=== PATIENT | female | born 1940 | race Caucasian/White ===

== ENCOUNTER 2024-08-24 20:57 | Emergency (ER) | payer MEDICARE, SELFPAY ==
[2024-08-24 21:03] VITALS: BP 133/67; PULSE 72; RESP 16; TEMP 36.8; O2SAT 98
[2024-08-24 21:10] VITALS: BP 133/67; PULSE 72; RESP 16; TEMP 36.8; O2SAT 98
--- NOTE | 2024-08-24 21:53 | W.ED.GENAD ---
Discharge Plan Disposition Patient Disposition: Transfer-Acute Inpatient Care Specific Acute Inpt Facility: [facility] Condition: Stable Discharge Details Clinical Impression: Anemia Primary Care Provider: Melba Vieira ED Provider: Piyush Suggs Home Meds and New Rx's Prescriptions: Continued amlodipine 5 mg tablet 5 mg PO DAILY hydrochlorothiazide 25 mg tablet 25 mg PO QDAY atorvastatin 20 mg tablet 20 mg PO DAILY omeprazole 20 mg capsule,delayed release(DR/EC) 20 mg PO DAILY zanubrutinib 80 mg capsule 80 mg PO DAILY Discharge Data Discharge Date/Time-TO BE ENTERED AT DEPARTURE: 08/24/24 22:53 HPI General Date/Time Provider Initiated Documentation: 08/24/24 21:09. HPI Narrative: 83 year-old female presents to ED today by POV/ambulating with a chief complaint of had labs drawn at [facility] earlier today- shows critical anemia with HgB of 6.2, in the setting of chronic Waldenstrom's macroglobulinemia. Patient was directed to come to [facility] by [facility] Hematology staff- [facility] is their usual facility, but stated they could not help the patient with any transfusion of irradiated blood. Quality described as mild dizziness when standing, no radiation to shortness of breath, recent URI, chest pain, palpitations, nausea. Severity is described as mild to moderate. Palliating factors include nothing specific attempted. Provoking factors include nothing specific. Events leading up to the incident/Associated Symptoms: Patient is about to start zanubrutinib, but has not initiated this medicine yet. Patient not anticoagulated. Related Data Home Medications ?Medication ?Instructions ?Recorded ?Confirmed amlodipine 5 mg tablet 5 mg PO DAILY 08/24/24 08/24/24 atorvastatin 20 mg tablet 20 mg PO DAILY 08/24/24 08/24/24 hydrochlorothiazide 25 mg tablet 25 mg PO QDAY 08/24/24 08/24/24 omeprazole 20 mg capsule,delayed 20 mg PO DAILY 08/24/24 08/24/24 release zanubrutinib 80 mg capsule 80 mg PO DAILY 08/24/24 08/24/24 Allergies Allergy/AdvReac Type Severity Reaction Status Date / Time codeine AdvReac Mild Itching Verified 08/24/24 21:09 General Stated Complaint: GenMedical KAY: 3 Review of Systems All systems reviewed & are unremarkable except as noted in HPI and below Exam Narrative Exam Narrative: GENERAL APPEARANCE: Well-nourished, non-toxic, awake and alert, atraumatic, no acute distress. SKIN: Warm, pink, dry, intact, without rashes/lesions/ulcerations. HEAD: Normocephalic, atraumatic, normal hair distribution for gender/age. EYES: Normal conjunctiva, no exudates on lids/lashes. ENT: Nares patent, no circumoral cyanosis, no facial swelling NECK: Supple, trachea midline, painless cervical ROM. LUNGS/CHEST: Lungs CTA bilaterally, non-labored respirations, normal A/P diameter, symmetrical expansion, no chest wall deformity HEART (CV/PV): Regular rate and rhythm without murmur, no peripheral edema, no JVD. ABDOMEN: Soft, non-distended, no guarding. MSK: Normal ROM, no swelling/deformity to bilateral UEs or LEs, moving all extremities without weakness, no cyanosis, spine midline without tenderness, normal curvature. NEURO: Mental Status AAOx4 - alert to person, place, time, events No facial droop, no forehead involvement. Motor: No focal weakness - strength 5/5 in bilateral UEs and LEs, proximal and distal, symmetric. Sensory: sensation intact to light touch globally. Gait normal: patient ambulated without ataxia into ED room. PSYCH: euthymic, cooperative, pleasant, appropriate speech Course Vital Signs Vital signs: Vital Signs Temperature 36.8 C 08/24/24 21:03 Pulse 72 08/24/24 21:03 Respiratory Rate 16 08/24/24 21:03 Blood Pressure 133/67 08/24/24 21:03 Pulse Oximetry 98 08/24/24 21:03 Temperature 36.8 C 08/24/24 21:10 Pulse 72 08/24/24 21:10 Respiratory Rate 16 08/24/24 21:10 Blood Pressure 133/67 08/24/24 21:10 Pulse Oximetry 98 08/24/24 21:10 Pain Level 0 08/24/24 21:10 Medical Decision Making This dictation utilizes [id number] dictation software and may contain unedited grammatical errors. 83 year-old female presents to ED today by POV/ambulating with a chief complaint of had labs drawn at [facility] earlier today- shows critical anemia with HgB of 6.2, in the setting of chronic Waldenstrom's macroglobulinemia. Patient was directed to come to [facility] by [facility] Hematology staff- [facility] is their usual facility, but stated they could not help the patient with any transfusion of irradiated blood. Quality described as mild dizziness when standing, no radiation to shortness of breath, recent URI, chest pain, palpitations, nausea. Severity is described as mild to moderate. Palliating factors include nothing specific attempted. Provoking factors include nothing specific. Events leading up to the incident/Associated Symptoms: Patient is about to start zanubrutinib, but has not initiated this medicine yet. Patients' medical history: Waldenstr?m's macroglobulinemia, pancytopenia. Family and social history: Lives independently, eats normal diet, no sick contacts. Pertinent exam findings / vital signs include benign cardiopulmonary status, stable vitals, neuro intact, benign abdomen. Differential / pathologies of concern include anemia. Diagnostic studies of: -CBC, CMP, type and screen. -Results after transfer- hypokalemia of 3.0, mild hyponatremia 134, SCr 1.3, unknown baseline -CBC shows HgB/HCT - 6.4, 19.8, faxed to [facility] after POV transfer -Type and Screen A POS Interventions of: -Consult with [facility] hematology-question need for irradiated blood products that she has not initiated chemotherapy yet. ED Course/Assessment/Plan: 83-year-old female presents with mild dizziness with standing, has a known Waldenstrom's macroglobulinemia- has had prior transfusions at [facility], followed by Heme/Onc there. Patient was directed to [facility] today for transfusion of irradiated blood- typically this is stars specialist'd in an urgent but not emergent manner and would likely be at this facility by midday tomorrow at the earliest. I would assume [facility] would have identical capability to provide this service. [facility] transfer center did speak with hematology who would like the patient sent ED to ED for transfusion of irradiated blood products. I did speak with EM attending Dr. Bradford at 220 who accepted for transfer- I will leave the patients peripheral IV in place as there is no risk for IVDU, and patient likely does not need to be poked again. Patient has a ride that can bring her to [facility]. She has required transfusions at this facility specifically in the past. Patient agrees with plan, CBC and Type and Screen are pending here at time of transfer. Findings not consistent with active bleeding. Disposition of Anemia. Patient verbalized understanding of the plan and return to ED criteria and engaged in shared decision making. Medical Records Medical records reviewed: Yes I reviewed the patient's medical records. Lab Data Lab results reviewed: Yes I reviewed the patient's lab results. Labs: Laboratory Tests Range/Units 08/24/24 22:06 WBC (4.4-10.8) 10^3/uL 3.21 L RBC (3.93-5.22) 10^6/uL 1.93 L Hgb (11.2-15.7) g/dL 6.4 L* Hct (36.0-46.0) % 19.8 L* MCV (80-95) fL 103 H MCH (27.0-33.0) pg 33.2 H MCHC (32.0-36.0) % 32.3 RDW (11.7-14.6) % 21.5 H Plt Count (130-400) 10^3/uL 101 L MPV (8.0-11.0) fL 9.5 Immature Gran % % 1.6 Neutrophils % % 48.9 Lymphocytes % % 37.4 Monocytes % % 10.6 Eosinophils % % 1.2 Basophils % % 0.3 Nucleated RBC % (0.0-0.3) % 0.6 H Absolute Neutrophils (1.2-6.7) 10^3/uL 1.57 Absolute Lymphocytes (1.2-3.4) 10^3/uL 1.20 Absolute Monocytes (0.1-0.8) 10^3/uL 0.34 Absolute Eosinophils (0.0-0.7) 10^3/uL 0.04 Absolute Basophils (0.0-0.2) 10^3/uL 0.01 RBC Morphology See Below Polychromasia Present Hypochromasia 2+ Poikilocytosis 2+ Anisocytosis 1+ Macrocytosis 1+ Sodium (136-145) mmol/L 134 L Potassium (3.5-5.1) mmol/L 3.0 L Chloride (98-107) mmol/L 97 L Carbon Dioxide (21.0-32.0) mmol/L 30.2 Anion Gap (3-11) mmol/L 6.8 BUN (7-18) mg/dL 21 H Creatinine (0.55-1.02) mg/dL 1.3 H Est GFR (CKD-EPI 2020) (mL/min/1.73m2) 40.55 Glucose (74-106) mg/dL 131 H Calcium (8.5-10.1) mg/dL 9.6 Total Bilirubin (0.2-1.0) mg/dL 0.52 AST (15-37) U/L 22 ALT (14-59) U/L 17 Alkaline Phosphatase (46-116) U/L 65 Total Protein (6.4-8.2) g/dL 11.7 H Albumin (3.4-5.0) g/dL 3.3 L ABO/Rh Cancelled Antibody Screen Cancelled Quality:SDOH Health Related Social Needs: No Data to Display PFSH All Active Problems (Updated 08/24/24 @ 22:18 by JERRY Suarez) Anemia (Chronic) Social History Smoking/Tobacco Use Status: Never Smoking risk assessment performed?: Yes Alcohol Intake: current Alcohol Intake frequency: holidays/special occasions only Alcohol type: wine Drug use: Never Substance use type: does not use Housing: house
[2024-08-24 22:11] VITALS: RESP 18
--- OUTSIDE RECORDS SUMMARY | 2024-08-24 22:13 | XMS_ITS ---
Author Organization Unknown Address [address] [place] [address] [phone] Phone Care Team Providers Care Intake Manager Name Role Phone DELLA CRESPO Attending Unavailable Results CALCIUM SERUM TOTAL - Collec t Date/Time: 09/25/2021 13:15 [facility] ID: [id number] [address] [place] [address], [address] LOINC: 80498-3 Test Value Unit Reference Range Code Code System Flag CALCIUM SERUM 9.7 mg/dL L=8.2 H=10.2 07256-9 LOINC CREATININE SERUM - Collect D ate/Time: 09/25/2021 13:15 [facility] ID: [id number] [address] [place] [address], [address] LOINC: 2160-0 Test Value Unit Reference Range Code Code System Flag CREATININE 0.75 mg/dL L=0.51 H=0.95 2160-0 LOINC AGE 81 years eGFR (non-Afr.Amer.) 74 mL/min 44182-4 LOINC eGFR (Afr-[place]i) 90 mL/min 10473-3 LOINC Social History Type Status Start Date End Date Code Code Syst em Smoking History Never smoker (Never Smoked) 639809889 SNOMED CT Sex Female Hospital Discharge Instructions Should you have any questions prior to discharge, please contact a member of your healthcare team. If you have left the hospital and have any questions, please contact your primary care physician. Reason For Referral No Data Found Allergies and Adverse Reactions Allergy Substance Reaction Severity Start Date Concern Status Co de Code System CODEINE Active 7394 RxNorm Plan of Treatment LAB DRAW 15MIN 08/01/2024 LAB DRAW 15MIN 07/25/2024 LAB DRAW 15MIN 07/18/2024 LAB DRAW 15MIN 07/01/2024 LAB DRAW 15MIN 06/24/2023 X-RAY 12/10/2021 Encounters Encounter Diagnosis Start Date Code Code Sys tem Other specified disorders of bone density and structure, unspecified site 09/25/2021 SNOMED-CT Personal Care Team Section Performer Name Performer Role Active Date Inactive Tavon te
--- OUTSIDE RECORDS SUMMARY | 2024-08-24 22:14 | XMS_ITS ---
Author Organization Unknown Address [address] [place] [address] [phone] Phone Care Team Providers Care Collection Analyst Name Role Phone LISETH GARCIA Attending Unavailable KIRSTEN Orellana Primary Unavailable Results XR PELVIS AND HIP LAT LT - C ompleted: 12/10/2021 13:26 LOINC: PELVIS AND LEFT HIP, 2 VIEWS : No priors. In the left hip, there is moderate joint space narrowing. The bones are intact and normally mineralized. The sacroiliac joints are well maintained, as is the symphysis pubis. In the right hip, mild joint space narrowing is present. IMPRESSION: Moderate joint space narrowing of the left hip. Dictated by: RICARDO MERIDA MD Transcribed by: REYNOLD 12/11/21/14:30 [id number] Electronically Reviewed and Signed By: ANTOINE MERIDA MD 12/13/21 09:40 Copy for: LISETH GARCIA via fax Copy for: 185 HEALTH INFORMATION MGMT Social History Type Status Start Date End Date Code Code Syst em Smoking History Never smoker (Never Smoked) 802579552 SNOMED CT Sex Female Hospital Discharge Instructions Should you have any questions prior to discharge, please contact a member of your healthcare team. If you have left the hospital and have any questions, please contact your primary care physician. Reason For Referral No Data Found Allergies and Adverse Reactions Allergy Substance Reaction Severity Start Date Concern Status Co de Code System CODEINE Active 2710 RxNorm Plan of Treatment LAB DRAW 15MIN 08/01/2024 LAB DRAW 15MIN 07/25/2024 LAB DRAW 15MIN 07/18/2024 LAB DRAW 15MIN 07/01/2024 LAB DRAW 15MIN 06/24/2023 X-RAY 12/10/2021 Encounters Encounter Diagnosis Start Date Code Code Sys tem Unilateral primary osteoarthritis, left hip 12/10/2021 SNOMED-CT Personal Care Team Section Performer Name Performer Role Active Date Inactive Da te
--- OUTSIDE RECORDS SUMMARY | 2024-08-24 22:14 | XMS_ITS ---
Author Organization Unknown Address [address] [place] [address] [phone] Phone Care Team Providers Care Communication Coordinator Name Role Phone KIRSTEN Orellana Attending Unavailable Results BASIC METABOLIC PANEL (BMP) - Collect Date/Time: 06/24/2023 10:11 [facility] ID: [id number] [address] [place] [address], [address] LOINC: 67160-3 Test Value Unit Reference Range Code Code System Flag GLUCOSE 107 mg/dL L=70 H=116 2345-7 LOINC BUN 27 mg/dL L=6 H=25 3094-0 LOINC H CREATININE 0.83 mg/dL L=0.51 H=0.95 2160-0 LOINC SODIUM SERUM 141 mmol/L L=136 H=145 2951-2 LOINC POTASSIUM SERUM 3.4 mmol/L L=3.4 H=5.2 2823-3 LOINC CHLORIDE SERUM 101 mmol/L L=96 H=110 2075-0 LOINC CARBON DIOXIDE (CO2) 32 mmol/L L=22 H=34 2028-9 LOINC ANION GAP 7.7 mmol/L 53819-0 LOINC CALCIUM SERUM 9.3 mg/dL L=8.2 H=10.2 26905-0 LOINC AGE 82 years eGFR (non-Afr.Amer.) 66 mL/min 14387-4 LOINC eGFR (Afr-Italian) 79 mL/min 76078-1 LOINC Social History Type Status Start Date End Date Code Code Syst em Smoking History Never smoker (Never Smoked) 916389496 SNOMED CT Sex Female Hospital Discharge Instructions Should you have any questions prior to discharge, please contact a member of your healthcare team. If you have left the hospital and have any questions, please contact your primary care physician. Reason For Referral No Data Found Allergies and Adverse Reactions Allergy Substance Reaction Severity Start Date Concern Status Co de Code System CODEINE Active 7014 RxNorm Plan of Treatment LAB DRAW 15MIN 08/01/2024 LAB DRAW 15MIN 07/25/2024 LAB DRAW 15MIN 07/18/2024 LAB DRAW 15MIN 07/01/2024 LAB DRAW 15MIN 06/24/2023 X-RAY 12/10/2021 Encounters Encounter Diagnosis Start Date Code Code Sys tem Essential (primary) hypertension 06/24/2023 SNOMED-CT Personal Care Team Section Performer Name Performer Role Active Date Inactive Da te
--- OUTSIDE RECORDS SUMMARY | 2024-08-24 22:15 | XMS_ITS ---
Author Organization Unknown Address [address] [place] [address] [phone] Phone Care Team Providers Care Test Deck Supervisor Name Role Phone KIRSTEN Orellana Attending Unavailable Results CBC W/ DIFFERENTIAL* - Colle ct Date/Time: 07/04/2024 10:14 [facility] ID: [id number] [address] [place], [place], [address] LOINC: 28267-3 Test Value Unit Reference Range Code Code System Flag WBC 3.37 th/cmm L=5.00 H=10.00 6690-2 LOINC L NEUT % 39.2 % L=40.0 H=80.0 L LYMPH % 42.7 % L=10.0 H=50.0 MONO % 15.4 % L=2.0 H=12.0 56330-9 LOINC H EOS % 1.5 % L=0.0 H=8.0 BASO % 0.3 % L=0.0 H=3.0 IG % 0.9 % L=0.0 H=1.1 2514-8 LOINC NRBC % 0.0 % L=0.0 H=0.0 49068-9 LOINC NEUT abs count 1.3 th/cmm L=1.6 H=8.4 751-8 LOINC L LYMPH abs count 1.4 th/cmm L=1.5 H=4.0 731-0 LOINC L MONO abs count 0.5 th/cmm L=0.2 H=1.0 742-7 LOINC EOS abs count 0.1 th/cmm L=0.0 H=0.5 711-2 LOINC BASO abs count 0.0 th/cmm L=0.0 H=0.2 704-7 LOINC IG abs count 0.0 th/cmm L=0.0 H=0.1 94746-9 LOINC NRBC abs count 0.0 mil/cmm L=0.0 H=0.0 36079-4 LOINC RBC 1.82 mil/cmm L=3.90 H=5.40 789-8 LOINC L HEMOGLOBIN 7.1 gm/dL L=12.0 H=16.0 718-7 LOINC L HEMATOCRIT 19 % L=37 H=47 4544-3 LOINC LL MCV 103 fL L=82 H=92 787-2 LOINC H MCH 39.0 pg L=27.0 H=31.0 785-6 LOINC H MCHC 37.8 % L=32.0 H=36.0 786-4 LOINC H RDW-SD 70.3 fL L=39.0 H=49.0 788-0 LOINC H PLATELET COUNT 113 th/cmm L=150 H=450 777-3 LOINC L Giant plts PRESENT Rouleaux present Anisocytosis 2+ Microcytes 2+ Macrocytes 1+ Polychromia 1+ Spherocytes 1+ FERRITIN - Collect Date/Time : 07/04/2024 10:14 [facility] ID: [id number] [address] [place] [address], [address] LOINC: 2276-4 Test Value Unit Reference Range Code Code System Flag FERRITIN 60.90 ng/mL L=11.10 H=264 2276-4 LOINC IRON BINDING CAPACITY - Jaylin ect Date/Time: 07/04/2024 10:14 [facility] ID: [id number] [address] [place] [address], [address] LOINC: 2500-7 Test Value Unit Reference Range Code Code System Flag IBC 285 ug/dL L=265 H=497 2500-7 LOINC IRON - Collect Date/Time: 10:14 [facility] ID: [id number] [address] [place] [address], [id number] LOINC: 2498-4 Test Value Unit Reference Range Code Code System Flag IRON 121 ug/dL L=37 H=170 2498-4 LOINC Social History Type Status Start Date End Date Code Code Syst em Smoking History Never smoker (Never Smoked) [id number] SNOMED CT Sex Female Hospital Discharge Instructions Should you have any questions prior to discharge, please contact a member of your healthcare team. If you have left the hospital and have any questions, please contact your primary care physician. Reason For Referral No Data Found Allergies and Adverse Reactions Allergy Substance Reaction Severity Start Date Concern Status Co de Code System CODEINE Active 2772 RxNorm Plan of Treatment LAB DRAW 15MIN 08/01/2024 LAB DRAW 15MIN 07/25/2024 LAB DRAW 15MIN 07/18/2024 LAB DRAW 15MIN 07/01/2024 LAB DRAW 15MIN 06/24/2023 X-RAY 12/10/2021 Encounters Encounter Diagnosis Start Date Code Code Sys tem Anemia 07/04/2024 [id number] SNOMED-CT Personal Care Team Section Performer Name Performer Role Active Date Inactive Da te
--- OUTSIDE RECORDS SUMMARY | 2024-08-24 22:15 | XMS_ITS ---
Author Organization Unknown Address [address] [place] [address] [phone] Phone Care Team Providers Care Websphere Process Server Developer Name Role Phone DALY GUERRERO Attending Unavailable KIRSTEN Orellana Primary Unavailable Results COMPREHENSIVE METABOLIC PANE L (CMP) - Collect Date/Time: 07/01/2024 11:07 [facility] ID: [id number] [address] [place], [place], [address] LOINC: 32923-1 Test Value Unit Reference Range Code Code System Flag GLUCOSE 117 mg/dL L=70 H=116 2345-7 LOINC H BUN 21 mg/dL L=7 H=17 3094-0 LOINC H CREATININE 0.96 mg/dL L=0.52 H=1.04 2160-0 LOINC SODIUM SERUM 141 mmol/L L=136 H=145 2951-2 LOINC POTASSIUM SERUM 3.3 mmol/L L=3.4 H=5.2 2823-3 LOINC L CHLORIDE SERUM 101 mmol/L L=98 H=107 2075-0 LOINC CARBON DIOXIDE (CO2) 28 mmol/L L=22 H=30 2028-9 LOINC ANION GAP 12.0 mmol/L 74694-1 LOINC CALCIUM SERUM 10.0 mg/dL L=8.4 H=10.2 25721-3 LOINC BILIRUBIN TOTAL 0.6 mg/dL L=0.2 H=1.3 1975-2 LOINC ALK. PHOS. 71 U/L L=38 H=126 6768-6 LOINC SGOT (AST) 37 U/L L=14 H=36 1920-8 LOINC H SGPT (ALT) 26 U/L L=4 H=35 1742-6 LOINC TOTAL PROTEIN 11.7 gm/dL L=6.0 H=8.0 2885-2 [facility] H ALBUMIN 4.7 gm/dL L=3.4 H=5.0 1751-7 LOINC AGE 83 years eGFR (non-Afr.Amer.) 55 mL/min 55970-0 LOINC eGFR (Afr-[place] Islander) 67 mL/min 16080-8 [facility] IRON - Collect Date/Time: 11:07 [facility] ID: [id number] [address] [place] [address], [id number] LOINC: 2498-4 Test Value Unit Reference Range Code Code System Flag IRON 122 ug/dL L=37 H=170 2498-4 [facility] CPK SERUM TOTAL* - Collect D ate/Time: 07/01/2024 11:07 [facility] ID: [id number] [address] [place] [address], [address] LOINC: 2157-6 Test Value Unit Reference Range Code Code System Flag CPK 91 U/L L=30 H=135 2157-6 [facility] Specimen seq. RANDOM HEMOGLOBIN A1C* - Collect Da te/Time: 07/01/2024 11:07 [facility] ID: [id number] [address] [place] [address], [address] LOINC: 4548-4 Test Value Unit Reference Range Code Code System Flag Hgb A1c 5.1 % L=4.0 H=5.7 4548-4 [facility] MEAN BLOOD GLUCOSE 84 mg/dL 10963-9 [facility] THYROID TESTING CASCADE* - C ollect Date/Time: 07/01/2024 11:07 [facility] ID: [id number] [address] [place] [address], [address] LOINC: 3016-3 Test Value Unit Reference Range Code Code System Flag TSH. 3.380 uIU/mL L=0.465 H=4.680 3014-8 [facility] CBC W/ DIFFERENTIAL* - Colle ct Date/Time: 07/01/2024 11:07 [facility] ID: [id number] [address] [place], [place], [address] LOINC: 15214-6 Test Value Unit Reference Range Code Code System Flag WBC 3.25 th/cmm L=5.00 H=10.00 6690-2 LOINC L NEUT % 46.5 % L=40.0 H=80.0 LYMPH % 38.8 % L=10.0 H=50.0 MONO % 11.7 % L=2.0 H=12.0 08730-4 LOINC EOS % 1.2 % L=0.0 H=8.0 BASO % 0.6 % L=0.0 H=3.0 IG % 1.2 % L=0.0 H=1.1 2514-8 LOINC H NRBC % 0.6 % L=0.0 H=0.0 26241-1 LOINC H NEUT abs count 1.5 th/cmm L=1.6 H=8.4 751-8 LOINC L LYMPH abs count 1.3 th/cmm L=1.5 H=4.0 731-0 LOINC L MONO abs count 0.4 th/cmm L=0.2 H=1.0 742-7 LOINC EOS abs count 0.0 th/cmm L=0.0 H=0.5 711-2 LOINC BASO abs count 0.0 th/cmm L=0.0 H=0.2 704-7 LOINC IG abs count 0.0 th/cmm L=0.0 H=0.1 57000-1 LOINC NRBC abs count 0.0 mil/cmm L=0.0 H=0.0 22558-1 LOINC RBC 1.90 mil/cmm L=3.90 H=5.40 789-8 LOINC L HEMOGLOBIN 7.4 gm/dL L=12.0 H=16.0 718-7 LOINC L HEMATOCRIT 20 % L=37 H=47 4544-3 LOINC LL MCV 103 fL L=82 H=92 787-2 LOINC H MCH 38.9 pg L=27.0 H=31.0 785-6 LOINC H MCHC 37.9 % L=32.0 H=36.0 786-4 LOINC H RDW-SD 69.0 fL L=39.0 H=49.0 788-0 LOINC H PLATELET COUNT 117 th/cmm L=150 H=450 777-3 LOINC L Giant plts present Rouleaux present Anisocytosis 2+ Macrocytes 1+ Hypochromia 2+ Polychromia 1+ Social History Type Status Start Date End Date Code Code Syst em Smoking History Never smoker (Never Smoked) [id number] SNOMED CT Sex Female Hospital Discharge Instructions Should you have any questions prior to discharge, please contact a member of your healthcare team. If you have left the hospital and have any questions, please contact your primary care physician. Reason For Referral No Data Found Allergies and Adverse Reactions Allergy Substance Reaction Severity Start Date Concern Status Co de Code System CODEINE Active 3684 RxNorm Plan of Treatment LAB DRAW 15MIN 08/01/2024 LAB DRAW 15MIN 07/25/2024 LAB DRAW 15MIN 07/18/2024 LAB DRAW 15MIN 07/01/2024 LAB DRAW 15MIN 06/24/2023 X-RAY 12/10/2021 Encounters Encounter Diagnosis Start Date Code Code Sys tem Asthenia 07/01/2024 [id number] SNOMED-CT Personal Care Team Section Performer Name Performer Role Active Date Inactive Tavon diaz
--- OUTSIDE RECORDS SUMMARY | 2024-08-24 22:15 | XMS_ITS ---
Author Organization Unknown Address [address] [place] [address] [phone] Phone Care Team Providers Care Still Cleaner Tube Name Role Phone FITO Jacobs NEFTALI Registered Nurse Unavailab joanie MARTINEZ Attending Unavailable [facility] Unavailable TROUT ALEXSANDRA C Primary Unavailable UNLISTED PROVIDER - REQUESTED Xhandoff Un available Results URINALYSIS WITH MICRO AND RE FLEX CULTUR* - Collect Date/Time: 07/04/2024 18:35 [facility] ID: [id number] [address] [place], [place], [address] LOINC: 41784-9 Test Value Unit Reference Range Code Code System Flag COLLECTION MODE: CLEAN CATCH 74102-0 LOINC Color STRAW yellow 5778-6 LOINC Appearance CLEAR clear 5767-9 LOINC Glucose urine NEGATIVE negative mg/dl 76007-3 LOINC Bilirubin NEGATIVE negative 5770-3 LOINC Ketones NEGATIVE negative mg/dl 2514-8 LOINC Spec gravity 1.015 1.003 - 1.030 5811-5 LOINC pH urine 7.0 5.0 - 7.0 2756-5 LOINC Protein NEGATIVE negative mg/dl 81088-6 LOINC Urobilinogen 0.2 <or= 1 EU/dl 74264-2 LOINC Nitrite. NEGATIVE negative 5802-4 LOINC Blood NEGATIVE negative 5794-3 LOINC Leukocytes. TRACE negative A WBCs. 0-5 0-5 / hpf 89742-9 LOINC RBCs 0-5 0-5 / hpf 34458-2 LOINC Epith cells 0-5 0-5 / hpf 47332-0 LOINC Cell types squam+trans Crystals none none Bacteria minimal none Mucus none none Casts none none /lpf Other PT PROTHROMBIN TIME* - Colle ct Date/Time: 07/04/2024 17:43 [facility] ID: [id number] [address] [place] [address], [address] LOINC: 5902-2 Test Value Unit Reference Range Code Code System Flag PROTIME 10.5 seconds L=9.3 H=11.4 5902-2 LOINC INR 1.00 L=2.00 H=3.00 27441-2 LOINC L PTT PARTIAL THROMBOPLASTIN T KJ* - Collect Date/Time: 07/04/2024 17:43 [facility] ID: [id number] [address] [place] [address], [address] LOINC: 42312-1 Test Value Unit Reference Range Code Code System Flag PTT 21.6 seconds L=24.5 H=32.8 82467-1 LOINC L COMPREHENSIVE METABOLIC PANE L (CMP) - Collect Date/Time: 07/04/2024 17:43 [facility] ID: [id number] [address] [place] [address], [address] LOINC: 76356-2 Test Value Unit Reference Range Code Code System Flag GLUCOSE 108 mg/dL L=70 H=116 2345-7 LOINC BUN 18 mg/dL L=7 H=17 3094-0 LOINC H CREATININE 0.99 mg/dL L=0.52 H=1.04 2160-0 LOINC SODIUM SERUM 143 mmol/L L=136 H=145 2951-2 LOINC POTASSIUM SERUM 3.7 mmol/L L=3.4 H=5.2 2823-3 LOINC CHLORIDE SERUM 102 mmol/L L=98 H=107 2075-0 LOINC CARBON DIOXIDE (CO2) 30 mmol/L L=22 H=30 2028-9 LOINC ANION GAP 11.1 mmol/L 78157-8 LOINC CALCIUM SERUM 10.8 mg/dL L=8.4 H=10.2 49192-3 LOINC H BILIRUBIN TOTAL 0.4 mg/dL L=0.2 H=1.3 1975-2 LOINC ALK. PHOS. 89 U/L L=38 H=126 6768-6 LOINC SGOT (AST) 44 U/L L=14 H=36 1920-8 LOINC H SGPT (ALT) 25 U/L L=4 H=35 1742-6 LOINC TOTAL PROTEIN 12.7 gm/dL L=6.0 H=8.0 2885-2 LOINC HH ALBUMIN 4.6 gm/dL L=3.4 H=5.0 1751-7 LOINC AGE 83 years eGFR (non-Afr.Amer.) 53 mL/min 68437-0 LOINC eGFR (Afr-Pakistani) 65 mL/min 38133-1 LOINC TYPE AND SCREEN* - Collect D ate/Time: 07/04/2024 17:43 [facility] ID: [id number] [address] [place], [place], [phone] LOINC: Test Value Unit Reference Range Code Code System Flag Blood Group A 883-9 LOINC Rh (D) POSITIVE 85747-7 LOINC Antibody Screen NEGATIVE 1005-8 LOINC CBC W/ DIFFERENTIAL* - Colle ct Date/Time: 07/04/2024 17:43 [facility] ID: [id number] [address] [place] [address], [address] LOINC: 60557-9 Test Value Unit Reference Range Code Code System Flag WBC 3.55 th/cmm L=5.00 H=10.00 6690-2 LOINC L NEUT % 44.2 % L=40.0 H=80.0 LYMPH % 41.7 % L=10.0 H=50.0 MONO % 12.4 % L=2.0 H=12.0 02464-9 LOINC H EOS % 0.6 % L=0.0 H=8.0 BASO % 0.3 % L=0.0 H=3.0 IG % 0.8 % L=0.0 H=1.1 2514-8 LOINC NRBC % 0.6 % L=0.0 H=0.0 64924-7 LOINC H NEUT abs count 1.6 th/cmm L=1.6 H=8.4 751-8 LOINC LYMPH abs count 1.5 th/cmm L=1.5 H=4.0 731-0 LOINC MONO abs count 0.4 th/cmm L=0.2 H=1.0 742-7 LOINC EOS abs count 0.0 th/cmm L=0.0 H=0.5 711-2 LOINC BASO abs count 0.0 th/cmm L=0.0 H=0.2 704-7 LOINC IG abs count 0.0 th/cmm L=0.0 H=0.1 47161-2 LOINC NRBC abs count 0.0 mil/cmm L=0.0 H=0.0 67387-7 LOINC RBC 2.20 mil/cmm L=3.90 H=5.40 789-8 LOINC L HEMOGLOBIN 8.4 gm/dL L=12.0 H=16.0 718-7 LOINC L HEMATOCRIT 23 % L=37 H=47 4544-3 LOINC LL MCV 103 fL L=82 H=92 787-2 LOINC H MCH 38.2 pg L=27.0 H=31.0 785-6 LOINC H MCHC 37.2 % L=32.0 H=36.0 786-4 LOINC H RDW-SD 71.0 fL L=39.0 H=49.0 788-0 LOINC H PLATELET COUNT 133 th/cmm L=150 H=450 777-3 LOINC L Rouleaux present Anisocytosis 2+ Hypochromia 1+ Polychromia 1+ XR CHEST 2V PA AND LATERAL - Completed: 07/04/2024 20:41 LOINC: [facility] RADIOLOGY [place], [place] [address] RADIOLOGY VAT PACKER REPORT Patient Name: NARDA REDD MRN: Sex: : Age: [id number] F 1940 83 Account: Accession: Admit: StayType: [id number] 07/04/2024 E Ordered: Order ID: Submitted: Ordering Provider: 07/04/2024 20:04 [id number] TASHA BOWERS Completed: Technologist: Resulted: 07/04/2024 20:17 KVK 07/04/2024 21:04 EXAMINATION: XR CHEST 2V PA AND LATERAL CLINICAL HISTORY: Reason for Chest: SOB Add'l Info: TECHNIQUE: PA and lateral views of the chest, 2 images COMPARISON: None FINDINGS: EKG leads are present. No airspace opacity to suggest pneumonia. No pulmonary vascular congestion. No pneumothorax. No pleural effusions. Normal size of the cardiomediastinal silhouette and bernabe. There is calcification of the aortic arch. 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 No acute osseous findings. There are some flattening of the diaphragms on the lateral view. IMPRESSION: 1. Hyperexpansion suggesting underlying obstructive pulmonary disease. 2. No acute cardiopulmonary process. Thank you for letting us participate in the care of this patient. If you are a health care provider and have any questions regarding this report, please contact the number below. For patients who have questions please contact the health wound care technician that requested your imaging first. Social History Type Status Start Date End Date Code Code Syst em Smoking History Never smoker (Never Smoked) 931370128 SNOMED CT Sex Female Vital Signs Vital Sign Value Unit Chicot Value Chicot Unit Date/Time Recent/Initial? Code Code System Body Mass Index 23.63 kg/m2 07/04/2024 14:59 Initial 56922 -5 LOINC Systolic Blood Pressure 149 mm[Hg] 07/04/2024 19:12 Most Recent 8480- 6 LOINC Diastolic Blood Pressure 70 mm[Hg] 07/04/2024 19:12 Most Recent 8462- 4 LOINC Systolic Blood Pressure 146 mm[Hg] 07/04/2024 14:59 Initial 8480- 6 LOINC Diastolic Blood Pressure 65 mm[Hg] 07/04/2024 14:59 Initial 8462- 4 LOINC Body Surface Area 1.88 m2 07/04/2024 14:59 Initial 3140- 1 LOINC Height 175.260 0 cm 69.00 in 07/04/2024 14:59 Initial 8302- 2 LOINC O2 Saturation 100 % 2023 19:12 Most Recent 40770 -5 LOINC O2 Saturation 100 % 2023 14:59 Initial 11941 -5 LOINC Pulse 65.0 /min 07/04/2024 19:12 Most Recent 8867- 4 LOINC Pulse 74.0 /min 07/04/2024 14:59 Initial 8867- 4 LOINC Respiration 16 /min 07/04/20 19:12 Most Recent 9279- 1 LOINC Respiration 16 /min 07/04/20 14:59 Initial 9279- 1 LOINC Temperature 36.4 Talya 97.5 F 07/04/20 14:59 Initial 8310- 5 LOINC Weight 72.57 kg 160.00 lbs 07/04/2024 14:59 Initial 55214 -7 [facility] Hospital Discharge Instructions Should you have any questions prior to discharge, please contact a member of your healthcare team. If you have left the hospital and have any questions, please contact your primary care physician. Reason For Referral No Data Found Allergies and Adverse Reactions Allergy Substance Reaction Severity Start Date Concern Status Co de Code System CODEINE Active 2943 RxNorm Plan of Treatment LAB DRAW 15MIN 08/01/2024 LAB DRAW 15MIN 07/25/2024 LAB DRAW 15MIN 07/18/2024 LAB DRAW 15MIN 07/01/2024 LAB DRAW 15MIN 06/24/2023 X-RAY 12/10/2021 Encounters Encounter Diagnosis Start Date Code Code Sys tem Anemia, unspecified 07/04/2024 SNOMED-C T Personal Care Team Section Performer Name Performer Role Active Date Inactive Da te Imaging Narrative Notes [facility] RADIOLOGY [place], [place] [address] RADIOLOGY VAT PACKER REPORT Patient Name: NARDA REDD MRN: Sex: : Age: [id number] F 1940 83 Account: Accession: Admit: StayType: [id number] 07/04/2024 E Ordered: Order ID: Submitted: Ordering Provider: 07/04/2024 20:04 [id number] TASHA BOWERS Completed: Technologist: Resulted: 07/04/2024 20:17 KVK 07/04/2024 21:04 EXAMINATION: XR CHEST 2V PA AND LATERAL CLINICAL HISTORY: Reason for Chest: SOB Add'l Info: TECHNIQUE: PA and lateral views of the chest, 2 images COMPARISON: None FINDINGS: EKG leads are present. No airspace opacity to suggest pneumonia. No pulmonary vascular congestion. No pneumothorax. No pleural effusions. Normal size of the cardiomediastinal silhouette and bernabe. There is calcification of the aortic arch. 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 No acute osseous findings. There are some flattening of the diaphragms on the lateral view. IMPRESSION: 1. Hyperexpansion suggesting underlying obstructive pulmonary disease. 2. No acute cardiopulmonary process. Thank you for letting us participate in the care of this patient. If you are a health care provider and have any questions regarding this report, please contact the number below. For patients who have questions please contact the health wound care technician that requested your imaging first. Laboratory Narrative Notes [facility] \[id number]\\DRAo\\[id number]\ \MRLo\ [address] [address] ----PATIENT NAME---- SEX AGE ADMIT M/R# PATIENT# RM/LOC TYPE TRAMAINE Penaloza 83 [id number] E/R ORD: MEGAN CORDOVA ATT: [place] SEC: MAYA: KIRSTEN RODRIGUEZ PHONE: ---PROCEDURE--- TYPE AND SCREEN* --ORDERED-- --COLLECTED-- --REC'D-- --RESULTED-- --VERIFIED--- 07/04/24183507/04/[id number]/04/24184207/04/24194507/04/241946 [facility] SRM SRM \MRHx\ BLOOD TYPE AND ANTIBODY SCREEN { Blood Group A_ 07/04/24.1945.SRM. . .M 883-9 { Rh (D) POSITIVE_ 07/04/24.SRM. . .M 42211-8 { Antibody Screen NEGATIVE_ 07/04/24.SRM. . .M 1005-8 Valid thru date: _07/07/24____ 07/04/24.1945.SRM. time: 07/04/24.SRM. 07/04/24.1946.SRM.COMPLETE 07/07/24.T.REVIEWED
--- OUTSIDE RECORDS SUMMARY | 2024-08-24 22:15 | XMS_ITS ---
Author Organization Unknown Address [address] [place] [address] [phone] Phone Care Team Providers Care Storeroom Clerk Name Role Phone KIRSTEN Orellana Attending Unavailable Social History Type Status Start Date End Date Code Code Syst em Smoking History Never smoker (Never Smoked) [id number] SNOMED CT Sex Female Hospital Discharge Instructions Should you have any questions prior to discharge, please contact a member of your healthcare team. If you have left the hospital and have any questions, please contact your primary care physician. Reason For Referral No Data Found Allergies and Adverse Reactions Allergy Substance Reaction Severity Start Date Concern Status Co de Code System CODEINE Active 1971 RxNorm Plan of Treatment LAB DRAW 15MIN 08/01/2024 LAB DRAW 15MIN 07/25/2024 LAB DRAW 15MIN 07/18/2024 LAB DRAW 15MIN 07/01/2024 LAB DRAW 15MIN 06/24/2023 X-RAY 12/10/2021 Personal Care Team Section Performer Name Performer Role Active Date Inactive Da joe
--- OUTSIDE RECORDS SUMMARY | 2024-08-24 22:16 | XMS_ITS ---
Author Organization Unknown Address [address] [place] [address] [phone] Phone Care Team Providers Care Compressed Gas Tester Name Role Phone TONI Rush Attending Unavailable KIRSTEN Orellana Primary Unavailable Results CBC W/ DIFFERENTIAL* - Colle ct Date/Time: 08/01/2024 10:58 [facility] ID: [id number] [address] [place], [place], [address] LOINC: 35178-7 Test Value Unit Reference Range Code Code System Flag WBC 3.25 th/cmm L=5.00 H=10.00 6690-2 LOINC L NEUT % 42.0 % L=40.0 H=80.0 LYMPH % 41.8 % L=10.0 H=50.0 MONO % 12.9 % L=2.0 H=12.0 74233-7 LOINC H EOS % 1.8 % L=0.0 H=8.0 BASO % 0.6 % L=0.0 H=3.0 IG % 0.9 % L=0.0 H=1.1 2514-8 LOINC NRBC % 0.0 % L=0.0 H=0.0 50473-4 LOINC NEUT abs count 1.4 th/cmm L=1.6 H=8.4 751-8 LOINC L LYMPH abs count 1.4 th/cmm L=1.5 H=4.0 731-0 LOINC L MONO abs count 0.4 th/cmm L=0.2 H=1.0 742-7 LOINC EOS abs count 0.1 th/cmm L=0.0 H=0.5 711-2 LOINC BASO abs count 0.0 th/cmm L=0.0 H=0.2 704-7 LOINC IG abs count 0.0 th/cmm L=0.0 H=0.1 84563-5 LOINC NRBC abs count 0.0 mil/cmm L=0.0 H=0.0 03880-2 LOINC RBC 2.25 mil/cmm L=3.90 H=5.40 789-8 LOINC L HEMOGLOBIN 8.5 gm/dL L=12.0 H=16.0 718-7 LOINC L HEMATOCRIT 23 % L=37 H=47 4544-3 LOINC LL MCV 100 fL L=82 H=92 787-2 LOINC H MCH 37.8 pg L=27.0 H=31.0 785-6 LOINC H MCHC 37.6 % L=32.0 H=36.0 786-4 LOINC H RDW-SD 70.5 fL L=39.0 H=49.0 788-0 LOINC H PLATELET COUNT 132 th/cmm L=150 H=450 777-3 LOINC L Rouleaux present Anisocytosis 2+ Microcytes 1+ Macrocytes 1+ Polychromia 1+ Hypochromia 1+ Giant plts present Social History Type Status Start Date End Date Code Code Syst em Smoking History Never smoker (Never Smoked) 998075026 SNOMED CT Sex Female Hospital Discharge Instructions Should you have any questions prior to discharge, please contact a member of your healthcare team. If you have left the hospital and have any questions, please contact your primary care physician. 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
--- OUTSIDE RECORDS SUMMARY | 2024-08-24 22:16 | XMS_ITS ---
Author Organization Unknown Address [address] [place] [address] [phone] Phone Care Team Providers Care Bakery Assistant Name Role Phone TONI Rush Attending Unavailable KIRSTEN Orellana Primary Unavailable Results TYPE AND SCREEN* - Collect D ate/Time: 07/25/2024 09:11 [facility] ID: [id number] [address] [place] [address], [phone] LOINC: Test Value Unit Reference Range Code Code System Flag Blood Group A 883-9 LOINC Rh (D) POSITIVE 78286-0 LOINC Antibody Screen NEGATIVE 1005-8 LOINC CBC W/ DIFFERENTIAL* - Colle ct Date/Time: 07/25/2024 09:11 [facility] ID: [id number] [address] [place] [address], [address] LOINC: 74323-3 Test Value Unit Reference Range Code Code System Flag WBC 3.07 th/cmm L=5.00 H=10.00 6690-2 LOINC L NEUT % 44.0 % L=40.0 H=80.0 LYMPH % 41.0 % L=10.0 H=50.0 MONO % 11.4 % L=2.0 H=12.0 82469-1 LOINC EOS % 1.6 % L=0.0 H=8.0 BASO % 0.7 % L=0.0 H=3.0 IG % 1.3 % L=0.0 H=1.1 2514-8 LOINC H NRBC % 0.0 % L=0.0 H=0.0 60573-6 LOINC NEUT abs count 1.4 th/cmm L=1.6 H=8.4 751-8 LOINC L LYMPH abs count 1.3 th/cmm L=1.5 H=4.0 731-0 LOINC L MONO abs count 0.4 th/cmm L=0.2 H=1.0 742-7 LOINC EOS abs count 0.1 th/cmm L=0.0 H=0.5 711-2 LOINC BASO abs count 0.0 th/cmm L=0.0 H=0.2 704-7 LOINC IG abs count 0.0 th/cmm L=0.0 H=0.1 13604-8 LOINC NRBC abs count 0.0 mil/cmm L=0.0 H=0.0 40079-6 LOINC RBC 2.37 mil/cmm L=3.90 H=5.40 789-8 LOINC L HEMOGLOBIN 8.8 gm/dL L=12.0 H=16.0 718-7 LOINC L HEMATOCRIT 24 % L=37 H=47 4544-3 LOINC LL MCV 100 fL L=82 H=92 787-2 LOINC H MCH 37.1 pg L=27.0 H=31.0 785-6 LOINC H MCHC 37.0 % L=32.0 H=36.0 786-4 LOINC H RDW-SD 70.4 fL L=39.0 H=49.0 788-0 LOINC H PLATELET COUNT 133 th/cmm L=150 H=450 777-3 LOINC L Rouleaux present Polychromia 1+ Macrocytes 2+ Anisocytosis 2+ Social History Type Status Start Date End Date Code Code Syst em Smoking History Never smoker (Never Smoked) [id number] SNOMED CT Sex Female Hospital Discharge Instructions Should you have any questions prior to discharge, please contact a member of your healthcare team. If you have left the hospital and have any questions, please contact your primary care physician. Reason For Referral No Data Found Allergies and Adverse Reactions Allergy Substance Reaction Severity Start Date Concern Status Co de Code System CODEINE Active 6556 RxNorm Plan of Treatment LAB DRAW 15MIN 08/01/2024 LAB DRAW 15MIN 07/25/2024 LAB DRAW 15MIN 07/18/2024 LAB DRAW 15MIN 07/01/2024 LAB DRAW 15MIN 06/24/2023 X-RAY 12/10/2021 Encounters Encounter Diagnosis Start Date Code Code Sys tem Waldenstrom macroglobulinemia 07/25/2024 SNOMED-CT Personal Care Team Section Performer Name Performer Role Active Date Inactive Da te
--- OUTSIDE RECORDS SUMMARY | 2024-08-24 22:16 | XMS_ITS ---
Author Organization Unknown Address [address] [place] [address] [phone] Phone Care Team Providers Care Deputy Director Of Nursing Name Role Phone TONI Rush Attending Unavailable KIRSTEN Orellana Primary Unavailable Results CBC W/ DIFFERENTIAL* - Colle ct Date/Time: 07/18/2024 10:55 [facility] ID: [id number] [address] [place], [place], [phone] LOINC: 17419-4 Test Value Unit Reference Range Code Code System Flag WBC 3.74 th/cmm L=5.00 H=10.00 L NEUT % 35.2 % L=40.0 H=80.0 L LYMPH % 45.7 % L=10.0 H=50.0 MONO % 16.0 % L=2.0 H=12.0 H EOS % 1.3 % L=0.0 H=8.0 BASO % 0.5 % L=0.0 H=3.0 IG % 1.3 % L=0.0 H=1.1 H NRBC % 0.0 % L=0.0 H=0.0 NEUT abs count 1.3 th/cmm L=1.6 H=8.4 L LYMPH abs count 1.7 th/cmm L=1.5 H=4.0 MONO abs count 0.6 th/cmm L=0.2 H=1.0 EOS abs count 0.1 th/cmm L=0.0 H=0.5 BASO abs count 0.0 th/cmm L=0.0 H=0.2 IG abs count 0.1 th/cmm L=0.0 H=0.1 NRBC abs count 0.0 mil/cmm L=0.0 H=0.0 RBC 2.43 mil/cmm L=3.90 H=5.40 L HEMOGLOBIN 8.9 gm/dL L=12.0 H=16.0 L HEMATOCRIT 24 % L=37 H=47 LL MCV 99 fL L=82 H=92 H MCH 36.6 pg L=27.0 H=31.0 H MCHC 36.9 % L=32.0 H=36.0 H RDW-SD 67.9 fL L=39.0 H=49.0 H PLATELET COUNT 119 th/cmm L=150 H=450 L Rouleaux present Anisocytosis 1+ Stomatocytes 1+ Hypochromia 1+ Polychromia 1+ Macrocytes 1+ CORRECTED Social History Type Status Start Date End Date Code Code Syst em Smoking History Never smoker (Never Smoked) 666840172 SNOMED CT Sex Female Hospital Discharge Instructions Should you have any questions prior to discharge, please contact a member of your healthcare team. If you have left the hospital and have any questions, please contact your primary care physician. 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
--- OUTSIDE RECORDS SUMMARY | 2024-08-24 22:16 | XMS_ITS ---
Author Organization Unknown Address [address] [place] [address] [phone] Phone Care Team Providers Care Furniture Maker Name Role Phone KATTY Karimi Attending Unavailable KIRSTEN ALEXSANDRA Esteban Primary Unavailable Social History Type Status Start Date End Date Code Code Syst em Smoking History Never smoker (Never Smoked) 882419940 SNOMED CT Sex Female Hospital Discharge Instructions Should you have any questions prior to discharge, please contact a member of your healthcare team. If you have left the hospital and have any questions, please contact your primary care physician. Reason For Referral No Data Found Allergies and Adverse Reactions Allergy Substance Reaction Severity Start Date Concern Status Co de Code System CODEINE Active 6547 RxNorm Plan of Treatment LAB DRAW 15MIN 08/01/2024 LAB DRAW 15MIN 07/25/2024 LAB DRAW 15MIN 07/18/2024 LAB DRAW 15MIN 07/01/2024 LAB DRAW 15MIN 06/24/2023 X-RAY 12/10/2021 Encounters Encounter Diagnosis Start Date Code Code Sys tem Shortness of breath 07/25/2024 SNOMED-C T Personal Care Team Section Performer Name Performer Role Active Date Inactive Da te
--- OUTSIDE RECORDS SUMMARY | 2024-08-24 22:17 | XMS_ITS | Encounter Summary ---
Author Organization [facility], Located Within [facility] [place] [address] Care Team Providers Care Plumber'S Helper Name Role Phone Melba Vieira MD Primary Care Provider Reason for Visit * Auth/Cert (Routine) Specialty Diagnoses / Procedures Referred By Taj partida Referred To Contact Diagnoses waldenstrom macroglobulemia Procedures PRO DIAGNOSTIC BONE MARROW BIOPSIES & ASPIRATIONS ([facility] MSURG) BONE MARROW BIOPSY AND ASPIRATION; DIAGNOSTIC (WRVU 1.44) Roz Mattson MD [facility] [address] [place] [address] [facility] Referral ID Status Reason Start Date Expiration Date Visits Re quested Visits Authorized [id number] 1 1 Encounter Details Date Type Department Care Team (Late st Contact Info) Description 08/04/2024 8:00 AM EST - 08/04/2024 9:00 AM EST Surgery [place] [phone] Roz Mattson MD [facility] [address] [place] [address] ([facility] MSURG) BONE MARROW BIOPSY AND ASPIRATION; DIAGNOSTIC (WRVU 1.44) Social History Tobacco Use Types Packs/Day Years Used Date Smoking Tobacco: Never Smokeless Tobacco: Never [id number] Health Literacy Answer Date Recor ded How often do you need to hav e someone help you when you read instructions, pamphlets, or other written material from your doctor or pharmacy? Never 07/11/2024 [facility] Utilities Answer Date Recorded In the past 12 months has th e electric, gas, oil, or water company threatened to shut off services in your home? No 07/11/2024 Overall Financial Resource Strain (CARDIA) Answe r Date Recorded How hard is it for you to pa y for the very basics like food, housing, medical care, and heating? Not hard at all 07/11/2024 Hunger Vital Sign Answer Date Recorded Within the past 12 months, y ou worried that your food would run out before you got the money to buy more. Never true 07/11/20 24 Within the past 12 months, t he food you bought just didn't last and you didn't have money to get more. Never true 07/11/2024 PRAPARE - Transportation Answer Date Re corded In the past 12 months, has l ack of transportation kept you from medical appointments or from getting medications? No 06/20 In the past 12 months, has l ack of transportation kept you from meetings, work, or from getting things needed for daily living? No 07/11/2024 Housing Stability Vital Sign Answer Duy e Recorded In the last 12 months, was t here a time when you were not able to pay the mortgage or rent on time? No 07/11/2024 Number of Times Moved in the Last Year Not on fi le 07/11/2024 At any time in the past 12 m [facility], were you homeless or living in a jail (including now)? No 07/11/2024 DH IPV Inpatient Questions Answer Date Recorded Does Anyone Try to Keep You From Having Contact with Others or Doing Things Outside Your Home? no 08/04/2024 Feels Threatened by Someone no 07/20 Feels Unsafe at Home or Work/School no 08/04/2024 Physical Signs of Abuse Present no 08/04/2024 Sex and Gender Information Value Date Recorded Sex Assigned at Not on file Gender Identity Not on file Sexual Orientation Not on file documented as of this encounter Last Filed Vital Signs Vital Sign Reading Time Taken Comments Blood Pressure 116/62 08/04/2024 9:00 AM EST Pulse 71 08/04/2024 9:00 AM EST Temperature 36.8 ??C (98.2 ??F) 08/04/2024 7:30 AM ES T Respiratory Rate 16 08/04/2024 9:00 AM EST Oxygen Saturation 99% 08/04/2024 9:00 AM EST Inhaled Oxygen Concentration - - Weight 70.3 kg (155 lb) 08/04/2024 7:30 AM EST Height 170.2 cm (5' 7) 08/04/2024 7:30 AM EST Body Mass Index 24.28 08/04/2024 7:30 AM EST documented in this encounter Discharge Instructions * Discharge Instructions* Denton Hardin RN - 08/04/2024 6:55 AM EST OUTPATIENT SURGERY POST-OPERATIVE INSTRUCTIONS BONE MARROW BIOPSY SITE You have had a bone marrow aspiration and or/biopsy, which is like having an operation with a tiny,deep incision. Do Not do any strenuous work today, like housework, yard work, sports of any kind or lifting more than 5 pounds as it may cause your bone marrow site to bleed. To avoid infection, leave the clear plastic dressing on the site for three days. You may shower, bathe, or swim as you wish, provided the clear dressing remains intact, and all sides of the dressing are firmly adhered to the skin. In the unlikely event that a portion or the entire dressing should come off, you may replace it with a conventional cloth band aid. However, you will no longer be able to get the site wet until three days have passed, as a conventional band aid is not waterproof and the site is no longer a sterile area. It is not unusual for the site to leak a scant amount of blood, so do not be alarmed to see a smallcollection, or ???puddle?? of blood under the dressing. Wound healing will still occur. If you are uncertain if there is an increase in any leaking from your bone marrow site, roll up a towel, lie down on a firm surface, place the towel directly over the puncture site to apply pressure,and rest there for one half hour. Direct, FIRM thumb pressure applied to the site for 10 minutes works well as an alternative method. Leave the dressing on. Most people do not experience much discomfort after this procedure, but if you do, you should ask your physician what to take. AVOID ASPIRIN PRODUCTS as these interfere with clotting. After three days, remove your dressing and leave it off, so the air can get to the site to finish the healing process. NOTIFY YOUR DOCTOR FOR: Redness Heat Fever Swelling Drainage Increased pain Foul odor (which may not be apparent through the dressing) If you are having problems or have any additional concerns or questions: Between 8am and 5pm - Call the Hematology Clinic at . After 5pm or on a weekend: Call the [facility] retouching operator at and ask for the physician manager of environmental services covering for your doctor. Instructions following sedation You may have received medication before and/or during your procedure, which affects judgement and reaction time. Use caution with stairs. Do not drive, operate machinery, drink alcoholic beverages, or make any legal decisions for 24 hours. You may eat a regular diet as tolerated. Do not smoke if you are alone. IV site -- slight redness, or tenderness is normal, you can use a warm compress. If tenderness and redness increases or foul drainage occurs, please contact your M. D. [place] [phone] [email or web address] documented in this encounter Medications at Time of Discharge Medication Sig Dispensed Refills Start Date End Date Calcium Carbonate-Vitamin D3 (Calcium 500 + D) 500 mg-10 mcg (400 unit) Tablet, Chewable multivitamin with minerals (One-A-Day) Tablet Take by mouth. amLODIPine (Norvasc) 5 mg tablet Take by mouth. 08/01/2020 aspirin 81 mg chewable tablet Take 81 mg by mouth Daily @ 0600. atorvastatin (Lipitor) 20 mg tablet 02/24/2018 Lumigan 0.01 % Drops Apply to eye. cholecalciferol, Vitamin D3, 10 mcg (400 unit) Capsule Take by mouth. PreviDent 5000 Booster Plus 1.1 % Paste 09/05/2021 hydroCHLOROthiazide (HydroDiuril) 25 mg tablet 02/09/2019 lisinopriL (Zestril) 10 mg tablet Take 10 mg by mouth Daily @ 0600. omeprazole (PriLOSEC) [address] capsule Take by mouth. calcium carbonate (Tums) 500 mg calcium (1,250 mg) chewable tablet 08/22/2024 documented as of this encounter Progress Notes * Denton Hardin RN - 08/04/2024 9:15 AM EST Date/Procedure: Meds Given Comments Bone Marrow Biopsy Midazolam: 2mg Fentanyl: 25mcg Tolerated well. VSS Discharge instructions and medications reviewed with patient during pre-op. All questions answered and written copy sent home with patient. Awake and alert, able to tolerate PO intake, not complaining of any pain. Reviewed Discharge instructions again, allowed time for questions. Patient laid flat on back with pressure applied to surgical site in PACU for 35 minutes. Sterile bandage applied, C/D/I. No signs of bleeding. Patient ambulated to car for discharge accompanied by [facility] staff member. documented in this encounter H&P Notes * Ernestina Mcclelland APRN - 08/04/2024 8:15 AM EST Pre-Sedation Assessment: Planned procedure: unilateral bone marrow biopsy and aspirate Indications: diagnostic Diagnosis: WM Assessment: Cardiovascular: Rhythm: Regular Rate: Normal Pulmonary: Breath sounds clear to auscultation ASA: 3: Patient with severe systemic disease Mallampati: III: only the base of the uvula can be seen H&P reviewed: Yes Relevant diagnostic studies: cbc Confirm NPO status: Yes, Date and Time of last intake: last night 08/03 at 2030 History of anesthetic complications: No Current medications reviewed: Yes Allergies reviewed: Yes Alcohol use: yes- one drink weekly, Date and Time of last drink: last Thursday Drug use: none Sedation Plan: moderate (conscious sedation) The sedation plan, its benefits and risks, and alternatives were discussed with the patient. The planned procedure, its benefits and risks, and alternatives were discussed with the patient. The patient consented to the procedure. 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 (x) Consent signed (scanned into pt's chart) (x) CBC drawn within 2 days (x) Medications/Allergies/Problem List reviewed Prior to start of procedure the following is verified in a Time Out: (x) Patient identity (x) Planned procedure (x) Safety concerns PAIN INTERVENTION: Conscious sedation w/ Fentanyl and Versed. See conscious sedation RN notes Sterile Condition: Chlorohexidine was used to cleanse the biopsy site Sterile drapes were used to create a sterile field. Local Anesthesia: 1% Lidocaine: total dose = 15 mL PROCEDURE: A sub centimeter incision was made. A bone marrow biopsy and aspiration was performed onthe RIGHT posterior iliac crest. . Tegaderm dressing placed and pressure applied to site for 30 minutes following the procedure. Estimated Blood Loss: minimal Complications: none Testing: Per bone marrow requisition Follow-up: Written/Verbal instructions for site care reviewed and given to the patient. Encouraged to call with any concerns. Follow-up with Physician as instructed. Ernestina Russell APRN documented in this encounter Plan of Treatment Upcoming Encounters Date Type Department Care Team (Late st Contact Info) Description 09/21/2024 9:30 AM EST Laboratory Appointment Lab at [facility] Hematology Oncology [address] [place] [phone] 09/21/2024 10:30 AM EST Office Visit Hematology [place] [phone] Ernestina Mcclelland APRN [facility] [address] HEMATOLOGY [place] [address] Pending Results Name Type Priority Associated Diagnoses Date /Time Bone Marrow Pathology/Cytology Routine 08/04 8:28 AM EST Bone Marrow Pathology/Cytology Routine 08/04 8:28 AM EST Scheduled Orders Name Type Priority Associated Diagnoses Orde r Schedule Bone Marrow Pathology/Cytology Routine One T robert for 1 Occurrences starting 08/04/2024 until 08/04/2024, 1 completed Bone Marrow Pathology/Cytology Routine Once for 1 Occurrences starting 08/04/2024 until 08/04/2024, 1 completed documented as of this encounter Procedures Procedure Name Priority Date/Time Associated Diagnosis Comments ([facility] MSURG) BONE MARROW BIOPSY AND ASPIRATION; DIAGNOSTIC Routine 08/04/2024 8:33 AM EST BM HOLD CG/FISH Routine 08/04/2024 8:28 AM EST BM HOLD FLOW/MOLECULAR Routine 8:28 AM EST DH HEMESEQ (BONE MARROW) Routine 025 8:28 AM EST IMMUNOPHENOTYPING FLOW CYTOMETRY Routine 08/04/2024 8:28 AM EST Diagnostic Bone Marrow Biopsies & Aspirations ([address]) 08/04/2024 8:20 AM EST waldenstrom macroglobulemia SCAN, PERIPHERAL BLOOD Routine 7:38 AM EST CBC (WITH DIFF) Routine 08/04/2024 7:38 AM EST documented in this encounter Results * ([facility] MSURG) BONE MARROW BIOPSY AND ASPIRATION; DIAGNOSTIC (08/04/2024 8:33 AM EST) Narrative Ernestina Mcclelland APRN - 08/04/2024 8:33 AM EST Ernestina Mcclelland APRN ? 08/04/2024 ??8:33 AM BONE MARROW BIOPSY AND ASPIRATION PROCEDURE NOTE Unilateral bone marrow biopsy and aspirate with sedation Consent: ?? 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 (x) Consent signed (scanned into pt's chart) (x) CBC drawn within 2 days (x) Medications/Allergies/Problem List reviewed Prior to start of procedure the following is verified in a Time Out: (x) Patient identity (x) Planned procedure (x) Safety concerns PAIN INTERVENTION: ?Conscious sedation w/ Fentanyl and Versed. See conscious sedation RN notes Sterile Condition: ??Chlorohexidine was used to cleanse the biopsy site ?Sterile drapes were used to create a sterile field. Local Anesthesia: 1% Lidocaine: total dose = 15 mL PROCEDURE: A sub centimeter incision was made. A bone marrow biopsy and aspiration was performed on the RIGHT posterior iliac crest. . ? Tegaderm dressing placed and pressure applied to site for 30 minutes following the procedure. Estimated Blood Loss: minimal Complications: none Testing: ??Per bone marrow requisition Follow-up: ??Written/Verbal instructions for site care reviewed and given to the patient. Encouraged to call with any concerns. Follow-up with Physician as instructed. 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 Plasma cells are too few for a robust delineation of light chains; but appear polytypic . 08/08/2024 4:41 PM EST [facility] Signing Pathologist This result has been reviewed by WELLINGTON ROCHA MD on 08/08/24 at 4:40 PM. 08/08/2024 4:[address] [facility] Discussion Phenotype is nonspecific and can include MZL, LPL. 08/08/2024 4:[address] [facility] Interpretation Cd19+CD20+ kappa light chain restricted B cell population detected that is negative for CD5-, Cd10-, Cd103- with minor positivity for CD25, CD22, 08/08/2024 4:[address] [facility] Lymphocyte % 43.8 % 08/08/2024 4:[address] [facility] Monocyte % 6.6 % 08/08/2024 4:[address] [facility] Granulocyte % 46.5 % 08/08/2024 4:[address] [facility] CD45 DIM % 1.1 % 08/08/2024 4:[address] [facility] CD38 Bright/CD138+ 0.0 % 08/08/2024 4:[address] [facility] CD3+ % 68.0 % 08/08/2024 4:[address] [facility] CD19+ % 14.0 % 08/08/2024 4:[address] [facility] CD56+ % 13.0 % 08/08/2024 4:[address] [facility] B-Cell:T-Cell Ratio 0.2 08/08/2024 4:[address] [facility] [place]:Lambda Ratio 25.8 08/08/2024 4:[address] [facility] CD4:CD8 Ratio 1.3 08/08/2024 4:[address] [facility] Specimen Processing Cells for immunophenotypic analysis were derived from Bone marrow . The following markers were assessed: CD2, CD3, CD4, CD5, CD7, CD8, CD10, Cd11c, CD19, CD20, CD22, CD23, CD25, CD38, CD45, CD56, CD103, CD138, FMC-7, kappa light chain, (c)kappa light chain, lambda light chain, and (c)lambda light chain. 08/08/2024 4:41 PM EST [facility] Disclaimer Flow analysis is an ancillary study. A definite diagnosis requires correlation with the morphologic features of this process and if necessary, correlation with other ancillary studies like immunohistochemist ry, enzyme cytochemistry and/or cyto/molecular genetics. This test was developed and its performance characteristics determined by the Clinical Flow Cytometry Laboratory at [facility]. It has not been cleared or approved by the U.S. Food and Drug Administration. The FDA has determined that such clearance or approval is not necessary. This test is used for clinical purposes. It should not be regarded as investigational or for research. This laboratory is certified under the Clinical Laboratory Improvement Act of 1988 (CLIA) as qualified to perform high complexity clinical laboratory testing. 08/08/2024 4:41 PM EST [facility] Bone Marrow ILIAC CREST STRUCTURE / Unknown Non Blood Collection / Unknown 08/04/2024 8:28 AM EST 08/04/2024 9:11 AM EST Wellington Rocha MD HEMATOLOGY ORDERABLE S Performing Organization Address City/[facility]/ZIP Co de Phone Number [facility] [place] [address] * BM HOLD CYTOGENETICS/FISH (08/04/2024 8:28 AM EST) Bone Marrow ILIAC CREST STRUCTURE / Unknown Non Blood Collection / Unknown 08/04/2024 8:28 AM EST 08/04/2024 9:11 AM EST Roz Mattson MD PATHOLOGY/CYTOLOGY O RDERABLES [facility] [place] [address] * BM HOLD FLOW/MOLECULAR (08/04/2024 8:28 AM EST) Bone Marrow ILIAC CREST STRUCTURE / Unknown Non Blood Collection / Unknown 08/04/2024 8:28 AM EST 08/04/2024 9:11 AM EST Roz Mattson MD PATHOLOGY/CYTOLOGY O RDERABLES [facility] [place] [address] * (ABNORMAL) Scan, Peripheral Blood (08/04/2024 7:38 AM EST) RBC Morphology Abnormal 08/04/2024 10:43 AM EST [facility] Platelet Estimate Decreased(A) Normal 08/04 10:43 AM EST [facility] Macrocyte 1-5 /HPF 08/04/2024 10:43 AM EST [facility] Microcyte 1-5 /HPF 08/04/2024 10:43 AM EST [facility] Polychromasia Present 08/04/2024 10:43 AM EST [facility] Spherocyte 1-5 /HPF 08/04/2024 10:43 AM EST [facility] Rouleaux RBC Present 08/04/2024 10:43 AM EST [facility] Blood VENOUS BLOOD SPECIMEN / Unknown Venipuncture / Unknown 08/04/2024 7:38 AM EST 08/04/2024 8:45 AM EST Roz Mattson MD HEMATOLOGY ORDERABLE S [facility] [place] [address] * (ABNORMAL) CBC (with Diff) (08/04/2024 7:38 AM EST) White Blood Cell 3.32(L) 4.00 - 9.50 x10(3)/mc L 08/04/2024 10:43 AM EST [facility] Red Blood Cell 2.36(L) 4.00 - 5.21 x10(6)/mc L 08/04/2024 10:43 AM EST [facility] Hemoglobin 8.9(L) 11.7 - 15.5 g/dL 08/04/2024 10:43 AM EST [facility] Hematocrit 23.5(L) 35.7 - 45.8 % 08/04/2024 10:[address] [facility] Mean Cell Volume 99.6(H) 82.6 - 94.4 fL 08/04/2024 10:[address] [facility] Mean Cell Hemoglobin 37.7(H) 27.1 - 32.0 pg 08/04/2024 10:[address] [facility] Mean Cell Hemoglobin Concentration 37.9(H) 31.7 - 35.0 g/dL 08/04/2024 10:[address] [facility] Comment:Cold Agglutinin pres ent-corrected results. Platelet 116(L) 145 - 357 x10(3)/mc L 08/04/2024 10:[address] [facility] Mean Platelet Volume 9.9 7.6 - 12.9 fL 08/04/2024 10:[address] [facility] RDW Standard Deviation 71.3(H) 37.0 - 46.0 fL 08/04/2024 10:[address] [facility] RDW coefficient of variation 20.0(H) 11.5 - 14.1 % 08/04/2024 10:[address] [facility] NRBC% auto 0.0 % 08/04/2024 10:[address] [facility] NRBC Absolute <0.01 <0.01 x10(3)/mc L 08/04/2024 10:[address] [facility] Neutrophil % 47.6 % 08/04/2024 10:[address] [facility] Neutrophil Absolute (ANC) - Automated 1.58(L) 1.70 - 6.10 x10(3)/mc L 08/04/2024 10:[address] [facility] Lymph % 35.8 % 08/04/2024 10:[address] [facility] Lymph Absolute 1.19 0.90 - 3.20 x10(3)/mc L 08/04/2024 10:[address] [facility] Monocyte % 14.2 % 08/04/2024 10:[address] [facility] Monocyte Absolute 0.47 0.30 - 0.90 x10(3)/mc L 08/04/2024 10:[address] [facility] Eos % 1.2 % 08/04/2024 10:[address] [facility] Eos Absolute 0.04 0.00 - 0.40 x10(3)/mc L 08/04/2024 10:[address] [facility] Basophil % 0.3 % 08/04/2024 10:[address] [facility] Baso Absolute <0.04 0.00 - 0.10 x10(3)/mc L 08/04/2024 10:[address] [facility] Immature Gran % 0.9 % 10:[address] [facility] Immature Gran Absolute <0.04 0.00 - 0.04 x10(3)/mc L 08/04/2024 10:[address] [facility] Blood VENOUS BLOOD SPECIMEN / Unknown Venipuncture / Unknown 08/04/2024 7:38 AM EST 08/04/2024 8:45 AM EST Roz Mattson MD HEMATOLOGY ORDERABLE S Performing Organization Address City/State/[facility] Co de Phone Number [facility] [place] [address] documented in this encounter Visit Diagnoses Not on filedocumented in this encounter Administered Medications Inactive Administered Medications - up to 3 most recent administrations Medication Order MAR Action Action Date Dose Rate Site bone marrow biopsy kit as directed, ONCE PRN, Procedure, bone marrow biopsy, Starting on Macie 08/04/24 at 0654, 1 dose, Until Macie 08/04/24 at 1136, Day of Surgery (Day of Procedure) fentaNYL (pf) (50 mcg/mL) multi-dose injection 25 mcg 25 mcg, Intravenous, EVERY 5 MIN PRN, Starting on Macie 08/04/24 at 0654, Until Macie 08/04/24 at 1136, Sedation, Administer every 5 min to achieve pain scale 1-3. Hold for respiratory rate less than 8 breaths per minute. Dose not to exceed 200 mcg., Intra-Operative (Intra-Procedure), Routine Given 08/04/2024 8:21 AM EST 25 mcg flumazeniL (Romazicon) (0.1 mg/mL) injection 0.2 mg 0.2 mg, Intravenous, EVERY 2 MIN PRN, Starting on Macie 08/04/24 at 0654, Until Macie 08/04/24 at 1136, Benzodiazepine reversal, 0.2 mg intravenous, every 2 minutes PRN for total of 5 doses for respiratory rate less than 8 breaths per minute or SpO2 less than 90% despite supplement O2., Intra-Operative (Intra-Procedure), Routine lidocaine (pf) (Xylocaine) (10 mg/mL) 1% injection 30 mg 30 mg, Subcutaneous, ONCE PRN, 1 dose, Starting on Macie 08/04/24 at 0654, Until Macie 08/04/24 at 1136, bone marrow biopsy, To be given DURING the procedure, Day of Surgery (Day of Procedure), Routine lidocaine (Xylocaine) 1% (10 mg/mL) injection 3 mg 3 mg (0.3 mL), Subcutaneous, ONCE PRN, 1 dose, Starting on Macie 08/04/24 at 0654, Until Macie 08/04/24 at 1136, for discomfort with PIV insertion, Day of Surgery (Day of Procedure), Routine midazolam (pf) (Versed) (1 mg/mL) multi-dose injection 0.25-1 mg 0.25-1 mg, Intravenous, EVERY 5 MIN PRN, Starting on Macie 08/04/24 at 0654, Until Macie 08/04/24 at 1136, Sedation, Administer every 5 minutes to achieve RASS (-)1. Hold for delirium/agitation. Dose not to exceed 4 mg., Intra-Operative (Intra-Procedure), Routine Given 08/04/2024 8:27 AM EST 1 mg Given 08/04/2024 8:21 AM EST 1 mg naloxone (Narcan) (0.4 mg/mL) injection 0.1 mg 0.1 mg, Intravenous, EVERY 2 MIN PRN, Starting on Macie 08/04/24 at 0654, Until Macie 08/04/24 at 1136, Opioid Reversal, For opiate induced oversedation or respiratory depression. (Maximum dose 0.8 mg), Intra-Operative (Intra-Procedure), Routine sodium chloride 0.9 % (flush) (BD PosiFlush Normal Saline 0.9) flush 5 mL 5 mL, Intravenous, EVERY 12 HOURS, First dose on Macie 08/04/24 at 0715, Until Discontinued, Day of Surgery (Day of Procedure), Routine sodium chloride 0.9 % (flush) (BD PosiFlush Normal Saline 0.9) flush 5-20 mL 5-20 mL, Intravenous, EVERY 1 MIN PRN, Starting on Macie 08/04/24 at 0654, Until Macie 08/04/24 at 1136, flush, Flush pertains to all indwelling lines. Flush per protocol found in the job aid using the link provided on this medication record., Day of Surgery (Day of Procedure), Routine sodium chloride 0.9% infusion 1,000 mL, at 100 mL/hr, Intravenous, CONTINUOUS, Starting on Macie 08/04/24 at 0715, Until Macie 08/04/24 at 1136, Day of Surgery (Day of Procedure) documented in this encounter Active and Recently Administered Medications Times are shown in EST. Scheduled Medication Order 08/02/2024 08/03/2024 08/04/2024 sodium chloride 0.9 % (flush) (BD PosiFlush Normal Saline 0.9) flush 5 mL 5 mL, Intravenous, EVERY 12 HOURS, First dose on Macie 08/04/24 at 0715, Until Discontinued, Day of Surgery (Day of Procedure), Routine 0715 (Due) Continuous Medication Order 08/02/2024 08/03/2024 08/04/2024 sodium chloride 0.9% infusion 1,000 mL, at 100 mL/hr, Intravenous, CONTINUOUS, Starting on Macie 08/04/24 at 0715, Until Macie 08/04/24 at 1136, Day of Surgery (Day of Procedure) 0715 (Due) PRN Medication Order 08/02/2024 08/03/2024 08/04/2024 bone marrow biopsy kit as directed, ONCE PRN, Procedure, bone marrow biopsy, Starting on Macie 08/04/24 at 0654, 1 dose, Until Macie 08/04/24 at 1136, Day of Surgery (Day of Procedure) fentaNYL (pf) (50 mcg/mL) multi-dose injection 25 mcg 25 mcg, Intravenous, EVERY 5 MIN PRN, Starting on Macie 25 at 0654, Until Macie 08/04/24 at 1136, Sedation, Administer every 5 min to achieve pain scale 1-3. Hold for respiratory rate less than 8 breaths per minute. Dose not to exceed 200 mcg., Intra-Operative (Intra-Procedure), Routine 0821 (Given - Provid er: Denton Hardin RN) flumazeniL (Romazicon) (0.1 mg/mL) injection 0.2 mg 0.2 mg, Intravenous, EVERY 2 MIN PRN, Starting on Macie 08/04/24 at 0654, Until Macie 08/04/24 at 1136, Benzodiazepine reversal, 0.2 mg intravenous, every 2 minutes PRN for total of 5 doses for respiratory rate less than 8 breaths per minute or SpO2 less than 90% despite supplement O2., Intra-Operative (Intra-Procedure), Routine lidocaine (pf) (Xylocaine) (10 mg/mL) 1% injection 30 mg 30 mg, Subcutaneous, ONCE PRN, 1 dose, Starting on Macie 08/04/24 at 0654, Until Macie 08/04/24 at 1136, bone marrow biopsy, To be given DURING the procedure, Day of Surgery (Day of Procedure), Routine lidocaine (Xylocaine) 1% (10 mg/mL) injection 3 mg 3 mg (0.3 mL), Subcutaneous, ONCE PRN, 1 dose, Starting on Macie 08/04/24 at 0654, Until Macie 08/04/24 at 1136, for discomfort with PIV insertion, Day of Surgery (Day of Procedure), Routine midazolam (pf) (Versed) (1 mg/mL) multi-dose injection 0.25-1 mg 0.25-1 mg, Intravenous, EVERY 5 MIN PRN, Starting on Macie 25 at 0654, Until Macie 08/04/24 at 1136, Sedation, Administer every 5 minutes to achieve RASS (-)1. Hold for delirium/agitation. Dose not to exceed 4 mg., Intra-Operative (Intra-Procedure), Routine 0821 (Given - Provid er: Denton Hardin, JESSE)0827 (Given - Provider: Denton Hardin RN) naloxone (Narcan) (0.4 mg/mL) injection 0.1 mg 0.1 mg, Intravenous, EVERY 2 MIN PRN, Starting on Macie 08/04/24 at 0654, Until Macie 08/04/24 at 1136, Opioid Reversal, For opiate induced oversedation or respiratory depression. (Maximum dose 0.8 mg), Intra-Operative (Intra-Procedure), Routine sodium chloride 0.9 % (flush) (BD PosiFlush Normal Saline 0.9) flush 5-20 mL 5-20 mL, Intravenous, EVERY 1 MIN PRN, Starting on Macie 08/04/24 at 0654, Until Macie 08/04/24 at 1136, flush, Flush pertains to all indwelling lines. Flush per protocol found in the job aid using the link provided on this medication record., Day of Surgery (Day of Procedure), Routine documented in this encounter Care Teams Plumber'S Helper Relationship Specialty Start Date End Date Melba Vieira MD [address] [place] [phone] PCP - General Family Medicine 07/06/24 documented as of this encounter
--- OUTSIDE RECORDS SUMMARY | 2024-08-24 22:17 | XMS_ITS | Encounter Summary ---
Author Organization [facility] Address [facility] [place] [address] Care Team Providers Care Construction Management Instructor Name Role Phone Melba Vieira MD Primary Care Provider [phone] Encounter Details Date Type Department Care Team (Late st Contact Info) Description 08/18/2024 Specialty Pharmacy Pharmacy at [facility] [place] [phone] Jair Colbert, DRUM OPERATOR Prior Authorization (zanubrutinib) for HemOnc, Benefits Investigation (zanubrutinib) for HemOnc Social History Tobacco Use Types Packs/Day Years Used Date Smoking Tobacco: Never Smokeless Tobacco: Never B1300 Health Literacy Answer Date Recor ded How often do you need to hav e someone help you when you read instructions, pamphlets, or other written material from your doctor or pharmacy? Never 07/11/2024 [facility] Utilities Answer Date Recorded In the [...] any time in the past 12 m ont, were you homeless or living in a fpc (including now)? No 07/11/2024 IPV Inpatient Questions Answer Date Recorded Does [...] on file documented as of this encounter Progress Notes * Jair Colbert CPHT - 08/18/2024 8:01 AM EST [facility], Medication Prior Authorization Patient: Melissa López : 1940 08/18/2024 8:02 AM PA Submission Reason for Prior Authorization New Medication Does [facility] complete PA for this office? No Office notified Yes Medication Zanubrutinib ICD-10 code C88 Dispense Quantity 120 Dispense Units capsule Day Supply 30 Insurance Phone [phone] Information sent via [facility] Case/Causey Number [id number] Patient Notified No Notification Method Not appropriate at this time For any questions relating to this prior authorization please reach out directly to your section's specialty pharmacist, or the specialty pharmacy team at [facility] Jair Colbert CPHT 08/18/24 8:02 AM D Specialty Pharmacy Benefits Investigation The [facility] has completed a benefits investigation for Melissa López to review their eligibility to fill at [facility]. 08/18/2024 8:02 AM Benefits Investigation Medication Zanubrutinib Prescription Status New Dispense Quantity 120 Dispense Units capsule Day Supply 30 Insurance Status Insured Medication Coverage Status Medication requires PA [facility] [id number] N [id number] [id number] Result of Benefits Investigation: Specialty will pursue PA with patient's insurance to determine eligibility For any questions relating to this Benefits Investigation please reach out directly to your section's specialty pharmacist, or the specialty pharmacy team at [facility] Thank you, Jair Colbert CPHT 08/18/24 8:02 AM * Jair Colbert CPHT - 08/18/2024 8:01 AM EST [facility], Medication Prior Authorization Patient: Melissa López : 1940 08/19/2024 9:35 AM PA Approval Approval Start Date 08/18/2024 Approval End Date 08/18/2025 Case/Causey Number [id number] Can patient fill with [facility]? Yes Anticipated Pharmacy [facility] Is this a conversion opportunity? No Expected Copay $2000.00 Referral for copay assistance will be completed No Approval Notes PT HAS A HIGH COPAY _ SPEC WILL REACH OUT TO SIGN THE PT UP FOR THE [facility] WITH EITHER [employer] OR [employer] Patient Notified No Notification Method Not appropriate at this time For any questions relating to this prior authorization please reach out directly to your section's specialty pharmacist, or the specialty pharmacy team at [facility] Jair Colbert CPHT 08/19/24 9:36 AM documented in this encounter Plan of Treatment Upcoming Encounters Date Type Department Care Team (Late st Contact Info) Description 09/21/2024 9:30 AM EST Laboratory Appointment Lab at [facility] Hematology Oncology [address] [place] [phone] 09/21/2024 10:30 AM EST Office Visit [place] [phone] Ernestina Mcclelland APRN [facility] [place] [address] documented as of this encounter Goals Goal Patient Goal Type Associated Problems Recent Progress Patient-Stated? 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
--- OUTSIDE RECORDS SUMMARY | 2024-08-24 22:17 | XMS_ITS | Encounter Summary ---
Author Organization [facility] Address [facility] [place] [address] Care Team Providers Care Bullet Lubricating Machine Operator Name Role Phone Melba Vieira MD Primary Care Provider [phone] Encounter Details Date Type Department Care Team (Late st Contact Info) Description 08/24/2024 Telephone Hematology [place] [address] Kwame Lopes MD [facility] DR HEMATOLOGY/[place] [address] Social History Tobacco Use Types Packs/Day Years Used Date Smoking Tobacco: Never Smokeless Tobacco: Never B1300 Health Literacy Answer Date Recor ded How often do you need to hav e someone help you when you read instructions, pamphlets, or other written material from your doctor or pharmacy? Never 07/11/2024 [facility] Utilities Answer Date Recorded In the past 12 months has e electric, gas, oil, or water company [...] any time in the past 12 m [facility], were you homeless or living in a senior care (including now)? No 07/11/2024 IPV Inpatient Questions [...] on file documented as of this encounter Plan of Treatment Upcoming Encounters Date Type Department Care Team (Late st Contact Info) Description 09/21/2024 9:30 AM EST Laboratory Appointment Lab at [facility] Hematology Oncology [address] [place] [phone] 09/21/2024 10:30 AM EST Office Visit Hematology [place] [address] Ernestina Mcclelland APRN [facility] [address] [place] [address] documented as of this encounter Goals Goal Patient Goal Type Associated Problems Recent Progress Patient-Stated? Author Patient's specific desired goal: Increase energy level and improve quality of life to 8 or better Patient Facing Action Plan Estefany Heath, [facility] Note: Goal(s): Improve quality of life from 7 to 8 or better Measured by: patient reported QOL and improved energy lever Time-frame: reviewed at 10 mo consult call documented as of this encounter Visit Diagnoses Not on filedocumented in this encounter Care Teams Bullet Lubricating Machine Operator Relationship Specialty Start Date End Date Melba Vieira MD [address] [place] [address] [place] [phone] PCP - General Family Medicine 07/06/24 documented as of this encounter
--- OUTSIDE RECORDS SUMMARY | 2024-08-24 22:17 | XMS_ITS | Encounter Summary ---
Author Organization [facility] Address [facility] [place] [address] Care Team Providers Care Ocean Lifeguard Specialist Name Role Phone Melba Vieira MD Primary Care Provider [phone] Reason for Visit * Reason Onset Date Comments Medication Refill 08/18/2024 Encounter Details Date Type Department Care Team (Late st Contact Info) Description 08/18/2024 Refill Hematology and Oncology at [facility] [place] [phone] Cheyenne Goodwin I, RN Social History Tobacco Use Types Packs/Day Years Used Date Smoking Tobacco: Never Smokeless Tobacco: Never B1300 Health Literacy Answer Date Recor ded How often do you need to hav e someone help you when you read instructions, pamphlets, or other written material from your doctor or pharmacy? Never 07/11/2024 [facility] Utilities Answer Date Recorded In the [...] any time in the past 12 m [facility], were you homeless or living in a chcf (including now)? No 07/11/2024 IPV Inpatient Questions [...] 9:30 AM EST Laboratory Appointment Lab at [facility] Hematology Oncology [address] [place] [phone] 09/21/2024 10:30 AM EST Office Visit Hematology [place] [address] Ernestina Mcclelland APRN [facility] DR HEMATOLOGY [place] [address] documented as of this encounter Visit Diagnoses Not on filedocumented in this encounter Care Teams Ocean Lifeguard Specialist Relationship Specialty Start Date End Date Melba Vieira MD [address] [place] [phone] PCP - General Family Medicine 07/06/24 documented as of this encounter
--- OUTSIDE RECORDS SUMMARY | 2024-08-24 22:17 | XMS_ITS | Encounter Summary ---
Author Organization [facility] [place] [address] Care Team Providers Care Site Head Name Role Phone Melba Vieira MD Primary Care Provider [phone] Encounter Details Date Type Department Care Team (Late st Contact Info) Description 08/04/2024 External Results Hematology and Oncology at [facility] [place] [address] France Carreno, RN Social History Tobacco Use Types Packs/Day Years Used Date Smoking Tobacco: Never Smokeless Tobacco: Never B1300 Health Literacy Answer Date Recor ded How often do you need to hav e someone help you when you read instructions, pamphlets, or other written material from your doctor or pharmacy? Never 07/11/2024 [facility] Utilities Answer Date Recorded In the [...] were you homeless or living in a half-way (including now)? No 07/11/2024 IPV Inpatient Questions [...] Laboratory Appointment Lab at [facility] Hematology Oncology [address] [place] [phone] 09/21/2024 10:30 AM EST Office Visit Hematology [place] [address] Ernestina Mcclelland APRN [facility] [address] [place] [address] documented as of this encounter Procedures Procedure Name Priority Date/Time Associated Diagnosis Comments EXTERNAL LAB CBC CMP THYROID RESULTS PANEL Routine 08/01/2024 10:58 AM EST documented in this encounter Results * (ABNORMAL) CBC / CMP / Thyroid External Results (08/01/2024 10:58 AM EST) WBC - External 3.25(A) 5 - 10 EXTER NAL FACILITY Hemoglobin - External 8.5(A) 12 - 16 EXTERNAL FACILITY Hematocrit - External 23(A) 37 - 47 EXTERNAL FACILITY Platelets - External 132(A) 150 - 450 EXTERNAL FACILITY Neutr ABS (ANC) - External 1.4(A) 1.6 - 8.4 EXTERNAL FACILITY 08/01/2024 10:5 8 AM EST Historical Provider MD EXTERNAL LAB [facility] documented in this encounter Visit Diagnoses Not on filedocumented in this encounter Care Teams Site Head Relationship Specialty Start Date End Date Melba Vieira MD [address] [place] [phone] PCP - General Family Medicine 07/06/24 documented as of this encounter
--- OUTSIDE RECORDS SUMMARY | 2024-08-24 22:17 | XMS_ITS | Encounter Summary ---
Author Organization [facility] Address [facility] [place] [address] Care Team Providers Care Java Development Manager Name Role Phone Melba Vieira MD Primary Care Provider [phone] Encounter Details Date Type Department Care Team (Late st Contact Info) Description 08/24/2024 Notes Only Hematology [place] [address] Freddy Mattson MD [facility] DR [place] [address] Social History Tobacco Use Types Packs/Day Years Used Date Smoking Tobacco: Never Smokeless Tobacco: Never B1300 Health Literacy Answer Date Recor ded How often do you need to hav e someone help you when you read instructions, pamphlets, or other written material from your doctor or pharmacy? Never 07/11/2024 [facility] Utilities Answer Date Recorded In the past [...] any time in the past 12 m [facility], were you homeless or living in a halfway (including now)? No 07/11/2024 IPV Inpatient Questions [...] as of this encounter Progress Notes * Freddy Mattson MD - 08/24/2024 12:06 PM EST Images from the original note were not included. N [facility] HEMATOLOGY AND ONCOLOGY AT [facility] [phone] Date: 08/24/24 Patient Name: Melissa López : 1940 Diagnosis: Waldenstroms Referral to [site]: [facility] Orders: Venous Access Device? No Labs: Fax results to [phone]. [x] To be drawn once weekly beginning on the week of 08/24 for 4 weeks [x] CBC with differential, Comprehensive metabolic panel, and Type and screen Transfusion Parameters: [x] All products should be leukocyte depleted [x] Irradiated blood products not required [x] 1 unit packed RBC for Hgb </= 8gm/dL or symptoms [x] 1 pheresis pack of platelets for platelet count </= 20 or for bleeding Signature: FREDDY MATTSON MD Co-signature [if needed]: documented in this encounter Plan of Treatment Upcoming Encounters Date Type Department Care Team (Late st Contact Info) Description 09/21/2024 9:30 AM EST Laboratory Appointment Lab at [facility] Hematology Oncology [address] [place] [phone] 09/21/2024 10:30 AM EST Office Visit Hematology [place] [address] Ernestina Mcclelland CHIEF PSYCHOLOGY [facility] DR [place] [address] documented as of this encounter Goals Goal Patient Goal Type Associated Problems Recent Progress Patient-Stated? Author Patient's specific desired goal: Increase energy level and improve quality of life to 8 or better Patient Facing Action Plan No Estefany Rehman, [facility] Note: Goal(s): Improve quality of life from 7 to 8 or better Measured by: patient reported QOL and improved energy lever Time-frame: reviewed at 10 mo consult call documented as of this encounter Visit Diagnoses Not on filedocumented in this encounter Care Teams Java Development Manager Relationship Specialty Start Date End Date Melba Vieira MD [address] [place] [phone] PCP - General Family Medicine 07/06/24 documented as of this encounter
--- OUTSIDE RECORDS SUMMARY | 2024-08-24 22:17 | XMS_ITS ---
Author Organization Unknown Address [address] [place] [phone] Phone Care Team Providers Care Finish Sander Name Role Phone TONI Rush Attending Unavailable KIRSTEN Orellana Primary Unavailable Results CBC W/ DIFFERENTIAL* - Colle ct Date/Time: 08/24/2024 16:34 [facility] ID: [id number] [address] [place], [place], [address] LOINC: 25286-0 Test Value Unit Reference Range Code Code System Flag WBC 3.20 th/cmm L=5.00 H=10.00 L NEUT % 44.3 % L=40.0 H=80.0 LYMPH % 39.7 % L=10.0 H=50.0 MONO % 12.2 % L=2.0 H=12.0 H EOS % 1.6 % L=0.0 H=8.0 BASO % 0.3 % L=0.0 H=3.0 IG % 1.9 % L=0.0 H=1.1 H NRBC % 0.0 % L=0.0 H=0.0 NEUT abs count 1.4 th/cmm L=1.6 H=8.4 L LYMPH abs count 1.3 th/cmm L=1.5 H=4.0 L MONO abs count 0.4 th/cmm L=0.2 H=1.0 EOS abs count 0.1 th/cmm L=0.0 H=0.5 BASO abs count 0.0 th/cmm L=0.0 H=0.2 IG abs count 0.1 th/cmm L=0.0 H=0.1 NRBC abs count 0.0 mil/cmm L=0.0 H=0.0 RBC 1.87 mil/cmm L=3.90 H=5.40 L HEMOGLOBIN 6.2 gm/dL L=12.0 H=16.0 L HEMATOCRIT 19 % L=37 H=47 LL MCV 101 fL L=82 H=92 H MCH 33.2 pg L=27.0 H=31.0 H MCHC 32.8 % L=32.0 H=36.0 RDW-SD 78.2 fL L=39.0 H=49.0 H PLATELET COUNT 127 th/cmm L=150 H=450 L Anisocytosis 3+ Polychromia 1+ Hypochromia 1+ Rouleaux present COMPREHENSIVE METABOLIC PANE L (CMP) - Collect Date/Time: 08/24/2024 16:34 [facility] ID: [id number] [address] [place], [place], [address] LOINC: 84322-3 Test Value Unit Reference Range Code Code System Flag GLUCOSE 103 mg/dL L=70 H=116 2345-7 LOINC BUN 20 mg/dL L=7 H=17 3094-0 LOINC H CREATININE 1.00 mg/dL L=0.52 H=1.04 2160-0 LOINC SODIUM SERUM 141 mmol/L L=136 H=145 2951-2 LOINC POTASSIUM SERUM 3.2 mmol/L L=3.4 H=5.2 2823-3 LOINC L CHLORIDE SERUM 100 mmol/L L=98 H=107 2075-0 LOINC CARBON DIOXIDE (CO2) 29 mmol/L L=22 H=30 2028-9 LOINC ANION GAP 11.5 mmol/L 76565-5 LOINC CALCIUM SERUM 10.2 mg/dL L=8.4 H=10.2 91187-1 LOINC BILIRUBIN TOTAL 0.6 mg/dL L=0.2 H=1.3 1975-2 LOINC ALK. PHOS. 64 U/L L=38 H=126 6768-6 LOINC SGOT (AST) 38 U/L L=14 H=36 1920-8 LOINC H SGPT (ALT) 21 U/L L=4 H=35 1742-6 LOINC TOTAL PROTEIN 11.6 gm/dL L=6.0 H=8.0 2885-2 LOINC H ALBUMIN 4.4 gm/dL L=3.4 H=5.0 1751-7 LOINC AGE 83 years eGFR (non-Afr.Amer.) 53 mL/min 82316-0 LOINC eGFR (Afr-Angolan) 64 mL/min 00850-3 LOINC Social History Type Status Start Date End Date Code Code Syst em Smoking History Never smoker (Never Smoked) 394423525 SNOMED CT Sex Female Hospital Discharge Instructions Should you have any questions prior to discharge, please contact a member of your healthcare team. If you have left the hospital and have any questions, please contact your primary care physician. Reason For Referral No Data Found Allergies and Adverse Reactions Allergy Substance Reaction Severity Start Date Concern Status Co de Code System CODEINE Active 9817 RxNorm Plan of Treatment LAB DRAW 15MIN 08/01/2024 LAB DRAW 15MIN 07/25/2024 LAB DRAW 15MIN 07/18/2024 LAB DRAW 15MIN 07/01/2024 LAB DRAW 15MIN 06/24/2023 X-RAY 12/10/2021 Personal Care Team Section Performer Name Performer Role Active Date Inactive Da te
--- OUTSIDE RECORDS SUMMARY | 2024-08-24 22:17 | XMS_ITS | Encounter Summary ---
Author Organization [facility] [place] [address] Care Team Providers Care Annealing Furnace Tender Name Role Phone Melba Vieira MD Primary Care Provider [phone] Encounter Details Date Type Department Care Team (Late st Contact Info) Description 08/24/2024 Emergency Emergency Department [facility] [place] [id number] Social History Tobacco Use Types Packs/Day Years Used Date Smoking Tobacco: Never Smokeless Tobacco: Never B1300 Health Literacy Answer Date Recor ded How often do you need to hav e someone help you when you read instructions, pamphlets, or other written material from your doctor or pharmacy? Never 07/11/2024 [facility] Utilities Answer Date Recorded In the past 12 months has [facility] electric, gas, oil, or water company threatened [...] were you homeless or living in a skilled nursing (including now)? No 07/11/2024 IPV Inpatient Questions [...] 9:30 AM EST Laboratory Appointment Lab at [facility] Hematology Oncology [address] [place] [phone] 09/21/2024 10:30 AM EST Office Visit Hematology [place] [address] Ernestina Mcclelland APRN [facility] DR HEMATOLOGY [place] [address] documented as of this encounter Goals Goal Patient Goal Type Associated Problems Recent Progress Patient-Stated? Author Patient's specific desired goal: Increase energy level and improve quality of life to 8 or better Patient Facing Action Plan No Estefany Rehman, [facility] Note: Goal(s): Improve quality of life from 7 to 8 or better Measured by: patient reported QOL and improved energy lever Time-frame: reviewed at 10 mo consult call documented as of this encounter Visit Diagnoses Not on filedocumented in this encounter Care Teams Annealing Furnace Tender Relationship Specialty Start Date End Date Melba Vieira MD [address] [place] [address] PCP - General Family Medicine 07/06/24 documented as of this encounter
--- OUTSIDE RECORDS SUMMARY | 2024-08-24 22:17 | XMS_ITS | Encounter Summary ---
Author Organization [facility] Address [facility] [place] [address] Care Team Providers Care Gear Keeper Name Role Phone Melba Vieira MD Primary Care Provider [phone] Encounter Details Date Type Department Care Team (Late st Contact Info) Description 08/24/2024 Orders Only Hematology [place] [address] Freddy Mattson MD [facility] DR HEMATOLOGY [place] [address] Social History Tobacco Use Types Packs/Day Years Used Date Smoking Tobacco: Never Smokeless Tobacco: Never B1300 Health Literacy Answer Date Recor ded How often do you need to hav e someone help you when you read instructions, pamphlets, or other written material from your doctor or pharmacy? Never 07/11/2024 [facility] Utilities Answer Date Recorded In the past [...] any time in the past 12 m [facility], were you homeless or living in a fci (including now)? No 07/11/2024 IPV Inpatient Questions [...] Notes * Freddy Mattson MD - 08/24/2024 12:07 PM EST [facility] HEMATOLOGY AND ONCOLOGY [facility] [address] Date: 08/24/24 Patient Name: Melissa López : 1940 Diagnosis: Waldenstrom Referral to [site]: [email or web address] Orders: Venous Access Device? No Labs: Fax results to [phone]. [x] To be drawn once weekly beginning on the week of 08/24/24 4 weeks [x] CBC with differential, Comprehensive metabolic panel, and Type and screen Transfusion Parameters: [x] All products should be leukocyte depleted [x] Irradiated blood products indicated for the following at risk populations: Allogeneic transplant patients [from start of prep regimen until patient no longer requires immunosuppressive treatment or GvHD prophylaxis] Autologous transplant patients [from start of prep regimen through 3 months post-transplant] Patients with Hodgkin Disease Patients treated with purine analogs or purine antagonists [fludarabine, cladribine, clofarabine, bendamustine, mercaptopurine, pentostatin, thioguanine] Patients receiving bendamustine, alemtuzumab or ATG [x] 1 unit packed RBC for Hgb </= 8 gm/dL or symptoms Signature: FREDDY MATTSON MD Co-signature [if needed]: documented in this encounter Plan of Treatment Upcoming Encounters Date Type Department Care Team (Late st Contact Info) Description 09/21/2024 9:30 AM EST Laboratory Appointment Lab at [facility] Hematology Oncology [address] [place] [phone] 09/21/2024 10:30 AM EST Office Visit Hematology [place] [address] Ernestina Mcclelland [facility] DR HEMATOLOGY [place] [address] documented as of this encounter Goals Goal Patient Goal Type Associated Problems Recent Progress Patient-Stated? Author Patient's specific desired goal: Increase energy level and improve quality of life to 8 or better Patient Facing Action Plan Estefany Heath, [facility] Note: Goal(s): Improve quality of life from 7 to 8 or better Measured by: patient reported QOL and improved energy lever Time-frame: reviewed at 10 mo consult call documented as of this encounter Visit Diagnoses Not on filedocumented in this encounter Care Teams Gear Keeper Relationship Specialty Start Date End Date Melba Vieira MD [address] [place] [address] PCP - General Family Medicine 07/06/24 documented as of this encounter
--- OUTSIDE RECORDS SUMMARY | 2024-08-24 22:17 | XMS_ITS | Encounter Summary ---
Author Organization [facility] Address [facility] [place] [address] Care Team Providers Care Tavern Keeper Name Role Phone Melba Vieira MD Primary Care Provider [phone] Reason for Visit * Reason Onset Date Comments Abnormal Lab 08/24/2024 Encounter Details Date Type Department Care Team (Late st Contact Info) Description 08/24/2024 Telephone Hematology [place] [phone] Kwame Lopes MD [facility] HEMATOLOGY/[place] [address] Abnormal Lab Social History Tobacco Use Types Packs/Day Years Used Date Smoking Tobacco: Never Smokeless Tobacco: Never B1300 Health Literacy Answer Date Recor ded How often do you need to hav e someone help you when you read instructions, pamphlets, or other written material from your doctor or pharmacy? Never 07/11/2024 [facility] Utilities Answer Date Recorded In the past 12 months has [facility] [employer], gas, oil, or water [employer] threatened to shut off services in your [...] any time in the past 12 m [facility], were you homeless or living in a prison (including now)? No 07/11/2024 [facility] IPV Inpatient [...] on file documented as of this encounter Miscellaneous Notes * Telephone Encounter - Kwame Lopes MD - 08/24/2024 6:44 PM EST Reason for call: critical lab Query/Question: ? Caller: Melissa López is a 83 y.o. female with diagnosis Waldenstrom's Macroglobulinemia, currently planned for treatment with zanubrutinib. After being paged by the Lab [phone]; I called back 3 times and there was no answer. I called back the general number [phone]; they again connected me and for the fourth time there was no answer. I called 5th time and they said they would contact me via page. I was called back at 19:25 Noted to have critical lab of below, this was drawn 16:34 today 08/24/23 Hemoglobin 6.2 HCT 18.9 PLT 132 I called the patient and no new symptoms but I did share my concern of very low Hb level. I spoke to the patient and she would prefer to go to [facility] as [facility] was >2 hours away. I called [facility] and spoke to RN and they informed me they often have difficulty obtaining irradiated blood product. Tried to contact lab again but no answer. Therefore I called [facility] ER and spoke to them. Provider in the ER explained they would be able to evaluate the patient. I expressed my concern of Hb of 6 needing transfusion, and outside goal >8. They did mention they should be able to receive leukocyte depleted and irradiated blood products - though may take some time. I called back the patient and explained my concern and she will ask for help / driven to [facility] ER for further cavre. All questions/concerns were addressed. This note will be routed to primary oncology/hematology team. Please note, this is not an official consult as my recommendations are limited by inability to interview and examine the patient as well as personally review the medical record, imaging, and laboratory findings. Randy Lopes MD, , FACP Hematology/Oncology Fellow PGY4 Pager # [phone] 08/24/24, 6:44 PM Hematology/Oncology Clinic [facility] [place] [phone] documented in this encounter Plan of Treatment Upcoming Encounters Date Type Department Care Team (Late st Contact Info) Description 09/21/2024 9:30 AM EST Laboratory Appointment Lab at [facility] Hematology Oncology [address] [place] [phone] 09/21/2024 10:30 AM EST Office Visit Hematology [place] [address] Ernestina Mcclelland APRN [facility] DR HEMATOLOGY [place] [address] documented as of this encounter Goals Goal Patient Goal Type Associated Problems Recent Progress Patient-Stated? Author Patient's specific desired goal: Increase energy level and improve quality of life to 8 or better Patient Facing Action Plan No Estefany Rehman, [facility] Note: Goal(s): Improve quality of life from 7 to 8 or better Measured by: patient reported QOL and improved energy lever Time-frame: reviewed at 10 mo consult call documented as of this encounter Visit Diagnoses Not on filedocumented in this encounter Care Teams Tavern Keeper Relationship Specialty Start Date End Date Melba Vieira MD 6 [facility] [place] [phone] PCP - General Family Medicine 07/06/24 documented as of this encounter
--- OUTSIDE RECORDS SUMMARY | 2024-08-24 22:17 | XMS_ITS | Clinical Summary ---
Author Organization [facility] Address [facility] [place] [address] Care Team Providers Care Clinical Radiologist Name Role Phone Melba Vieira MD Primary Care Provider [phone] Allergies Active Allergy Reactions Criticality Noted Date Comments Codeine 07/11/2024 Medications Medication Sig Dispensed Refills Start Date End Date Status Calcium Carbonate-Vitamin D3 (Calcium 500 + D) 500 mg-10 mcg (400 unit) Tablet, Chewable Active multivitamin with minerals (One-A-Day) Tablet Take by mouth. Active amLODIPine (Norvasc) 5 mg tablet Take by mouth. 08/01/19 21 Active aspirin 81 mg chewable tablet Take 81 mg by mouth Daily @ 0600. Active atorvastatin (Lipitor) 20 mg tablet 02/25/20 18 Active Lumigan 0.01 % Drops Apply to eye. A ctive cholecalciferol, Vitamin D3, 10 mcg (400 unit) Capsule Take by mouth. Ac tive PreviDent 5000 Booster Plus 1.1 % Paste 09/05/19 22 Active hydroCHLOROthiazide (HydroDiuril) 25 mg tablet 02/10/20 19 Active lisinopriL (Zestril) 10 mg tablet Take 10 mg by mouth Daily @ 0600. Active omeprazole (PriLOSEC) [address] capsule Take by mouth. Acti ve zanubrutinib (Brukinsa) 80 mg capsuleIndications:Wa ldenstrom's macroglobulinemia Take 2 capsules (160 mg) by mouth 2 times daily for 30 days. Call clinic before starting medication. 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 Encounters Date Type Department Care Team Description 08/24/2024 Emergency Emergency Department [place] [phone] 08/24/2024 Telephone Hematology and Oncology at [place] [phone] Kwame Lopes MD 08/24/2024 Telephone Hematology and Oncology at [place] [phone] Kwame Lopes MD Abnormal Lab 08/24/2024 Telephone Hematology and Oncology at [place] [phone] Cheyenne Goodwin RN 08/24/2024 Orders Only Hematology and Oncology at [place] [phone] Roz Mattson MD 08/24/2024 Notes Only Hematology and Oncology at [place] [phone] Roz Mattson MD 08/22/2024 Specialty Pharmacy Pharmacy at [place] [phone] Estefany Rehman, [facility] Initial Clinical Assessment/Patient Education (zanubrutinib) for HemOnc 08/18/2024 Refill Hematology and Oncology at [place] [phone] Cheyenne Goodwin RN 08/18/2024 Specialty Pharmacy Pharmacy at [place] [phone] Jair Colbert, OFFICE MANAGER EXECUTIVE ASSISTANT Prior Authorization (zanubrutinib) for HemOnc, Benefits Investigation (zanubrutinib) for HemOnc 08/17/2024 11:30 AM EST Office Visit Hematology [place] [phone] Roz Mattson MD Waldenstrom's disease 08/17/2024 Travel 08/04/2024 8:00 AM EST - 08/04/2024 9:00 AM EST Surgery [facility] [place] [phone] Roz Mattson MD (OSC MSURG) BONE MARROW BIOPSY AND ASPIRATION; DIAGNOSTIC (WRVU 1.44) 08/04/2024 6:43 AM EST - 08/04/2024 9:15 AM EST Hospital Encounter Outpatient [facility] [place] [phone] Roz Mattson MD Discharge Disposition: Home 08/04/2024 External Results Hematology and Oncology at [place] [address] France Carreno, RN 08/01/2024 Notes Only Hematology and Oncology at [place] [address] Grace Charles, RN 07/25/2024 Notes Only [place]ematology [place] [phone] Grace Charles, RN 07/25/2024 Telephone [place]ematology [place] [phone] Cheyenne Goodwin I, JESSE 07/23/2024 External Results [place] [phone] France Carreno, RN 07/18/2024 Notes Only [place] [phone] Grace Charles, RN 07/12/2024 Telephone [place]ology [place] [phone] Alesha Moss, RN 07/11/2024 10:45 AM EST Laboratory Appointment Lab at [facility] Hematology Oncology [address] [place], [place] [phone] 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 10:38 AM EST - 07/11/2024 11:59 PM EST Hospital Encounter [place]ology [place] [phone] Plasma cell dyscrasia Discharge Disposition: Home 07/11/2024 9:30 AM EST Office Visit [place]ology [place] [phone] Roz Mattson MD Palmer, John P, MD 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 Orders Only Hematology and Oncology at [place] [address] Roz Mattson MD 07/11/2024 Notes Only Hematology and Oncology at [place] [address] Grace Charles RN 07/11/2024 Transcribe Orders Laboratory [place] [address] Roz Mattson MD 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 Telephone Hematology and Oncology at [place] [address] Grace Charles, RN 07/11/2024 Orders Only Hematology and Oncology at [place] [address] Roz Mattson MD 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 Travel 07/06/2024 Transcribe Orders eD Incoming Referrals [phone] Melba Vieira MD Acquired pancytopenia; Elevated blood protein 07/04/2024 Interpretation Only [facility] in [address] [phone] Jose Hamilton MD from Last 3 Months Social History Tobacco Use Types Packs/Day Years Used Date Smoking Tobacco: Never Smokeless Tobacco: Never Tobacco Cessation:Counseling Given: Not Answered [id number] Health Literacy Answer Date Recor ded How often do you need to hav e someone help you when you read instructions, pamphlets, or other written material from your doctor or pharmacy? Never 07/11/2024 [facility] Utilities Answer Date Recorded In [...] any time in the past [address] [facility], were you homeless or living in a residential (including now)? No 07/11/2024 IPV Inpatient Questions [...] on file Sexual Orientation Not on file Last Filed Vital Signs Vital Sign Reading Time Taken Comments Blood Pressure 142/72 08/17/2024 11:21 AM EST Pulse 70 08/17/2024 11:21 AM EST Temperature 36.2 ??C (97.1 ??F) 08/17/2024 1 1:21 AM EST Respiratory Rate 18 08/17/2024 11:2 1 AM EST Oxygen Saturation 98% 08/17/2024 11: 21 AM EST Inhaled Oxygen Concentration - - Weight 70.6 kg (155 lb 10.3 oz) 025 11:21 AM EST Height 170.2 cm (5' 7.01) 08/17/2024 1 1:21 AM EST Body Mass Index 24.37 08/17/2024 11:21 AM EST Plan of Treatment Upcoming Encounters Date Type Department Care Team (Late st Contact Info) Description 09/21/2024 9:30 AM EST Laboratory Appointment Lab at [facility] Hematology Oncology [address] [place] [phone] 09/21/2024 10:30 AM EST Office Visit Hematology [place] [phone] Ernestina Mcclelland APRN [facility] [address] HEMATOLOGY AND ONCOLOGY [place], [place] [phone] Health Maintenance Due Date Last Done Comments Tetanus/Diphtheria/Pertussis Vaccines (1 - Tdap) 09/10 Pneumoccocal Vaccine: 50+ (1 of 1 - PCV) 1989 Zoster vaccine (1 of 2) 1989 Advance Directive 1994 Bone Density Scan 2004 RSV Vaccine (1 - 1-dose 75+ series) 2014 Covid-19 Vaccine ( - season) 2024 Influenza (Flu) vaccine (1 o f 1 - Influenza standard series) 03/20/2024 Goals Goal Patient Goal Type Associated Problems Recent Progress Patient-Stated? Author Patient's specific desired goal: Increase energy level and improve quality of life to 8 or better Patient Facing Action Plan Estefany Heath, [facility] Note: Goal(s): Improve quality of life from 7 to 8 or better Measured by: patient reported QOL and improved energy lever Time-frame: reviewed at 10 mo consult call Procedures Procedure Name Priority Date/Time Associated Diagnosis Comments (OSC MSURG) BONE MARROW BIOPSY AND ASPIRATION; DIAGNOSTIC Routine 08/04/2024 8:33 AM EST BM HOLD CG/FISH Routine 08/04/2024 8:28 AM EST BM HOLD FLOW/MOLECULAR Routine 8:28 AM EST DH HEMESEQ (BONE MARROW) Routine 025 8:28 AM EST IMMUNOPHENOTYPING FLOW CYTOMETRY Routine 08/04/2024 8:28 AM EST Diagnostic Bone Marrow Biopsies & Aspirations (08603) 08/04/2024 8:20 AM EST waldenstrom macroglobulemia SCAN, PERIPHERAL BLOOD Routine 7:38 AM EST CBC (WITH DIFF) Routine 08/04/2024 7:38 AM EST EXTERNAL LAB CBC CMP THYROID RESULTS PANEL Routine 08/01/2024 10:58 AM EST LAB SCAN 08/01/2024 12:00 AM EST EXTERNAL LAB CBC CMP THYROID RESULTS PANEL Routine 07/18/2024 10:55 AM EST LAB SCAN 07/18/2024 12:00 AM EST HC TR PSLD, RED BLOOD CELLS, IRRADIATED Routine 07/12/2024 4:07 AM EST Plasma cell dyscrasia HC TR PSLD, RED BLOOD CELLS, IRRADIATED Routine 07/12/2024 2:07 AM EST Plasma cell dyscrasia TRANSFUSE RED BLOOD CELLS Routine 07/11/2024 3:51 PM EST Plasma cell dyscrasia TRANSFUSE RED BLOOD CELLS Routine 07/11/2024 2:00 PM EST Plasma cell dyscrasia ABORH RECHECK Routine 07/11/2024 1:15 PM EST TYPE AND SCREEN ([facility]/CGP/LINDSAY) Routine 07/11/2024 11:36 AM EST Plasma cell dyscrasia IMMUNOFIXATION ELECTROPHORESIS, SERUM Routine 07/11/2024 10:32 AM EST Plasma cell dyscrasia SCAN, PERIPHERAL BLOOD Routine 10:32 AM EST Plasma cell dyscrasia PROTEIN, TOTAL ELECTROPHORESIS (PERFROMABLE) Routine 07/11/2024 10:32 AM EST Plasma cell dyscrasia PEP, SERUM (PERFORMABLE) Routine 024 10:32 AM EST Plasma cell dyscrasia CBC (WITH DIFF) Routine 07/11/2024 10:32 AM EST Plasma cell dyscrasia COMPREHENSIVE METABOLIC PANEL Routine 07/11/2024 10:32 AM EST Plasma cell dyscrasia IMMUNOGLOBULIN FREE LIGHT CHAINS, SERUM Routine 07/11/2024 10:32 AM EST Plasma cell dyscrasia PROTEIN ELECTROPHORESIS, SERUM Routine 07/11/2024 10:32 AM EST Plasma cell dyscrasia IMMUNOGLOBULINS, QUANTITATIVE Routine 07/11/2024 10:32 AM EST Plasma cell dyscrasia VISCOSITY Routine 07/11/2024 10:32 AM EST Plasma cell dyscrasia LAB SCAN 07/11/2024 12:00 AM EST LAB SCAN 07/08/2024 12:00 AM EST XR CHEST PA AND LATERAL STAT 07/04/20 8:41 PM EST LAB SCAN 07/04/2024 12:00 AM EST DIAGNOSTIC RADIOLOGY SCAN 07/04/2024 12:00 AM EST LAB SCAN 07/01/2024 12:00 AM EST from Last 3 Months Results * (OSC MSURG) BONE MARROW BIOPSY [...] Mattson MD GENERAL SURGICAL ORD ERABLES * BM HOLD CYTOGENETICS/FISH (08/04/2024 8:28 AM EST) Bone Marrow ILIAC CREST STRUCTURE / Unknown Non Blood Collection / Unknown 08/04/2024 8:28 AM EST 08/04/2024 9:11 AM EST Roz Mattson MD PATHOLOGY/CYTOLOGY O RDERABLES [facility] [place] [address] * BM HOLD FLOW/MOLECULAR (08/04/2024 8:28 AM EST) Bone Marrow ILIAC CREST STRUCTURE / Unknown Non Blood Collection / Unknown 08/04/2024 8:28 AM EST 08/04/2024 9:11 AM EST Roz Mattson MD PATHOLOGY/CYTOLOGY O RDERABLES Performing Organization Address City/[facility]/ZIP Co de Phone Number [facility] [place] [address] * (ABNORMAL) DH HemeSeq (Bone Marrow) (08/04/2024 8:28 AM EST) NGS Report Status Abnormal(A ) 08/18/2024 7:06 AM EST [facility] Bone Marrow ILIAC CREST STRUCTURE / Unknown Non Blood Collection / Unknown 08/04/2024 8:28 AM EST 08/04/2024 9:11 AM EST Wellington Rocha MD MOLECULAR ORDERABLES Performing Organization Address [facility] Co de Phone Number [facility] [place] [address] * Immunophenotyping Flow Cytometry (08/04/2024 8:28 AM EST) Final Diagnosis Cd19+CD20+ kappa light chain restricted B cell population detected . Plasma cells are too few for a robust delineation of light chains; but appear polytypic . 08/08/2024 4:41 PM EST [facility] Signing Pathologist This result has been reviewed by WELLINGTON ROCHA MD on 08/08/24 at 4:40 PM. 08/08/2024 4:41 PM EST [facility] Discussion Phenotype is nonspecific and can include MZL, LPL. 08/08/2024 4:41 PM EST [facility] Interpretation Cd19+CD20+ kappa light chain restricted B cell population detected that is negative for CD5-, Cd10-, Cd103- with minor positivity for CD25, CD22, 08/08/2024 4:41 PM [facility] Lymphocyte % 43.8 % 08/08/2024 4:41 PM [facility] Monocyte % 6.6 % 08/08/2024 4:41 PM [facility] Granulocyte % 46.5 % 08/08/2024 4:41 PM [facility] CD45 DIM % 1.1 % 08/08/2024 4:41 PM [facility] CD38 Bright/CD138+ 0.0 % 08/08/2024 4:41 PM [facility] CD3+ % 68.0 % 08/08/2024 4:41 PM [facility] CD19+ % 14.0 % 08/08/2024 4:41 PM [facility] CD56+ % 13.0 % 08/08/2024 4:41 PM [facility] B-Cell:T-Cell Ratio 0.2 08/08/2024 4:41 PM [facility] Jemison:Lambda Ratio 25.8 08/08/2024 4:41 PM [facility] CD4:CD8 Ratio 1.3 08/08/2024 4:41 PM [facility] Specimen Processing Cells for immunophenotypic analysis were derived from Bone marrow . The following markers were assessed: CD2, CD3, CD4, CD5, CD7, CD8, CD10, Cd11c, CD19, CD20, CD22, CD23, CD25, CD38, CD45, CD56, CD103, CD138, [facility]MC-7, kappa light chain, (c)kappa light chain, lambda light chain, and (c)lambda light chain. 08/08/2024 4:41 PM [facility] Disclaimer Flow analysis is an ancillary study. A definite diagnosis requires correlation with the morphologic features of this process and if necessary, correlation with other ancillary studies like immunohistochemist ry, enzyme cytochemistry and/or cyto/molecular genetics. This test was developed and its performance characteristics determined by the Clinical Flow Cytometry Laboratory at [facility]. It has not been cleared [...] clinical laboratory testing. 08/08/2024 4:41 PM EST [facility] Bone Marrow ILIAC CREST STRUCTURE / Unknown Non Blood Collection / Unknown 08/04/2024 8:28 AM EST 08/04/2024 9:11 AM EST Wellington Rocha MD HEMATOLOGY ORDERABLE S [facility] [place] [address] * (ABNORMAL) Scan, Peripheral Blood (08/04/2024 7:38 AM EST) Only the most recent of2 resultswithin the time period is included. RBC Morphology Abnormal 08/04/2024 10:43 AM [facility] Platelet Estimate Decreased(A) Normal 08/04 10:43 AM [facility] Macrocyte 1-5 /HPF 08/04/2024 10:43 AM [facility] Microcyte 1-5 /HPF 08/04/2024 10:43 AM EST [facility] Polychromasia Present 08/04/2024 10:43 AM EST [facility] Spherocyte 1-5 /HPF 08/04/2024 10:43 AM EST [facility] Rouleaux RBC Present 08/04/2024 10:43 AM [facility] Blood VENOUS BLOOD SPECIMEN / Unknown Venipuncture / Unknown 08/04/2024 7:38 AM EST 08/04/2024 8:45 AM EST Roz Mattson MD HEMATOLOGY ORDERABLE S [facility] [place] [address] * (ABNORMAL) CBC (with Diff) (08/04/2024 7:38 AM EST) Only the most recent of2 resultswithin the time period is included. White Blood Cell 3.32(L) 4.00 - 9.50 x10(3)/mc L 08/04/2024 10:43 AM [facility] Red Blood Cell 2.36(L) 4.00 - 5.21 x10(6)/mc L 08/04/2024 10:43 AM [facility] Hemoglobin 8.9(L) 11.7 - 15.5 g/dL 08/04/2024 10:43 AM [facility] Hematocrit 23.5(L) 35.7 - 45.8 % 08/04/2024 10:43 AM [facility] Mean Cell Volume 99.6(H) 82.6 - 94.4 fL 08/04/2024 10:43 AM [facility] Mean Cell Hemoglobin 37.7(H) 27.1 - 32.0 pg 08/04/2024 10:43 AM [facility] Mean Cell Hemoglobin Concentration 37.9(H) 31.7 - 35.0 g/dL 08/04/2024 10:43 AM [facility] Comment:Cold Agglutinin pres ent-corrected results. Platelet 116(L) 145 - 357 x10(3)/mc L 08/04/2024 10:43 AM [facility] Mean Platelet Volume 9.9 7.6 - 12.9 fL 08/04/2024 10:43 AM [facility] RDW Standard Deviation 71.3(H) 37.0 - 46.0 fL 08/04/2024 10:43 AM [facility] RDW coefficient of variation 20.0(H) 11.5 - 14.1 % 08/04/2024 10:43 AM [facility] NRBC% auto 0.0 % 08/04/2024 10:43 AM [facility] NRBC Absolute <0.01 <0.01 x10(3)/mc L 08/04/2024 10:43 AM [facility] Neutrophil % 47.6 % 08/04/2024 10:43 AM [facility] Neutrophil Absolute (ANC) - Automated 1.58(L) 1.70 - 6.10 x10(3)/mc L 08/04/2024 10:43 AM [facility] Lymph % 35.8 % 08/04/2024 10:43 AM [facility] Lymph Absolute 1.19 0.90 - 3.20 x10(3)/mc L 08/04/2024 10:43 AM [facility] Monocyte % 14.2 % 08/04/2024 10:43 AM [facility] Monocyte Absolute 0.47 0.30 - 0.90 x10(3)/mc L 08/04/2024 10:43 AM [facility] Eos % 1.2 % 08/04/2024 10:43 AM [facility] Eos Absolute 0.04 0.00 - 0.40 x10(3)/mc L 08/04/2024 10:43 AM [facility] Basophil % 0.3 % 08/04/2024 10:43 AM [facility] Baso Absolute <0.04 0.00 - 0.10 x10(3)/mc L 08/04/2024 10:43 AM [facility] Immature Gran % 0.9 % 10:43 AM [facility] Immature Gran Absolute <0.04 0.00 - 0.04 x10(3)/mc L 08/04/2024 10:43 AM [facility] Blood VENOUS BLOOD SPECIMEN / Unknown Venipuncture / Unknown 08/04/2024 7:38 AM EST 08/04/2024 8:45 AM EST Roz Mattson MD HEMATOLOGY ORDERABLE S [facility] [place] [address] * (ABNORMAL) CBC / CMP / Thyroid External Results (08/01/2024 10:58 AM EST) Only the most recent of2 resultswithin the time period is included. WBC - External 3.25(A) 5 - 10 EXTER NAL FACILITY Hemoglobin - External 8.5(A) 12 - 16 EXTERNAL FACILITY Hematocrit - External 23(A) 37 - 47 EXTERNAL FACILITY Platelets - External 132(A) 150 - 450 EXTERNAL FACILITY Neutr ABS (ANC) - External 1.4(A) 1.6 - 8.4 EXTERNAL FACILITY 08/01/2024 10:5 8 AM EST Historical Provider EXTERNAL LAB [facility] * Scan Doc: Lab (08/01/2024 12:00 AM EST) Only the most recent of6 resultswithin the time period is included. Narrative 08/01/2024 12:00 AM EST Ordered by an unspecified provider. Scanning Provider MEDIA MGR SCAN EXT O RDR/RSLT * Prepare RBC (07/12/2024 4:07 AM EST) Only the most recent of2 resultswithin the time period is included. Status Information Transfused [facility] Product Identification RBC [facility] Unit Number [id number] [facility] Product Code [id number] [facility] Unit Blood Type APOS [facility] Specimen Expiration Date [id number] [facility] Volulme 350 [facility] Issue Date / Time [id number] [facility] Blood 07/11/2024 2:2 7 PM EST Roz Mattson MD BLOOD BANK PRODUCT O RDERABLES [facility] [place] [address] * Transfuse RBC (07/11/2024 6:00 PM EST) Only the most recent of2 resultswithin the time period is included. Roz Mattson MD NURSING TREATMENT OR DERABLES - BLOOD ADMIN * ABORH RECHECK (07/11/2024 1:15 PM EST) ABORH Recheck A POSITIVE 07/11/2024 1:42 PM EST [facility] Blood VENOUS BLOOD SPECIMEN / Unknown Venipuncture / Unknown 07/11/2024 1:15 PM EST 07/11/2024 1:23 PM EST Roz Mattson MD BLOOD BANK LAB ORDER ARSALAN Performing Organization Address City/[facility]/ZIP Co de Phone Number [facility] [place] [address] * Type and screen ([facility]/CGP/LINDSAY) (07/11/2024 11:36 AM EST) ABORH Type A POSITIVE 07/11/2024 12:36 PM EST [facility] PATIENT HISTORY Not Found 07/11/2024 12:36 PM EST [facility] Expires at [id number] on: 07/14/2024 07/11/2024 12:36 PM EST [facility] ANTIBODY SCREEN AUTOMATED Negative 07/11/2024 12:36 PM EST [facility] T&S only valid at [facility] 07/11/2024 12:36 PM EST [facility] Blood VENOUS BLOOD SPECIMEN / Unknown Venipuncture / Unknown 07/11/2024 11:36 AM EST 07/11/2024 11:42 AM EST Narrative [facility] - 07/11/2024 12:36 PM EST This Type and Screen result is only valid at the [facility] Roz Mattson MD BLOOD BANK LAB ORDER ARSALAN Performing Organization Address City/[facility]/ZIP Co de Phone Number [facility] [place] [phone] * Protein, Serum Electrophoresis (07/11/2024 10:32 AM EST) Blood VENOUS BLOOD SPECIMEN / Unknown Venipuncture / Unknown 07/11/2024 10:32 AM EST 07/11/2024 10:40 AM EST Roz Mattson MD URINE ORDERABLES [facility] [place] [address] * (ABNORMAL) PEP, Serum (07/11/2024 10:32 AM EST) Protein, Total 11.2(H) 6.1 - 8.0 g/dL 07/12/2024 1:51 PM EST [facility] Comment:Interpret plasma or serum SODIUM results with caution; highly elevated proteins of >10 g/dL may cause pseudohyponatremia. Albumin Electrophoresis 4.84 3.20 - 5.20 g/dL 07/12/2024 1:51 PM EST [facility] Alpha 1 Globulin 0.32(H) 0.10 - 0.30 g/dL 07/12/2024 1:51 PM [facility] Alpha 2 Globulin 0.85 0.40 - 0.90 g/dL 07/12/2024 1:51 PM EST [facility] Beta Globulin 0.60 0.50 - 1.00 g/dL 07/12/2024 1:51 PM EST [facility] Gamma Globulin 4.58(H) 0.50 - 1.30 g/dL 07/12/2024 1:51 PM EST [facility] M1 Band 0.22 None Detected 07/12/2024 1:51 PM EST [facility] M2 Band 3.51 None Detected 07/12/2024 1:51 PM [facility] Comment: The serum protein electrophoresis shows two bands that are consistent with paraproteins. Immunofixation and quantitative immunoglobulin testing will be performed on this sample to verify that they are monoclonal immunoglobulins. Blood VENOUS BLOOD SPECIMEN / Unknown Venipuncture / Unknown 07/11/2024 10:32 AM EST 07/11/2024 10:40 AM EST Roz Mattson MD URINE ORDERABLES Performing Organization Address [facility]/ZIP Co de Phone Number [facility] [place] [address] * (ABNORMAL) Free Light Chains, Serum (07/11/2024 10:32 AM EST) Jemison Free Light Chain 110.53(H) 0.72 - 2.75 mg/dL 07/11/2024 2:22 PM EST [facility] Lambda Free Light Chain 0.67 0.57 - 2.15 mg/dL 07/11/2024 2:22 PM EST [facility] Jemison/Lambda FLC Ratio 164.9701(H ) 0.4000 - 2.5800 07/11/2024 2:22 PM EST [facility] Blood VENOUS BLOOD SPECIMEN / Unknown Venipuncture / Unknown 07/11/2024 10:32 AM EST 07/11/2024 10:40 AM EST Roz Mattson MD CHEMISTRY ORDERABLES Performing Organization Address City/[facility]/ZIP Co de Phone Number [facility] [place] [address] * (ABNORMAL) Immunoglobulins, Quantitative (07/11/2024 10:32 AM EST) Pathologist [facility] IgG 530(L) 700 - 1,600 mg/dL 07/11/2024 12:13 PM EST [facility] IgA 69(L) 70 - 400 mg/dL 07/11/2024 12:13 PM EST [facility] IgM 7,718(HHH) 40 - 230 mg/dL 07/11/2024 12:13 PM EST [facility] Blood VENOUS BLOOD SPECIMEN / Unknown Venipuncture / Unknown 07/11/2024 10:32 AM EST 07/11/2024 10:40 AM EST Roz Mattson MD CHEMISTRY ORDERABLES [facility] [place] [address] * Immunofixation Electrophoresis, Serum (07/11/2024 10:32 AM EST) Pathologist [facility] Immunofixation Interpretation, Serum There is approximately 0.22 g/dL of monoclonal IgM kappa immunoglobulin (Band #1), as well as approximately 3.51 g/dL of monoclonal IgM kappa with free kappa light chains (Band #2) present in this patient's serum. 07/14/2024 3:41 PM EST [facility] Signing Pathologist Matthias Short, 07/14/2024 3:41 PM EST [facility] Blood VENOUS BLOOD SPECIMEN / Unknown Venipuncture / Unknown 07/11/2024 10:32 AM EST 07/11/2024 10:40 AM EST Roz Mattson MD CHEMISTRY ORDERABLES Performing Organization Address City/[facility]/ZIP Co de Phone Number [facility] [place] [place] [address] * (ABNORMAL) Viscosity (07/11/2024 10:32 AM EST) [facility] Viscosity 4.0(H) 1.0 - 1.7 cP 07/11/2024 2:10 PM EST [facility] Blood VENOUS BLOOD SPECIMEN / Unknown Venipuncture / Unknown 07/11/2024 10:32 AM EST 07/11/2024 10:39 AM EST Roz Mattson MD HEMATOLOGY ORDERABLE S [facility] [place] [place] [address] * (ABNORMAL) Comprehensive metabolic panel (07/11/2024 10:32 AM EST) [facility] Glucose 101 65 - 199 mg/dL 07/11/2024 12:16 PM [facility] Comment:Glucose Concentratio n >=200 mg/dL plus symptoms is consistent with Diabetes Mellitus. Blood Urea Nitrogen 21(H) 8 - 18 mg/dL 07/11/2024 12:16 PM [facility] Creatinine 0.83 0.70 - 1.20 mg/dL 07/11/2024 12:16 PM [facility] Sodium 136 135 - 145 mMol/L 07/11/2024 12:16 PM [facility] Potassium 3.2(L) 3.5 - 5.0 mMol/L 07/11/2024 12:16 PM [facility] Chloride 98 98 - 107 mMol/L 07/11/2024 12:16 PM [facility] Carbon Dioxide 24 22 - 31 mMol/L 07/11/2024 12:16 PM [facility] Anion Gap 14 5 - 15 mMol/L 07/11/2024 12:16 PM [facility] Calcium 10.1 8.5 - 10.5 mg/dL 07/11/2024 12:16 PM [facility] Protein, Total 11.5(H) 6.1 - 8.0 g/dL 07/11/2024 12:16 PM [facility] Comment:Interpret plasma or serum SODIUM results with caution; highly elevated proteins of >10 g/dL may cause pseudohyponatremia. Albumin 4.0 3.2 - 5.2 g/dL 07/11/2024 12:16 PM [facility] Aspartate Aminotransferase 23 <=30 unit/L 07/11/2024 12:16 PM [facility] Alanine Aminotransferase 12 0 - 30 unit/L 07/11/2024 12:16 PM [facility] Alkaline Phosphatase 62 35 - 105 unit/L 07/11/2024 12:16 PM [facility] Bilirubin, Total 0.7 <=1.3 mg/dL 07/11/2024 12:16 PM [facility] Est Glomerular Filtration Rate - Female 70 mL/min/1. 73 m?? 07/11/2024 12:16 PM EST [facility] Comment: This patient's estimated GFR was calculated using the 2020 CKD-EPI equation. The estimated GFR can vary from the measured GFR by up to 30% in the absence of rapidly changing kidney function. Assessment of the estimated GFR is not appropriate when creatinine concentrations are rapidly changing. For clinical situations in which a more precise estimate of GFR is necessary, consider alternative methods of GFR estimation such as a 24-hour urine creatinine clearance. Assignment of CKD stage 1 - 5 for patients with an eGFR near the transition point between stages may be based on clinical assessment of muscle mass and symptoms in addition to eGFR. Link: eGFR Calculator [employer] Fasting Status No 07/11/2024 12:16 PM EST [facility] Blood VENOUS BLOOD SPECIMEN / Unknown Venipuncture / Unknown 07/11/2024 10:32 AM EST 07/11/2024 10:39 AM EST Roz Mattson MD CHEMISTRY ORDERABLES [facility] [place] [address] * XR Chest PA & Lateral (Generic) (07/04/2024 8:41 PM EST) PT CLASS E RAD ADMITDTTM [id number] RAD PT [facility] INFO [id number]^MEGAN ^JOSE^J RAD EXAM DESC XCXR2^XR CHEST 2V PA AND LATERAL^RIS [facility] WORKSTATION ID [id number] RAD Anatomical Region Laterality Modality Chest N/A Radiographic Elizabeth ging Impressions 07/04/2024 9:04 PM EST 1. ??Hyperexpansion suggesting underlying obstructive pulmonary disease. 2. ??No acute cardiopulmonary process. Thank you for letting us participate in the care of this patient. ??If you are a health care provider and have any questions regarding this report, please contact the number below. ??For patients who have questions please contact the health regular senior care provider that requested your imaging first. ? Narrative 07/04/2024 9:04 PM EST EXAMINATION: XR CHEST 2V PA ??AND LATERAL CLINICAL HISTORY: ??Reason for Chest: ??SOB ??Add'l Info: TECHNIQUE: PA and lateral views of [...] of the diaphragms on the lateral view. Procedure Note Pipo Deleon MD - 07/04/2024 EXAMINATION: XR CHEST 2V PA AND LATERAL CLINICAL HISTORY: Reason for Chest: SOB Add'l Info: TECHNIQUE: PA and lateral views of the chest, 2 images COMPARISON: None FINDINGS: EKG leads are present. No airspace opacity to suggest pneumonia. No pulmonary vascularcongestion. No pneumothorax. No pleural effusions. Normal size of the cardiomediastinal silhouette and bernabe. There is calcification of the aortic arch. Mildappearing osteoarthropathy of the AC joints and left clinical joint. No acuteosseous findings. There are some flattening of the diaphragms on the lateralview. IMPRESSION 1. Hyperexpansion suggesting underlying obstructive pulmonary disease. 2. No acute cardiopulmonary process. Thank you for letting us participate in the care of this patient. If youare a health care provider and have any questions regarding this report,please contact the number below. For patients who have questions please contactthe health regular senior care provider that requested your imaging first. Jose Hamilton MD IMG DX ORDERABLES * Scan Doc: Diagnostic Radiology (07/04/2024 12:00 AM EST) Anatomical Region Laterality Modality Other Narrative 07/04/2024 12:00 AM EST Ordered by an unspecified provider. Scanning Provider MEDIA MGR SCAN EXT O RDR/RSLT from Last 3 Months Care Teams Clinical Radiologist Relationship Specialty Start Date End Date Melba Vieira MD [address] [place] [phone] PCP - General Family Medicine 07/06/24
--- OUTSIDE RECORDS SUMMARY | 2024-08-24 22:17 | XMS_ITS | Encounter Summary ---
Author Organization [facility] [place] [address] Care Team Providers Care Open End Spinning Operator Name Role Phone Melba Vieira MD Primary Care Provider [phone] Reason for Visit * Auth/Cert (Routine) Specialty Diagnoses / Procedures Referred By Taj partida Referred To Contact Diagnoses waldenstrom macroglobulemia Procedures PRO DIAGNOSTIC BONE MARROW BIOPSIES & ASPIRATIONS (OSC MSURG) BONE MARROW BIOPSY AND ASPIRATION; DIAGNOSTIC (WRVU 1.44) Roz Mattson MD [facility] [address] HEMATOLOGY [place] [address] [facility] Referral ID Status Reason Start Date Expiration Date Visits Re quested Visits Authorized [id number] 1 1 Encounter Details Date Type Department Care Team (Latest Contact Info) Description 08/04/2024 6:43 AM EST - 08/04/2024 9:15 AM EST Hospital Encounter [facility] [place] [address] Roz Mattson MD [facility] HEMATOLOGY [place] [address] Discharge Disposition: Home Social History Tobacco Use Types Packs/Day Years Used Date Smoking Tobacco: Never Smokeless Tobacco: Never [id number] Health Literacy Answer Date Recor ded How often do you need to hav e someone help you when you read instructions, pamphlets, or other written material from your doctor or pharmacy? Never 07/11/2024 [facility] Utilities Answer Date Recorded In the past 12 months has [employer], oil, or water [employer] threatened to shut off services in your [...] any time in the past [facility], were you homeless or living in a custodial (including now)? No 07/11/2024 IPV Inpatient Questions [...] encounter Discharge Instructions * Discharge Instructions* Denton Hardin, RN - 08/04/2024 6:55 AM EST OUTPATIENT [...] 5pm or on a weekend: Call the [facility] oilfield plant and field operator at and ask for the physician electronic wirer covering for your doctor. Instructions following sedation [...] drainage occurs, please [place] [address] [email or web address] [facility] documented in this encounter Medications at Time [...] 9:30 AM EST Laboratory Appointment Lab at [facility] Hematology Oncology [address] [place] [phone] 09/21/2024 10:30 AM EST Office Visit Hematology [place] [address] Ernestina Mcclelland APRN [facility] [address] HEMATOLOGY [place] [address] Pending Results Name Type Priority Associated Diagnoses [...] EST Diagnostic Bone Marrow Biopsies & Aspirations ([address]) 08/04/2024 8:20 AM EST waldenstrom macroglobulemia SCAN, [...] Status Abnormal(A ) 08/18/2024 7:[address] [facility] Bone Marrow ILIAC CREST STRUCTURE / Unknown Non Blood Collection / Unknown 08/04/2024 8:28 AM EST 08/04/2024 9:11 AM EST Wellington Rocha MD MOLECULAR ORDERABLES 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 Plasma cells are too few for a robust delineation of light chains; but appear polytypic . 08/08/2024 4:41 PM EST [facility] Signing Pathologist This result has [...] 08/08/2024 4:[address] [facility] [place]:Lambda Ratio 25.8 08/08/2024 4:[address] [facility] [facility] [...] (c)lambda light chain. 08/08/2024 4:41 PM EST [facility] Disclaimer Flow analysis is an ancillary study. A definite diagnosis requires correlation with the morphologic features of this process and if necessary, correlation with other ancillary studies like immunohistochemist ry, enzyme cytochemistry and/or cyto/molecular genetics. This test was developed and its performance characteristics determined by the Clinical Flow Cytometry Laboratory at [facility]. It has not been cleared [...] clinical laboratory testing. 08/08/2024 4:41 PM EST [facility] Bone Marrow ILIAC CREST STRUCTURE / Unknown Non Blood Collection / Unknown 08/04/2024 8:28 AM EST 08/04/2024 9:11 AM EST Wellington Rocha MD HEMATOLOGY ORDERABLE S Performing Organization Address [facility] Co de Phone Number [facility] [place] [address] * BM HOLD CYTOGENETICS/FISH (08/04/2024 8:28 AM EST) Bone Marrow ILIAC CREST STRUCTURE / Unknown Non Blood Collection / Unknown 08/04/2024 8:28 AM EST 08/04/2024 9:11 AM EST Roz Mattson MD PATHOLOGY/CYTOLOGY O TALIB Performing Organization Address City/[facility] Co de Phone Number [facility] [place] [address] * BM HOLD FLOW/MOLECULAR (08/04/2024 8:28 AM EST) Bone Marrow ILIAC CREST STRUCTURE / Unknown Non Blood Collection / Unknown 08/04/2024 8:28 AM EST 08/04/2024 9:11 AM EST Roz Mattson MD PATHOLOGY/CYTOLOGY O RDERABLES [facility] [place] [address] * (ABNORMAL) Scan, Peripheral Blood (08/04/2024 7:38 AM EST) [facility] RBC Morphology Abnormal 08/04/2024 10:43 AM EST [facility] Platelet Estimate Decreased(A) Normal 08/04 10:43 AM EST [facility] Macrocyte 1-5 /HPF 08/04/2024 10:43 AM EST [facility] Microcyte 1-5 /HPF 08/04/2024 10:43 AM EST [facility] Polychromasia Present 08/04/2024 10:43 AM EST [facility] Spherocyte 1-5 /HPF 08/04/2024 10:43 AM EST [facility] Rouleaux RBC Present 08/04/2024 10:43 AM EST [facility] Blood VENOUS BLOOD SPECIMEN / Unknown Venipuncture / Unknown 08/04/2024 7:38 AM EST 08/04/2024 8:45 AM EST Roz Mattson MD HEMATOLOGY ORDERABLE S [facility] [place] [address] * (ABNORMAL) CBC (with Diff) (08/04/2024 7:38 AM EST) [facility] White Blood Cell 3.32(L) 4.00 - 9.50 x10(3)/mc L 08/04/2024 10:43 AM EST [facility] Red Blood Cell 2.36(L) 4.00 - 5.21 x10(6)/mc L 08/04/2024 10:43 AM EST [facility] Hemoglobin 8.9(L) 11.7 - 15.5 g/dL 08/04/2024 10:43 AM EST [facility] Hematocrit 23.5(L) 35.7 - 45.8 % [...] Monocyte % 14.2 % 08/04/2024 10:43 AM EST [facility] Monocyte Absolute 0.47 0.30 - 0.90 x10(3)/mc L 08/04/2024 10:43 AM EST [facility] Eos % 1.2 % 08/04/2024 10:[address] [facility] Eos Absolute 0.04 0.00 - 0.40 x10(3)/mc L 08/04/2024 10:43 AM EST [facility] Basophil % 0.3 % 08/04/2024 10:43 AM EST [facility] Baso Absolute <0.04 0.00 - 0.10 x10(3)/mc L 08/04/2024 10:43 AM EST [facility] Immature Gran % 0.9 % 10:[address] [facility] Immature Gran Absolute <0.04 0.00 - 0.04 x10(3)/mc L 08/04/2024 10:[address] [facility] Blood VENOUS BLOOD SPECIMEN / Unknown Venipuncture / Unknown 08/04/2024 7:38 AM EST 08/04/2024 8:45 AM EST Roz Mattson MD HEMATOLOGY ORDERABLE S [facility] [place] [address] documented in this encounter Visit Diagnoses Not [...] EVERY 5 MIN PRN, Starting on Macie 1/25 at 0654, Until Macie 1 at 1136, Sedation, Administer every 5 min to achieve pain scale 1-3. Hold for respiratory rate less than 8 breaths per minute. Dose not to exceed 200 mcg., Intra-Operative (Intra-Procedure), Routine 08 (Given - Provid er: Denton Hardin RN) flumazeniL (Romazicon) (0.1 mg/mL) injection 0.2 mg 0.2 mg, Intravenous, EVERY 2 MIN PRN, Starting on Macie 125 at 0654, Until Macie 08/04/24 at 1136, [...] EVERY 5 MIN PRN, Starting on Macie 125 at 0654, Until Macie 1 at 1136, Sedation, Administer every 5 minutes to achieve RASS (-)1. Hold for delirium/agitation. Dose not to exceed 4 mg., Intra-Operative (Intra-Procedure), Routine 08 (Given - Provid er: Denton Hardin RN)0827 (Given - Provider: Denton Hardin RN) naloxone [...] Routine documented in this encounter Care Teams Open End Spinning Operator Relationship Specialty Start Date End Date Melba Vieira MD [address] [place] [phone] PCP - General Family Medicine 07/06/24 documented as of this encounter
--- OUTSIDE RECORDS SUMMARY | 2024-08-24 22:17 | XMS_ITS | Encounter Summary ---
Author Organization [facility] [place] [address] Care Team Providers Care Plunket Nurse Name Role Phone Melba Vieira MD Primary Care Provider [phone] Encounter Details Date Type Department Care Team (Latest Contact Info) Description 08/17/2024 Travel Social History Tobacco Use Types Packs/Day Years Used Date Smoking Tobacco: Never Smokeless Tobacco: Never B1300 Health Literacy Answer Date Recor ded How often do you need to hav e someone help you when you read instructions, pamphlets, or other written material from your doctor or pharmacy? Never 07/11/2024 [facility] Utilities Answer Date Recorded In the past [...] any time in the past 12 m onths, were you homeless or living in a senior living (including now)? No 07/11/2024 IPV Inpatient Questions [...] [facility] Hematology Oncology [address] [place] [phone] 09/21/2024 10:30 AM EST Office Visit Hematology [place] [address] Ernestina Mcclelland APRN [facility] [place]AT[place] [address] documented as of this encounter Visit Diagnoses Not on filedocumented in this encounter Care Teams Plunket Nurse Relationship Specialty Start Date End Date Melba Vieira MD [address] [place] [phone] PCP - General Family Medicine 07/06/24 documented as of this encounter
--- OUTSIDE RECORDS SUMMARY | 2024-08-24 22:17 | XMS_ITS | Encounter Summary ---
Author Organization [facility] [place] [address] Care Team Providers Care Viticulture Teacher Name Role Phone Melba Vieira MD Primary Care Provider [phone] Encounter Details Date Type Department Care Team (Late st Contact Info) Description 08/24/2024 Telephone Hematology and Oncology at [facility] [place] [phone] Cheyenne Goodwin I, RN Social History Tobacco Use Types Packs/Day Years Used Date Smoking Tobacco: Never Smokeless Tobacco: Never [id number] Health Literacy Answer Date Recor ded How often do you need to hav e someone help you when you read instructions, pamphlets, or other written material from your doctor or pharmacy? Never 07/11/2024 [facility] Utilities Answer Date Recorded In the past [...] were you homeless or living in a long term (including now)? No 07/11/2024 IPV Inpatient Questions [...] encounter Miscellaneous Notes * Telephone Encounter - Cheyenne Goodwin RN - 08/24/2024 2:52 PM EST Message received from litigation legal secretary: Injection/Infusion Referral Call placed to [facility] ([phone]). Spoke w/ WOODWORK TEACHER. Services to be provided for pt are: LABS (CBCD,CMP) WITH TFN SUPPORT STARTING WEEK OF 08/24/24 FOR 4 WEEKS @ [facility] WOODWORK TEACHER confirmed they would provide services to pt - LABS (CBCD,CMP) WITH TFN SUPPORT STARTING WEEK OF 08/24/24 FOR 4 WEEKS @ [facility] and would contact with appointment time. Pt orders faxed to [facility] (INF: [phone], LAB: [phone] ). RTC 09/21/24 documented in this encounter Plan of Treatment Upcoming Encounters Date Type Department Care Team (Late st Contact Info) Description 09/21/2024 9:30 AM EST Laboratory Appointment Lab at [facility] Hematology Oncology [address] [place] [phone] 09/21/2024 10:30 AM EST Office Visit Hematology [place] [address] Ernestina Mcclelland APRN [facility] HEMATOLOGY [place] [address] documented as of this encounter Goals Goal Patient Goal Type Associated Problems Recent Progress Patient-Stated? Author Patient's specific desired goal: Increase energy level and improve quality of life to 8 or better Patient Facing Action Plan Estefany Heath, [facility] Note: Goal(s): Improve quality of life from 7 to 8 or better Measured by: patient reported QOL and improved energy lever Time-frame: reviewed at 10 mo consult call documented as of this encounter Visit Diagnoses Not on filedocumented in this encounter Care Teams Viticulture Teacher Relationship Specialty Start Date End Date Melba Vieira MD [address] [place] [phone] PCP - General Family Medicine 07/06/24 documented as of this encounter
--- OUTSIDE RECORDS SUMMARY | 2024-08-24 22:17 | XMS_ITS | Encounter Summary ---
Author Organization [facility] Address [facility] [place] [address] Care Team Providers Care Core Drill Operator Helper Name Role Phone Melba Vieira MD Primary Care Provider [phone] Encounter Details Date Type Department Care Team (Latest Contact Info) Description 08/22/2024 Specialty Pharmacy Pharmacy at [facility] [place] [phone] Estefany Rehman, [facility] Initial Clinical Assessment/Patient Education (zanubrutinib) for HemOnc Social History Tobacco Use Types Packs/Day Years Used Date Smoking Tobacco: Never Smokeless Tobacco: Never B1300 Health Literacy Answer Date Recor ded How often do you need to hav e someone help you when you read instructions, pamphlets, or other written material from your doctor or pharmacy? Never 07/11/2024 [facility] Utilities Answer Date Recorded In the [...] any time in the past 12 m [facility], were you homeless or living in a [place] health care facility (including now)? No 07/11/2024 [facility] IPV Inpatient [...] as of this encounter Progress Notes * Estefany Rehman, [facility] - 08/22/2024 1:19 PM EST Specialty Pharmacy Ongoing Clinical Assessment Note Comprehensive Medication Management (CMM) Melissa López is a 83 y.o. (1940) female, who is being followed [facility] for service of Zanubrutinib. A review of the medication therapy was performed. The medication was Filled as scheduled, and all medication related questions and concerns were addressed. The specialty pharmacy staff will follow up with the patient 5-7 days prior to next refill. Problems Linked to Specialty Episode(s) Waldenstrom's disease Therapy Start Date: 08/26/24 To be determined Summary and Recommendations: I spoke with Melissa López to complete a pharmacy consult for Brukinsa. She plans to start Brukinsa as prescribed by Dr. Mattson for Waldenstrom's. We reviewed home medications, allergies and problems. There are no drug interactions to note. Brukinsa should be swallowed whole with a large glass of water. Do not eat grapefruit or seville oranges while taking Brukinsa. I recommend keeping a calendar or journal to record doses and any side effects. Missed doses should not be doubled up on. Side effects of drug include: GI: nausea, vomiting, diarrhea, constipation, loss of appetite, Achesand pains, myelosuppression, fever, cough, infection, unusual bleeding, extreme fatigue should be reported to the oncologist. Brukinsa is a hazardous drug that should be stored in the original container, at room temperature and stored safely away from others and pets. Wash hands after handling medication. Unused medication should be taken to a pharmacy take back location and not discarded in household trash or flushed down the drain. Melissa rates her Quality of Life as a 7. She gets more tired and doesn't have the energy she used to have. Her goal is increase her energy level and Quality of Life from a 7 to a 9. Specialty Pharmacy Services were reviewed. Pt has the pharmacy telephone number and will receivea Specialty Pharmacy Welcome Packet. eMlissa has opted into the Specialty Pharmacy program and understands they will receive monthly refill reminder calls. The mail order pharmacy mails prescriptions Thursday through Thursday. Prescriptions are mailed the next business day unless prior arrangements are made. Brukinsa will be mailed for a $ 2000 one time copay in 2023. 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 Call clinic before starting medication. Indications: Waldenstrom's macroglobulinemia 120 capsule 5 Calcium Carbonate-Vitamin D3 (Calcium 500 + D) 500 mg-10 mcg (400 unit) Tablet, Chewable multivitamin with minerals (One-A-Day) Tablet Take by mouth. amLODIPine (Norvasc) 5 mg tablet Take by mouth. aspirin 81 mg chewable tablet Take 81 mg by mouth Daily @ 0600. atorvastatin (Lipitor) 20 mg tablet Lumigan 0.01 % Drops Apply to eye. cholecalciferol, Vitamin D3, 10 mcg (400 unit) Capsule Take by mouth. PreviDent 5000 Booster Plus 1.1 % Paste hydroCHLOROthiazide (HydroDiuril) 25 mg tablet lisinopriL (Zestril) 10 mg tablet Take 10 mg by mouth Daily @ 0600. omeprazole (PriLOSEC) [address] capsule Take by mouth. No current facility-administered medications for this visit. Medication reconciliation discrepancies (compared to [facility] med list): No Special dietary or hydration requirements: Yes Comments: no grapefruit or seville oranges Specialty Assessment and Patient Counseling: Specialty Assessment completed: Yes Delivery method: Delivery Welcome Packet and Rights and Responsibilities: Patient provided welcome packet/rights and responsibilities: Yes Patient Counseling Completed: Yes Reviewed in detail with patient: Dose appropriateness based on recommended standard dosing Current medication list including OTC medications Medication and disease problems Allergies Comorbid conditions/ Problem List Past adverse events if any Special needs of the patient including physical and cognitive limitations Goals of therapy and management strategies Warnings, precautions, and contraindications Side effects Drug-drug and drug-food interactions Administration instructions including dose, frequency and method Handling, storage, and disposal Verifying expiration dates on products before use Rotating medication inventory to use oldest product first Relevant lab data Treatments impact on disease Dose appropriateness based on recommended standard dosing schedule, including any variations from FDA approved dosing Disease-Specific Assessment and Outcomes: 08/22/2024 Hem/Onc Current therapy Zanubrutinib Condition Waldonstrom Macroglobulinemia BSA 1.83 Were relevant labs reviewed by the pharmacist? Yes Has the patient been prescribed infection prophylaxis? N/A Has the patient been prescribed TLS prophylaxis? N/A If the patient is experiencing a side effect, is the associated adjunct medication supplied/ordered? No Reviewed with patient pertienent risk factors cross referencing past medical history, history of present illness Yes Patient's goals: Goals/Expected Outcomes Reviewed: Yes Goals Addressed This Visit's Progress Patient's specific desired goal: Increase energy level and improve quality of life to 8 or better Goal(s): Improve quality of life from 7 to 8 or better Measured by: patient reported QOL and improved energy lever Time-frame: reviewed at 10 mo consult call Therapy Assessment and Recommendations: Therapy Assessment: Appropriate Therapy: Yes Patient's problems/needs: call oncologist to determine start date and set up labs On a scale of 1-10, what is the patient's overall confidence in administering this medication(s)?: 9-10 Monitoring requirements for prescribed medication: CBC, CMP, labs, drug adherence, drug toxicity Care Plan reviewed and approved by both pharmacist and patient: Yes Did care plan change?: No Medication Therapy Recommendations No medication therapy recommendations to display This is a: New-Start Consult Estefany Rehman RPH 08/22/24 2:00 PM documented in this encounter Plan of Treatment Upcoming Encounters Date Type Department Care Team (Late st Contact Info) Description 09/21/2024 9:30 AM EST Laboratory Appointment Lab at [facility] [place] On[place] [address] [place] [phone] 09/21/2024 10:30 AM EST Office Visit Hematology [place] [phone] Ernestina Mcclelland [facility] [address] H[place]ATOLOGY [place] [address] documented as of this encounter Goals Goal Patient Goal Type Associated Problems Recent Progress Patient-Stated? Author Patient's specific desired goal: Increase energy level and improve quality of life to 8 or better Patient Facing Action Plan No Estefany Rehman RPH Note: Goal(s): Improve quality of life from 7 to 8 or better Measured by: patient reported QOL and improved energy lever Time-frame: reviewed at 10 mo consult call documented as of this encounter Visit Diagnoses Diagnosis Waldenstrom's disease Macroglobulinemia documented in this encounter Care Teams Core Drill Operator Helper Relationship Specialty Start Date End Date Melba Vieira MD [address] [place] [address] MONIKA Lawson [phone] PCP - General Family Medicine 07/06/24 documented as of this encounter
--- OUTSIDE RECORDS SUMMARY | 2024-08-24 22:17 | XMS_ITS | Encounter Summary ---
Author Organization [facility] Address [facility] [place] [address] Care Team Providers Care Railroad Surveyor Name Role Phone Melba Vieira MD Primary Care Provider [phone] Reason for Visit * Reason Comments Follow-up Encounter Details Date Type Department Care Team (Late st Contact Info) Description 08/17/2024 11:30 AM EST Office Visit Hematology [place] [phone] Freddy Mattson MD [facility] DR [place]AT[place]Y [place] [address] Waldenstrom's disease Social History Tobacco Use Types Packs/Day Years Used Date Smoking Tobacco: Never Smokeless Tobacco: Never B1300 Health Literacy Answer Date Recor ded How often do you need to hav e someone help you when you read instructions, pamphlets, or other written material from your doctor or pharmacy? Never 07/11/2024 [place] Utilities Answer Date Recorded In the past 12 months has [facility], gas, oil, or water [employer] threatened to shut off services in your [...] any time in the past 12 m [facility], were you homeless or living in a group home (including now)? 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 I have reviewed the available records, interviewed and examined the patient. Interval Hx (08/17/24) Feeling ok since our last visti Here to review the results of bone marrow biopsy HPI Melissa López is a 83 y.o. female with suspected WM. She was noted to be anemic with a Hgb of 6.3. CMP showed a total protein of 11. Mspike 4.7 (Ig M on JESSICA) Clinically she reports feeling well. She notes some fatigue but she remains quite active. No fevers, chills, weight loss, N/V. Family History: Non-contributory Social History: Social History Socioeconomic History Marital status: Spouse name: Not on file Number of children: Not on file Years of education: Not on file Highest education level: Not on file Occupational History Not on file Tobacco Use Smoking status: Never Smokeless tobacco: Never Vaping Use Vaping status: Never Used Substance and Sexual Activity Alcohol use: Not on file Drug use: Not on file Sexual activity: Not on file Other Topics Concern Not on file Social History Narrative Not on file Social Determinants of Health Financial Resource Strain: Low Risk (07/11/2024) Overall Financial Resource Strain (CARDIA) Difficulty of Paying Living Expenses: Not hard at all Food Insecurity: No Food Insecurity (07/11/2024) Hunger Vital Sign Worried About Running Out of Food in the Last Year: Never true Ran Out of Food in the Last Year: Never true Transportation Needs: No Transportation Needs (07/11/2024) PRAPARE - Transportation Lack of Transportation (Medical): No Lack of Transportation (Non-Medical): No Physical Activity: Not on file Intimate Partner Violence: Not At Risk (08/04/2024) IPV Inpatient Questions Prevent Contact with Others: no Feels Threatened by Someone: no Feels Unsafe at Home: no Physical Signs of Abuse Present: no Housing Stability: Unknown (07/11/2024) Housing Stability Vital Sign Unable to Pay for Housing in the Last Year: No Number of Times Moved in the Last Year: Not on file Homeless in the Last Year: No Allergies: Allergies Allergen Reactions Codeine Medications: Current Outpatient Medications Medication Sig Dispense Refill Calcium Carbonate-Vitamin D3 (Calcium 500 + D) 500 mg-10 mcg (400 unit) Tablet, Chewable multivitamin with minerals (One-A-Day) Tablet Take by mouth. amLODIPine (Norvasc) 5 mg tablet Take by mouth. aspirin 81 mg chewable tablet Take 81 mg by mouth Daily @ 0600. atorvastatin (Lipitor) 20 mg tablet Lumigan 0.01 % Drops Apply to eye. calcium carbonate (Tums) 500 mg calcium (1,250 mg) chewable tablet cholecalciferol, Vitamin D3, 10 mcg (400 unit) Capsule Take by mouth. PreviDent 5000 Booster Plus 1.1 % Paste hydroCHLOROthiazide (HydroDiuril) 25 mg tablet lisinopriL (Zestril) 10 mg tablet Take 10 mg by mouth Daily @ 0600. omeprazole (PriLOSEC) [address] capsule Take by mouth. No current facility-administered medications for this visit. Vitals: Blood pressure 142/72, pulse 70, temperature 36.2 ??C (97.1 ??F), temperature source Temporal, resp. rate 18, height 170.2 cm (5' 7.01), weight 70.6 kg (155 lb 10.3 oz), SpO2 98%. Physical Exam Constitutional: General: She is not in acute distress. Appearance: She is not ill-appearing. Cardiovascular: Rate and Rhythm: Regular rhythm. Heart sounds: Normal heart sounds. Pulmonary: Breath sounds: Normal breath sounds. Skin: Findings: No rash. Neurological: General: No focal deficit present. Report Update History Waldenstroms macroglobulenia Immunofixation study: 3.5g/dl IgM Orin monoclonal protein Final Diagnosis 1. 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 2. Ancillary studies pending. 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 Differential includes MZL. Concurrent flow cytometry supports the diagnostic interpretation. Ancillary molecular study (to include MYD88 analysis) is ongoing and will be reported separately. Case dictated by Arun Padilla M.D. (Hematopathology Fellow) As the attending physician, I attest that I examined the histologic slides, and confirm the diagnosis. Assessment and Plan Melissa López is a 83 y.o. 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 -Will arrange for a blood transfusion today -Will arrange for weekly lab check and transfusions at [facility] x 3 weeks -Bone marrow biopsy confirms Waldenstrom's Dx -Given her age and available treatment options - I recommend zanubrutinib 160 mg PO BID Adverse reactions include but are not limited to: >10%: Cardiovascular: Hypertension (14% to 19%), peripheral edema (12%) Dermatologic: Pruritus (6% to 11%), skin rash (20% to 29%) Endocrine & metabolic: Decreased serum calcium (21% to 27%), decreased serum phosphate (20% to 21%), hypermagnesemia (22%), increased serum glucose (45% to 55%), increased serum potassium (24%), increased uric acid (16%) Gastrointestinal: Constipation (6% to 16%), diarrhea (14% to 22%; grades 3/4: <=3%), nausea (10%to 18%), vomiting (12%) Genitourinary: Urinary tract infection (7% to 11%) Hematologic & oncologic: Bruise (16% to 24%), decreased hemoglobin (20% to 29%; grades 3/4: 3% to 7%), decreased neutrophils (37% to 50%; grades 3/4: 15% to 24%), decreased platelet count (22% to35%; grades 3/4: 2% to 8%), hemorrhage (including gastrointestinal hemorrhage, hematoma, hemothorax, intracranial hemorrhage: 24% to 42%; grades 3/4: 3% to 4%), leukocytosis (21%; grades 3/4: 21%), lymphocytosis (24%; grades 3/4: 19%), second primary malignant neoplasm (13%; including hematologic malignancy, malignant melanoma, malignant solid tumor, skin carcinoma) Hepatic: Increased serum alanine aminotransferase (21%), increased serum bilirubin (12%) Nervous system: Dizziness (10% to 13%), fatigue (13% to 31%), headache (8% to 18%) Neuromuscular & skeletal: Musculoskeletal pain (26% to 45%) Renal: Increased serum creatinine (22% to 31%) Respiratory: Cough (11% to 16%), dyspnea (14%), pneumonia (12% to 18%), upper respiratory tract infection (27% to 44%) Miscellaneous: Fever (16%)\ -f/u with me in 3 weeks - labs at [facility] and video visit FREDDY MATTSON MD 08/17/2024 documented in this encounter Plan of Treatment Upcoming Encounters Date Type Department Care Team (Late st Contact Info) Description 09/21/2024 9:30 AM EST Laboratory Appointment Lab at [facility] Hematology Oncology [address] [place] [phone] 09/21/2024 10:30 AM EST Office Visit Hematology [place] [phone] Ernestina Mcclelland NURSE [facility]IC[employer]ED PRACTICAL [facility] [address] [place] [address] Scheduled Orders Name Type Priority Associated Diagnoses Orde r Schedule CBC (with Diff) Lab Routine Waldenstrom's disease Expected: 08/18/2024 (Approximate), Expires: 08/17/2025 Comprehensive metabolic panel Lab Routine Waldenstrom's disease Expected: 08/17/2024 (Approximate), Expires: 08/17/2025 documented as of this encounter Visit Diagnoses Diagnosis Waldenstrom's disease Macroglobulinemia documented in this encounter Care Teams Railroad Surveyor Relationship Specialty Start Date End Date Melba Vieira MD [address] [place] [phone] PCP - General Family Medicine 07/06/24 documented as of this encounter
--- OUTSIDE RECORDS SUMMARY | 2024-08-24 22:18 | XMS_ITS | Encounter Summary ---
Author Organization [facility] Address [facility] [place] [address] Care Team Providers Care Information Technology Account Manager Name Role Phone Melba Vieira MD Primary Care Provider [phone] Encounter Details Date Type Department Care Team (Latest Contact Info) Description 07/11/2024 Transcribe [place] [phone] Roz Mattson MD [facility] DR HEMATOLOGY [place] [address] Plasma cell dyscrasia Social History Tobacco Use Types Packs/Day Years Used Date Smoking Tobacco: Never Smokeless Tobacco: Never B1300 Health Literacy Answer Date Recor ded How often do you need to hav e someone help you when you read instructions, pamphlets, or other written material from your doctor or pharmacy? Never 07/11/2024 [facility] Utilities Answer Date Recorded In the past 12 months has [facility] electric, gas, oil, or water company threatened [...] time in the past [address] [facility], were you homeless or living in a [facility] (including now)? No 07/11/2024 Sex and Gender Information Value Date Recorded Sex Assigned at Not on file Gender Identity Not on file Sexual Orientation Not on file documented as of this encounter Plan of Treatment Upcoming Encounters Date Type Department Care Team (Late st Contact Info) Description 09/21/2024 9:30 AM EST Laboratory Appointment Lab [place] [facility] [place] [address] [place] [phone] 09/21/2024 10:30 AM EST Office Visit Hematology [place] [phone] Ernestina Mcclelland APRN [facility] [address] HEMATOLOGY [place] [address] documented as of this encounter Results * Type and screen ([facility]) (07/11/2024 11:36 AM EST) Pathologist [facility] ABOR Type A POSITIVE 07/11/2024 12:36 PM EST [facility] PATIENT HISTORY Not Found 07/11/2024 12:36 PM EST [facility] Expires at [id number] on: 07/14/2024 07/11/2024 12:36 PM EST [facility] ANTIBODY SCREEN AUTOMATED Negative 07/11/2024 12:36 PM EST [facility] T&S only valid at [facility] 07/11/2024 12:36 PM EST [facility] Blood VENOUS BLOOD SPECIMEN / Unknown Venipuncture / Unknown 07/11/2024 11:36 AM EST 07/11/2024 11:42 AM EST Narrative [facility] - 07/11/2024 12:36 PM EST This Type and Screen result is only valid at the [facility] Roz Mattson MD BLOOD BANK LAB ORDER ARSALAN [facility] [place] [place] [address] documented in this encounter Visit Diagnoses Diagnosis 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
--- OUTSIDE RECORDS SUMMARY | 2024-08-24 22:18 | XMS_ITS | Encounter Summary ---
Author Organization [facility] [place] [address] Care Team Providers Care Vp Foundation Name Role Phone Melba Vieira MD Primary Care Provider [phone] Encounter Details Date Type Department Care Team (Latest Contact Info) Description 07/11/2024 10:45 AM EST Laboratory Appointment Lab at [facility] [place] Hematology Oncology [address] [place] [address] [place] [phone] Plasma cell dyscrasia Social History Tobacco Use Types Packs/Day Years Used Date Smoking Tobacco: Never Smokeless Tobacco: Never B1300 Health Literacy Answer Date Recor ded How often do you need to hav e someone help you when you read instructions, pamphlets, or other written material from your doctor or pharmacy? Never 07/11/2024 [facility] Utilities Answer Date Recorded In [...] a senior care (including now)? No 07/11/2024 Sex and Gender Information Value Date Recorded Sex Assigned at Not on file Gender Identity Not on file Sexual Orientation Not on file documented as of this encounter Plan of Treatment Upcoming Encounters Date Type Department Care Team (Late st Contact Info) Description 09/21/2024 9:30 AM EST Laboratory Appointment Lab at [facility] [place] Hematology Oncology [address] [place] [phone] 09/21/2024 10:30 AM EST Office Visit Hematology [place] [phone] Ernestina Mcclelland APRN [facility] [place] [address] documented as of this encounter Procedures Procedure Name Priority Date/Time Associated Diagnosis Comments TYPE AND SCREEN ([facility] [place]/Wiliam/LINDSAY) Routine 07/11/2024 11:36 AM EST Plasma cell dyscrasia PROTEIN, TOTAL ELECTROPHORESIS (PERFROMABLE) Routine 07/11/2024 10:32 AM EST Plasma cell dyscrasia PEP, SERUM (PERFORMABLE) Routine 07/11/2024 10:32 AM EST Plasma cell dyscrasia SCAN, PERIPHERAL BLOOD Routine 10:32 AM EST Plasma cell dyscrasia IMMUNOGLOBULIN FREE LIGHT CHAINS, SERUM Routine 07/11/2024 10:32 AM EST Plasma cell dyscrasia IMMUNOGLOBULINS, QUANTITATIVE Routine 07/11/2024 10:32 AM EST Plasma cell dyscrasia IMMUNOFIXATION ELECTROPHORESIS, SERUM Routine 07/11/2024 10:32 AM EST Plasma cell dyscrasia VISCOSITY Routine 07/11/2024 10:32 AM EST Plasma cell dyscrasia CBC (WITH DIFF) Routine 07/11/2024 10:32 AM EST Plasma cell dyscrasia PROTEIN ELECTROPHORESIS, SERUM Routine 07/11/2024 10:32 AM EST Plasma cell dyscrasia COMPREHENSIVE METABOLIC PANEL Routine 07/11/2024 10:32 AM EST Plasma cell dyscrasia documented in this encounter Results * Type and screen ([facility] [place]/CGWiliam/LINDSAY) (07/11/2024 11:36 AM EST) Pathologist [facility] ABORH Type A POSITIVE 07/11/2024 12:36 PM EST [facility] PATIENT HISTORY Not Found 07/11/2024 12:36 PM EST [facility] Expires at [id number] on: 07/14/2024 07/11/2024 12:36 PM EST [facility] ANTIBODY SCREEN AUTOMATED Negative 07/11/2024 12:36 PM EST [facility] T&S only valid at [facility] [place] [place] LAB 07/11/2024 12:36 PM EST [facility] Blood VENOUS BLOOD SPECIMEN / Unknown Venipuncture / Unknown 07/11/2024 11:36 AM EST 07/11/2024 11:42 AM EST Narrative [facility] - 07/11/2024 12:36 PM EST This Type and Screen result is only valid at the [facility] [place] [place] Hospital Roz Mattson MD BLOOD BANK LAB ORDER ARSALAN [facility] [place] [place] [address] * Immunofixation Electrophoresis, Serum (07/11/2024 10:32 AM EST) Pathologist [facility] Immunofixation Interpretation, Serum There is approximately 0.22 g/dL of monoclonal IgM kappa immunoglobulin (Band #1), as well as approximately 3.51 g/dL of monoclonal IgM kappa with free kappa light chains (Band #2) present in this patient's serum. 07/14/2024 3:[address] [facility] Signing Pathologist Matthias Short, DO 07/14/2024 3:[address] [facility] Blood VENOUS BLOOD SPECIMEN / Unknown Venipuncture / Unknown 07/11/2024 10:32 AM EST 07/11/2024 10:40 AM EST Roz Mattson MD CHEMISTRY ORDERABLES Performing Organization Address City/[facility]/ZIP Co de Phone Number [facility] [place] [address] * (ABNORMAL) Scan, Peripheral Blood (07/11/2024 10:32 AM EST) RBC Morphology Abnormal 07/11/2024 1:[address] [facility] Platelet Estimate Decreased(A) Normal 07/11 1:[address] [facility] Macrocyte 1-5 /HPF 07/11/2024 1:[address] [facility] Hypochromasia Moderate 07/11/2024 1:[address] [facility] Spherocyte 1-5 /HPF 07/11/2024 1:[address] [facility] Rouleaux RBC Present 07/11/2024 1:[address] [facility] Blood VENOUS BLOOD SPECIMEN / Unknown Venipuncture / Unknown 07/11/2024 10:32 AM EST 07/11/2024 10:40 AM EST Roz Mattson MD HEMATOLOGY ORDERABLE S Performing Organization Address City/[facility]/ZIP Co de Phone Number [facility] [place] [address] * Protein, Serum Electrophoresis (07/11/2024 10:32 AM EST) Blood VENOUS BLOOD SPECIMEN / Unknown Venipuncture / Unknown 07/11/2024 10:32 AM EST 07/11/2024 10:40 AM EST Roz Mattson MD URINE ORDERABLES [facility] [place] [address] * (ABNORMAL) PEP, Serum (07/11/2024 10:32 AM EST) Protein, Total 11.2(H) 6.1 - 8.0 g/dL 07/12/2024 1:[address] [facility] Comment:Interpret plasma or serum SODIUM results with caution; highly elevated proteins of >10 g/dL may cause pseudohyponatremia. Albumin Electrophoresis 4.84 3.20 - 5.20 g/dL 07/12/2024 1:51 PM [facility] Alpha 1 Globulin 0.32(H) 0.10 - 0.30 g/dL 07/12/2024 1:51 PM [facility] Alpha 2 Globulin 0.85 0.40 - 0.90 g/dL 07/12/2024 1:51 PM [facility] Beta Globulin 0.60 0.50 - 1.00 g/dL 07/12/2024 1:51 PM [facility] Gamma Globulin 4.58(H) 0.50 - 1.30 g/dL 07/12/2024 1:[address] [facility] M1 Band 0.22 None Detected 07/12/2024 1:[address] [facility] M2 Band 3.51 None Detected 07/12/2024 1:[address] [facility] Comment: The serum protein electrophoresis shows two bands that are consistent with paraproteins. Immunofixation and quantitative immunoglobulin testing will be performed on this sample to verify that they are monoclonal immunoglobulins. Blood VENOUS BLOOD SPECIMEN / Unknown Venipuncture / Unknown 07/11/2024 10:32 AM EST 07/11/2024 10:40 AM EST Roz Mattson MD URINE ORDERABLES [facility] [place] [address] * (ABNORMAL) CBC (with Diff) (07/11/2024 10:32 AM EST) White Blood Cell 3.50(L) 4.00 - 9.50 x10(3)/mc L 07/11/2024 1:18 PM [facility] Red Blood Cell 1.80(L) 4.00 - 5.21 x10(6)/mc L 07/11/2024 1:18 PM [facility] Hemoglobin 5.0(LLL) 11.7 - 15.5 g/dL 07/11/2024 1:18 PM [facility] Hematocrit 18.0(L) 35.7 - 45.8 % 07/11/2024 1:18 PM [facility] Mean Cell Volume 100.0(H) 82.6 - 94.4 fL 07/11/2024 1:18 PM [facility] Mean Cell Hemoglobin 27.8 27.1 - 32.0 pg 07/11/2024 1:18 PM [facility] Mean Cell Hemoglobin Concentration 27.8(L) 31.7 - 35.0 g/dL 07/11/2024 1:18 PM [facility] Platelet 115(L) 145 - 357 x10(3)/mc L 07/11/2024 1:18 PM [facility] Mean Platelet Volume 9.5 7.6 - 12.9 fL 07/11/2024 1:18 PM [facility] RDW Standard Deviation 66.6(H) 37.0 - 46.0 fL 07/11/2024 1:18 PM [facility] RDW coefficient of variation 19.0(H) 11.5 - 14.1 % 07/11/2024 1:18 PM [facility] NRBC Absolute <0.01 <0.01 x10(3)/mc L 07/11/2024 1:18 PM [facility] Neutrophil % 47.2 % 07/11/2024 1:18 PM [facility] Neutrophil Absolute (ANC) - Automated 1.65(L) 1.70 - 6.10 x10(3)/mc L 07/11/2024 1:18 PM [facility] Lymph % 34.3 % 07/11/2024 1:18 PM [facility] Lymph Absolute 1.20 0.90 - 3.20 x10(3)/mc L 07/11/2024 1:18 PM [facility] Monocyte % 15.7 % 07/11/2024 1:18 PM [facility] Monocyte Absolute 0.55 0.30 - 0.90 x10(3)/mc L 07/11/2024 1:18 PM [facility] Eos % 1.4 % 07/11/2024 1:18 PM [facility] Eos Absolute 0.05 0.00 - 0.40 x10(3)/mc L 07/11/2024 1:18 PM [facility] Basophil % 0.0 % 07/11/2024 1:18 PM [facility] Baso Absolute <0.04 0.00 - 0.10 x10(3)/mc L 07/11/2024 1:18 PM [facility] Immature Gran % 1.4 % 1:18 PM [facility] Immature Gran Absolute 0.05(H) 0.00 - 0.04 x10(3)/mc L 07/11/2024 1:18 PM [facility] Blood VENOUS BLOOD SPECIMEN / Unknown Venipuncture / Unknown 07/11/2024 10:32 AM EST 07/11/2024 10:40 AM EST Roz Mattson MD HEMATOLOGY ORDERABLE S [facility] [place] [address] * (ABNORMAL) Comprehensive metabolic panel (07/11/2024 10:32 AM EST) Glucose 101 65 - 199 mg/dL 07/11/2024 12:16 PM [facility] Comment:Glucose Concentratio n >=200 mg/dL plus symptoms is consistent with Diabetes Mellitus. Blood Urea Nitrogen 21(H) 8 - 18 mg/dL 07/11/2024 12:16 PM [facility] Creatinine 0.83 0.70 - 1.20 mg/dL 07/11/2024 12:16 PM [facility] Sodium 136 135 - 145 mMol/L 07/11/2024 12:16 PM [facility] Potassium 3.2(L) 3.5 - 5.0 mMol/L 07/11/2024 12:16 PM [facility] Chloride 98 98 - 107 mMol/L 07/11/2024 12:16 PM [facility] Carbon Dioxide 24 22 - 31 mMol/L 07/11/2024 12:16 PM [facility] Anion Gap 14 5 - 15 mMol/L 07/11/2024 12:16 PM [facility] Calcium 10.1 8.5 - 10.5 mg/dL 07/11/2024 12:16 PM [facility] Protein, Total 11.5(H) 6.1 - 8.0 g/dL 07/11/2024 12:16 PM [facility] Comment:Interpret plasma or serum SODIUM results with caution; highly elevated proteins of >10 g/dL may cause pseudohyponatremia. Albumin 4.0 3.2 - 5.2 g/dL 07/11/2024 12:16 PM [facility] Aspartate Aminotransferase 23 <=30 unit/L 07/11/2024 12:16 PM [facility] Alanine Aminotransferase 12 0 - 30 unit/L 07/11/2024 12:16 PM [facility] Alkaline Phosphatase 62 35 - 105 unit/L 07/11/2024 12:16 PM [facility] Bilirubin, Total 0.7 <=1.3 mg/dL 07/11/2024 12:16 PM [facility] Est Glomerular Filtration Rate - Female 70 mL/min/1. 73 m?? 07/11/2024 12:16 PM [facility] Comment: This patient's estimated GFR was [...] Foundation Fasting Status No 07/11/2024 12:16 PM [facility] Blood VENOUS BLOOD SPECIMEN / Unknown Venipuncture / Unknown 07/11/2024 10:32 AM EST 07/11/2024 10:39 AM EST Roz Mattson MD CHEMISTRY ORDERABLES [facility] [place] [address] * (ABNORMAL) Free Light Chains, Serum (07/11/2024 10:32 AM EST) [place] Free Light Chain 110.53(H) 0.72 - 2.75 mg/dL 07/11/2024 2:22 PM [facility] Lambda Free Light Chain 0.67 0.57 - 2.15 mg/dL 07/11/2024 2:22 PM [facility] [place]/Lambda FLC Ratio 164.9701(H ) 0.4000 - 2.5800 07/11/2024 2:[address] [facility] Blood VENOUS BLOOD SPECIMEN / Unknown Venipuncture / Unknown 07/11/2024 10:32 AM EST 07/11/2024 10:40 AM EST Roz Mattson MD CHEMISTRY ORDERABLES [facility] [place] [address] * (ABNORMAL) Immunoglobulins, Quantitative (07/11/2024 10:32 AM EST) IgG 530(L) 700 - 1,600 mg/dL 07/11/2024 12:[address] [facility] IgA 69(L) 70 - 400 mg/dL 07/11/2024 12:[address] [facility] IgM 7,718(HHH) 40 - 230 mg/dL 07/11/2024 12:[address] [facility] Blood VENOUS BLOOD SPECIMEN / Unknown Venipuncture / Unknown 07/11/2024 10:32 AM EST 07/11/2024 10:40 AM EST Roz Mattson MD CHEMISTRY ORDERABLES Performing Organization Address City/[facility]/ZIP Co de Phone Number [facility] [place] [address] * (ABNORMAL) Viscosity (07/11/2024 10:32 AM EST) Viscosity 4.0(H) 1.0 - 1.7 cP 07/11/2024 2:[address] [facility] Blood VENOUS BLOOD SPECIMEN / Unknown Venipuncture / Unknown 07/11/2024 10:32 AM EST 07/11/2024 10:39 AM EST Roz Mattson MD HEMATOLOGY ORDERABLE S Performing Organization Address City/[facility]/ZIP Co de Phone Number [facility] [place] [address] documented in this encounter Visit Diagnoses Diagnosis 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
--- OUTSIDE RECORDS SUMMARY | 2024-08-24 22:18 | XMS_ITS | Encounter Summary ---
Author Organization [facility] Address [facility] [place] [address] Care Team Providers Care Agricultural Purchasing Agent Name Role Phone Melba Vieira MD Primary Care Provider [phone] Reason for Visit * Reason Comments Anemia 2 Units PRBC Encounter Details Date Type Department Care Team (Latest Contact Info) Description 07/11/2024 10:38 AM EST - 07/11/2024 11:59 PM EST Hospital Encounter Hematology and Oncology at [facility] [place] [phone] Plasma cell dyscrasia Discharge Disposition: Home Social History Tobacco Use Types Packs/Day Years Used Date Smoking Tobacco: Never Smokeless Tobacco: Never B1300 Health Literacy Answer Date Recor ded How often do you need to hav e someone help you when you read instructions, pamphlets, or other written material from your doctor or pharmacy? Never 07/11/2024 [facility] Utilities Answer Date Recorded In the past [...] any time in the [facility] 12 [facility], were you homeless or living in a penitentiary (including now)? No 07/11/2024 Sex and Gender Information Value Date Recorded Sex Assigned at Not on file Gender Identity Not on file Sexual Orientation Not on file documented as of this encounter Last Filed Vital Signs Vital Sign Reading Time Taken Comments Blood Pressure 139/71 07/11/2024 5:44 PM EST Pulse 66 07/11/2024 5:44 PM EST Temperature 36.3 ??C (97.3 ??F) 07/11/2024 5:44 PM ES T Respiratory Rate 18 07/11/2024 5:44 PM EST Oxygen Saturation 98% 07/11/2024 5:44 PM EST Inhaled Oxygen Concentration - - Weight 69.1 kg (152 lb 5.4 oz) 07/11/2024 1:33 P M EST Height 169.4 cm (5' 6.69) 07/11/2024 1:33 PM ES T Body Mass Index 24.08 07/11/2024 1:33 PM EST documented in this encounter Discharge Instructions * Patient Instructions* Lee Saunders, JESSE - 07/11/2024 5:55 PM EST Pt. chemo teaching instructions reinforced: During clinic hours (8am-5pm Thursday-Thursday): pt. can call [phone] with questions or concerns. After clinic hours (5pm-8am Thursday-Thursday and weekends) pt can call [phone] and ask for the pill coater/oncologist space controller. Melissa López verbalized understanding of potential treatment side effects and home care including but not limited to- handwashing to prevent infection, signs and symptoms of low blood counts (fever, fatigue, bleeding), to call with a fever of 100.4 or greater, any significant constipation/diarrhea, importance of nutrition and fluid intake (drinking at least 32-64 ounces of non-caffeinated beverages/day), mouth care. [place], [place] INFORMATION FOR TRANSFUSION RECIPIENTS: You have received a transfusion of a blood product obtainedfrom a volunteer donor. Before you leave the hospital, we will carefully check for any adverse reactions. However, once you leave, please pay attention to the signs of a transfusion reaction listed on the other side of this card. Should you notice any of these symptoms or should you be worried about this transfusion for any reason, you should call or come back to the hospital. Most reactions to blood product transfusions are mild and can be easily treated. However, a mild reaction could be a warning of a more serious reaction to come. Therefore, we urge you to contact the hospital should you suspect a transfusion reactionor are worried. SIGNS AND SYMPTOMS OF A TRANSFUSION REACTION: ?? Fever ?? Chills or shaking ?? Hives, rash or itching ?? Shortness of breath or difficulty breathing ?? Dizziness or lightheadedness ?? Brown, pink, or bloody urine ?? New cough ?? Back pain (or any new and unexplainable pain) ?? Yellowing of skin or whites of the eyes (jaundice) ?? Pain or swelling at or near the transfusion site. If you discover any of these symptoms or need help, call [facility] at and ask to speak to your provider or the provider space controller. You may also call the provider space controller for the Blood Bank at . If you need emergency care, you should come to our Emergency Department or to any other hospital. Details of your transfusion will be available by calling [facility]. documented in this encounter Medications at Time [...] as of this encounter Progress Notes * Lee Saunders RN - 07/11/2024 3:16 PM EST Patient Name: Melissa López Patient Age: 83 y.o. Birthdate: 1940 Admit date: 07/11/2024 Attending Physician: Jeannie att. providers found TIME TREATMENT STARTED: 1245 TIME TREATMENT ENDED: 1755 Melissa López, 83 y.o. 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 Prior to transfusion initiation, RN educated patient regarding signs and symptoms of a transfusion reaction as follows: Fever, chills/rigors, nausea/vomiting, hypotension, bloody or dark urine, cough, dyspnea, SOB, wheezing, hypoxemia, decreased O2 saturations, back or flank pain, headache, infusion site pain. Directed patient to alert staff right away if beginning to experience any of these signs/symptoms. Patient verbalized understanding. Patient tolerated transfusion well with no signs or symptoms of complication. RN shared [facility] Information for Transfusion Recipients (Form [id number]) with patient via AVS and a Hard Copy. RN directed them to call clinic or hospital if any listed signs/symptoms develop within thenext 24 hours, or go to the emergency department if more urgent care is needed. They verbalized unde rstanding. documented in this encounter Plan of Treatment Upcoming Encounters Date Type Department Care Team (Late st Contact Info) Description 09/21/2024 9:30 AM EST Laboratory Appointment Lab at [facility] Hematology Oncology [address] [place] [phone] 09/21/2024 10:30 AM EST Office Visit Hematology [place] [phone] Ernestina Mcclelland APRN [facility] DR HEMATOLOGY [place] [address] documented as of this encounter Procedures Procedure Name Priority Date/Time Associated Diagnosis Comments HC TR PSLD, RED BLOOD CELLS, IRRADIATED Routine 07/12/2024 4:07 AM EST Plasma cell dyscrasia HC TR PSLD, RED BLOOD CELLS, IRRADIATED Routine 07/12/2024 2:07 AM EST Plasma cell dyscrasia TRANSFUSE RED BLOOD CELLS Routine 07/11/2024 3:51 PM EST Plasma cell dyscrasia TRANSFUSE RED BLOOD CELLS Routine 07/11/2024 2:00 PM EST Plasma cell dyscrasia ABORH RECHECK Routine 07/11/2024 1:15 PM EST LAB SCAN 07/11/2024 12:00 AM EST documented in this encounter Results * Prepare RBC (07/12/2024 4:07 AM EST) Status Information Transfused [facility] Product Identification RBC [facility] Unit Number [id number] [facility] Product Code [id number] [facility] Unit Blood Type APOS [facility] Specimen Expiration Date [id number] [facility] Volulme 350 [facility] Issue Date / Time [id number] [facility] Blood 07/11/2024 2:2 7 PM EST Roz Mattson MD BLOOD BANK PRODUCT O RDERABLES Performing Organization Address City/[facility] Co de Phone Number [facility] [place] [address] * Prepare RBC (07/12/2024 2:07 AM EST) Status Information Transfused [facility] Product Identification RBC [facility] Unit Number [id number] [facility] Product Code [id number] [facility] Unit Blood Type APOS [facility] Specimen Expiration Date [id number] [facility] Volulme 350 [facility] Issue Date / Time [id number] [facility] Blood 07/11/2024 12: 18 PM EST Roz Mattson MD BLOOD BANK PRODUCT O RDERABLES Performing Organization Address [facility] Co de Phone Number [facility] [place] [address] * Transfuse RBC (07/11/2024 6:00 PM EST) Roz Mattson MD NURSING TREATMENT OR DERABLES - BLOOD ADMIN * Transfuse RBC (07/11/2024 6:00 PM EST) Roz Mattson MD NURSING TREATMENT OR DERABLES - BLOOD ADMIN * Transfuse RBC (07/11/2024 3:46 PM EST) Roz Mattson MD NURSING TREATMENT OR DERABLES - BLOOD ADMIN * Transfuse RBC (07/11/2024 3:46 PM EST) Roz Mattson MD NURSING TREATMENT OR DERABLES - BLOOD ADMIN * ABORH RECHECK (07/11/2024 1:15 PM EST) ABORH Recheck A POSITIVE 07/11/2024 1:42 PM EST [facility] Blood VENOUS BLOOD SPECIMEN / Unknown Venipuncture / Unknown 07/11/2024 1:15 PM EST 07/11/2024 1:23 PM EST Roz Mattson MD BLOOD BANK LAB ORDER ARSALAN [facility] [place] [address] * Scan Doc: Lab (07/11/2024 12:00 AM EST) Narrative 07/11/2024 12:00 AM EST Ordered by an unspecified provider. 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
--- OUTSIDE RECORDS SUMMARY | 2024-08-24 22:18 | XMS_ITS | Encounter Summary ---
Author Organization [facility] Address [address] [place] [address] Care Team Providers Care Preforming Machine Operator Name Role Phone Melba Vieira MD Primary Care Provider [phone] Encounter Details Date Type Department Care Team (Late st Contact Info) Description 07/01/2024 Lab Requisition [facility] Pathology & Laboratory Medicine - [facility] [address] [place] [address] Outr Resulting Lab, Provider Social History Tobacco Use Types Packs/Day Years Used Date Smoking Tobacco: Never Smokeless Tobacco: Never Alcohol Use Standard Drinks/Week Comments Yes 2 (1 standard drink = 0.6 oz pur e alcohol) occas Interpersonal Safety Answer Date Record ed How often does anyone, jacob hmailton family, hit, punch or physically hurt you? Never 12/06/2021 How often does anyone, jacob hamilton family, insult, scream, curse or threaten to hurt you? Never 12/06/2021 Comments No Sex and Gender Information Value Date Recorded Sex Assigned at Not on file Legal Sex Female 17:51 EST Gender Identity Female 10/31/2021 15:24 EDT Sexual Orientation Not on file documented as of this encounter Functional Status * Because of a physical, mental, or emotional condition, does this person have difficulty doing errands alone such as visiting a doctor's office or shopping? Answer Date of Assessment Author No 11/14/2021 10:58 EDT documented as of this encounter Mental Status * Because of a physical, mental, or emotional condition, does this person have serious difficulty concentrating, remembering, or making decisions? Answer Entry Date Author No 11/14/2021 10:58 EDT documented in this encounter Plan of Treatment Not on file documented as of this encounter Procedures Procedure Name Priority Date/Time Associated Diagnosis Comments FOLATE Routine 07/01/2024 11:07 EST documented in this encounter Results * FOLATE (07/01/2024 11:07 EST) Folate >24.0 See Note ng/mL 07/01/2024 18:00 EST [facility] Comment: Reference Ranges for Folate: Deficient: ?< 3.4 ng/mL Indeterminate: ??3.4 - 5.4 ng/mL Normal: ? > 5.4 ng/mL The results of this assay can be falsely elevated due to the consumption of Biotin. Blood VENOUS BLOOD / Unknown 07/01/2024 11:07 EST 07/01/2024 16:57 EST us Provider Outr Resulting Lab CHEMISTRY & BLOOD GA S ORDERABLES Final Result Performing Organization Address City/State/[facility] Co de Phone Number [facility] [address] [place] [address] documented in this encounter Visit Diagnoses Not on filedocumented in this encounter Care Teams Preforming Machine Operator Relationship Specialty Start Date End Date Melba Vieira MD [address] [place] [phone] PCP - General 04/06/14 documented as of this encounter
--- OUTSIDE RECORDS SUMMARY | 2024-08-24 22:18 | XMS_ITS | Encounter Summary ---
Author Organization [facility] Address [address] [place] [address] Care Team Providers Care Hacksaw Inspector Name Role Phone eMlba Vieira MD Primary Care Provider [phone] Encounter Details Date Type Department Care Team (Late st Contact Info) Description 08/24/2024 Lab Requisition [facility] Pathology & Laboratory Medicine - [facility] [address] [place] [address] Melba Vieira MD [address] [place] [phone] Hyperlipidemia, unspecified; Palpitations; Age-related osteoporosis without current pathological fracture Social History Tobacco Use Types Packs/Day Years Used Date Smoking Tobacco: Never Smokeless Tobacco: Never Alcohol Use Standard Drinks/Week Comments Yes 2 (1 standard drink = 0.6 oz pur e alcohol) occas Interpersonal Safety Answer Date Record ed How often does anyone, jacob hamilton family, hit, punch or physically hurt you? [...] documented in this encounter Plan of Treatment Pending Results Name Type Priority Associated Diagnoses Date /Time THYROID CASCADE Lab Today Palpitations 08/24/2024 12:12 EST VITAMIN D (25,[place]) Lab Today Age-related osteoporosis without current pathological fracture 08/24/2024 12:12 EST documented as of this encounter Procedures Procedure Name Priority Date/Time Associated Diagnosis Comments MAGNESIUM Today 08/24/2024 12:12 EST Palpitations LIPID PROFILE (INCLUDES CHOLESTEROL, TRIGLYCERIDES, HDL, LDL) Today 08/24/2024 12:12 EST Hyperlipidemia, unspecified documented in this encounter Results * MAGNESIUM (08/24/2024 12:12 EST) Magnesium 2.5 1.7 - 2.8 mg/dL 08/24/2024 21:09 [facility] Blood VENOUS BLOOD / Unknown 08/24/2024 12:12 EST 08/24/2024 20:37 EST us Melba Vieira MD CHEMISTRY & BLOOD GAS ORDERAB LES Final Result [facility] [address] [place] [phone] * (ABNORMAL) LIPID PROFILE (INCLUDES CHOLESTEROL, TRIGLYCERIDES, HDL, LDL) (08/24/2024 12:12 EST) Cholesterol 95 <200 mg/dL 08/24/2024 21:09 EST [facility] Comment:Note that therapeuti c goals will differ between patients based on cardiac risk factors and current medical therapy. HDL 33(L) >=50 mg/dl 08/24/2024 21:09 [facility] Comment:Note that therapeuti c goals will differ between patients based on cardiac risk factors and current medical therapy. LDL, Calculated 38 <160 mg/dL 21:09 [facility] Comment:Note that therapeuti c goals will differ between patients based on cardiac risk factors and current medical therapy. Triglyceride 120 <=150 mg/dL 08/24/2024 21:09 [facility] Comment:Note that therapeuti c goals will differ between patients based on cardiac risk factors and current medical therapy. Chol/HDL Ratio 2.9 See Note 08/24/2024 21:09 [facility] Comment:No reference range h as been established for CHOL/HDL ratio. Non HDL Cholesterol 62 <160 mg/dL 08/24/2024 21:09 [facility] Comment:Note that therapeuti c goals will differ between patients based on cardiac risk factors and current medical therapy. Blood VENOUS BLOOD / Unknown 08/24/2024 12:12 EST 08/24/2024 20:37 EST us Melba Vieira MD CHEMISTRY & BLOOD GAS ORDERAB LES Final Result Performing Organization Address City/State/[facility] Co de Phone Number [facility] [address] [place] [phone] documented in this encounter Visit Diagnoses Diagnosis Hyperlipidemia, unspecified Palpitations Age-related osteoporosis without current pathological fracture Senile osteoporosis documented in this encounter Care Teams Hacksaw Inspector Relationship Specialty Start Date End Date Melba Vieira MD [address] [place] [phone] PCP - General 04/06/14 documented as of this encounter
--- OUTSIDE RECORDS SUMMARY | 2024-08-24 22:18 | XMS_ITS | Encounter Summary ---
Author Organization [facility] [place] [address] Care Team Providers Care Reliability Technicians Name Role Phone Melba Vieira MD Primary Care Provider [phone] Encounter Details Date Type Department Care Team (Late st Contact Info) Description 07/25/2024 Telephone Hematology and Oncology at [facility] [place] [phone] Cheyenne Goodwin I, RN Social History Tobacco Use Types Packs/Day Years Used Date Smoking Tobacco: Never Smokeless Tobacco: Never B1300 Health Literacy Answer Date Recor ded How often do you need to hav e someone help you when you read instructions, pamphlets, or other written material from your doctor or pharmacy? Never 07/11/2024 [facility] Utilities Answer Date Recorded In the [...] time in the past 12 m [facility], were you homeless or living in a long-term (including now)? No 07/11/2024 Sex and Gender Information Value Date Recorded Sex Assigned at Not on file Gender Identity Not on file Sexual Orientation Not on file documented as of this encounter Miscellaneous Notes * Telephone Encounter - Cheyenne Goodwin RN - 07/25/2024 10:13 AM EST Message received from department secretary: Sonia called with [facility] regarding critical results for this patient. Can you please return her call at [phone]. 07/25/24 [facility] RN spoke with Ana at [facility] who explained she had already reported result to [facility]. All questions/comments/concerns were addressed and answered. documented in this encounter Plan of Treatment Upcoming Encounters Date Type Department Care Team (Late st Contact Info) Description 09/21/2024 9:30 AM EST Laboratory Appointment Lab at [facility] Hematology Oncology [address] [place] [phone] 09/21/2024 10:30 AM EST Office Visit Hematology [place] [phone] Ernestina Mcclelland APRN [facility] [place] [address] documented as of this encounter Visit Diagnoses Not on filedocumented in this encounter Care Teams Reliability Technicians Relationship Specialty Start Date End Date Melba Vieira MD [address] [place] [address] [place] [phone] PCP - General Family Medicine 07/06/24 documented as of this encounter
--- OUTSIDE RECORDS SUMMARY | 2024-08-24 22:18 | XMS_ITS | Encounter Summary ---
Author Organization [facility] Address [address] [place] [address] Care Team Providers Care Pump Servicer Helper Name Role Phone Melba Vieira MD Primary Care Provider [phone] Reason for Referral * Radiology Services (Routine/Next Available) - Authorization Not Required Specialty Diagnoses / Procedures Referred By Contac t Referred To Contact Diagnoses Encounter for screening mammogram for malignant neoplasm of breast Procedures MA BREAST SCREENING TAVO BILATERAL Melba Vieira MD Phone: tel: fax: [facility] Referral ID Status Reason Start Date Expiration Date Visits Requested Visits Authorized [id number] Authorization Not Required 08/17/2023 1 1 Reason for Visit * Radiology Services (Routine/Next Available) - Authorization Not Required Specialty Diagnoses / Procedures Referred By Taj partida Referred To Contact Diagnoses Encounter for screening mammogram for malignant neoplasm of breast Procedures MA BREAST SCREENING TAVO BILATERAL Melba Vieira MD Phone: tel: fax: [facility] Referral ID Status Reason Start Date Expiration Date Visits Requested Visits Authorized [id number] Authorization Not Required 08/17/2023 1 1 Encounter Details Date Type Department Care Team (Latest Contact Info) Description 03/29/2024 10:05 EDT - 03/29/2024 23:59 EDT Hospital Encounter [facility] [address] [place], [place] [id number] Encounter for screening mammogram for malignant neoplasm of breast Discharge Disposition: Home or Self Care Social History Tobacco Use Types Packs/Day Years Used Date Smoking Tobacco: Never Smokeless Tobacco: Never Alcohol Use Standard Drinks/Week Comments Yes 2 (1 standard drink = 0.6 oz pur e alcohol) occas Interpersonal Safety Answer Date Record ed How often does anyone, inclu alfonso family, hit, punch or physically hurt you? Never 12/06/2021 How often does anyone, incldipesh hamilton family, insult, scream, curse or threaten [...] 11/14/2021 10:58 EDT documented in this encounter Medications at Time of Discharge amLODIPine (NORVASC) 5 mg tablet Take 5 mg by mouth daily. aspirin chewable 81 mg tablet Take 81 mg by mouth daily atorvastatin (LIPITOR) 20 mg tablet 10/02/2021 bimatoprost (LUMIGAN) 0.01 % ophthalmic drops Place 1 Drop into both eyes at bedtime. calcium carbonate (CALCIUM 500) 500 mg calcium (1,250 mg) chewable tablet Cholecalciferol, Vitamin D3, (VITAMIN D3) 10 mcg (400 unit) capsule Take by mouth. Cholecalciferol, Vitamin D3, (VITAMIN D3) 25 mcg (1,000 unit) capsule Take by mouth. hydroCHLOROthiazi de (HYDRODIURIL) 25 mg tablet 10/02/2021 lisinopril (PRINIVIL, ZESTRIL) 10 mg tablet Take 10 mg by mouth daily. multivitamin (ONE-A-DAY ESSENTIAL ORAL) Take by mouth. mv-mn/lutein/zeax /bilber/hb277 (MACULAR HEALTH FORMULA ORAL) Take by mouth. omeprazole 20 mg tablet,disintegra t, delay rel Take 20 mg by mouth daily. Red Yeast Rice Extract 600 mg Cap Take by mouth. SODIUM FLUORIDE 5000 PLUS 1.1 % cream USE EVERY EVENING WITHOUT RINSING 09/05/2021 zoledronic acid (RECLAST) 5 mg/100 mL piggyback Inject 5 mg into the vein. Infusion given 09/23/[address] [facility] (every 18-24 months for osteopenia) documented as of this encounter Discharge Disposition Disposition Code Departure Means Destination Home or Self Care documented in this encounter Plan of Treatment Not on file documented as of this encounter Procedures Procedure Name Priority Date/Time Associated Diagnosis Comments NV BREAST SCREENING TAVO BILATERAL Routine 03/29/2024 10:20 EDT Encounter for screening mammogram for malignant neoplasm of breast documented in this encounter Results * MA BREAST SCREENING TAVO BILATERAL (03/29/2024 10:20 EDT) Anatomical Region Laterality Modality Breast Bilateral Mammography 03/29/2024 11:1 6 EDT Impressions 03/29/2024 11:16 EDT Negative, no evidence of malignancy. RECOMMENDATION: Routine screening mammography is recommended. OVERALL ASSESSMENT: BI-RADS 1: Negative These results will be communicated to your patient via a lay letter from Radiology. If any additional imaging is needed we will contact your patient directly. [facility]. - [address] [address] [id number] Narrative 03/29/2024 11:16 EDT MA BREAST SCREENING TAVO BILATERAL ??03/29/2024 10:10 AM History: routine Comparison: ??Comparison has been made to previous images . ? Technique: Routine 3D tomosynthesis with synthesized 2D views with CAD Breast Composition: There are scattered areas of fibroglandular density. Bilateral Breast Findings: ??No significant masses, calcifications or other abnormalities are seen. Resulting Agency Comment [id number] Procedure Note Mateus Zamora MD - 03/29/2024 MA BREAST SCREENING TAVO BILATERAL 03/29/2024 10:10 AM History: routine Comparison: Comparison has been made to previous images . Technique: Routine 3D tomosynthesis with synthesized 2D views with CAD Breast Composition: There are scattered areas of fibroglandular density. Bilateral Breast Findings: No significant masses, calcifications or otherabnormalities are seen. IMPRESSION Negative, no evidence of malignancy. RECOMMENDATION: Routine screening mammography is recommended. OVERALL ASSESSMENT: BI-RADS 1: Negative These results will be communicated to your patient via a lay letter fromRadiology. If any additional imaging is needed we will contact yourpatient directly. [facility]. - [address] [id number] Melba Vieira MD IMG MAMMOGRAPHY ORDERABLES Fi nal Result documented in this encounter Visit Diagnoses Diagnosis Encounter for screening mammogram for malignant neoplasm of breast Other screening mammogram documented in this encounter Care Teams Pump Servicer Helper Relationship Specialty Start Date End Date Melba Vieira MD [address] [place] [phone] PCP - General 04/06/14 documented as of this encounter
--- OUTSIDE RECORDS SUMMARY | 2024-08-24 22:18 | XMS_ITS | Encounter Summary ---
Author Organization [facility] [place] [address] Care Team Providers Care Freezer Unloader Name Role Phone Melba Vieira MD Primary Care Provider [phone] Encounter Details Date Type Department Care Team (Late st Contact Info) Description 07/11/2024 Telephone Hematology and Oncology at [facility] [place] [phone] Grace Charles RN Social History Tobacco Use Types Packs/Day Years Used Date Smoking Tobacco: Never Smokeless Tobacco: Never [id number] Health Literacy Answer Date Recor ded How often do you need to hav e someone help you when you read instructions, pamphlets, or other written material from your doctor or pharmacy? Never 07/11/2024 [facility] Utilities Answer Date Recorded In the [...] were you homeless or living in a fdc (including now)? No 07/11/2024 Sex and Gender Information Value Date Recorded Sex Assigned at Not on file Gender Identity Not on file Sexual Orientation Not on file documented as of this encounter Miscellaneous Notes * Telephone Encounter - Grace Charles RN - 07/11/2024 10:27 AM EST Patient completed Preoperative Patient Health Assessment for pt BMBX in office 07/11/2024. Completed PPHA scanned and emailed to the [facility] for processing. documented in this encounter Plan of Treatment Upcoming Encounters Date Type Department Care Team (Late st Contact Info) Description 09/21/2024 9:30 AM EST Laboratory Appointment Lab at [facility] Hematology Oncology [address] [place] [phone] 09/21/2024 10:30 AM EST Office Visit Hematology [place] [address] Ernestina Mcclelland APRN [facility] [place] [address] documented as of this encounter Visit Diagnoses Not on filedocumented in this encounter Care Teams Freezer Unloader Relationship Specialty Start Date End Date Melba Vieira MD [address] [place] [address] [place] [phone] PCP - General Family Medicine 07/06/24 documented as of this encounter
--- OUTSIDE RECORDS SUMMARY | 2024-08-24 22:18 | XMS_ITS | Encounter Summary ---
Author Organization [facility] Address [address] [place] [address] Care Team Providers Care Customer Service Correspondence Clerk Name Role Phone Melba Vieira MD Primary Care Provider Encounter Details Date Type Department Care Team (Late st Contact Info) Description 07/04/2024 Lab Requisition [facility] Pathology & Laboratory Medicine - [facility] [address] [place] [address] Outr Resulting Lab, Provider Social History Tobacco [...] Procedure Name Priority Date/Time Associated Diagnosis Comments VITAMIN B12 Routine 07/04/2024 10:14 EST documented in this encounter Results * VITAMIN B12 (07/04/2024 10:14 EST) Vitamin B12 627 211 - 911 pg/mL 07/04/2024 18:22 EST [facility] Blood VENOUS BLOOD / Unknown 07/04/2024 10:14 EST 07/04/2024 17:23 EST us Provider Outr Resulting Lab CHEMISTRY & BLOOD GA S ORDERABLES Final Result Performing Organization Address City/State/[facility] Co de Phone Number [facility] [address] [place] [address] documented in this encounter Visit Diagnoses Not on filedocumented in this encounter Care Teams Customer Service Correspondence Clerk Relationship Specialty Start Date End Date Melba Vieira MD [address] [place] [phone] PCP - General 04/06/14 documented as of this encounter
--- OUTSIDE RECORDS SUMMARY | 2024-08-24 22:18 | XMS_ITS | Encounter Summary ---
Author Organization [facility] Address [address] [place] [address] Care Team Providers Care Extractions Technician Name Role Phone Melba Vieira MD Primary Care Provider [phone] Reason for Referral * Radiology Services (Routine/Next Available) - Authorization Not Required Specialty Diagnoses / Procedures Referred By Taj t Referred To Contact Diagnoses Osteopenia with high risk of fracture Procedures DXA BONE DENSITY Sharron Jesus DO [address] [place] [phone] Phone: tel: fax: Referral ID Status Reason Start Date Expiration Date Visits Requested Visits Authorized [id number] Authorization Not Required 1 1 Reason for Visit * Reason Comments Osteopenia Encounter Details Date Type Department Care Team (Late st Contact Info) Description 11/13/2023 9:00 EDT Telemedicine [facility] Endocrinology - [address] [address] Sharron Jesus DO [address] [phone] Osteopenia with high risk of fracture (Primary Dx) Social History Tobacco Use Types Packs/Day Years Used Date Smoking Tobacco: Never Smokeless Tobacco: Never Alcohol Use Standard Drinks/Week Comments Yes 2 (1 standard drink = 0.6 oz pur e alcohol) occas Interpersonal Safety Answer Date Record ed How often does anyone, inclu ding family, hit, punch or physically hurt you? Never 12/06/2021 How often does anyone, inclu ding family, insult, scream, curse or threaten to [...] 11/14/2021 10:58 EDT documented in this encounter Progress Notes * Sharron Jesus, DO - 11/13/2023 0900 EDT Today's visit was provided through telemedicine video conferencing: The patient was located at home. I was located at home. Consent was obtained. The patient is seen for follow up of osteoporosis. She was last seen here in 2021. She fractured her ankle years ago after a fall on ice. She has not had any other fractures. There has been no height loss since youth. She takes adequate amounts of calcium and vitamin D daily between her diet and supplements. She performs regular weight bearing exercise, mostly in the form of walking around at home. She is steady on her feet and does not fall. She has attended PT for lower back pain. Her dental exams are up to date. She received Reclast for the first time in 09/08 at [facility] and tolerated it well. She then received another infusion in 10/08. Her last DXA was performed in 11/10 and showed lumbar spine T-score was falsely elevated, right femoral neck normal and total hip T-score normal. An improvement was seen at both sites from her last exam. Her FRAX score previously pre treatment at the hip was high at 3.3% She overall feels well in general. She previously had an EGD performed for difficulty swallowing. She has a hiatal hernia and also required a dilation. She denies any chest pain, palpitations or trouble breathing. Her bowel movements are normal. The remainder of review of systems is unremarkable. Medications, allergies, family history and social history were reviewed. No osteoporosis in the family. Physical exam: Not performed due to nature of telehealth visit. Labs from 05/11: CMP normal. Assessment/Plan: Osteopenia with a high FRAX score. We reviewed the pathophysiology of bone loss and the results of the patient's last DXA in detail. We talked about the importance of proper calcium and vitamin D intake along with weight bearing exercise and fall prevention for bone health. She received Reclast twice and tolerated it well.. Her DXA has responded nicely. I advised that theeffects of Reclast will last for some time in the bone. We will hold off on an infusion for now. She will have an updated DXA exam performed in 18 months. She will call sooner with any change in symptoms or concerns. She will return in 18 months. Thank you for allowing me to participate in this patient's care. I spent 11 minutes on the phone with the patient today and prepping the chart, these 11 minutes were spent in counseling and coordination of care as described in the progress note. Typically this visit would have been billed as an established 4. The concept of ???Telemedicine?? has been described to the patient.? Patient has been informed of the anticipated benefits and possible risks.? Patient understands the information provided regardingtelemedicine, has had the opportunity to ask questions about this information, and all questions have been answered to patient???s satisfaction. Patient consents for the use of telemedicine in his/her medical care and authorizes the transmission of any relevant medical information to providers and their staff involved in patient???s medical or mental health care. Patient understands that they maybe responsible for copays, deductible or coinsurance for this service. documented in this encounter Plan of Treatment Scheduled Orders Name Type Priority Associated Diagnoses Orde r Schedule DXA BONE DENSITY Imaging Routine Osteopenia with high risk of fracture Expected: 04/25/2025, Expires: 11/12/2025 documented as of this encounter Visit Diagnoses Diagnosis Osteopenia with high risk of fracture- Primary documented in this encounter Care Teams Extractions Technician Relationship Specialty Start Date End Date Melba Vieira MD [address] [place] [phone] PCP - General 04/06/14 documented as of this encounter
--- OUTSIDE RECORDS SUMMARY | 2024-08-24 22:18 | XMS_ITS | Encounter Summary ---
Author Organization [facility] Address [address] [place] [address] Care Team Providers Care Per Assessment Nurse Name Role Phone Melba Vieira MD Primary Care Provider [phone] Encounter Details Date Type Department Care Team (Late st Contact Info) Description 05/04/2023 Lab Requisition [facility] Pathology & Laboratory Medicine - [facility] [address] [place] [address] Melba Vieira MD [address] [place] [phone] Hyperlipidemia, unspecified; Essential (primary) hypertension; Age-related osteoporosis without current pathological fracture Social [...] Never 12/06/2021 How often does anyone, inclu alfonso family, insult, scream, curse or threaten to [...] Name Priority Date/Time Associated Diagnosis Comments VITAMIN D (25,OH) Today 05/04/2023 11: 29 EDT Age-related osteoporosis without current pathological fracture LIPID PROFILE (INCLUDES CHOLESTEROL, TRIGLYCERIDES, HDL, LDL) Today 05/04/2023 11:29 EDT Hyperlipidemia, unspecified COMPREHENSIVE METABOLIC PANEL (CMP) Today 05/04/2023 11:29 EDT Essential (primary) hypertension documented in this encounter Results * VITAMIN D (25,OH) (05/04/2023 11:29 EDT) 25OH Vitamin D Tot 62 30 - 100 ng/mL 05/05/2023 10:59 EDT [facility] Comment: Vitamin D 25,OH Interpretive Ranges: Deficiency: ??<10.0 ng/mL Insufficiency: ??10.0 - 30.0 ng/mL Sufficiency: ??30.0 - 100.0 ng/mL Toxicity: ??>100.0 ng/mL Blood VENOUS BLOOD / Unknown 05/04/2023 11:29 EDT 05/04/2023 20:30 EDT us Melba Vieira MD CHEMISTRY & BLOOD GAS ORDERAB LES Final Result [facility] [address] [place] [address] * (ABNORMAL) COMPREHENSIVE METABOLIC PANEL (CMP) (05/04/2023 11:29 EDT) Sodium 139 136 - 145 mmol/L [facility]2023 20[facility] Potassium 3.2(L) 3.5 - 5.0 mmol/L 05/04/2023 20:45 [facility] Chloride 97 96 - 110 mmol/L 05/04/2023 20:45 [facility] CO2 Total 32 22 - 32 mmol/L 05/04/2023 20:45 [facility] Glucose 106(H) 70 - 99 mg/dl 05/04/2023 20:45 [facility] BUN 19 10 - 26 mg/dL 05/04/2023 20:45 [facility] Creatinine 0.70 0.52 - 1.04 mg/dL 05/04/2023 20:45 [facility] eGFR 86 >60 mL/min/1.7 3m2 05/04/2023 20:45 [facility] Total Protein 7.6 6.3 - 8.2 g/dL 05/04/2023 20:45 [facility] Albumin 4.6 3.4 - 4.9 g/dL 05/04/2023 20:45 [facility] Alkaline Phosphatase 64 38 - 126 U/L 05/04/2023 20:45 [facility] AST 30 15 - 46 U/L 05/04/2023 20:45 [facility] ALT 28 <35 U/L 05/04/2023 20:45 [facility] Bilirubin, Total 1.1 <1.4 mg/dL 05/04/20 20:45 [facility] Calcium 9.2 8.5 - 10.5 mg/dL 05/04/2023 20:45 [facility] Albumin/Globulin Ratio 1.5 1.0 - 2.5 g/dL 05/04/2023 20:45 [facility] Anion Gap 10 5 - 14 mmol/L 05/04/2023 20:45 [facility] Blood VENOUS BLOOD / Unknown 05/04/2023 11:29 EDT 05/04/2023 20:30 EDT us Melba Vieira MD CHEMISTRY & BLOOD GAS ORDERAB LES Final Result Performing Organization Address [facility]/ZIP Co de Phone Number [facility] [address] [place] [address] * (ABNORMAL) LIPID PROFILE (INCLUDES CHOLESTEROL, TRIGLYCERIDES, HDL, LDL) (05/04/2023 11:29 EDT) Cholesterol 168 <200 mg/dL 05/04/2023 20:45 EDT [facility] Comment:Note that therapeuti c goals will differ between patients based on cardiac risk factors and current medical therapy. HDL 69 >=50 mg/dl 05/04/2023 20:45 EDT [facility] Comment:Note that therapeuti c goals will differ between patients based on cardiac risk factors and current medical therapy. LDL, Calculated 66 <160 mg/dL 20:45 T [facility] Comment:Note that therapeuti c goals will differ between patients based on cardiac risk factors and current medical therapy. Triglyceride 163(H) <=150 mg/dL 05/04/2023 20:45 T [facility] Comment:Note that therapeuti c goals will differ between patients based on cardiac risk factors and current medical therapy. Chol/HDL Ratio 2.4 See Note 05/04/2023 20:45 [facility] Comment:No reference range h as been established for CHOL/HDL ratio. Non HDL Cholesterol 99 <160 mg/dL 05/04/2023 20:45 T [facility] Comment:Note that therapeuti c goals will differ between patients based on cardiac risk factors and current medical therapy. Blood VENOUS BLOOD / Unknown 05/04/2023 11:29 EDT 05/04/2023 20:30 EDT us Melba Vieira MD CHEMISTRY & BLOOD GAS ORDERAB LES Final Result Performing Organization Address City/[facility]/ZIP Co de Phone Number [facility] [address] [place] [address] documented in this encounter Visit Diagnoses Diagnosis Hyperlipidemia, unspecified Essential (primary) hypertension Unspecified essential hypertension Age-related osteoporosis without current pathological fracture Senile osteoporosis documented in this encounter Care Teams Per Assessment Nurse Relationship Specialty Start Date End Date Melba Vieira MD [address] [place] [phone] PCP - General 04/06/14 documented as of this encounter
--- OUTSIDE RECORDS SUMMARY | 2024-08-24 22:18 | XMS_ITS | Encounter Summary ---
Author Organization [facility] Address [facility] [place] [address] Care Team Providers Care Drum Builder Name Role Phone Melba Vieira MD Primary Care Provider [phone] Encounter Details Date Type Department Care Team (Late st Contact Info) Description 07/25/2024 Notes Only Hematology and Oncology at [facility] [place] [phone] Grace Charles RN Social History Tobacco Use Types Packs/Day Years Used Date Smoking Tobacco: Never Smokeless Tobacco: Never [id number] Health Literacy Answer Date Recor ded How often do you need to hav e someone help you when you read instructions, pamphlets, or other written material from your doctor or pharmacy? Never 07/11/2024 [facility] Utilities Answer Date Recorded In the [...] 9:30 AM EST Laboratory Appointment Lab at [facility] Hematology Oncology [address] [place] [phone] 09/21/2024 10:30 AM EST Office Visit Hematology and Oncology at [place] [phone] Ernestina Mcclelland APRN [facility] [address] [place] [address] documented as of this encounter Visit Diagnoses Not on filedocumented in this encounter Care Teams Drum Builder Relationship Specialty Start Date End Date Melba Vieira MD [address] [place] [phone] PCP - General Family Medicine 07/06/24 documented as of this encounter
--- OUTSIDE RECORDS SUMMARY | 2024-08-24 22:18 | XMS_ITS | Encounter Summary ---
Author Organization [facility] [place] [address] Care Team Providers Care Floor Coverer Apprentice Name Role Phone Melba Vieira MD Primary Care Provider [phone] Encounter Details Date Type Department Care Team (Late st Contact Info) Description 07/12/2024 Telephone Hematology and Oncology at [facility] [place] [phone] Knower, Alesha Salcido RN Social History Tobacco Use Types Packs/Day Years Used Date Smoking Tobacco: Never Smokeless Tobacco: Never B1300 Health Literacy Answer Date Recor ded How often do you need to hav e someone help you when you read instructions, pamphlets, or other written material from your doctor or pharmacy? Never 07/11/2024 [facility] Utilities Answer Date Recorded In the [...] were you homeless or living in a detention (including now)? No 07/11/2024 Sex and Gender Information Value Date Recorded Sex Assigned at Not on file Gender Identity Not on file Sexual Orientation Not on file documented as of this encounter Miscellaneous Notes * Telephone Encounter - Alesha Moss RN - 07/12/2024 1:36 PM EST Message from secretary book keeper: [facility] called, lab draws can be started next week, she will call patient to arrange. However, if she needs interventions - blood transfusions or platelets they will not be able to be accommodate until the week of 07/25 and she will be deferred back to us. [facility] Infusion suite is also full next week and a request will need to be sent to fit patient in. Please advise if this works? RN notified pt's hematology team, Dr. Mattson and Trino Mcclelland APRN. documented in this encounter Plan of Treatment Upcoming Encounters Date Type Department Care Team (Late st Contact Info) Description 09/21/2024 9:30 AM EST Laboratory Appointment Lab at [facility] Hematology Oncology [address] [place] [phone] 09/21/2024 10:30 AM EST Office Visit Hematology [place] [phone] Ernestina Mcclelland APRN [facility] [place] [address] documented as of this encounter Visit Diagnoses Not on filedocumented in this encounter Care Teams Floor Coverer Apprentice Relationship Specialty Start Date End Date Melba Vieira MD 6 [facility] [place] [phone] PCP - General Family Medicine 07/06/24 documented as of this encounter
--- OUTSIDE RECORDS SUMMARY | 2024-08-24 22:18 | XMS_ITS | Encounter Summary ---
Author Organization [facility] Address [address] [place] [address] Care Team Providers Care Cap Maker Name Role Phone Melba Vieira MD Primary Care Provider [phone] Encounter Details Date Type Department Care Team (Late st Contact Info) Description 07/01/2024 Lab Requisition [facility] Pathology & Laboratory Medicine - [facility] [address] [place] [address] Outr Resulting Lab, Provider Social History Tobacco [...] Date/Time Associated Diagnosis Comments VITAMIN B12 Routine 07/01/2024 11:07 EST documented in this encounter Results * VITAMIN B12 (07/01/2024 11:07 EST) Vitamin B12 632 211 - 911 pg/mL 07/01/2024 18:06 EST [facility] Blood VENOUS BLOOD / Unknown 07/01/2024 11:07 EST 07/01/2024 16:57 EST us Provider Outr Resulting Lab CHEMISTRY & BLOOD GA S ORDERABLES Final Result Performing Organization Address City/State/[facility] Co de Phone Number [facility] [address] [place] [address] documented in this encounter Visit Diagnoses Not on filedocumented in this encounter Care Teams Cap Maker Relationship Specialty Start Date End Date Melba Vieira MD [address] [place] [address] PCP - General 04/06/14 documented as of this encounter
--- OUTSIDE RECORDS SUMMARY | 2024-08-24 22:18 | XMS_ITS | Encounter Summary ---
Author Organization [facility] Address [facility] [place] [address] Care Team Providers Care Wound Care Rn Name Role Phone Melba Vieira MD Primary Care Provider [phone] Encounter Details Date Type Department Care Team (Late st Contact Info) Description 08/01/2024 Notes Only Hematology and Oncology at [facility] [place] [address] Grace Charles RN Social History Tobacco Use Types Packs/Day Years Used Date Smoking Tobacco: Never Smokeless Tobacco: Never B1300 Health Literacy Answer Date Recor ded How often do you need to hav e someone help you when you read instructions, pamphlets, or other written material from your doctor or pharmacy? Never 07/11/2024 [facility] Utilities Answer Date Recorded In the [...] AM EST Laboratory Appointment Lab at [facility] Hematology Oncology [address] [place] [phone] 09/21/2024 10:30 AM EST Office Visit Hematology and Oncology at [place] [phone] Ernestina Mclcelland APRN [facility] [address] HEMATOLOGY [place] [address] documented as of this encounter Visit Diagnoses Not on filedocumented in this encounter Care Teams Wound Care Rn Relationship Specialty Start Date End Date Melba Vieira MD [address] [place] [phone] PCP - General Family Medicine 07/06/24 documented as of this encounter
--- OUTSIDE RECORDS SUMMARY | 2024-08-24 22:18 | XMS_ITS | Encounter Summary ---
Author Organization [facility] Address [facility] [place] [address] Care Team Providers Care Dietary Tech Name Role Phone Melba Vieira MD Primary Care Provider [phone] Encounter Details Date Type Department Care Team (Late st Contact Info) Description 07/11/2024 Notes Only Hematology and Oncology at [facility] [place] [address] Grace Charles RN Social History Tobacco Use Types Packs/Day Years Used Date Smoking Tobacco: Never Smokeless Tobacco: Never B1300 Health Literacy Answer Date Recor ded How often do you need to hav e someone help you when you read instructions, pamphlets, or other written material from your doctor or pharmacy? Never 07/11/[address] [facility] Utilities Answer Date Recorded In the [...] were you homeless or living in a intermediate (including now)? No 07/11/2024 Sex and Gender Information Value Date Recorded Sex Assigned at Not on file Gender Identity Not on file Sexual Orientation Not on file documented as of this encounter Plan of Treatment Upcoming Encounters Date Type Department Care Team (Late st Contact Info) Description 09/21/2024 9:30 AM EST Laboratory Appointment Lab [place] [facility] [place] On[facility] [address] [place] [phone] 09/21/2024 10:30 AM EST Office Visit Hematology and Oncology at [place] [phone] Ernestina Mcclelland APRN [facility] DR HEMATOLOGY [place] [address] documented as of this encounter Visit Diagnoses Not on filedocumented in this encounter Care Teams Dietary Tech Relationship Specialty Start Date End Date Melba Vieira MD [address] [place] [phone] PCP - General Family Medicine 07/06/24 documented as of this encounter
--- OUTSIDE RECORDS SUMMARY | 2024-08-24 22:18 | XMS_ITS | Encounter Summary ---
[place] [address] Care Team Providers Care Medical Record Specialist Name Role Phone Melba Vieira MD Primary Care Provider [phone] Reason for Referral * Consultation (Urgent) - Authorized Specialty Diagnoses / Procedures Referred By Taj partida Referred To Contact Hematology and Oncology Diagnoses Acquired pancytopenia Elevated blood protein [facility] [employer] [employer] Melba Vieira MD [address] [place] [phone] [facility] [address] [place] [address] Referral ID Status Reason Start Date Expiration Date Visits Requested Visits Authorized [id number] Authorized Consult, Test & Treat PCP Updated and/or Approved 07/06/2025 6 6 Encounter Details Date Type Department Care Team (Latest Contact Info) Description 07/06/2024 Transcribe Orders eDH Incoming Referrals [phone] Melba Vieira MD [address] [place] [phone] Acquired pancytopenia; Elevated blood protein Social History Tobacco Use Types Packs/Day Years Used Date Smoking Tobacco: Never Assessed Sex and Gender Information Value Date Recorded Sex Assigned at Not on file Gender Identity Not on file Sexual Orientation Not on file documented as of this encounter Plan of Treatment Upcoming Encounters Date Type Department Care Team (Late st Contact Info) Description 09/21/2024 9:30 AM EST Laboratory Appointment Lab [place] [facility] [place] On[place] [address] [place] [phone] 09/21/2024 10:30 AM EST Office Visit Hematology [place] [address] Ernestina Mcclelland APRN [facility] DR HEMATOLOGY [place] [address] Scheduled Referrals Name Type Priority Associated Diagnoses Order Schedule Referral to Hematology and Oncology Outpatient Referral Urgent Acquired pancytopenia Elevated blood protein Ordered: 07/06/2024 documented as of this encounter Visit Diagnoses Diagnosis Acquired pancytopenia Other pancytopenia Elevated blood protein Other disorders of plasma protein metabolism documented in this encounter Care Teams Medical Record Specialist Relationship Specialty Start Date End Date Melba Vieira MD 6 [place] [phone] PCP - General Family Medicine 07/06/24 documented as of this encounter
--- OUTSIDE RECORDS SUMMARY | 2024-08-24 22:18 | XMS_ITS | Referral Summary ---
Author Organization [facility] Address [address] [place] [address] Care Team Providers Care Traffic Engineering Technician Name Role Phone Melba Vieira MD Primary Care Provider [phone] Encounters Date Type Department Care Team Description 08/24/2024 Lab Requisition [facility] Pathology Laboratory [address] [address] Melba Vieira MD Hyperlipidemia, unspecified; Palpitations; Age-related osteoporosis without current pathological fracture 07/06/2024 Lab Requisition [facility] Pathology Laboratory [address] [address] Melba Vieira MD Hypokalemia; Abnormality of plasma protein, unspecified; Other pancytopenia ([facility]) 07/04/2024 Lab Requisition [facility] Pathology Laboratory [address] [address] Outr Resulting Lab, Provider 07/04/2024 Lab Requisition [facility]ology Laboratory [address] [address] Outr Resulting Lab, Provider 07/01/2024 Lab Requisition [facility]ology Laboratory [address] [address] Outr Resulting Lab, Provider 07/01/2024 Lab Requisition [facility] [address] [address] Outr Resulting Lab, Provider 07/01/2024 Lab Requisition [facility] Pathology & Laboratory [address] [place] [address] Outr Resulting Lab, Provider from Last 3 Months Allergies Active Allergy Reactions Criticality Noted Date Comments Codeine 02/05/2012 swelling Medications lisinopril (PRINIVIL, ZESTRIL) 10 mg tablet Take 10 mg by mouth daily. Active Red Yeast Rice Extract 600 mg Cap Take by mouth. Active aspirin chewable 81 mg tablet Take 81 mg by mouth daily Active zoledronic acid (RECLAST) 5 mg/100 mL piggyback Inject 5 mg into the vein. Infusion given 09/23/19 at [facility] (every 18-24 months for osteopenia) Active amLODIPine (NORVASC) 5 mg tablet Take 5 mg by mouth daily. Active bimatoprost (LUMIGAN) 0.01 % ophthalmic drops Place 1 Drop into both eyes at bedtime. Active mv-mn/lutein/ze ax/bilber/hb277 (MACULAR HEALTH FORMULA ORAL) Take by mouth. Active Cholecalciferol , Vitamin D3, (VITAMIN D3) 10 mcg (400 unit) capsule Take by mouth. Active multivitamin (ONE-A-DAY ESSENTIAL ORAL) Take by mouth. Active atorvastatin (LIPITOR) 20 mg tablet 10/02/2021 Active hydroCHLOROthia zide (HYDRODIURIL) 25 mg tablet 10/02/2021 Active SODIUM FLUORIDE 5000 PLUS 1.1 % cream USE EVERY EVENING WITHOUT RINSING 09/05/2021 Active calcium carbonate (CALCIUM 500) 500 mg calcium (1,250 mg) chewable tablet Acti ve Cholecalciferol , Vitamin D3, (VITAMIN D3) 25 mcg (1,000 unit) capsule Take by mouth. Active omeprazole 20 mg tablet,disinteg rat, delay rel Take 20 mg by mouth daily. Active Active Problems Problem Noted Date Diagnosed Date Hip pain, left 11/14/2021 Osteopenia with high risk of fracture 08/04/2019 Social History Tobacco Use Types Packs/Day Years [...] 15:24 EDT Sexual Orientation Not on file Last Filed Vital Signs Vital Sign Reading Time Taken Comments Blood Pressure 138/78 11/14/2021 1039 EDT Pulse 64 11/14/2021 1039 EDT Temperature 36.7 ??C (98.1 ??F) 11/14/2021 1039 EDT Respiratory Rate 14 10/17/2016 1433 EDT Oxygen Saturation 98% 10/17/2016 1433 EDT Inhaled Oxygen Concentration - - Weight 73.5 kg (162 lb) 12/19/2021 0817 EDT Height 172.7 cm (5' 8) 12/19/2021 0817 EDT Body Mass Index 24.63 12/19/2021 0817 EDT Functional Status * Because of a physical, mental, or emotional condition, does this person have difficulty doing errands alone such as visiting a doctor's office or shopping? Answer Date of Assessment Author No 11/14/2021 10:58 EDT Mental Status * Because of a physical, mental, or emotional condition, does this person have serious difficulty concentrating, remembering, or making decisions? Answer Entry Date Author No 11/14/2021 10:58 EDT Plan of Treatment Not on file Procedures Procedure Name Priority Date/Time Associated Diagnosis Comments MAGNESIUM Today 08/24/2024 12:12 EST Palpitations LIPID PROFILE (INCLUDES CHOLESTEROL, TRIGLYCERIDES, HDL, LDL) Today 08/24/2024 12:12 EST Hyperlipidemia, unspecified SPEP WITH IMMUNOTYPING PERFORMABLE Today 07/06/2024 12:51 EST Abnormality of plasma protein, unspecified PROTEIN, TOTAL Today 07/06/2024 12:51 EST Abnormality of plasma protein, unspecified SERUM FREE LIGHT CHAINS Today 07/06/2024 12:51 EST Abnormality of plasma protein, unspecified SPEP WITH IMMUNOTYPING Today 07/06/2024 12:51 EST Abnormality of plasma protein, unspecified COMPREHENSIVE METABOLIC PANEL (CMP) Today 07/06/2024 12:51 EST Hypokalemia Abnormality of plasma protein, unspecified Other pancytopenia (HCC-CMS) VITAMIN B12 Routine 07/04/2024 10:14 EST FOLATE Routine 07/04/2024 10:14 EST FOLATE Routine 07/01/2024 11:07 EST VITAMIN D (25,OH) Routine 07/01/2024 11: 07 EST VITAMIN B12 Routine 07/01/2024 11:07 EST from Last 3 Months Results * MAGNESIUM (08/24/2024 12:12 EST) Magnesium 2.5 1.7 - 2.8 mg/dL 08/24/2024 21:09 EST [facility] Blood VENOUS BLOOD / Unknown 08/24/2024 12:12 EST 08/24/2024 20:37 EST us Melba Vieira MD CHEMISTRY & BLOOD GAS ORDERAB LES Final Result [facility] [address] [place] [address] * (ABNORMAL) LIPID PROFILE (INCLUDES CHOLESTEROL, TRIGLYCERIDES, HDL, LDL) (08/24/2024 12:12 EST) Cholesterol 95 <200 mg/dL 08/24/2024 21:09 EST [facility] Comment:Note that therapeuti c goals will differ between patients based on cardiac risk factors and current medical therapy. HDL 33(L) >=50 mg/dl 08/24/2024 21:09 EST [facility] Comment:Note that therapeuti c goals will differ between patients based on cardiac risk factors and current medical therapy. LDL, Calculated 38 <160 mg/dL 21:09 [facility] Comment:Note that therapeuti c goals will differ between patients based on cardiac risk factors and current medical therapy. Triglyceride 120 <=150 mg/dL 08/24/2024 21:09 [facility] Comment:Note that therapeuti c goals will differ between patients based on cardiac risk factors and current medical therapy. Chol/HDL Ratio 2.9 See Note 08/24/2024 21:09 [facility] Comment:No reference range h as been established for CHOL/HDL ratio. Non HDL Cholesterol 62 <160 mg/dL 08/24/2024 21:09 [facility] Comment:Note that therapeuti c goals will differ between patients based on cardiac risk factors and current medical therapy. Blood VENOUS BLOOD / Unknown 08/24/2024 12:12 EST 08/24/2024 20:37 EST Melba Vieira MD CHEMISTRY & BLOOD GAS ORDERAB LES Final Result [facility] [address] [place] [address] * (ABNORMAL) SPEP WITH IMMUNOTYPING PERFORMABLE (07/06/2024 12:51 EST) Albumin % 34.4(L) 55.8 - 66.1 % 07/07/2024 15:37 [facility] Albumin g/dL 4.0 3.6 - 5.2 g/dL 07/07/2024 15:37 [facility] Alpha-1 % 2.9 2.9 - 4.9 % 07/07/2024 15:37 [facility] Alpha-1 g/dL 0.30 0.15 - 0.40 g/dL 07/07/2024 15:37 [facility] Alpha-2 % 6.9(L) 7.1 - 11.8 % 07/07/2024 15:37 [facility] Alpha-2 g/dL 0.80 0.50 - 1.00 g/dL 07/07/2024 15:37 [facility] Beta % 10.8 8.4 - 13.1 % 07/07/2024 15:37 [facility] Beta g/dL 1.20 0.60 - 1.20 g/dL 07/07/2024 15:37 [facility] Gamma % 45.0(H) 11.1 - 18.8 % 07/07/2024 15:37 [facility] Gamma g/dL 5.20(H) 0.60 - 1.60 g/dL 07/07/2024 15:37 [facility] Monoclonal Axel % 40.8(H) None Seen % 07/07/2024 15:37 [facility] Monoclonal Axel g/dL 4.7(H) None Seen g/dL 07/07/2024 15:37 [facility] SPEP Comment Suspicious pattern, immunotyping to follow. 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 Confirmed by treatment with betamercaptoethan ol. Reviewed by: Bishnu Arguelles MD 07/07/2024 1345 07/07/2024 15:37 [facility] Total Protein 11.5(H) 6.3 - 8.2 g/dL 07/07/2024 15:37 [facility] Blood VENOUS BLOOD / Unknown 07/06/2024 12:51 EST 07/06/2024 20:49 EST us Melba Vieira MD CHEMISTRY & BLOOD GAS ORDERAB LES Final Result [facility] [address] [place] [address] * (ABNORMAL) SERUM FREE LIGHT CHAINS (07/06/2024 12:51 EST) Verdigre Free Lt Chain 95.69(H) 0.33 - 1.94 mg/dL 07/07/2024 8:56 [facility] Lambda Free Lt Chain 0.74 0.57 - 2.63 mg/dL 07/07/2024 8:56 [facility] Verdigre/Lambda Ratio 129.31(H) 0.26 - 1.65 07/07/2024 8:56 [facility] Blood VENOUS BLOOD / Unknown 07/06/2024 12:51 EST 07/06/2024 20:49 EST Melba Vieira MD CHEMISTRY & BLOOD GAS ORDERAB LES Final Result Performing Organization Address [facility]/ZIP Co de Phone Number [facility] [address] [place] [address] * PROTEIN, TOTAL (07/06/2024 12:51 EST) Blood VENOUS BLOOD / Unknown 07/06/2024 12:51 EST 07/06/2024 20:49 EST Melba Vieira MD CHEMISTRY & BLOOD GAS ORDERAB LES Final Result Performing Organization Address City/[facility]/ZIP Co de Phone Number [facility] [address] [place] [address] * (ABNORMAL) COMPREHENSIVE METABOLIC PANEL (CMP) (07/06/2024 12:51 EST) Sodium 140 136 - 145 mmol/L 07/06/2024 21:17 [facility] Potassium 3.8 3.5 - 5.0 mmol/L 07/06/2024 21:17 [facility] Chloride 101 96 - 110 mmol/L 07/06/2024 21:17 [facility] CO2 Total 28 22 - 32 mmol/L 07/06/2024 21:17 [facility] Glucose 109(H) 70 - 99 mg/dl 07/06/2024 21:17 [facility] BUN 20 10 - 26 mg/dL 07/06/2024 21:17 [facility] Creatinine 1.10(H) 0.52 - 1.04 mg/dL 07/06/2024 21:17 [facility] eGFR 50(L) >60 mL/min/1.7 3m2 07/06/2024 21:17 [facility] Total Protein 11.5(H) 6.3 - 8.2 g/dL 07/06/2024 21:17 [facility] Albumin 4.4 3.4 - 4.9 g/dL 07/06/2024 21:17 [facility] Alkaline Phosphatase 88 38 - 126 U/L 07/06/2024 21:17 [facility] AST 30 15 - 46 U/L 07/06/2024 21:17 [facility] ALT 20 <35 U/L 07/06/2024 21:17 [facility] Bilirubin, Total 0.6 <1.4 mg/dL 07/06/20 21:17 [facility] Calcium 11.3(H) 8.5 - 10.5 mg/dL 07/06/2024 21:17 [facility] Albumin/Globulin Ratio 0.6(L) 1.0 - 2.5 07/06/2024 21:17 [facility] Anion Gap 11 5 - 14 mmol/L 07/06/2024 21:17 [facility] Blood VENOUS BLOOD / Unknown 07/06/2024 12:51 EST 07/06/2024 20:49 EST us Melba Vieira MD CHEMISTRY & BLOOD GAS ORDERAB LES Final Result [facility] [address] [place] [address] * FOLATE (07/04/2024 10:14 EST) Only the most recent of2 resultswithin the time period is included. Folate >24.0 See Note ng/mL 07/04/2024 18:21 [facility] Comment: Reference Ranges for Folate: Deficient: ?< 3.4 ng/mL Indeterminate: ??3.4 - 5.4 ng/mL Normal: ? > 5.4 ng/mL The results of this assay can be falsely elevated due to the consumption of Biotin. Blood VENOUS BLOOD / Unknown 07/04/2024 10:14 EST 07/04/2024 17:23 EST us Provider Outr Resulting Lab CHEMISTRY & BLOOD GA S ORDERABLES Final Result Performing Organization Address [facility] de Phone Number [facility] [address] [place] [address] * VITAMIN B12 (07/04/2024 10:14 EST) Only the most recent of2 resultswithin the time period is included. Vitamin B12 627 211 - 911 pg/mL 07/04/2024 18:22 EST [facility] Blood VENOUS BLOOD / Unknown 07/04/2024 10:14 EST 07/04/2024 17:23 EST Provider Outr Resulting Lab CHEMISTRY & BLOOD GA S ORDERABLES Final Result Performing Organization Address [facility] de Phone Number [facility] [address] [place] [address] * VITAMIN D (25,OH) (07/01/2024 11:07 EST) 25OH Vitamin D Tot 65 30 - 100 ng/mL 07/04/2024 11:55 EST [facility] Comment: Vitamin D 25,OH Interpretive Ranges: Deficiency: ??<10.0 ng/mL Insufficiency: ??10.0 - 30.0 ng/mL Sufficiency: ??30.0 - 100.0 ng/mL Toxicity: ??>100.0 ng/mL Blood VENOUS BLOOD / Unknown 07/01/2024 11:07 EST 07/01/2024 16:57 EST us Provider Outr Resulting Lab CHEMISTRY & BLOOD GA S ORDERABLES Final Result [facility] [address] [place] [address] from Last 3 Months Insurance [place] Care Teams Traffic Engineering Technician Relationship Specialty Start Date End Date Melba Vieira MD [address] [place] [phone] PCP - General 04/06/14
--- OUTSIDE RECORDS SUMMARY | 2024-08-24 22:18 | XMS_ITS | Encounter Summary ---
Author Organization [facility] Address [address] [place] [address] Care Team Providers Care Drafter Refrigeration Name Role Phone Melba Vieira MD Primary Care Provider [phone] Reason for Referral * Radiology Services (Routine/Next Available) - New Request Specialty Diagnoses / Procedures Referred By Taj partida Referred To Contact Diagnoses Osteoporosis, unspecified osteoporosis type, unspecified pathological fracture presence Other specified disorders of bone density and structure, multiple sites Procedures DXA BONE DENSITY Melba Vieira MD [address] [place] [phone] Phone: tel: fax: [facility] Referral ID Status Reason Start Date Expiration Date V isits Requested Visits Authorized [id number] New Request 11/11/2023 1 1 Encounter Details Date Type Department Care Team (Late st Contact Info) Description 11/11/2023 Orders Only [facility] Endocrinology - [address] [address] Melba Vieira MD [address] [place] [phone] Osteoporosis, unspecified osteoporosis type, unspecified pathological fracture presence (Primary Dx); Other specified disorders of bone density and structure, multiple sites Social History Tobacco Use Types Packs/Day Years [...] r Schedule DXA BONE DENSITY Imaging Routine Osteoporosis, unspecified osteoporosis type, unspecified pathological fracture presence Other specified disorders of bone density and structure, multiple sites 1 Occurrences starting 11/11/2023 until 11/10/2025 documented as of this encounter Visit Diagnoses Diagnosis Osteoporosis, unspecified osteoporosis type, unspecified pathological fracture presence- Primary Other specified disorders of bone density and structure, multiple sites documented in this encounter Care Teams Drafter Refrigeration Relationship Specialty Start Date End Date Melba Vieira MD [address] [place] [phone] PCP - General 04/06/14 documented as of this encounter
--- OUTSIDE RECORDS SUMMARY | 2024-08-24 22:18 | XMS_ITS ---
Author Organization [facility] [place] [address] Care Team Providers Care Tire Rebuilder Name Role Phone Melba Vieira MD Primary Care Provider [phone] 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
--- OUTSIDE RECORDS SUMMARY | 2024-08-24 22:18 | XMS_ITS | Encounter Summary ---
Author Organization [facility] Address [address] [place] [address] Care Team Providers Care Retail General Manager Name Role Phone Melba Vieira MD Primary Care Provider [phone] Encounter Details Date Type Department Care Team (Late st Contact Info) Description 07/04/2024 Lab Requisition [facility] Pathology & Laboratory Medicine - [facility] [address] [place] [address] Outr Resulting Lab, Provider Social History Tobacco [...] Priority Date/Time Associated Diagnosis Comments FOLATE Routine 07/04/2024 10:14 EST documented in this encounter Results * FOLATE (07/04/2024 10:14 EST) Folate >24.0 See Note ng/mL 07/04/2024 18:21 EST [facility] Comment: Reference Ranges for [...] S ORDERABLES Final Result Performing Organization Address City/State/[facility] Co de Phone Number [facility] [address] [place] [address] documented in this encounter Visit Diagnoses Not on filedocumented in this encounter Care Teams Retail General Manager Relationship Specialty Start Date End Date Melba Vieira MD [address] [place] [phone] PCP - General 04/06/14 documented as of this encounter
--- OUTSIDE RECORDS SUMMARY | 2024-08-24 22:18 | XMS_ITS | Encounter Summary ---
Author Organization [facility] Address [address] [place] [address] Care Team Providers Care Marine Fuel Dock Attendant Name Role Phone Melba Vieira MD Primary Care Provider [phone] Reason for Referral * Radiology Services (Routine/Next Available) - Authorization Not Required Specialty Diagnoses / Procedures Referred By Contac t Referred To Contact Diagnoses Encounter for screening mammogram for malignant neoplasm of breast Procedures MA BREAST SCREENING TAVO BILATERAL Melba Vieira MD Phone: tel: fax: [facility] Referral ID Status Reason Start Date Expiration Date Visits Requested Visits Authorized [id number] Authorization Not Required 09/11/2022 1 1 Reason for Visit * Radiology Services (Routine/Next Available) - Authorization Not Required Specialty Diagnoses / Procedures Referred By Taj partida Referred To Contact Diagnoses Encounter for screening mammogram for malignant neoplasm of breast Procedures MA BREAST SCREENING TAVO BILATERAL Melba Vieira MD Phone: tel: fax: [facility] Referral ID Status Reason Start Date Expiration Date Visits Requested Visits Authorized [id number] Authorization Not Required 09/11/2022 1 1 Encounter Details Date Type Department Care Team (Latest Contact Info) Description 02/12/2023 13:21 EDT - 02/12/2023 23:59 EDT Hospital Encounter [facility] [address] [place], [place] [id number] Encounter for screening mammogram for malignant neoplasm of breast Discharge Disposition: Home or Self Care Social History Tobacco Use Types Packs/Day Years Used Date Smoking Tobacco: Never Smokeless Tobacco: Never Alcohol Use Standard Drinks/Week Comments Yes 2 (1 standard drink = 0.6 oz pur e alcohol) occas Interpersonal Safety Answer Date Record ed How often does anyone, incldipesh hamilton family, hit, punch or physically hurt [...] into the vein. Infusion given 09/23/19 at [facility] (every 18-24 months for osteopenia) documented as of this encounter Discharge Disposition Disposition Code Departure Means Destination Home or Self Care documented in this encounter Plan of Treatment Not on file documented as of this encounter Procedures Procedure Name Priority Date/Time Associated Diagnosis Comments AL BREAST SCREENING TAVO BILATERAL Routine 02/12/2023 13:53 EDT Encounter for screening mammogram for malignant neoplasm of breast documented in this encounter Results * MA BREAST SCREENING TAVO BILATERAL (02/12/2023 13:53 EDT) Anatomical Region Laterality Modality Breast Bilateral Mammography 02/13/2023 11:2 9 EDT Impressions 02/13/2023 11:29 EDT Negative, no evidence of malignancy. RECOMMENDATION: Routine screening mammography is recommended. OVERALL ASSESSMENT: BI-RADS 1: Negative These results will be communicated to your patient via a lay letter from Radiology. If any additional imaging is needed we will contact your patient directly. I have personally reviewed the images and the above interpretation and agree with the findings. [id number] Narrative 02/13/2023 11:29 EDT MA BREAST SCREENING TAVO BILATERAL ??02/12/2023 1:40 PM History: Routine;Z12.31:Encounter for screening mammogram for malignant neoplasm of breast Comparison: ??Comparison has been made to previous images . ? Technique: Routine 3D tomosynthesis with synthesized 2D views with CAD Breast Composition: There are scattered areas of fibroglandular density. Bilateral Breast Findings: ??No significant masses, calcifications or other abnormalities are seen. Procedure Note Elen Tripathi MD - 02/13/2023 MA BREAST SCREENING TAVO BILATERAL 02/12/2023 1:40 PM History: Routine;Z12.31:Encounter for screening mammogram for malignantneoplasm of breast Comparison: Comparison has been made to previous [...] is needed we will contact yourpatient directly. I have personally reviewed the images and the above interpretation andagree with the findings. [id number] us Melba Vieira MD IMG MAMMOGRAPHY ORDERABLES Fi nal Result documented in this encounter Visit Diagnoses Diagnosis Encounter for screening mammogram for malignant neoplasm of breast Other screening mammogram documented in this encounter Care Teams Marine Fuel Dock Attendant Relationship Specialty Start Date End Date Melba Vieira MD [address] [place] [phone] PCP - General 04/06/14 documented as of this encounter
--- OUTSIDE RECORDS SUMMARY | 2024-08-24 22:18 | XMS_ITS | Encounter Summary ---
Author Organization [facility] Address [facility] [place] [address] Care Team Providers Care Track Vehicle Repairer Name Role Phone Melba Vieira MD Primary Care Provider [phone] Encounter Details Date Type Department Care Team (Late st Contact Info) Description 07/18/2024 Notes Only Hematology and Oncology at [facility] [place] [address] Grace Charles RN Social History Tobacco Use Types Packs/Day Years Used Date Smoking Tobacco: Never Smokeless Tobacco: Never B1300 Health Literacy Answer Date Recor ded How often do you need to hav e someone help you when you read instructions, pamphlets, or other written material from your doctor or pharmacy? Never 07/11/2024 [facility] Utilities Answer Date Recorded In the [...] in a fci (including now)? No 07/11/2024 Sex and Gender Information Value Date Recorded Sex Assigned at Not on file Gender Identity Not on file Sexual Orientation Not on file documented as of this encounter Plan of Treatment Upcoming Encounters Date Type Department Care Team (Late st Contact Info) Description 09/21/2024 9:30 AM EST Laboratory Appointment Lab at [facility] Hematology Oncology [address] [place] [phone] 09/21/2024 10:30 AM EST Office Visit Hematology and Oncology at [place] [phone] Ernestina Mcclelland APRN [facility] DR HEMATOLOGY [place] [address] documented as of this encounter Visit Diagnoses Not on filedocumented in this encounter Care Teams Track Vehicle Repairer Relationship Specialty Start Date End Date Melba Vieira MD [address] [place] [phone] PCP - General Family Medicine 07/06/24 documented as of this encounter
--- OUTSIDE RECORDS SUMMARY | 2024-08-24 22:18 | XMS_ITS | Encounter Summary ---
Author Organization [facility] Address [facility] [address] Care Team Providers Care Core Composer Feeder Name Role Phone Melba Vieira MD Primary Care Provider [phone] Encounter Details Date Type Department Care Team (Late st Contact Info) Description 07/11/2024 Orders Only Hematology [place] [address] Roz Mattson MD [facility] [address] [place] [address] Social History Tobacco Use Types Packs/Day Years Used Date Smoking Tobacco: Never Smokeless Tobacco: Never B1300 Health Literacy Answer Date Recor ded How often do you need to hav e someone help you when you read instructions, pamphlets, or other written material from your doctor or pharmacy? Never 07/11/[address] [facility] Utilities Answer Date Recorded In [...] any time in the past 12 m [facility], were you homeless or living in a residential (including now)? No 07/11/2024 Sex and Gender Information Value Date Recorded Sex Assigned at Not on file Gender Identity Not on file Sexual Orientation Not on file documented as of this encounter Plan of Treatment Upcoming Encounters Date Type Department Care Team (Late st Contact Info) Description 09/21/2024 9:30 AM EST Laboratory Appointment Lab at [facility] Hematology Oncology [address] [place] [phone] 09/21/2024 10:30 AM EST Office Visit Hematology [place] [address] Ernestina Mcclelland APRN [facility] [place] [address] documented as of this encounter Visit Diagnoses Not on filedocumented in this encounter Care Teams Core Composer Feeder Relationship Specialty Start Date End Date Melba Vieira MD [address] [place] [phone] PCP - General Family Medicine 07/06/24 documented as of this encounter
--- OUTSIDE RECORDS SUMMARY | 2024-08-24 22:18 | XMS_ITS | Encounter Summary ---
Author Organization [facility] [place] [address] Care Team Providers Care Beverage Sales Consultant Name Role Phone Unavailable Primary Care Provider Unavailabl e Encounter Details Date Type Department Care Team (Late st Contact Info) Description 07/04/2024 Interpretation Only [facility] in [facility] [address] [place] [address] Jose Hamilton MD [address] [place] [address] Social History Tobacco Use Types Packs/Day Years [...] 9:30 AM EST Laboratory Appointment Lab at [facility] Hematology Oncology [address] [place] [phone] 09/21/2024 10:30 AM EST Office Visit [place] [phone] Ernestina Mcclelland APRN [facility] DR [place] [address] documented as of this encounter Procedures Procedure Name Priority Date/Time Associated Diagnosis Comments XR CHEST PA AND LATERAL STAT 07/04/2024 8:41 PM EST documented in this encounter Results * XR Chest PA & Lateral (Generic) (07/04/2024 8:41 PM EST) PT CLASS E RAD ADMITDTTM [id number] [facility] PT RAD INFO [id number]^MEGAN ^JOSE^J RAD EXAM DESC XCXR2^XR CHEST 2V PA AND LATERAL^RIS [facility] WORKSTATION ID [id number] [facility] Anatomical Region Laterality Modality Chest N/A Radiographic [...] who have questions please contact the health medicare insurance specialist that requested your imaging first. ? Narrative [...] patients who have questions please contactthe health medicare insurance specialist that requested your imaging first. Jose Hamilton MD IMG DX ORDERABLES documented in this encounter Visit Diagnoses Not on filedocumented in this encounter
--- OUTSIDE RECORDS SUMMARY | 2024-08-24 22:18 | XMS_ITS | Encounter Summary ---
Author Organization [facility] [place] [address] Care Team Providers Care Calciminer Name Role Phone Melba Vieira MD Primary Care Provider [phone] Encounter Details Date Type Department Care Team (Latest Contact Info) Description 07/11/2024 Travel Social History Tobacco Use Types Packs/Day Years Used Date Smoking Tobacco: Never Smokeless Tobacco: Never B1300 Health Literacy Answer Date Recor ded How often do you need to hav e someone help you when you read instructions, pamphlets, or other written material from your doctor or pharmacy? Never 07/11/2024 [facility] Utilities Answer Date Recorded In [...] [facility] Hematology Oncology [address] [place] [phone] 09/21/2024 10:30 AM EST Office Visit Hematology [place] [address] Ernestina Mcclelland APRN [facility] DR [place]ATOLOGY [place] [address] documented as of this encounter Visit Diagnoses Not on filedocumented in this encounter Care Teams Calciminer Relationship Specialty Start Date End Date Melba Vieira MD [address] [place] [phone] PCP - General Family Medicine 07/06/24 documented as of this encounter
--- OUTSIDE RECORDS SUMMARY | 2024-08-24 22:18 | XMS_ITS | Encounter Summary ---
Author Organization [facility] Address [facility] [place] [address] Care Team Providers Care Infant Caregiver Name Role Phone Melba Vieira MD Primary Care Provider [phone] Reason for Visit * Reason Comments Establish Care * Consultation (Urgent) - Authorized Specialty Diagnoses / Procedures Referred By Contac t Referred To Contact Hematology and Oncology Diagnoses Acquired pancytopenia Elevated blood protein [facility] Melba Vieira MD [address] [place] [phone] [facility] Hem Onc [address] [place] [address] Referral ID Status Reason Start Date Expiration Date Visits Requested Visits Authorized [id number] Authorized Consult, Test & Treat PCP Updated and/or Approved 07/06/2025 6 6 Encounter Details Date Type Department Care Team (Late st Contact Info) Description 07/11/2024 9:30 AM EST Office Visit Hematology [place] [phone] Freddy Mattson MD [facility] DR HEMATOLOGY [place] [address] Lloyd Cisneros MD [facility] DR HEMATOLOGY/[place] [address] Plasma cell dyscrasia Social History Tobacco Use Types Packs/Day Years Used Date Smoking Tobacco: Never Smokeless Tobacco: Never Tobacco Cessation:Counseling Given: Not Answered B1300 Health Literacy Answer Date Recor ded How often do you need to hav e someone help you when you read instructions, pamphlets, or other written material from your doctor or pharmacy? Never 07/11/2024 [facility] Utilities Answer Date Recorded In [...] any time in the past 12 m [facility], were you homeless or living in a retirement (including now)? No 07/11/2024 Sex and Gender Information Value Date Recorded Sex Assigned at Not on file Gender Identity Not on file Sexual Orientation Not on file documented as of this encounter Last Filed Vital Signs Vital Sign Reading Time Taken Comments Blood Pressure 150/70 07/11/2024 9:31 AM EST Pulse 70 07/11/2024 9:31 AM EST Temperature 36.7 ??C (98.1 ??F) 07/11/2024 9:31 AM ES T Respiratory Rate 18 07/11/2024 9:31 AM EST Oxygen Saturation 100% 07/11/2024 9:31 AM EST Inhaled Oxygen Concentration - - Weight 72.6 kg (160 lb) 07/11/2024 9:31 AM EST p er pt Height - - Body Mass Index - - documented in this encounter Progress Notes * Freddy Mattson MD - 07/11/2024 9:30 AM EST Heme/Onc Outpatient Consultation Date of Consultation: 07/11/24 Reason for Consult: We are seeing this patient at the request of Melba Soliman MD [address] [place] [phone] for the evaluation of 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 I have reviewed the available records, interviewed and examined the patient. GERTRUDIS López is a 83 y.o. female with [...] Use Smoking status: Never Smokeless tobacco: Never Substance and Sexual Activity Alcohol use: Not [...] Not on file Intimate Partner Violence: Not on file Housing Stability: Unknown (07/11/2024) Housing Stability Vital [...] medications for this visit. Vitals: Blood pressure 150/70, pulse 70, temperature 36.7 ??C (98.1 ??F), temperature source Temporal, resp. rate 18, weight (S) 72.6 kg (160 lb), SpO2 100%. Physical Exam Constitutional: General: She is not in acute distress. Appearance: She is not ill-appearing. Cardiovascular: Rate and Rhythm: Regular rhythm. Heart sounds: Normal heart sounds. Pulmonary: Breath sounds: Normal breath sounds. Skin: Findings: No rash. Neurological: General: No focal deficit present. Assessment and Plan Melissa López is a 83 y.o. 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 [facility] HEMATOLOGY AND ONCOLOGY AT [place] [address] Date: 07/11/24 Patient Name: Melissa López : 1940 Diagnosis: Waldenstroms Macroglobulinemia Referral to [site]: [facility] Orders: Venous Access Device? No Labs: Fax results to [phone]. [x] To be drawn weekly x 3 weeks [x] CBC with differential and Type and screen Transfusion Parameters: [x] All products should be leukocyte depleted [x] Irradiated blood products not required [x] 1 unit packed RBC for Hgb </= 8 gm/dL or symptoms [x] 1 pheresis pack of platelets for platelet count </= 20 or for bleeding Signature: FREDDY MATTSON MD Co-signature [if needed]: documented in this encounter Plan of Treatment Upcoming Encounters Date Type Department Care Team (Late st Contact Info) Description 09/21/2024 9:30 AM EST Laboratory Appointment Lab at [facility] Hematology Oncology [address] [place], [place] [phone] 09/21/2024 10:30 AM EST Office Visit Hematology and Oncology at [place] [phone] Ernestina Mcclelland APRN [facility] DR H[place]ATOLOGY [place] [address] Scheduled Orders Name Type Priority Associated Diagnoses Orde r Schedule CBC (with Diff) Lab Routine Plasma cell dyscrasia Once a week for 3 Occurrences starting 07/11/2024 until 07/11/2025 Type and screen ([facility]) Blood Bank Routine Plasma cell dyscrasia Once a week for 3 Occurrences starting 07/11/2024 until 07/11/2025 documented as of this encounter Visit Diagnoses Diagnosis 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
--- OUTSIDE RECORDS SUMMARY | 2024-08-24 22:18 | XMS_ITS | Encounter Summary ---
Author Organization [facility] Address [address] [place] [address] Care Team Providers Care Special Procedures Technologist Name Role Phone Melba Vieira MD Primary Care Provider [phone] Encounter Details Date Type Department Care Team (Late st Contact Info) Description 07/06/2024 Lab Requisition [facility] Pathology & Laboratory Medicine - [facility] [address] [place] [address] Melba Vieira MD [address] [place] [phone] Hypokalemia; Abnormality of plasma protein, unspecified; Other pancytopenia (HCC-CMS) Social History Tobacco Use Types Packs/Day Years Used Date Smoking Tobacco: Never Smokeless Tobacco: Never Alcohol Use Standard Drinks/Week Comments Yes 2 (1 standard drink = 0.6 oz pur e alcohol) occas Interpersonal Safety Answer Date Record ed How often does anyone, sushiladipesh alfonso family, hit, punch or physically hurt [...] Procedure Name Priority Date/Time Associated Diagnosis Comments SPEP WITH IMMUNOTYPING PERFORMABLE Today 07/06/2024 12:51 [...] of plasma protein, unspecified Other pancytopenia (HCC-CMS) documented in this encounter Results * (ABNORMAL) SPEP WITH IMMUNOTYPING PERFORMABLE (07/06/2024 12:51 EST) Albumin % 34.4(L) 55.8 - 66.1 % 07/07/2024 15:37 [facility] Albumin g/dL 4.0 3.6 - 5.2 g/dL 07/07/2024 15:37 [facility] Alpha-1 % 2.9 2.9 - 4.9 % 07/07/2024 15:37 [facility] Alpha-1 g/dL 0.30 0.15 - 0.40 g/dL 07/07/2024 15:37 [facility] Alpha-2 % 6.9(L) 7.1 - 11.8 % 07/07/2024 15:37 [facility] Alpha-2 g/dL 0.80 0.50 - 1.00 g/dL 07/07/2024 15:37 [facility] Beta % 10.8 8.4 - 13.1 % 07/07/2024 15:37 [facility] Beta g/dL 1.20 0.60 - 1.20 g/dL 07/07/2024 15:37 [facility] Gamma % 45.0(H) 11.1 - 18.8 % 07/07/2024 15:37 [facility] Gamma g/dL 5.20(H) 0.60 - 1.60 g/dL 07/07/2024 15:37 [facility] Monoclonal Axel % 40.8(H) None Seen % 07/07/2024 15:37 [facility] Monoclonal Axel g/dL 4.7(H) None Seen g/dL 07/07/2024 15:37 [facility] SPEP Comment Suspicious pattern, immunotyping to follow. 07/07/2024 15:37 [facility] Immunotyping, Serum Current Interpretation: Monoclonal IgM kappa immunoglobulin identified migrating as two peaks with the beta 2 globulins and early gamma region. Confirmed by treatment with betamercaptoethan ol. Reviewed by: Bishnu Arguelles MD 07/07/2024 1345 07/07/2024 15:37 [facility] Total Protein 11.5(H) 6.3 - 8.2 g/dL 07/07/2024 15:37 [facility] Blood VENOUS BLOOD / Unknown 07/06/2024 12:51 EST 07/06/2024 20:49 EST Melba Vieira MD CHEMISTRY & BLOOD GAS ORDERAB LES Final Result [facility] [address] [place] [address] * PROTEIN, TOTAL (07/06/2024 12:51 EST) Blood VENOUS BLOOD / Unknown 07/06/2024 12:51 EST 07/06/2024 20:49 EST Melba Vieira MD CHEMISTRY & BLOOD GAS ORDERAB LES Final Result [facility] [address] [place] [address] * (ABNORMAL) SERUM FREE LIGHT CHAINS (07/06/2024 12:51 EST) Pathologist [facility] Free Lt Chain 95.69(H) 0.33 - 1.94 mg/dL 07/07/2024 8:56 [facility] Lambda Free Lt Chain 0.74 0.57 - 2.63 mg/dL 07/07/2024 8:56 [facility] [place]/Lambda Ratio 129.31(H) 0.26 - 1.65 07/07/2024 8:56 [facility] Blood VENOUS BLOOD / Unknown 07/06/2024 12:51 EST 07/06/2024 20:49 EST Melba Vieira MD CHEMISTRY & BLOOD GAS ORDERAB LES Final Result Performing Organization Address [facility] Co de Phone Number [facility] [address] [place] [address] * (ABNORMAL) COMPREHENSIVE METABOLIC PANEL (CMP) (07/06/2024 12:51 EST) [facility] Sodium 140 136 - 145 mmol/L 07/06/2024 21:17 [facility] Potassium 3.8 3.5 - 5.0 mmol/L 07/06/2024 21:17 [facility] Chloride 101 96 - 110 mmol/L 07/06/2024 21:17 [facility] CO2 Total 28 22 - 32 mmol/L 07/06/2024 21:17 [facility] Glucose 109(H) 70 - 99 mg/dl 07/06/2024 21:17 [facility] BUN 20 10 - 26 mg/dL 07/06/2024 21:17 [facility] Creatinine 1.10(H) 0.52 - 1.04 mg/dL 07/06/2024 21:17 [facility] eGFR 50(L) >60 mL/min/1.7 3m2 07/06/2024 21:17 [facility] Total Protein 11.5(H) 6.3 - 8.2 g/dL 07/06/2024 21:17 [facility] Albumin 4.4 3.4 - 4.9 g/dL 07/06/2024 21:17 [facility] Alkaline Phosphatase 88 38 - 126 U/L 07/06/2024 21:17 [facility] AST 30 15 - 46 U/L 07/06/2024 21:17 [facility] ALT 20 <35 U/L 07/06/2024 21:17 [facility] Bilirubin, Total 0.6 <1.4 mg/dL 07/06/20 21:17 [facility] Calcium 11.3(H) 8.5 - 10.5 mg/dL 07/06/2024 21:17 [facility] Albumin/Globulin Ratio 0.6(L) 1.0 - 2.5 07/06/2024 21:17 [facility] Anion Gap 11 5 - 14 mmol/L 07/06/2024 21:17 [facility] Blood VENOUS BLOOD / Unknown 07/06/2024 12:51 EST 07/06/2024 20:49 EST us Melba Vieira MD CHEMISTRY & BLOOD GAS ORDERAB LES Final Result Performing Organization Address City/State/[facility] Co de Phone Number [facility] [address] [place] [address] documented in this encounter Visit Diagnoses Diagnosis Hypokalemia Hypopotassemia Abnormality of plasma protein, unspecified Other pancytopenia (HCC-CMS) Other pancytopenia documented in this encounter Care Teams Special Procedures Technologist Relationship Specialty Start Date End Date Melba Vieira MD [address] [place] [phone] PCP - General 04/06/14 documented as of this encounter
--- OUTSIDE RECORDS SUMMARY | 2024-08-24 22:18 | XMS_ITS | Clinical Summary ---
Author Organization [facility] Address [address] [place] [address] Care Team Providers Care Timber Killer Name Role Phone Melba Vieira MD Primary Care Provider Allergies Active Allergy Reactions Criticality Noted Date [...] into the vein. Infusion given 09/23/19 at [facility] (every 18-24 months for osteopenia) Active amLODIPine [...] Osteopenia with high risk of fracture 08/04/2019 Encounters Date Type Department Care Team Description 08/24/2024 Lab Requisition [facility] Pathology & Laboratory [address] [address] Melba Vieira MD Hyperlipidemia, unspecified; Palpitations; Age-related osteoporosis without current pathological fracture 07/06/2024 Lab Requisition [facility] Pathology & Laboratory [address] [address] Melba Vieira MD Hypokalemia; Abnormality of plasma protein, unspecified; Other pancytopenia ([facility]) 07/04/2024 Lab Requisition [facility] Pathology Laboratory [address] [address] Outr Resulting Lab, Provider 07/04/2024 Lab Requisition [facility] Pathology Laboratory [address] [address] Outr Resulting Lab, Provider 07/01/2024 Lab Requisition [facility] Pathology Laboratory [address] [address] Outr Resulting Lab, Provider 07/01/2024 Lab Requisition [facility] Pathology Laboratory [address] [address] Outr Resulting Lab, Provider 07/01/2024 Lab Requisition [facility] Pathology & Laboratory [address] [address] Outr Resulting Lab, Provider from Last 3 Months Medical History Medical History Date Comments Hypertension Colon polyp Family History Medical History Relation Comments Colon Cancer Sister 1 late 40's Breast Cancer Sister 2 Relation Status Comments Sister 1 Sister 2 Social History Tobacco Use Types Packs/Day Years [...] 15:24 EDT Sexual Orientation Not on file Obstetrics History Para Term AB IAB SAB Ectopic Multiple Livin g Live Births 3 3 3 Date Outcome GA Total Labor Labor/2nd/3rd Weight Sex Type Anes PTL Zoila A1 A5 Name Clin Para Para Para Last Filed Vital Signs Vital Sign Reading [...] Body Mass Index 24.63 12/19/2021 0817 EDT Plan of Treatment Health Maintenance Due Date Last Done Comments RSV Immunization ( o r 60+ Years) (1 - 1-dose 75+ series) 2014 Fall Risk Screening 11/14/2022 11/14/2021 COVID-19 Vaccine ( season) 2024 Procedures Procedure Name Priority Date/Time Associated Diagnosis [...] 1.7 - 2.8 mg/dL 08/24/2024 21:09 EST [facility] Blood VENOUS BLOOD / Unknown 08/24/2024 12:12 EST 08/24/2024 20:37 EST us Melba Vieira MD CHEMISTRY & BLOOD GAS ORDERAB LES Final Result [facility] [address] [place] [address] * (ABNORMAL) LIPID PROFILE (INCLUDES CHOLESTEROL, TRIGLYCERIDES, HDL, LDL) (08/24/2024 12:12 EST) Cholesterol 95 <200 mg/dL 08/24/2024 21:09 EST [facility] Comment:Note that therapeuti c goals will differ between patients based on cardiac risk factors and current medical therapy. HDL 33(L) >=50 mg/dl 08/24/2024 21:09 [facility] Comment:Note that therapeuti c goals will differ between patients based on cardiac risk factors and current medical therapy. LDL, Calculated 38 <160 mg/dL 21:09 [facility] Comment:Note that therapeuti c goals will differ between patients based on cardiac risk factors and current medical therapy. Triglyceride 120 <=150 mg/dL 08/24/2024 21:09 [facility] Comment:Note that therapeuti c goals will differ between patients based on cardiac risk factors and current medical therapy. Chol/HDL Ratio 2.9 See Note 08/24/2024 21:09 [facility] Comment:No reference range h as been established for CHOL/HDL ratio. Non HDL Cholesterol 62 <160 mg/dL 08/24/2024 21:09 [facility] Comment:Note that therapeuti c goals will differ between patients based on cardiac risk factors and current medical therapy. Blood VENOUS BLOOD / Unknown 08/24/2024 12:12 EST 08/24/2024 20:37 EST us Melba Vieira MD CHEMISTRY & BLOOD GAS ORDERAB LES Final Result Performing Organization Address City/State/[facility] Co de Phone Number [facility] [address] [place] [address] * (ABNORMAL) SPEP WITH IMMUNOTYPING PERFORMABLE (07/06/2024 12:51 EST) Albumin % 34.4(L) 55.8 - 66.1 % 07/07/2024 15:37 [facility] Albumin g/dL 4.0 3.6 - 5.2 g/dL 07/07/2024 15:37 [facility] Alpha-1 % 2.9 2.9 - 4.9 % 07/07/2024 15:37 [facility] Alpha-1 g/dL 0.30 0.15 - 0.40 g/dL 07/07/2024 15:37 [facility] Alpha-2 % 6.9(L) 7.1 - 11.8 % 07/07/2024 15:37 [facility] Alpha-2 g/dL 0.80 0.50 - 1.00 g/dL 07/07/2024 15:37 [facility] Beta % 10.8 8.4 - 13.1 % 07/07/2024 15:37 [facility] Beta g/dL 1.20 0.60 - 1.20 g/dL 07/07/2024 15:37 [facility] Gamma % 45.0(H) 11.1 - 18.8 % 07/07/2024 15:37 [facility] Gamma g/dL 5.20(H) 0.60 - 1.60 g/dL 07/07/2024 15:37 [facility] Monoclonal Axel % 40.8(H) None Seen % 07/07/2024 15:37 [facility] Monoclonal Axel g/dL 4.7(H) None Seen g/dL 07/07/2024 15:37 [facility] SPEP Comment Suspicious pattern, immunotyping to follow. 07/07/2024 15:37 [facility] Immunotyping, Serum Current Interpretation: Monoclonal IgM kappa immunoglobulin identified migrating as two peaks with the beta 2 globulins and early gamma region. Confirmed by treatment with betamercaptoethan ol. Reviewed by: Bishnu Arguelles MD 07/07/2024 1345 07/07/2024 15:37 [facility] Total Protein 11.5(H) 6.3 - 8.2 g/dL 07/07/2024 15:37 [facility] Blood VENOUS BLOOD / Unknown 07/06/2024 12:51 EST 07/06/2024 20:49 EST us Melba Vieira MD CHEMISTRY & BLOOD GAS ORDERAB LES Final Result [facility] [address] [place], [place] [id number] * (ABNORMAL) SERUM FREE LIGHT CHAINS (07/06/2024 12:51 EST) [place] Free Lt Chain 95.69(H) 0.33 - 1.94 mg/dL 07/07/2024 8:56 [facility] Lambda Free Lt Chain 0.74 0.57 - 2.63 mg/dL 07/07/2024 8:56 [facility] Elizabeth/Lambda Ratio 129.31(H) 0.26 - 1.65 07/07/2024 8:56 [facility] Blood VENOUS BLOOD / Unknown 07/06/2024 12:51 EST 07/06/2024 20:49 EST Melba Vieira MD CHEMISTRY & BLOOD GAS ORDERAB LES Final Result Performing Organization Address [facility] de Phone Number [facility] [address] [place] [address] * PROTEIN, TOTAL (07/06/2024 12:51 EST) Blood VENOUS BLOOD / Unknown 07/06/2024 12:51 EST 07/06/2024 20:49 EST Melba Vieira MD CHEMISTRY & BLOOD GAS ORDERAB LES Final Result Performing Organization Address [facility] Co de Phone Number [facility] [address] [place] [address] * (ABNORMAL) COMPREHENSIVE METABOLIC PANEL (CMP) (07/06/2024 12:51 EST) Sodium 140 136 - 145 mmol/L 07/06/2024 21:17 [facility] Potassium 3.8 3.5 - 5.0 mmol/L 07/06/2024 21:17 [facility] Chloride 101 96 - 110 mmol/L 07/06/2024 21:17 [facility] CO2 Total 28 22 - 32 mmol/L 07/06/2024 21:17 [facility] Glucose 109(H) 70 - 99 mg/dl 07/06/2024 21:17 [facility] BUN 20 10 - 26 mg/dL 07/06/2024 21:17 [facility] Creatinine 1.10(H) 0.52 - 1.04 mg/dL 07/06/2024 21:17 [facility] eGFR 50(L) >60 mL/min/1.7 3m2 07/06/2024 21:17 [facility] Total Protein 11.5(H) 6.3 - 8.2 g/dL 07/06/2024 21:17 [facility] Albumin 4.4 3.4 - 4.9 g/dL 07/06/2024 21:17 [facility] Alkaline Phosphatase 88 38 - 126 U/L 07/06/2024 21:17 [facility] AST 30 15 - 46 U/L 07/06/2024 21:17 [facility] ALT 20 <35 U/L 07/06/2024 21:17 [facility] Bilirubin, Total 0.6 <1.4 mg/dL 07/06/20 21:17 [facility] Calcium 11.3(H) 8.5 - 10.5 mg/dL 07/06/2024 21:17 [facility] Albumin/Globulin Ratio 0.6(L) 1.0 - 2.5 07/06/2024 21:17 [facility] Anion Gap 11 5 - 14 mmol/L 07/06/2024 21:17 [facility] Blood VENOUS BLOOD / Unknown 07/06/2024 12:51 EST 07/06/2024 20:49 EST us Melba Vieira MD CHEMISTRY & BLOOD GAS ORDERAB LES Final Result [facility] [address] [place] [address] * FOLATE (07/04/2024 10:14 EST) Only the most recent of2 resultswithin the time period is included. Folate >24.0 See Note ng/mL 07/04/2024 18:21 EST [facility] Comment: Reference Ranges for Folate: Deficient: ?< 3.4 ng/mL Indeterminate: ??3.4 - 5.4 ng/mL Normal: ? > 5.4 ng/mL The results of this assay can be falsely elevated due to the consumption of Biotin. Blood VENOUS BLOOD / Unknown 07/04/2024 10:14 EST 07/04/2024 17:23 EST us Provider Outr Resulting Lab CHEMISTRY & BLOOD GA S ORDERABLES Final Result Performing Organization Address [facility]/ZIP Co de Phone Number [facility] [address] [place] [phone] * VITAMIN B12 (07/04/2024 10:14 EST) Only the most recent of2 resultswithin the time period is included. Vitamin B12 627 211 - 911 pg/mL 07/04/2024 18:22 EST [facility] Blood VENOUS BLOOD / Unknown 07/04/2024 10:14 EST 07/04/2024 17:23 EST us Provider Outr Resulting Lab CHEMISTRY & BLOOD GA S ORDERABLES Final Result Performing Organization Address [facility] Co de Phone Number [facility] [address] [place] [phone] * VITAMIN D (25,OH) (07/01/2024 11:07 EST) 25OH Vitamin D Tot 65 30 - 100 ng/mL 07/04/2024 11:55 [facility] Comment: Vitamin D 25,OH Interpretive Ranges: Deficiency: ??<10.0 ng/mL Insufficiency: ??10.0 - 30.0 ng/mL Sufficiency: ??30.0 - 100.0 ng/mL Toxicity: ??>100.0 ng/mL Blood VENOUS BLOOD / Unknown 07/01/2024 11:07 EST 07/01/2024 16:57 EST us Provider Outr Resulting Lab CHEMISTRY & BLOOD GA S ORDERABLES Final Result [facility] [address] [place] [address] from Last 3 Months Insurance [place] [address] [place] [address] [place] [id number] Care Teams Timber Killer Relationship Specialty Start Date End Date Melba Vieira MD [address] [place] [phone] PCP - General 04/06/14
--- OUTSIDE RECORDS SUMMARY | 2024-08-24 22:18 | XMS_ITS | Encounter Summary ---
Author Organization [facility] [place] [address] Care Team Providers Care Medical Front Desk Coordinator Name Role Phone Melba Vieira MD Primary Care Provider [phone] Encounter Details Date Type Department Care Team (Late st Contact Info) Description 07/23/2024 External Results Hematology and Oncology at [facility] [place] [phone] France Carreno, RN Social History Tobacco Use Types Packs/Day Years Used Date Smoking Tobacco: Never Smokeless Tobacco: Never B1300 Health Literacy Answer Date Recor ded How often do you need to hav e someone help you when you read instructions, pamphlets, or other written material from your doctor or pharmacy? Never 07/11/2024 [facility] Utilities Answer Date Recorded In [...] in a prison (including now)? No 07/11/2024 Sex and Gender Information Value Date Recorded Sex Assigned at Not on file Gender Identity Not on file Sexual Orientation Not on file documented as of this encounter Plan of Treatment Upcoming Encounters Date Type Department Care Team (Late st Contact Info) Description 09/21/2024 9:30 AM EST Laboratory Appointment Lab at [facility] Hematology Oncology [address] [place] [phone] 09/21/2024 10:30 AM EST Office Visit Hematology and Oncology at [place] [phone] Ernestina Mcclelland APRN [facility] [address] HEMATOLOGY [place] [address] documented as of this encounter Procedures Procedure Name Priority Date/Time Associated Diagnosis Comments EXTERNAL LAB CBC CMP THYROID RESULTS PANEL Routine 07/18/2024 10:55 AM EST documented in this encounter Results * (ABNORMAL) CBC / CMP / Thyroid External Results (07/18/2024 10:55 AM EST) WBC - External 3.74(A) 5 - 10 EXTER NAL FACILITY Hemoglobin - External 8.9(A) 12 - 16 EXTERNAL FACILITY Hematocrit - External 24(A) 37 - 47 EXTERNAL FACILITY Platelets - External 119(A) 150 - 450 EXTERNAL FACILITY Neutr ABS (ANC) - External 1.3(A) 1.6 - 8.4 EXTERNAL FACILITY 07/18/2024 10:5 5 AM EST Historical Provider [facility]TERNAL LAB [facility] documented in this encounter Visit Diagnoses Not on filedocumented in this encounter Care Teams Medical Front Desk Coordinator Relationship Specialty Start Date End Date Melba Vieira MD [address] [facility] [place] [phone] PCP - General Family Medicine 07/06/24 documented as of this encounter
--- OUTSIDE RECORDS SUMMARY | 2024-08-24 22:18 | XMS_ITS | Encounter Summary ---
Author Organization [facility] Address [address] [place] [address] Care Team Providers Care Curb Worker Name Role Phone Melba Vieira MD Primary Care Provider [phone] Encounter Details Date Type Department Care Team (Late st Contact Info) Description 07/01/2024 Lab Requisition [facility] Pathology & Laboratory Medicine - [facility] [address] [place] [address] Outr Resulting Lab, Provider Social History Tobacco [...] Date/Time Associated Diagnosis Comments VITAMIN D (25,OH) Routine 07/01/2024 11: 07 EST documented in this encounter Results * VITAMIN D (25,OH) (07/01/2024 11:07 EST) 25OH Vitamin D Tot 65 30 - 100 ng/mL 07/04/2024 11:55 EST [facility] Comment: Vitamin D 25,OH Interpretive Ranges: Deficiency: ??<10.0 ng/mL Insufficiency: ??10.0 - 30.0 ng/mL Sufficiency: ??30.0 - 100.0 ng/mL Toxicity: ??>100.0 ng/mL Blood VENOUS BLOOD / Unknown 07/01/2024 11:07 EST 07/01/2024 16:57 EST us Provider Outr Resulting Lab CHEMISTRY & BLOOD GA S ORDERABLES Final Result [facility] [address] [place] [address] documented in this encounter Visit Diagnoses Not on filedocumented in this encounter Care Teams Curb Worker Relationship Specialty Start Date End Date Melba Vieira MD [address] [place] [phone] PCP - General 04/06/14 documented as of this encounter
--- OUTSIDE RECORDS SUMMARY | 2024-08-24 22:18 | XMS_ITS | Encounter Summary ---
Author Organization [facility] Address [facility] [place] [address] Care Team Providers Care Mysql Database Developer Name Role Phone Melba Vieira MD Primary Care Provider [phone] Encounter Details Date Type Department Care Team (Late st Contact Info) Description 07/11/2024 Orders Only [place] [address] Roz Mattson MD [facility] [address] HEMATOLOGY [place] [address] Plasma cell dyscrasia Social History Tobacco Use Types Packs/Day Years Used Date Smoking Tobacco: Never Smokeless Tobacco: Never [id number] Health Literacy Answer Date Recor ded How often do you need to hav e someone help you when you read instructions, pamphlets, or other written material from your doctor or pharmacy? Never 07/11/2024 [facility] Utilities Answer Date Recorded In the past 12 months has [facility] electric, gas, oil, or water company [...] health care facility (including now)? No 07/11/2024 Sex and Gender Information Value Date Recorded Sex Assigned at Not on file Gender Identity Not on file Sexual Orientation Not on file documented as of this encounter Progress Notes * Roz Mattson MD - 07/11/2024 9:45 AM EST Manav documented in this encounter Plan of Treatment Upcoming Encounters Date Type Department Care Team (Late st Contact Info) Description 09/21/2024 9:30 AM EST Laboratory Appointment Lab at [facility] Hematology Oncology [address] [place] [phone] 09/21/2024 10:30 AM EST Office Visit [place] [phone] Ernestina Mcclelland APRN [facility] [address] HEMATOLOGY [place] [address] Scheduled Orders Name Type Priority Associated Diagnoses Orde r Schedule Type and screen ([facility]/LINDSAY) Blood Bank Routine Plasma cell dyscrasia Expected: 07/11/2024, Expires: 08/11/2024 Immunoglobulins, Quantitative Lab Routine Plasma cell dyscrasia Every 4 Weeks for 12 Occurrences starting 07/11/2024 until 07/11/2025 documented as of this encounter Results * (ABNORMAL) Viscosity (07/11/2024 10:32 AM EST) Pathologist [facility] Viscosity 4.0(H) 1.0 - 1.7 cP 07/11/2024 2:10 PM EST [facility] Blood VENOUS BLOOD SPECIMEN / Unknown Venipuncture / Unknown 07/11/2024 10:32 AM EST 07/11/2024 10:39 AM EST Roz Mattson MD HEMATOLOGY ORDERABLE S Performing Organization Address [facility] Co de Phone Number [facility] [place] [address] * (ABNORMAL) Immunoglobulins, Quantitative (07/11/2024 10:32 AM EST) [facility] IgG 530(L) 700 - 1,600 mg/dL 07/11/2024 12:13 PM EST [facility] IgA 69(L) 70 - 400 mg/dL 07/11/2024 12:13 PM EST [facility] IgM 7,718(HHH) 40 - 230 mg/dL 07/11/2024 12:13 PM EST [facility] Blood VENOUS BLOOD SPECIMEN / Unknown Venipuncture / Unknown 07/11/2024 10:32 AM EST 07/11/2024 10:40 AM EST Roz Mattson MD CHEMISTRY ORDERABLES Performing Organization Address [facility] Co de Phone Number [facility] [place] [address] * (ABNORMAL) Free Light Chains, Serum (07/11/2024 10:32 AM EST) [facility] Shedd Free Light Chain 110.53(H) 0.72 - 2.75 mg/dL 07/11/2024 2:22 PM EST [facility] Lambda Free Light Chain 0.67 0.57 - 2.15 mg/dL 07/11/2024 2:22 PM EST [facility] Shedd/Lambda FLC Ratio 164.9701(H ) 0.4000 - 2.5800 07/11/2024 2:22 PM [facility] Blood VENOUS BLOOD SPECIMEN / Unknown Venipuncture / Unknown 07/11/2024 10:32 AM EST 07/11/2024 10:40 AM EST Roz Mattson MD CHEMISTRY ORDERABLES [facility] [place] [address] * (ABNORMAL) Comprehensive metabolic panel (07/11/2024 10:32 AM EST) Glucose 101 65 - 199 mg/dL 07/11/2024 12:16 PM [facility] Comment:Glucose Concentratio n >=200 mg/dL plus symptoms is consistent with Diabetes Mellitus. Blood Urea Nitrogen 21(H) 8 - 18 mg/dL 07/11/2024 12:16 PM [facility] Creatinine 0.83 0.70 - 1.20 mg/dL 07/11/2024 12:16 PM [facility] Sodium 136 135 - 145 mMol/L 07/11/2024 12:16 PM [facility] Potassium 3.2(L) 3.5 - 5.0 mMol/L 07/11/2024 12:16 PM [facility] Chloride 98 98 - 107 mMol/L 07/11/2024 12:16 PM [facility] Carbon Dioxide 24 22 - 31 mMol/L 07/11/2024 12:16 PM [facility] Anion Gap 14 5 - 15 mMol/L 07/11/2024 12:16 PM [facility] Calcium 10.1 8.5 - 10.5 mg/dL 07/11/2024 12:16 PM [facility] Protein, Total 11.5(H) 6.1 - 8.0 g/dL 07/11/2024 12:16 PM [facility] Comment:Interpret plasma or serum SODIUM results with caution; highly elevated proteins of >10 g/dL may cause pseudohyponatremia. Albumin 4.0 3.2 - 5.2 g/dL 07/11/2024 12:16 PM [facility] Aspartate Aminotransferase 23 <=30 unit/L 07/11/2024 12:16 PM [facility] Alanine Aminotransferase 12 0 - 30 unit/L 07/11/2024 12:16 PM [facility] Alkaline Phosphatase 62 35 - 105 unit/L 07/11/2024 12:16 PM [facility] Bilirubin, Total 0.7 <=1.3 mg/dL 07/11/2024 12:16 PM [facility] Est Glomerular Filtration Rate - Female 70 mL/min/1. 73 m?? 07/11/2024 12:16 PM [facility] Comment: This patient's estimated GFR was [...] No 07/11/2024 12:16 PM [facility] Blood VENOUS BLOOD SPECIMEN / Unknown Venipuncture / Unknown 07/11/2024 10:32 AM EST 07/11/2024 10:39 AM EST Roz Mattson MD CHEMISTRY ORDERABLES [facility] [place] [address] * (ABNORMAL) CBC (with Diff) (07/11/2024 10:32 AM EST) White Blood Cell 3.50(L) 4.00 - 9.50 x10(3)/mc L 07/11/2024 1:18 PM [facility] Red Blood Cell 1.80(L) 4.00 - 5.21 x10(6)/mc L 07/11/2024 1:18 PM [facility] Hemoglobin 5.0(LLL) 11.7 - 15.5 g/dL 07/11/2024 1:18 PM [facility] Hematocrit 18.0(L) 35.7 - 45.8 % 07/11/2024 1:18 PM [facility] Mean Cell Volume 100.0(H) 82.6 - 94.4 fL 07/11/2024 1:18 PM [facility] Mean Cell Hemoglobin 27.8 27.1 - 32.0 pg 07/11/2024 1:18 PM [facility] Mean Cell Hemoglobin Concentration 27.8(L) 31.7 - 35.0 g/dL 07/11/2024 1:18 PM [facility] Platelet 115(L) 145 - 357 x10(3)/mc L 07/11/2024 1:18 PM [facility] Mean Platelet Volume 9.5 7.6 - 12.9 fL 07/11/2024 1:18 PM [facility] RDW Standard Deviation 66.6(H) 37.0 - 46.0 fL 07/11/2024 1:18 PM [facility] RDW coefficient of variation 19.0(H) 11.5 - 14.1 % 07/11/2024 1:18 PM [facility] NRBC Absolute <0.01 <0.01 x10(3)/mc L 07/11/2024 1:18 PM [facility] Neutrophil % 47.2 % 07/11/2024 1:18 PM [facility] Neutrophil Absolute (ANC) - Automated 1.65(L) 1.70 - 6.10 x10(3)/mc L 07/11/2024 1:18 PM [facility] Lymph % 34.3 % 07/11/2024 1:18 PM [facility] Lymph Absolute 1.20 0.90 - 3.20 x10(3)/mc L 07/11/2024 1:18 PM EST [facility] Monocyte % 15.7 % 07/11/2024 1:18 PM [facility] Monocyte Absolute 0.55 0.30 - 0.90 x10(3)/mc L 07/11/2024 1:18 PM EST [facility] Eos % 1.4 % 07/11/2024 1:18 PM EST [facility] Eos Absolute 0.05 0.00 - 0.40 x10(3)/mc L 07/11/2024 1:18 PM EST [facility] Basophil % 0.0 % 07/11/2024 1:18 PM [facility] Baso Absolute <0.04 0.00 - 0.10 x10(3)/mc L 07/11/2024 1:18 PM EST [facility] Immature Gran % 1.4 % 1:18 PM [facility] Immature Gran Absolute 0.05(H) 0.00 - 0.04 x10(3)/mc L 07/11/2024 1:18 PM 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
--- OUTSIDE RECORDS SUMMARY | 2024-08-24 22:19 | XMS_ITS | Encounter Summary ---
Author Organization [facility] Address [address] [place] [address] Care Team Providers Care Flight Tower Dispatcher Name Role Phone Esha Gomez MD Primary Care Provider Unavailabl e Encounter Details Date Type Department Care Team (Latest Contact Info) Description 03/11/2013 11:30 EDT - 03/11/2013 23:59 EDT Hospital Encounter [address] [address] Esha Gomez MD Discharge Disposition: Home or Self Care Social History Tobacco Use Types Packs/Day Years Used Date Smoking Tobacco: Never Assessed Comments Unknown Sex and Gender Information Value Date Recorded Sex Assigned at Not on file Legal Sex Female 17:51 EST Gender Identity Female 10/31/2021 15:24 EDT Sexual Orientation Not on file documented as of this encounter Medications at Time of Discharge lisinopril (PRINIVIL, ZESTRIL) 10 mg tablet Take 10 mg by mouth daily. Red Yeast Rice Extract 600 mg Cap Take by mouth. polyethylene glycol (GOLYTELY) 236-22.74-6.74 gram suspensionIndica tions:History of colonic polyps Patient to follow directions given by Dr. [facility], colo 02/05/12 1 Bottle 0 11/17/2011 1 documented as of this encounter Discharge Disposition Disposition Code Departure Means Destination Home or Self Usp documented in this encounter Plan of Treatment Not on file documented as of this encounter Procedures Procedure Name Priority Date/Time Associated Diagnosis Comments MA MAMMO. SCREENING TAVO 04/10/2014 9:03 EDT documented in this encounter Results * MA MAMMO. SCREENING TAVO (04/10/2014 9:03 EDT) Anatomical Region Laterality Modality Other 04/10/2014 9:03 EDT 04/10/2014 17:20 EDT Narrative 04/10/2014 17:20 EDT Comparison has been made to previous images. Bilateral Breast Findings: (Routine digital views with CAD and 3D images with Tomosynthesis) There are scattered fibroglandular densities (25% - 50% fibroglandular). No significant masses, calcifications or other abnormalities are seen. IMPRESSION: BILATERAL BREASTS: Negative, no evidence of malignancy. Normal interval follow-up is recommended in 12 months. OVERALL ASSESSMENT - CATEGORY 1 - NEGATIVE END OF IMPRESSION These results will be communicated to your patient via a lay letter from Radiology. If any additional imaging is needed we will contact your patient directly. I have personally reviewed the images and the above interpretation and agree with the findings. Procedure Note 04/10/2014 Comparison has been made to previous images. Bilateral Breast Findings: (Routine digital views with CAD and 3D images with Tomosynthesis) There are scattered fibroglandular densities (25% - 50% fibroglandular). No significant masses, calcifications or other abnormalities are seen. IMPRESSION: BILATERAL BREASTS: Negative, no evidence of malignancy. Normal interval follow-up is recommended in 12 months. OVERALL ASSESSMENT - CATEGORY 1 - NEGATIVE END OF IMPRESSION These results will be communicated to your patient via a lay letter from Radiology. If any additional imaging is needed we will contact your patient directly. I have personally reviewed the images and the above interpretation and agree with the findings. Esha Gomez MD IMG MAMMOGRAPHY ORDERABLES Final Result documented in this encounter Visit Diagnoses Not on filedocumented in this encounter Care Teams Flight Tower Dispatcher Relationship Specialty Start Date End Date Esha Gomez MD PCP - General 06/15/09 04/05/14 documented as of this encounter
--- OUTSIDE RECORDS SUMMARY | 2024-08-24 22:19 | XMS_ITS | Encounter Summary ---
Author Organization [facility] Address [address] [place] [address] Care Team Providers Care Glove Wrapper Name Role Phone Melba Vieira MD Primary Care Provider [phone] Reason for Visit * Reason Comments Follow-up For inflammatory yaya k pain pt states feeling the same-no new concerns/changes. pain comes off/on. discuss xrays Encounter Details Date Type Department Care Team (Late st Contact Info) Description 12/19/2021 8:15 EDT Telemedicine [facility] [place] [address] [place] [id number] Keyona Figueroa MD [address] [place] [address] [address] [place] [address] Primary osteoarthritis of left hip (Primary Dx) Social History Tobacco Use Types Packs/Day Years Used Date Smoking Tobacco: Never Smokeless Tobacco: Never Alcohol Use Standard Drinks/Week Comments Yes 2 (1 standard drink = 0.6 oz pur e alcohol) occas Interpersonal Safety Answer Date Record ed How often does anyone, inclu alfonso family, hit, punch or physically hurt you? Never 12/06/2021 How often does anyone, [place] alfonso family, insult, scream, curse or threaten to hurt you? Never 12/06/2021 Comments No Sex and Gender Information Value Date Recorded Sex Assigned at Not on file Legal Sex Female 17:51 EST Gender Identity Female 10/31/2021 15:24 EDT Sexual Orientation Not on file documented as of this encounter Last Filed Vital Signs Vital Sign Reading Time Taken Comments Blood Pressure - - Pulse - - Temperature - - Respiratory Rate - - Oxygen Saturation - - Inhaled Oxygen Concentration - - Weight 73.5 kg (162 lb) 12/19/2021 08 EDT Height 172.7 cm (5' 8) 12/19/2021 0817 EDT Body Mass Index 24.63 12/19/2021816 EDT documented in this encounter Functional Status * Because of [...] documented in this encounter Progress Notes * Keyona Figueroa MD - 12/19/202115 EDT [facility] [place] Visit Today's visit was provided via telephone audio only. The location of the patient: Home The location of the provider: Office Verbal consent: The concept of ???Telemedicine?? has been described to the patient. Patient has been informed of the anticipated benefits and possible risks. Patient understands the information provided regarding telemedicine, has had the opportunity to ask questions about this information, and all questions havebeen answered to patient???s satisfaction. Patient consents for the use of telemedicine in his/her medical care and authorizes the transmission of any relevant medical information to providers and their staff involved in patient???s medical or mental health care. Verbal consent obtained by myself or auxiliary staff: yes. I have determined that an audio-only visit is appropriate due to: Internet access or other technical issue Subjective: Chief Complaint(s): Follow-up (For inflammatory back pain pt states feeling the same-no new concerns/changes. pain comes off/on. discuss xrays) Rheumatology problem list Hip Osteoarthritis HPI: Melissa Hough Rene reports left hip pain. Still doing about the same. Notices more often lately Finds pain is worse with vacuuming. Also when she stacks and throws wood while splitting wood. She does not feel the pain all the time. Comes and goes. Finds that activity is more tolerable Pain is worse in the am, going down the stairs. I have reviewed patient's tobacco history: reports that she has never smoked. She has never used smokeless tobacco. I have reviewed current problem list and current medications. Objective: Examination: Home Vitals: Ht 172.7 cm (68) Wt 73.5 kg (162 lb) BMI 24.63 kg/m?? Pertinent exam findings: speaking in full sentences Data reviewed with patient: out side left hip xray from [facility] 2021 Moderate hip oa and mild low back arthritis. Report in scans. Assessment & Plan: Melissa López is a 81 y.o. female with a history of left hip osteoarthritis 1. Primary osteoarthritis of left hip patient will continue tylenol as needed. If increased pain will call for ortho referral.Now feels she can manage symptoms.Aware of option replacement/injection Patient initiated phone contact with the office: no. Patient is an established patient (parent, guardian) yes. E/M provided within previous 7 days for same medical assessment: no Anticipate E/M service within 24hrs or next available urgent appointment no. This visit was conducted by telephone. A total of 21minutes was spent on this encounter on the day of this encounter. documented in this encounter Plan of Treatment Not on file documented as of this encounter Visit Diagnoses Diagnosis Primary osteoarthritis of left hip- Primary Primary localized osteoarthrosis, pelvic region and thigh documented in this encounter Historical Medications * This list may reflect changes made after this encounter. omeprazole 20 mg tablet,disintegrat , delay rel Take 20 mg by mouth daily. added in this encounter Care Teams Glove Wrapper Relationship Specialty Start Date End Date Melba Vieira MD [address] [place] [address] PCP - General 04/06/14 documented as of this encounter
--- OUTSIDE RECORDS SUMMARY | 2024-08-24 22:19 | XMS_ITS | Encounter Summary ---
Author Organization [facility] Address [address] [place] [address] Care Team Providers Care Metal Drill Operator Name Role Phone Melba Vieira MD Primary Care Provider [phone] Reason for Visit * Reason Comments Osteopenia Encounter Details Date Type Department Care Team (Late st Contact Info) Description 09/11/2020 9:40 EST Telemedicine [facility] Endocrinology - [address] [address] Sharron Jesus, [address] [facility] [address] [place] [address] Osteopenia with high risk of fracture (Primary Dx) Social History Tobacco Use Types Packs/Day Years Used Date Smoking Tobacco: Never Smokeless Tobacco: Never Alcohol Use Standard Drinks/Week Comments Yes 2 (1 standard drink = 0.6 oz pur e alcohol) occas Interpersonal Safety Answer Date Record ed Physically Hurt Never 02/19/2020 Verbally Threaten Not on file 02/19/2020 Comments Unknown Sex and Gender Information Value Date Recorded Sex Assigned at Not on file Legal Sex Female 17:51 EST Gender Identity Female 10/31/2021 15:24 EDT Sexual Orientation Not on file documented as of this encounter Progress Notes * Sharron Jesus DO - 09/11/2020 0940 EST This visit was performed via telemedicine on the phone due to the Covid-19 outbreak. I was located at home, the patient was home, consent was obtained. The patient is seen for follow up of osteoporosis. She fractured her ankle years ago after [...] on her feet and does not fall. The back of her leg bothers her at times when she goes downstairs. She holds onto the railing and feels steady. She denies any injury or swelling of this area andwill discuss this with Dr. Vieira when she sees her next month. Her dental exams are up to date. She received Reclast for the first time in 09/08 and tolerated it well. Her last DXA was performed in 04/07 and showed lumbar spine T-score was falsely elevated, right femoral neck -1.7 and total hip T- score -1.4. Her FRAX score at the hip was high at 3.3% She overall feels well in general. She previosly had an EGD performed for difficulty swallowing. She has a hiatal hernia and also required a dilation. Things have been stable from this standpoint. She denies any recent trouble swallowing, chest pain, palpitations or trouble breathing. Her bowel movements are normal. The remainder of review of systems is unremarkable. Medications, allergies, family history and social history were reviewed. No osteoporosis in the family. Physical exam: Not performed due to nature of telehealth visit. Labs from 08/08: CMP normal, 25OHD level optimal. Assessment/Plan: Osteopenia with a high FRAX score. We reviewed the pathophysiology of bone loss and the results of the patient's last DXA in detail. We talked about the importance of proper calcium and vitamin D intake along with weight bearing exercise and fall prevention for bone health. The frank ent's risk for fracture is high based on her FRAX score and age. She received Reclast in 09/08 and tolerated it well. I advised that this medication can be given every 18-24 months for osteopenia. She will have an updated DXA exam performed here this Fall. She willcall sooner with any change in symptoms or concerns. She will return in March 2021 Thank you for allowing me to participate in this patient's care. I spent 11 minutes on the phone with the patient today and these 11 minutes were spent in counselingand coordination of care as described in the [...] in patient???s medical or mental health care. documented in this encounter Plan of Treatment Not on file documented as of this encounter Visit Diagnoses Diagnosis Osteopenia with high risk of fracture- Primary documented in this encounter Discontinued Medications Medication Sig Discontinue Reason Start Date End Da te polyethylene glycol (GOLYTELY) 236-22.74-6.74 gram suspensionIndications: History of colonic polyps Patient to follow directions given by Dr. [facility], colo 02/05/12 11/17/2011 09/11/2020 documented as of this encounter Historical Medications * This list may reflect changes made after this encounter. amLODIPine (NORVASC) 5 mg tablet Take 5 mg by mouth daily. added in this encounter Care Teams Metal Drill Operator Relationship Specialty Start Date End Date Melba Vieira MD [address] [place] [phone] PCP - General 04/06/14 documented as of this encounter
--- OUTSIDE RECORDS SUMMARY | 2024-08-24 22:19 | XMS_ITS | Encounter Summary ---
Author Organization [facility] Address [address] [place] [address] Care Team Providers Care Burlap Man Name Role Phone Melba Vieira MD Primary Care Provider [phone] Encounter Details Date Type Department Care Team (Latest Contact Info) Description 12/06/2018 6:30 EDT - 12/06/2018 23:59 EDT Hospital Encounter [address] [address] Melba Vieira MD [address] [place] [address] Discharge Disposition: Auto Discharge Social History Tobacco Use Types Packs/Day Years Used Date Smoking Tobacco: Never Smokeless Tobacco: Never Alcohol Use Standard Drinks/Week Comments Yes 2 (1 standard drink = 0.6 oz pur e alcohol) occas Comments Unknown Sex and Gender Information Value Date Recorded Sex Assigned at Not on file Legal Sex Female 17:51 EST Gender Identity Female 10/31/2021 15:24 EDT Sexual Orientation Not on file documented as of this encounter Discharge Diagnoses Diagnosis Z12.31 Encounter for screening mammogram for malignant neoplasm of breast-Z12.31[ICD-10-CM] Z80.3 Family history of malignant neoplasm of breast-Z80.3[ICD-10-CM] documented in this encounter Medications at Time of Discharge aspirin chewable 81 mg tablet Take 81 mg by mouth daily lisinopril (PRINIVIL, ZESTRIL) 10 mg tablet Take 10 mg by mouth daily. Red Yeast Rice Extract 600 mg Cap Take by mouth. polyethylene glycol (GOLYTELY) 236-22.74-6.74 gram suspensionIndica tions:History of colonic polyps Patient to follow directions given by Dr. [facility], colo 02/05/12 1 Bottle 0 11/17/2011 1 documented as of this encounter Discharge Disposition Disposition Code Departure Means Destination Auto Discharge Home documented in this encounter Plan of Treatment Not on file documented as of this encounter Visit Diagnoses Not on filedocumented in this encounter Care Teams Burlap Man Relationship Specialty Start Date End Date Melba Vieira MD [address] [place] [phone] PCP - General 04/06/14 documented as of this encounter
--- OUTSIDE RECORDS SUMMARY | 2024-08-24 22:19 | XMS_ITS | Encounter Summary ---
Author Organization [facility] Address [address] [place] [address] Care Team Providers Care Product Sales Representative Name Role Phone Esha Gomez MD Primary Care Provider Unavailabl e Encounter Details Date Type Department Care Team (Latest Contact Info) Description 02/16/2012 13:01 EDT - 02/16/2012 23:59 EDT Hospital Encounter [address] [address] Esah Gomez MD Discharge Disposition: Auto Discharge Social History Tobacco [...] on filedocumented in this encounter Care Teams Product Sales Representative Relationship Specialty Start Date End Date Esha Gomez MD PCP - General 06/15/09 04/05/14 documented as of this encounter
--- OUTSIDE RECORDS SUMMARY | 2024-08-24 22:19 | XMS_ITS | Encounter Summary ---
Author Organization [facility] Address [address] [place] [address] Care Team Providers Care Custodian Name Role Phone Melba Vieira MD Primary Care Provider [phone] Encounter Details Date Type Department Care Team (Late st Contact Info) Description 08/01/2020 Lab Requisition [facility] Pathology & Laboratory Medicine - [address] [address] Melba Vieira MD [address] [place] [phone] Restless legs syndrome Social History Tobacco Use Types Packs/Day Years [...] as of this encounter Plan of Treatment Not on file documented as of this encounter Procedures Procedure Name Priority Date/Time Associated Diagnosis Comments COMPLETE BLOOD COUNT Routine 08/01/2020 14:46 EST Restless legs syndrome documented in this encounter Results * COMPLETE BLOOD COUNT (08/01/2020 14:46 EST) WBC 8.04 4.00 - 12.40 K/cmm 08/01/2020 19:42 [facility] RBC 4.36 3.86 - 5.04 M/cmm 08/01/2020 19:42 [facility] Hemoglobin 13.7 11.6 - 15.2 gm/dL 08/01/2020 19:42 [facility] HCT 39.6 34.9 - 44.4 % 08/01/2020 19:42 [facility] MCV 91 81 - 98 fl 08/01/2020 19:42 [facility] MCH 31.4 26.7 - 33.3 pg 08/01/2020 19:42 [facility] MCHC 34.6 32.1 - 35.9 gm/dL 08/01/2020 19:42 [facility] RDW-CV 12.7 <14.7 % 08/01/2020 19:42 [facility] RDW-SD 41.6 <50.4 fl 08/01/2020 19:42 [facility] PLT 238 141 - 377 K/cmm 08/01/2020 19:42 [facility] MPV 11.0 9.5 - 12.7 fl 08/01/2020 19:42 [facility] Blood VENOUS BLOOD / Unknown 08/01/2020 14:46 EST 08/01/2020 19:26 EST us Melba Vieira MD HEMATOLOGY & PF4 ORDERABLES F inal Result Performing Organization Address [facility]/State/[facility] Co de Phone Number [facility] [address] [place] [address] documented in this encounter Visit Diagnoses Diagnosis Restless legs syndrome Restless legs syndrome (RLS) documented in this encounter Care Teams Custodian Relationship Specialty Start Date End Date Melba Vieira MD [address] [place] [phone] PCP - General 04/06/14 documented as of this encounter
--- OUTSIDE RECORDS SUMMARY | 2024-08-24 22:19 | XMS_ITS | Encounter Summary ---
Author Organization [facility] Address [address] [place] [address] Care Team Providers Care Packing Attendant Name Role Phone Esha Gomez MD Primary Care Provider Unavailgabriella e Encounter Details Date Type Department Care Team (Late st Contact Info) Description 11/17/2011 Orders Only [facility] General Surgery - [facility] [address] [place] [address] Sherly Shearer RN History of colonic polyps (Primary Dx) Social History Tobacco Use Types Packs/Day Years Used Date Smoking Tobacco: Never Assessed Comments Unknown Sex and Gender Information Value Date Recorded Sex Assigned at Not on file Legal Sex Female 17:51 EST Gender Identity Female 10/31/2021 15:24 EDT Sexual Orientation Not on file documented as of this encounter Ordered Prescriptions Prescription Sig Dispense Quantity Refills Last Filled Start Date End Date polyethylene glycol (GOLYTELY) 236-22.74-6.74 gram suspensionIndicati ons:History of colonic polyps Patient to follow directions given by Dr. [facility], colo 02/05/12 1 Bottle 0 11/17/2011 1 documented in this encounter Plan of Treatment Not on file documented as of this encounter Visit Diagnoses Diagnosis History of colonic polyps- Primary Personal history of colonic polyps documented in this encounter Discontinued Medications Medication Sig Discontinue Reason Start Date End Da te polyethylene glycol (GOLYTELY) 236-22.74-6.74 gram suspensionIndications: History of colonic polyps Patient to follow directions given by Dr. Cash[facility] Office, colo 02/05/12 Reorder 11/17/2011 11/17/2011 documented as of this encounter Care Teams Packing Attendant Relationship Specialty Start Date End Date Esha Gomez MD PCP - General 06/15/09 04/05/14 documented as of this encounter
--- OUTSIDE RECORDS SUMMARY | 2024-08-24 22:19 | XMS_ITS | Encounter Summary ---
Author Organization [facility] Address [address] [place] [address] Care Team Providers Care Buffing Wheel Presser Name Role Phone Melba Vieira MD Primary Care Provider [phone] Reason for Visit * Reason Onset Date Comments Referral Request 08/26/2022 Encounter Details Date Type Department Care Team (Late st Contact Info) Description 08/26/2022 Orders Only [facility] Endocrinology - [facility] [address] [place] [address] Sharron Jesus, [address] [facility] [address] [place] [address] Osteopenia with high risk of [...] Primary documented in this encounter Care Teams Buffing Wheel Presser Relationship Specialty Start Date End Date Melba Vieira MD [address] [place] [phone] PCP - General 04/06/14 documented as of this encounter
--- OUTSIDE RECORDS SUMMARY | 2024-08-24 22:19 | XMS_ITS | Encounter Summary ---
Author Organization [facility] Address [address] [place] [address] Care Team Providers Care Ammunition Storage Superintendent Name Role Phone Melba Vieira MD Primary Care Provider [phone] Encounter Details Date Type Department Care Team (Late st Contact Info) Description 02/09/2019 Results Only [facility] [phone] Melba Vieira MD [address] [place] [phone] Social History Tobacco Use Types Packs/Day Years [...] Associated Diagnosis Comments COMPLETE BLOOD COUNT Routine 02/09/2019 11:17 EDT FERRITIN Routine 02/09/2019 10:06 EDT documented in this encounter Results * COMPLETE BLOOD COUNT (02/09/2019 11:17 EDT) WBC 5.04 4.0 - 12.4 K/cmm 02/09/2019 13:49 EDT [facility] RBC 4.34 3.86 - 5.04 M/cmm 02/09/2019 13:49 EDT [facility] Hemoglobin 13.3 11.6 - 15.2 gm/dl 02/09/2019 13:49 EDT [facility] HCT 40.6 34.9 - 44.4 % 02/09/2019 13:49 EDT [facility] MCV 94 81 - 98 fl 02/09/2019 13:49 EDT [facility] MCH 30.6 26.7 - 33.3 pg 02/09/2019 13:49 EDT [facility] MCHC 32.8 32.1 - 35.9 gm/dl 02/09/2019 13:49 EDT [facility] RDW-CV 12.9 <14.7 % 02/09/2019 13:49 EDT [facility] RDW-SD 44.4 <50.4 fl 02/09/2019 13:49 EDT [facility] PLT 178 141 - 377 K/cmm 02/09/2019 13:49 EDT [facility] MPV 11.5 9.5 - 12.7 fl 02/09/2019 13:49 EDT [facility] BLOOD SPECIMEN / Unknown 02/09/2019 11:17 EDT 02/09/2019 13:34 EDT Melba Vieira MD HEMATOLOGY & PF4 ORDERABLES F inal Result Performing Organization Address City/[facility]/ZIP Co de Phone Number [facility] [address] [place] [address] * FERRITIN (02/09/2019 10:06 EDT) Ferritin 23 10 - 291 ng/ml 02/09/2019 14:24 EDT [facility] BLOOD SPECIMEN / Unknown 02/09/2019 10:06 EDT 02/09/2019 13:34 EDT Melba Vieira MD CHEMISTRY & BLOOD GAS ORDERAB LES Final Result Performing Organization Address City/[facility] Co de Phone Number [facility] [address] [place] [address] documented in this encounter Visit Diagnoses Not on filedocumented in this encounter Care Teams Ammunition Storage Superintendent Relationship Specialty Start Date End Date Melba Vieira MD [address] [place] [phone] PCP - General 04/06/14 documented as of this encounter
--- OUTSIDE RECORDS SUMMARY | 2024-08-24 22:19 | XMS_ITS | Encounter Summary ---
Author Organization [facility] Address [address] [place] [address] Care Team Providers Care Needle Punch Machine Operator Helper Name Role Phone Esha Gomez MD Primary Care Provider Unavailabl e Encounter Details Date Type Department Care Team (Late st Contact Info) Description 01/08/2011 Results Only Imaging [facility] [phone] Esha Gomez MD Social History Tobacco Use Types Packs/Day Years [...] Name Priority Date/Time Associated Diagnosis Comments MA GRANT DIAG DIGITAL UNILATERAL ADDED VIEWS 01/14/2011 11:02 EDT documented in this encounter Results * MA GRANT DIAG DIGITAL UNILATERAL ADDED VIEWS (01/14/2011 11:02 EDT) Anatomical Region Laterality Modality Other 01/14/2011 11:0 2 EDT 01/14/2011 13:23 EDT Narrative 01/14/2011 13:23 EDT Comparison is made to images from 01/07/2011 (bilateral) and images from 10/22/2009 (bilateral) and images from 10/05/2008 (bilateral) and images from 09/28/2007 (bilateral) and images from 08/07/2006 (bilateral) and images from 08/06/2005 (bilateral) and images from 08/05/2004 and images from 08/03/2003. Left Breast Findings: (digital additional with CAD) The breast is heterogeneously dense (51% - 75% fibroglandular). This may lower the sensitivity of mammography. A questionable abnormality noted on the prior exam is evaluated with additional non-magnified views with CAD. The area in question compresses out, consistent with normal fibroglandular tissue. There is no evidence of a persistent mass. IMPRESSION: LEFT BREAST: Negative, no evidence of malignancy. Normal interval follow-up is recommended in 12 months. OVERALL ASSESSMENT - CATEGORY 1 - NEGATIVE END OF IMPRESSION The patient will be notified of her/his breast imaging results via a lay letter from Radiology. Radiology will contact the patient directly regarding any findings which require additional imaging (Category 0) at this time. I have personally reviewed the images and the above interpretation and agree with the findings. Procedure Note Ro Dickinson MD - 01/14/2011 Comparison is made to images from 01/07/2011 (bilateral) and images from 10/22/2009 (bilateral) and images from 10/05/2008 (bilateral) and images from 09/28/2007 (bilateral) and images from 08/07/2006 (bilateral) and images from 08/06/2005 (bilateral) and images from 08/05/2004 and images from 08/03/2003. Left Breast Findings: (digital additional with CAD) The breast is heterogeneously dense (51% - 75% fibroglandular). This may lower the sensitivity of mammography. A questionable abnormality noted on the prior exam is evaluated with additional non-magnified views with CAD. The area in question compresses out, consistent with normal fibroglandular tissue. There is no evidence of a persistent mass. IMPRESSION: LEFT BREAST: Negative, no evidence of malignancy. Normal interval follow-up is recommended in 12 months. OVERALL ASSESSMENT - CATEGORY 1 - NEGATIVE END OF IMPRESSION The patient will be notified of her/his breast imaging results via a lay letter from Radiology. Radiology will contact the patient directly regarding any findings which require additional imaging (Category 0) at this time. I have personally reviewed the images and the above interpretation and agree with the findings. Esha Gomez MD IMG MAMMOGRAPHY ORDERABLES Final Result documented in this encounter Visit Diagnoses Not on filedocumented in this encounter Care Teams Needle Punch Machine Operator Helper Relationship Specialty Start Date End Date Esha Gomez MD PCP - General 06/15/09 04/05/14 documented as of this encounter
--- OUTSIDE RECORDS SUMMARY | 2024-08-24 22:19 | XMS_ITS | Encounter Summary ---
Author Organization [facility] Address [address] [place] [address] Care Team Providers Care Advanced Practice Provider Name Role Phone Melba Vieira MD Primary Care Provider [phone] Encounter Details Date Type Department Care Team (Late st Contact Info) Description 12/06/2018 Results Only Imaging [facility] [phone] Melba Vieira MD [address] [place] [phone] Social History Tobacco Use Types Packs/Day [...] Name Priority Date/Time Associated Diagnosis Comments MA 2D/3D BILATERAL TAVO ROUTINE SCREENING MAMMO 12/06/2018 11:52 EDT documented in this encounter Results * MA 2D/3D BILATERAL TAVO ROUTINE SCREENING MAMMO (12/06/2018 11:52 EDT) Anatomical Region Laterality Modality Other 12/06/2018 11:5 2 EDT 12/09/2018 17:37 EDT Narrative 12/09/2018 17:37 EDT Comparison has been made to previous images. Bilateral Breast Findings: (Routine 3D tomosynthesis with synthesized 2D views with CAD) There are scattered fibroglandular densities (25% - 50% fibroglandular). No significant masses, calcifications or other abnormalities are seen. IMPRESSION: BILATERAL BREASTS: Negative, no evidence of malignancy. Normal interval follow-up is recommended in 12 months. If this patient's calculated lifetime risk of breast cancer is greater than 20%, then according to the [place] [employer] guidelines, annual MRI screening is recommended in addition to mammography. OVERALL ASSESSMENT - CATEGORY 1 - NEGATIVE END OF IMPRESSION These results will be communicated to your patient via a lay letter from Radiology. If any additional imaging is needed we will contact your patient directly. Procedure Note Mateus Zamora MD, MD - 12/09/2018 Comparison has been made to previous images. Bilateral Breast Findings: (Routine 3D tomosynthesis with synthesized 2D views with CAD) There are scattered fibroglandular densities (25% - 50% fibroglandular). No significant masses, calcifications or other abnormalities are seen. IMPRESSION: BILATERAL BREASTS: Negative, no evidence of malignancy. Normal interval follow-up is recommended in 12 months. If this patient's calculated lifetime risk of breast cancer is greater than 20%, then according to the [place] [employer] guidelines, annual MRI screening is recommended in addition to mammography. OVERALL ASSESSMENT - CATEGORY 1 - NEGATIVE END OF IMPRESSION These results will be communicated to your patient via a lay letter from Radiology. If any additional imaging is needed we will contact your patient directly. Melba Vieira MD IM MAMMOGRAPHY ORDERABLES Fi nal Result documented in this encounter Visit Diagnoses Not on filedocumented in this encounter Care Teams Advanced Practice Provider Relationship Specialty Start Date End Date Melba Vieira MD [address] [place] [phone] PCP - General 04/06/14 documented as of this encounter
--- OUTSIDE RECORDS SUMMARY | 2024-08-24 22:19 | XMS_ITS | Encounter Summary ---
Author Organization [facility] Address [address] [place] [address] Care Team Providers Care Savings Counselor Name Role Phone Esha Gomez MD Primary Care Provider Unavailgabriella e Encounter Details Date Type Department Care Team (Latest Contact Info) Description 02/05/2012 11:00 EDT - 02/05/2012 23:59 EDT Hospital Encounter [facility] [place] [address] [place] [address] Shailesh Lerner Room Discharge Disposition: Home or Self Care Social [...] Code Departure Means Destination Home or Self Nursing Home documented in this encounter Plan of Treatment Not on file documented as of this encounter Visit Diagnoses Not on filedocumented in this encounter Care Teams Savings Counselor Relationship Specialty Start Date End Date Esha Gomez MD PCP - General 06/15/09 04/05/14 documented as of this encounter
--- OUTSIDE RECORDS SUMMARY | 2024-08-24 22:19 | XMS_ITS | Encounter Summary ---
Author Organization [facility] Address [address] [place] [address] Care Team Providers Care Shuttle Driver Name Role Phone Melba Vieira MD Primary Care Provider [phone] Reason for Referral * Radiology Services (Routine/Next Available) - Closed Specialty Diagnoses / Procedures Referred By Taj partida Referred To Contact Diagnoses Encounter for screening mammogram for malignant neoplasm of breast Procedures MA BREAST SCREENING TAVO BILATERAL Melba Vieira MD Phone: tel: fax: [facility] Referral ID Status Reason Start Date Expiration Date Visits Re quested Visits Authorized [id number] Closed 08/16/2021 1 1 Reason for Visit * Radiology Services (Routine/Next Available) - Closed Specialty Diagnoses / Procedures Referred By Taj partida Referred To Contact Diagnoses Encounter for screening mammogram for malignant neoplasm of breast Procedures MA BREAST SCREENING TAVO BILATERAL Melba Vieira MD Phone: tel: fax: [facility] Referral ID Status Reason Start Date Expiration Date Visits Re quested Visits Authorized [id number] Closed 08/16/2021 1 1 Encounter Details Date Type Department Care Team (Latest Contact Info) Description 11/07/2021 12:10 EDT - 11/07/2021 23:59 EDT Hospital Encounter [facility] [address] [place], [place] [address] Encounter for screening mammogram for malignant neoplasm [...] Verbally Threaten Not on file 02/19/2020 Comments No Sex and Gender Information Value [...] - Inhaled Oxygen Concentration - - Weight - - Height 172.7 cm (5' 8) 11/07/2021 1219 EDT Body Mass Index - - documented in this encounter Medications at Time of Discharge amLODIPine (NORVASC) 5 mg tablet Take 5 mg by mouth daily. aspirin chewable 81 mg tablet Take 81 mg by mouth daily atorvastatin (LIPITOR) 20 mg tablet 10/02/2021 bimatoprost (LUMIGAN) 0.01 % ophthalmic drops Place 1 Drop into both eyes at bedtime. hydroCHLOROthiazi de (HYDRODIURIL) 25 mg tablet 10/02/2021 lisinopril (PRINIVIL, ZESTRIL) 10 mg tablet Take 10 mg by mouth daily. mv-mn/lutein/zeax /bilber/hb277 (MACULAR HEALTH FORMULA ORAL) Take by mouth. Red Yeast Rice Extract 600 mg Cap Take by mouth. SODIUM FLUORIDE 5000 PLUS 1.1 % cream USE EVERY EVENING WITHOUT RINSING 09/05/2021 zoledronic acid (RECLAST) 5 mg/100 mL piggyback Inject 5 mg into the vein. Infusion given 09/23/19 at [facility] (every 18-24 months for osteopenia) documented as of this encounter Discharge Disposition Disposition Code Departure Means Destination Home or Self Care documented in this encounter Plan of Treatment Not on file documented as of this encounter Procedures Procedure Name Priority Date/Time Associated Diagnosis Comments MA BREAST SCREENING TAVO BILATERAL Routine 11/07/2021 12:31 EDT Encounter for screening mammogram for malignant neoplasm of breast documented in this encounter Results * MA BREAST SCREENING TAVO BILATERAL (11/07/2021 12:31 EDT) Anatomical Region Laterality Modality Breast Bilateral Mammography 11/08/2021 15:1 5 EDT Impressions 11/08/2021 15:15 EDT Negative, no evidence of malignancy. RECOMMENDATION: Routine screening mammography is recommended. OVERALL ASSESSMENT: BI-RADS 1: Negative These results will be communicated to your patient via a lay letter from Radiology. If any additional imaging is needed we will contact your patient directly. I have personally reviewed the images and the above interpretation and agree with the findings. Narrative 11/08/2021 15:15 EDT MA BREAST SCREENING TAVO BILATERAL ??11/07/2021 12:20 PM History: routine Comparison: ??Comparison has been made to previous images. Technique: Routine 3D tomosynthesis with synthesized 2D views with CAD Bilateral Breast Composition: There are scattered areas of fibroglandular density. Bilateral Breast Findings: ??No significant masses, calcifications or other abnormalities are seen. Procedure Note Elen Tripathi MD - 11/08/2021 MA BREAST SCREENING TAVO BILATERAL 11/07/2021 12:20 PM History: routine Comparison: Comparison has been made to previous images. Technique: Routine 3D tomosynthesis with synthesized 2D views with CAD Bilateral Breast Composition: There are scattered areas of fibroglandulardensity. Bilateral Breast Findings: No significant masses, calcifications [...] the above interpretation andagree with the findings. Melba Vieira MD IM MAMMOGRAPHY ORDERABLES Fi nal Result documented in this encounter Visit Diagnoses Diagnosis Encounter for screening mammogram for malignant neoplasm of breast Other screening mammogram documented in this encounter Care Teams Shuttle Driver Relationship Specialty Start Date End Date Melba Vieira MD [address] [place] [phone] PCP - General 04/06/14 documented as of this encounter
--- OUTSIDE RECORDS SUMMARY | 2024-08-24 22:19 | XMS_ITS | Encounter Summary ---
Author Organization [facility] Address [address] [place] [address] Care Team Providers Care Land Leasing Examiner Name Role Phone Melba Vieira MD Primary Care Provider [phone] Reason for Visit * Reason Onset Date Comments Other 11/01/2020 Encounter Details Date Type Department Care Team (Late st Contact Info) Description 11/01/2020 Telephone [facility] End[facility] - [facility] [address] [place] [address] Sharron Jesus, [address] [address] [place] [address] Other Social History Tobacco Use Types Packs/Day Years [...] encounter Miscellaneous Notes * Telephone Encounter - Corey Miller - 11/02/2020 1201 EDT DXA scheduled with us has been cancelled and new order sent to [facility]. LMOM for patient to let her know that this has been cancelled and that order has been sent to [facility] per her PCP and that she can reach out to them to schedule DXA for 03/2021, as that is when she is due per last provider note. Askedpatient to call back if she has any questions. * Telephone Encounter - Sharron Jesus DO - 11/01/2020 1520 EDT Sure, order placed, thanks. * Telephone Encounter - Neda Pérez - 11/01/[address] Vieira would like to know if the patient can have their DXA scan ordered by Dr. Jesus to be completed at [facility] since that is where the patient typically has their DXA. documented in this encounter Plan of Treatment Not on file documented as of this encounter Visit Diagnoses Not on filedocumented in this encounter Care Teams Land Leasing Examiner Relationship Specialty Start Date End Date Melba Vieira MD [address] [place] [phone] PCP - General 04/06/14 documented as of this encounter
--- OUTSIDE RECORDS SUMMARY | 2024-08-24 22:19 | XMS_ITS | Encounter Summary ---
Author Organization [facility] Address [address] [place] [address] Care Team Providers Care Lens Examiner Name Role Phone Melba Vieira MD Primary Care Provider [phone] Reason for Visit * Reason Onset Date Comments Appointment Related 03/04/2021 Dxa @ [facility] Encounter Details Date Type Department Care Team (Late st Contact Info) Description 03/04/2021 Telephone [facility] Endocrinology - [facility] [address] [place] [address] Sharron Jesus, [address] [facility] [address] [place] [address] Appointment Related (Dxa @ [facility]) Social History Tobacco Use Types Packs/Day Years [...] encounter Miscellaneous Notes * Telephone Encounter - Martina Hollingsworth - 03/04/2021 1252 EDT Patient should still have a follow up with Dr. Jesus, next available appointment is appropriate * Telephone Encounter - Karol Gordon - 03/04/2021 1218 EDT Reason for Call: Appt related Call to patient to schedule f/u w/ Dr Jesus as well as where she would like to have her bone density. She states that she had her bone density Done at [facility] on December 20, 2020 (recall for Mar 2021 deleted) Please see Dr Jesus letter dated 01/18/21. Need to know when or if this patient needs f/u with Endo. Karol Gordon 03/04/2021 12:18 documented in this encounter Plan of Treatment Not on file documented as of this encounter Visit Diagnoses Not on filedocumented in this encounter Care Teams Lens Examiner Relationship Specialty Start Date End Date Melba Vieira MD [address] [place] [phone] PCP - General 04/06/14 documented as of this encounter
--- OUTSIDE RECORDS SUMMARY | 2024-08-24 22:19 | XMS_ITS | Encounter Summary ---
Author Organization [facility] Address [address] [place] [address] Care Team Providers Care Wet Process Miller Head Name Role Phone Melba Vieira MD Primary Care Provider [phone] Reason for Visit * Reason Comments Follow-up For inflammatory yaya k pain pt states has been going on for 1yr. comes/goes. lower back, pointed to left side. when active seems to be better Encounter Details Date Type Department Care Team (Late st Contact Info) Description 11/14/2021 10:45 EDT Office Visit [facility] Rheumatology [address] [place] [address] Keyona Figueroa MD [address] [place] [address] [place] [address] Hip pain, left (Primary Dx) Social History Tobacco Use Types [...] (98.1 ??F) 11/14/2021 1039 EDT Respiratory Rate - - Oxygen Saturation - - Inhaled Oxygen Concentration - - Weight 73.5 kg (162 lb) 11/14/2021 1039 EDT Height 172.7 cm (5' 8) 11/14/2021 1039 EDT Body Mass Index 24.63 11/14/2021 1039 EDT documented in this encounter Functional Status [...] 11/14/2021 10:58 EDT documented in this encounter Patient Instructions * Patient Instructions* Keyona Figueroa MD - 11/14/2021 10:45 EDT Images from the original note were not included. Suspect this is a left hip xray If the arthritis is significant could consider seeing orthopedics in [facility] If milder we could set you up for an injection in hip Take tylenol 1000 mg up to three times a day for pain [facility] Patient Instructions Hip Arthritis: Care Instructions Your Care Instructions Arthritis, also called osteoarthritis, is a breakdown of the tissue (cartilage) that cushions your joints. Many people have some arthritis as they age. When the cartilage in your hip joints wears down, your hip bone rubs against the hip socket. This causes pain and stiffness. Work with your doctor to find the right mix of treatments for your arthritis. There are things you can do at home to protect your hip joints, ease your pain, and help you stay active. But if your arthritis becomes so bad that you cannot walk, you may need surgery to replace the hip joint. Follow-up care is a lea part of your treatment and safety. Be sure to make and go to all appointments, and call your doctor if you are having problems. It's also a good idea to know your test resultsand keep a list of the medicines you take. How can you care for yourself at home? ?? Stay at a healthy weight. Being overweight puts extra strain on your hip joints. ?? Talk to your doctor or physical therapist about exercises that will help ease hip pain. These tips may help. ? Stretch to help prevent stiffness and to prevent injury before you exercise. You may enjoy gentleforms of yoga to help keep your joints and muscles flexible. ? Walk instead of jog. Other types of exercise that are less stressful on the joints include ridinga bike, swimming, and doing water exercise. ? Lift weights. Strong muscles help reduce stress on your joints. Stronger thigh muscles, for example, take some of the stress off of the knees and hips. Learn the right way to lift weights so you donot make joint pain worse. ?? Take pain medicines exactly as directed. ? If the doctor gave you a prescription medicine for pain, take it as prescribed. ? If you are not taking a prescription pain medicine, ask your doctor if you can take an jmeq-ybo-crslfep medicine. ?? Use a cane, crutch, walker, or another device if you need help to get around. These can help rest your hips. You also can use other things to make life easier, such as a higher toilet seat. ?? Do not sit in low chairs, which can make it painful to get up. ?? Put heat or cold on your sore hips as needed. Use whichever helps you most. You also can go backand forth between hot and cold packs. ? Apply heat 2 or 3 times a day for 20 to 30 minutes--using a heating pad, hot shower, or hot pack--to relieve pain and stiffness. ? Put ice or a cold pack on your sore hips for 10 to 20 minutes at a time to numb the area. Put a thin cloth between the ice and your skin. ?? Think about talking to your doctor about using capsaicin, a cream you apply to the skin for painrelief. When should you call for help? Call your doctor now or seek immediate medical care if: ? You have sudden swelling, warmth, or pain in any joint. ? You have joint pain and a fever or rash. ? You have such bad pain that you cannot use the joint. Watch closely for changes in your health, and be sure to contact your doctor if: ? You have mild joint symptoms that continue even with more than 6 weeks of care at home. ? You do not get better as expected. ? You have stomach pain or other problems with your medicine. Where can you learn more? Go to https://www.Publish2.net/mSilicaealth or log into your [employer] account at [email or web address] Enter T640 in the search box to learn more about Hip Arthritis: Care Instructions. Current as of: July 08, 2021?Content Version: 13.2 ?? [id number] [employer]. Care instructions adapted under license by [facility]. If you have questions about a medical condition or this instruction, always ask your healthcare professional. [employer] disclaims any warranty or liability for your use of this information. documented in this encounter Progress Notes * Keyona Figueroa MD - 11/14/2021 1045 EDT [facility] Rheumatology NEW PATIENT VISIT Chief Complaint Patient presents with ??? Follow-up For inflammatory back pain pt states has been going on for 1yr. comes/goes. lower back, pointed to left side. when active seems to be better Rheumatology problem list Osteopenia -no fractures -Dr Jesus (endo) -reclast every 18-[address] Jesus Left hip pain Family history of breast and colon cancer. HPI: Melissa López is a 81 y.o. female here for evaluation of left hip pain Symptoms started gradually one year ago. Noticed pain deep in low back/left hip when going down stairs at home. Worse in am. No pain at night or sleep disturbance from pain. Pain relieved by rest. Through the day pain would predictably occur with walking. Notices decreased external rotation of left hip. No pain when she wakes up. Does some stretches in bed before getting up. No pain with first steps in am, starts as she is more active. No am stiffness. No prior injury. Right hip feels fine. Takes tylenol some relief. Usually 1000 mg or so prior to walking. Able to garden, some mild back pain. Still active on her property but pain limits activity/causes her to curtail some activity No fevers, no change in bowel motions Deliberate loss of 10 lb via diet No upper extremity pain Has not had an xray Brother had a hip replacement. No family or personal history of psoriasis Generally very well. Sleep is normal and refreshing She lost due to Parkinsons, has numerous siblings including a brother who lives nearby. Sheis one of 14 siblings and has a large extended family Current Outpatient Medications Medication ??? amLODIPine (NORVASC) 5 mg tablet ??? aspirin chewable 81 mg tablet ??? bimatoprost (LUMIGAN) 0.01 % ophthalmic drops ??? Cholecalciferol, Vitamin D3, (VITAMIN D3) 10 mcg (400 unit) capsule ??? lisinopril (PRINIVIL, ZESTRIL) 10 mg tablet ??? multivitamin (ONE-A-DAY ESSENTIAL ORAL) ??? mv-mn/lutein/zeax/bilber/hb277 ([facility] FORMULA ORAL) ??? Red Yeast Rice Extract 600 mg Cap ??? zoledronic acid (RECLAST) 5 mg/100 mL piggyback No current facility-administered medications for this visit. Allergies include: Codeine Past Medical History: Diagnosis Date ??? Colon polyp ??? Hypertension Family History Problem Relation Age of Onset ??? Colon Cancer Sister late 40's ??? 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 FALLS RISK REVIEW 11/14/2021 Get Up and Go Test Able to rise in a single movement Patient or Family Have Concerns No Patient Uses an Assistive Device No Previous Fall Within the Past 12 Months No Anti-Hypertensive on Active Medication List Yes Considered at High Risk for Falls Yes Fall Risk Screening Completed Yes Some recent data might be hidden Review of Systems: 13 point ROS was done with the patient. See scanned document for details. Pertinent positives and negatives are noted in the HPI. Physical Examination: BP 138/78 (BP Cuff Location: Right arm, BP Cuff Sizes: Adult, regular) Pulse 64 Temp 36.7 ??C (98.1 ??F) Ht 172.7 cm (68) Wt 73.5 kg (162 lb) BMI 24.63 kg/m?? Physical Exam Vitals and nursing note reviewed. Constitutional: Appearance: Normal appearance. HENT: Head: Normocephalic and atraumatic. Eyes: Conjunctiva/sclera: Conjunctivae normal. Cardiovascular: Rate and Rhythm: Normal rate and regular rhythm. Comments: No edema Pulmonary: Effort: Pulmonary effort is normal. No respiratory distress. Breath sounds: No wheezing. Musculoskeletal: Cervical back: Normal range of motion. Comments: oa changes in hands. Left hip decreased internal rotation and external rotation Negative slr Knees bony enlargement but no synovitis. Skin: General: Skin is warm and dry. Findings: No rash. Neurological: Mental Status: She is alert and oriented to person, place, and time. Comments: trendelenberg to the left Psychiatric: Mood and Affect: Mood and affect normal. Cognition and Memory: Memory normal. LABS Lab Results Component Value Date AGNES Positive (A) 08/07/2021 RF <8.6 08/07/2021 Lab Results Component Value Date WBC 8.04 08/01/2020 HGB 13.7 08/01/2020 HCT 39.6 08/01/2020 MCV 91 08/01/2020 PLT 238 08/01/2020 Lab Results Component Value Date CRP <7.0 08/07/2021 Lab Results Component Value Date CREATININE 0.67 08/07/2021 Diagnosis / Assessment: Melissa López is a 81 y.o. female here for evaluation of left hip pain Left hip pain Clinically differential includes left hip oa, left SI pain. Radicular pain possible but less likelyas pain only worse with activity. No sinister signs (fever/night time waking/neuro symptoms) Plan Tylenol 1000 mg prior to activity and up to tid Xray left hip ([facility]) Phone visit follow up If severe hip oa ? Refer to [facility] If mild to moderate consider left hip steroid injection at [facility] D/W patient at telephone follow up. There are no diagnoses linked to this encounter. Keyona Figueroa MD 11/14/2021 11:01 documented in this encounter Plan of Treatment Not on file documented as of this encounter Visit Diagnoses Diagnosis Hip pain, left- Primary Pain in joint, pelvic region and thigh documented in this encounter Historical Medications * This list may reflect changes made after this encounter. multivitamin (ONE-A-DAY ESSENTIAL ORAL) Take by mouth. Cholecalciferol, Vitamin D3, (VITAMIN D3) 10 mcg (400 unit) capsule Take by mouth. added in this encounter Care Teams Wet Process Miller Head Relationship Specialty Start Date End Date Melba Vieira MD [address] [place] [phone] PCP - General 04/06/14 documented as of this encounter
--- OUTSIDE RECORDS SUMMARY | 2024-08-24 22:19 | XMS_ITS | Encounter Summary ---
Author Organization [facility] Address [address] [place] [address] Care Team Providers Care Enchilada Maker Name Role Phone Melba Vieira MD Primary Care Provider [phone] Encounter Details Date Type Department Care Team (Latest Contact Info) Description 07/22/2017 6:22 EST - 07/22/2017 23:59 EST Hospital Encounter [address] [address] Melba Vieira MD [address] [place] [address] Discharge Disposition: Auto Discharge Social [...] on filedocumented in this encounter Care Teams Enchilada Maker Relationship Specialty Start Date End Date Melba Vieira MD [address] [place] [phone] PCP - General 04/06/14 documented as of this encounter
--- OUTSIDE RECORDS SUMMARY | 2024-08-24 22:19 | XMS_ITS | Encounter Summary ---
Author Organization [facility] Address [address] [place] [address] Care Team Providers Care Hammer Shop Supervisor Name Role Phone Esha Gomez MD Primary Care Provider Unavailgabriella e Encounter Details Date Type Department Care Team (Latest Contact Info) Description 02/05/2012 9:51 EDT - 02/05/2012 12:20 EDT Hospital Encounter [facility] Endoscopy Outpatient [address] [place] [address] Cristóbal Cash MD [address] [place] [address] Discharge Disposition: Home or Self Care Social [...] Sign Reading Time Taken Comments Blood Pressure 103/56 02/05/2012 1217 EDT Pulse - - Temperature 35.6 ??C (96.1 ??F) 02/05/2012 1016 EDT Respiratory Rate 16 02/05/2012 1217 EDT Oxygen Saturation 98% 02/05/2012 1217 EDT Inhaled Oxygen Concentration - - Weight 72.6 kg (160 lb) 02/05/2012 1013 EDT Height 172.7 cm (5' 8) 02/05/2012 1013 EDT Body Mass Index 24.33 02/05/2012 1013 EDT documented in this encounter Medications at [...] or Self Care documented in this encounter H&P Notes * Cristóbal Cash - 02/05/2012 1111 EDT Sedation for Procedure History & Physical Date: 02/05/2012 Time: 11:11 Location: [facility] Planned Procedure: Colonoscopy Chief Complaint/Indications for Procedure: hx of polyps and family hx sister in late 40's History Previous Complication with Sedation and/or Anesthesia? No Allergies: Allergies Allergen Reactions ??? Codeine swelling Current Medications: (Not in a hospital admission) Past Medical History: Past Medical History Diagnosis Date ??? Hypertension ??? Colon polyp Social History: History reviewed. No pertinent past surgical history. History Substance Use Topics ??? Smoking status: Not on file ??? Smokeless tobacco: Not on file ??? Alcohol Use: Family History: Family History Problem Relation Age of Onset ??? Colon Cancer Sister late 40's Review of Systems as pertinent: Physical Exam Vital Signs: BP 159/69 Temp(Src) 35.6 ??C (96.1 ??F) (Tympanic) Resp 16 Ht 172.7 cm (68) Wt 72.576 kg (160 lb) BMI 24.33 kg/m2 SpO2 100% Heart Examination: Cardiac Regularity: Regular Respiratory Examination: Respiratory Pattern: Regular Breath Sounds Right: Clear Breath Sounds Left: Clear Additional physical exam related to the proposed procedure, patient activity, disease state and treatment as pertinent: Assessment Previous complications with sedation or anesthesia?: No Airway Concerns: None Anesthesia Classification: ASA 2 Fasting Time: Time of last liquid intake: 2344 Date of Last Liquid Intake: 02/04/12 Time of last solid intake: 190 Date of last solid intake: 02/03/12 Patient Appropriate Candidate for Planned Sedation?: Yes documented in this encounter Procedure Notes * GRAIN OPERATIONS MANAGER, SCAN 2 - 02/06/2012 0501 EDTAssociated Order(s): PROCEDURE REPORTS - SCANNED documented in this encounter Miscellaneous Notes * Scanned Note-Null - GRAIN OPERATIONS MANAGER, SCAN 2 - 02/06/2012 1310 EDT * Scanned Note-Null - GRAIN OPERATIONS MANAGER, SCAN 2 - 02/06/2012 1310 EDT documented in this encounter Plan of Treatment Not on file documented as of this encounter Procedures Procedure Name Priority Date/Time Associated Diagnosis Comments PROCEDURE REPORTS - SCANNED 02/06/2012 5:01 EDT documented in this encounter Results * PROCEDURE REPORTS - SCANNED (02/06/2012 5:01 EDT) 02/06/2012 5:01 EDT Narrative Transcriptions GRAIN OPERATIONS MANAGER, SCAN 2 - 02/06/2012 5:01 EDT Scan 2 Wastewater Design Engineer PROCEDURE/MINOR SURGICAL OR DERABLES Final Result documented in this encounter Visit Diagnoses Not on filedocumented in this encounter Administered Medications Inactive Administered Medications - up to 3 most recent administrations Medication Order MAR Action Action Date Dose Rate Site lactated ringers (LR) infusion 30 mL/hr, intravenous, CONTINUOUS, Starting on Macie 02/05/12 at 1045, Until Macie 02/05/12 at 1516, Routine, Preprocedure New Bag 02/05/2012 10:52 EDT 30 mL/hr 30 mL/hr meperidine (PF) (DEMEROL) 100 mg/mL injection 25-200 mg 25-200 mg, intravenous, ONCE PRN, 1 dose, Starting on Macie 02/05/12 at 1017, Until Macie 7/19/12 at 1121, Other, sedation, Routine, Intraprocedure Given 02/05/2012 11:21 EDT 100 mg midazolam (VERSED) injection 1-10 mg 1-10 mg, intravenous, ONCE PRN, 1 dose, Starting on Macie 02/05/12 at 1017, Until Macie 02/05/12 at 1120, Sedation, Routine, Intraprocedure Given 02/05/2012 11:20 EDT 3 mg documented in this encounter Historical Medications * This list may reflect changes made after this encounter. Red Yeast Rice Extract 600 mg Cap Take by mouth. lisinopril (PRINIVIL, ZESTRIL) 10 mg tablet Take 10 mg by mouth daily. added in this encounter Orders Transfer Count Last Ordered Date First Orde red Date NOTIFY PPS OF DISCHARGE COMPLETE 1 02/05/20 12 Discharge Count Last Ordered Date First Orde red Date DISCHARGE PATIENT 1 02/05/2012 documented in this encounter Care Teams Hammer Shop Supervisor Relationship Specialty Start Date End Date Esha Gomez MD PCP - General 06/15/09 04/05/14 documented as of this encounter
--- OUTSIDE RECORDS SUMMARY | 2024-08-24 22:19 | XMS_ITS | Encounter Summary ---
Author Organization [facility] Address [address] [place] [address] Care Team Providers Care Bindery Worker Name Role Phone Melba Vieira MD Primary Care Provider [phone] Encounter Details Date Type Department Care Team (Late st Contact Info) Description 08/01/2015 8:38 EST - 08/01/2015 11:55 EST Hospital Encounter [facility] Endoscopy Outpatient [address] [place] [address] Kingston Anders MD [address] [place] [address] [address] [place] [address] Discharge Disposition: Home or Self Care Social History Tobacco Use Types Packs/Day Years Used Date Smoking Tobacco: Never Smokeless Tobacco: Never Alcohol Use Standard Drinks/Week Comments Yes 2 (1 standard drink = 0.6 oz pur e alcohol) Comments Unknown Sex and Gender Information Value Date Recorded Sex Assigned at Not on file Legal Sex Female 17:51 EST Gender Identity Female 10/31/2021 15:24 EDT Sexual Orientation Not on file documented as of this encounter Last Filed Vital Signs Vital Sign Reading Time Taken Comments Blood Pressure 136/64 08/01/2015 1044 EST Pulse 59 08/01/2015 1025 EST Temperature 36.4 ??C (97.5 ??F) 08/01/2015 1010 EST Respiratory Rate 16 08/01/2015 1044 EST Oxygen Saturation 98% 08/01/2015 1044 EST Inhaled Oxygen Concentration - - Weight 72.6 kg (160 lb) 08/01/2015 0910 EST Height 174 cm (5' 8.5) 08/01/2015 0910 EST Body Mass Index 23.97 08/01/2015 0910 EST documented in this encounter Medications at Time [...] documented in this encounter H&P Notes * Kingston Anders MD - 08/01/2015 0950 EST Endoscopy Sedation for Procedure History & Physical Date: 08/01/2015 Time: 9:50 Location: 4 Endo Planned Procedure: Gastroscopy Chief Complaint/Indications for Procedure: Dysphagia History Previous Complication with Sedation and/or Anesthesia? No Allergies: Allergies Allergen Reactions ??? Codeine swelling Current Medications: Current Outpatient Prescriptions Medication Sig Dispense Refill ??? aspirin chewable 81 mg tablet Take 81 mg by mouth daily ??? lisinopril (PRINIVIL, ZESTRIL) 10 mg tablet Take 10 mg by mouth daily. ??? polyethylene glycol (GOLYTELY) 236-22.74-6.74 gram suspension Patient to follow directions given by Dr. Cash[facility], colo 02/05/12 1 Bottle 0 ??? Red Yeast Rice Extract 600 mg Cap Take by mouth. Current Facility-Administered Medications Medication Route Frequency ??? fentaNYL citrate (PF) 50 mcg/mL injection 100-250 mcg intravenous Once PRN ??? lactated ringers (LR) infusion intravenous CONTINUOUS ??? midazolam (PF) (VERSED) 1 mg/mL injection 1-10 mg intravenous Once PRN Past Medical History: Past Medical History Diagnosis Date ??? Hypertension ??? Colon polyp Social History: History reviewed. No pertinent past surgical history. History Substance Use Topics ??? Smoking status: Never Smoker ??? Smokeless tobacco: Never Used ??? Alcohol Use: 1.2 oz/week 2 Glasses of wine per week Family History: Family History Problem Relation Age of Onset ??? Colon Cancer Sister late 40's Review of Systems as pertinent: Physical Exam Vital Signs: BP 143/63 mmHg Temp(Src) 36.2 ??C (97.2 ??F) (Tympanic) Resp 16 Ht 174 cm (68.5) Wt 72.576 kg (160 lb) BMI 23.97 kg/m2 SpO2 100% Heart Examination: Cardiac Regularity: Regular Respiratory Examination: Respiratory Pattern: Regular Breath Sounds Right: Clear Breath Sounds Left: Clear Abdominal Examination: Soft, non-tender, bowel sounds normal, no masses, no organomegaly Additional physical exam related to the proposed procedure, patient activity, disease state and treatment as pertinent: Assessment Previous complications with sedation or anesthesia?: No Airway Concerns: None Anesthesia Classification: ASA 2 Plan: Proceed with sedation for procedure Fasting Time: Time of last liquid intake: 229 Date of Last Liquid Intake: 08/01/15 Time of last solid intake: 183 Date of last solid intake: 07/31/15 Patient Appropriate Candidate for Planned Sedation?: Yes Kingston Anders MD 08/01/2015 9:50 * Kingston Anders MD - 08/01/2015 0950 EST Endoscopy Sedation for Procedure History & Physical Date: 08/01/2015 Time: 9:50 Location: [address] Planned Procedure: Gastroscopy Chief Complaint/Indications for Procedure: Dysphagia History Previous Complication with Sedation and/or Anesthesia? No Allergies: Allergies Allergen Reactions ??? Codeine swelling Current Medications: Current Outpatient Prescriptions Medication Sig Dispense Refill ??? aspirin chewable 81 mg tablet Take 81 mg by mouth daily ??? lisinopril (PRINIVIL, ZESTRIL) 10 mg tablet Take 10 mg by mouth daily. ??? polyethylene glycol (GOLYTELY) 236-22.74-6.74 gram suspension Patient to follow directions given by Dr. Cash's Office, colo 02/05/12 1 Bottle 0 ??? Red Yeast Rice Extract 600 mg Cap Take by mouth. Current Facility-Administered Medications Medication Route Frequency ??? fentaNYL citrate (PF) 50 mcg/mL injection 100-250 mcg intravenous Once PRN ??? lactated ringers (LR) infusion intravenous CONTINUOUS ??? midazolam (PF) (VERSED) 1 mg/mL injection 1-10 mg intravenous Once PRN Past Medical History: Past Medical History Diagnosis Date ??? Hypertension ??? Colon polyp Social History: History reviewed. No pertinent past surgical history. History Substance Use Topics ??? Smoking status: Never Smoker ??? Smokeless tobacco: Never Used ??? Alcohol Use: 1.2 oz/week 2 Glasses of wine per week Family History: Family History Problem Relation Age of Onset ??? Colon Cancer Sister late 40's Review of Systems as pertinent: Physical Exam Vital Signs: BP 143/63 mmHg Temp(Src) 36.2 ??C (97.2 ??F) (Tympanic) Resp 16 Ht 174 cm (68.5) Wt 72.576 kg (160 lb) BMI 23.97 kg/m2 SpO2 100% Heart Examination: Cardiac Regularity: Regular Respiratory Examination: Respiratory Pattern: Regular Breath Sounds Right: Clear Breath Sounds Left: Clear Abdominal Examination: Soft, non-tender, bowel sounds normal, no masses, no organomegaly Additional physical exam related to the proposed procedure, patient activity, disease state and treatment as pertinent: Assessment Previous complications with sedation or anesthesia?: No Airway Concerns: None Anesthesia Classification: ASA 2 Plan: Proceed with sedation for procedure Fasting Time: Time of last liquid intake: 023 Date of Last Liquid Intake: 08/01/15 Time of last solid intake: 1830 Date of last solid intake: 07/31/15 Patient Appropriate Candidate for Planned Sedation?: Yes Kingston Anders MD 08/01/2015 9:50 documented in this encounter Plan of Treatment Not on file documented as of this encounter Procedures Procedure Name Priority Date/Time Associated Diagnosis Comments PROCEDURE REPORTS - SCANNED 08/02/2015 0:38 EST documented in this encounter Results * PROCEDURE REPORTS - SCANNED (08/02/2015 0:38 EST) 08/02/2015 0:38 EST us Scan 2 Legal Administrative Secretary PROCEDURE/MINOR SURGICAL OR DERABLES Final Result documented in this encounter Visit Diagnoses Not on filedocumented in this encounter Administered Medications Inactive Administered Medications - up to 3 most recent administrations Medication Order MAR Action Action Date Dose Rate Site fentaNYL citrate (PF) 50 mcg/mL injection 100-250 mcg 100-250 mcg, intravenous, ONCE PRN, 1 dose, Starting on Thu08/01/15 at 0907, Until Thu08/01/15 at 1004, Other, sedation, Routine, Intraprocedure Given 08/01/2015 10:04 EST 75 mcg lactated ringers (LR) infusion 30 mL/hr, intravenous, CONTINUOUS, Starting on Thu08/01/15 at 0930, Until Thu08/01/15 at 1407, Routine, Preprocedure New Bag 08/01/2015 9:31 EST 30 mL/hr 30 mL/hr midazolam (PF) (VERSED) 1 mg/mL injection 1-10 mg 1-10 mg, intravenous, ONCE PRN, 1 dose, Starting on Thu08/01/15 at 0907, Until Thu08/01/15 at 1004, Sedation, Routine, Intraprocedure Given 08/01/2015 10:04 EST 3 mg documented in this encounter Historical Medications * This list may reflect changes made after this encounter. aspirin chewable 81 mg tablet Take 81 mg by mouth daily added in this encounter Orders Transfer Count Last Ordered Date First Orde red Date NOTIFY PPS OF DISCHARGE COMPLETE 1 08/01/19 16 Discharge Count Last Ordered Date First Orde red Date DISCHARGE PATIENT 1 08/01/2015 documented in this encounter Care Teams Bindery Worker Relationship Specialty Start Date End Date Melba Vieira MD [address] [place] [phone] PCP - General 04/06/14 documented as of this encounter
--- OUTSIDE RECORDS SUMMARY | 2024-08-24 22:19 | XMS_ITS | Encounter Summary ---
Author Organization [facility] Address [address] [place] [address] Care Team Providers Care Data Integration Architect Name Role Phone Melba Vieira MD Primary Care Provider [phone] Encounter Details Date Type Department Care Team (Latest Contact Info) Description 04/28/2016 8:39 EDT - 04/28/2016 8:40 EDT Hospital Encounter [facility] - [address] [address] Melba Vieira MD [address] [place] [phone] Discharge Disposition: Home or Self Care Social [...] as of this encounter Discharge Diagnoses Diagnosis D64.9 Anemia, unspecified-D64.9[ICD-10-CM] documented in this encounter Medications at Time [...] on filedocumented in this encounter Care Teams Data Integration Architect Relationship Specialty Start Date End Date Melba Vieira MD [address] [place] [phone] PCP - General 04/06/14 documented as of this encounter
--- OUTSIDE RECORDS SUMMARY | 2024-08-24 22:19 | XMS_ITS | Encounter Summary ---
Author Organization [facility] Address [address] [place] [address] Care Team Providers Care Building Construction Engineer Name Role Phone Melba Vieira MD Primary Care Provider [phone] Encounter Details Date Type Department Care Team (Latest Contact Info) Description 02/09/2019 12:37 EDT - 02/09/2019 12:38 EDT Hospital Encounter [facility] - [address] [address] Melba Vieira MD [address] [place] [phone] Discharge Disposition: Home or Self Care [...] as of this encounter Discharge Diagnoses Diagnosis G25.81 Restless legs syndrome-G25.81[ICD-10-CM] documented in this encounter Medications at Time [...] on filedocumented in this encounter Care Teams Building Construction Engineer Relationship Specialty Start Date End Date Melba Vieira MD [address] [place] [phone] PCP - General 04/06/14 documented as of this encounter
--- OUTSIDE RECORDS SUMMARY | 2024-08-24 22:19 | XMS_ITS | Encounter Summary ---
Author Organization [facility] Address [address] [place] [address] Care Team Providers Care Bag Worker Name Role Phone Melba Vieira MD Primary Care Provider [phone] Encounter Details Date Type Department Care Team (Late st Contact Info) Description 08/01/2020 Lab Requisition [facility] Pathology & Laboratory Medicine - [address] [address] Melba Vieira MD [address] [place] [phone] Restless legs syndrome Social History Tobacco [...] Procedure Name Priority Date/Time Associated Diagnosis Comments FERRITIN Routine 08/01/2020 14:18 EST Restless legs syndrome documented in this encounter Results * FERRITIN (08/01/2020 14:18 EST) Ferritin 48 10 - 291 ng/mL 08/01/2020 20:47 EST [facility] Blood VENOUS BLOOD / Unknown 08/01/2020 14:18 EST 08/01/2020 19:25 EST us Melba Vieira MD CHEMISTRY & BLOOD GAS ORDERAB LES Final Result [facility] [address] [place] [address] documented in this encounter Visit Diagnoses Diagnosis Restless legs syndrome Restless legs syndrome (RLS) documented in this encounter Care Teams Bag Worker Relationship Specialty Start Date End Date Melba Vieira MD [address] [place] [phone] PCP - General 04/06/14 documented as of this encounter
--- OUTSIDE RECORDS SUMMARY | 2024-08-24 22:19 | XMS_ITS | Encounter Summary ---
Author Organization [facility] Address [address] [place] [address] Care Team Providers Care Mushroom Press Operator Name Role Phone Melba Vieira MD Primary Care Provider [phone] Reason for Referral * Medication Prior Authorization (Routine) - Specialty Report Received Specialty Diagnoses / Procedures Referred By Taj partida Referred To Contact Diagnoses Osteopenia with high risk of fracture Sharron Jesus DO Phone: tel: fax: Referral ID Status Reason Start Date Expiration Date Visits Requested Visits Authorized [id number] Specialty Report Received Medication Prior Authorization 0 3 3 Question Answer Medication to be Prior Authorized: Reclast IV 5 mg Comments The purpose of this consult request is to inform the scheduling staff that a medication needs to be prior-authorized before it is prescribed and/or administered. To be given at [facility] Reason for Visit * Reason Comments Osteoporosis * Referral (Routine) - Receiving Office to Obtain Authorization Specialty Diagnoses / Procedures Referred By Taj t Referred To Contact Osteoporosis Diagnoses Other specified disorders of bone density and structure, unspecified site Melba Vieira MD Phone: tel: fax: [facility] Osteoporosis - [facility] [place] [address] [place] [address] Phone: tel: fax: Referral ID Status Reason Start Date Expiration Date Visits Requested Visits Authorized [id number] Receiving Office to Obtain Authorization 1 1 Encounter Details Date Type Department Care Team (Late st Contact Info) Description 08/04/2019 15:15 EST Office Visit [facility] Endocrinology - [place] [address] [place] [address] Sharron Jesus, [address] [place] [phone] Osteopenia with high risk of [...] Sign Reading Time Taken Comments Blood Pressure 173/73 08/04/2019 1512 EST Pulse 67 08/04/2019 1512 EST Temperature - - Respiratory Rate - - Oxygen Saturation - - Inhaled Oxygen Concentration - - Weight 81.2 kg (179 lb) 08/04/2019 1512 EST Height 175.3 cm (5' 9.02) 08/04/2019 1512 EST Body Mass Index 26.42 08/04/2019 1512 EST documented in this encounter Progress Notes * Sharron Jesus, - 08/04/2019 1515 EST The patient was sent here for a consultation by Dr. Vieira for evaluation of osteoporosis. She fractured her ankle years ago after a fall on ice. She has not had any other fractures. There has been no height loss since youth. She takes adequate amounts of calcium and vitamin D daily between her diet and supplements. She denies any history of kidney stones and denies any history of steroid, thyroid hormone or antiseizure medication use. She performs regular weight bearing exercise. She is steady on her feet and does not fall. Her dental exams are up to date. Her last DXA was performedin 04/07 and showed lumbar spine T-score was falsely elevated, right femoral neck -1.7 and total hipT-score -1.4. Her FRAX score at the hip was high at 3.3% The patient feels well in general. She recently had an EGD performed for difficulty swallowing. Shehas a hiatal hernia and also required a dilation. She is now on a PPI. She denies any weight changes, trouble swallowing, chest pain, palpitations or trouble breathing. Her bowel movements are normal. She denies any muscle weakness or new easy bruising. Her menses were normal throughout life and ended in her early 40's. She was on Premarin for a period of time. The remainder of review of systems is unremarkable. In the mornings, her left hip bothers her at times. Past medical/surgical history, medications, allergies, family history and social history were reviewed. No osteoporosis in the family. Physical exam: Patient Vitals for the past 24 hrs: BP Pulse Height Weight 08/04/19 1512 (!) 173/73 67 175.3 cm (69.02) 81.2 kg (179 lb) Gen: well developed, gait steady, NAD. HEENT: anicteric sclera, MMM, no abnormal hair or skin changes noted. Neck: supple, no thyromegaly or lymphadenopathy, no JVD. Heart: regular with no murmurs. Lungs: clear bilaterally, no wheeze. Abdomen: soft, normoactive bowel sounds, non tender, non distended. Extremities: No peripheral edema, pulses intact, no tremor of hands. Spine: Non tender, no increased kyphosis. Labs: none recent to review. Assessment/Plan: Osteopenia with a high FRAX score. We reviewed the pathophysiology of bone loss and the results of the patient's last DXA in detail. We talked about the importance of proper calcium and vitamin D intake along with weight bearing exercise and fall prevention for bone health. The frank ent's risk for fracture is high. We discussed different medication options at this time and their potential side effects. She is not a good candidate for an oral bisphosphonate with her GI history. At this time, we have decided to proceed with Reclast. I will contact her insurance about this medication. She will then have a repeat DXA performed here in two years. She will call sooner with any change in symptoms or concerns. Labs will be tested today including a CMP and a 25OH D level, I will contact her with the results. She will return in 12 months. Thank you for allowing me to participate in this patient's care. documented in this encounter Plan of Treatment Scheduled Referrals Name Type Priority Associated Diagnoses Order Schedule AMB MEDICATION PRIOR AUTHORIZATION Outpatient Referral Routine Osteopenia with high risk of fracture Ordered: 08/04/2019 documented as of this encounter Results * VITAMIN D (25,OH) (08/04/2019 16:16 EST) 25OH Vitamin D Tot 45.2 30.0 - 100.0 ng/mL 08/05/2019 11:26 EST [facility] Comment: Vitamin D 25,OH Interpretive Ranges: Deficiency: ??<10.0 ng/mL Insufficiency: ??10.0 - 30.0 ng/mL Sufficiency: ??30.0 - 100.0 ng/mL Toxicity: ??>100.0 ng/mL Blood VENOUS BLOOD / Unknown Venipuncture / Unknown 08/04/2019 16:16 EST 08/04/2019 16:17 EST Sharron Jesus DO CHEMISTRY & BLOOD GAS ORDERA BLES Final Result [facility] [address] [place] [phone] * (ABNORMAL) COMPREHENSIVE METABOLIC PANEL (CMP) (08/04/2019 16:16 EST) Sodium 139 136 - 145 mEq/L 08/04/2019 19:43 EST [facility] Potassium 3.9 3.5 - 5.0 mEq/L 08/04/2019 19:43 [facility] Chloride 97 96 - 110 mEq/L 08/04/2019 19:43 [facility] CO2 Total 33(H) 22 - 32 mEq/L 08/04/2019 19:43 [facility] Glucose 110(H) 70 - 100 mg/dL 08/04/2019 19:43 [facility] BUN 17 10 - 26 mg/dL 08/04/2019 19:43 [facility] Creatinine 0.86 0.52 - 1.04 mg/dL 08/04/2019 19:43 [facility] eGFR 64 >60 mL/min/1.7 3m2 08/04/2019 19:43 [facility] Comment:eGFR calculated reji griggs CKD-EPI equation for non- Americans. Multiply eGFR by 1.16 for patients. Total Protein 7.3 6.3 - 8.2 g/dL 08/04/2019 19:43 [facility] Albumin 4.5 3.4 - 4.9 g/dL 08/04/2019 19:43 [facility] Alkaline Phosphatase 54 38 - 126 U/L 08/04/2019 19:43 [facility] AST 30 15 - 46 U/L 08/04/2019 19:43 [facility] ALT 27 <35 U/L 08/04/2019 19:43 [facility] Bilirubin, Total 0.8 <1.4 mg/dL 08/04/19 20 19:43 [facility] Calcium 9.8 8.5 - 10.5 mg/dL 08/04/2019 19:43 [facility] Calculated Calcium 9.4 8.5 - 10.5 mg/dL 08/04/2019 19:43 [facility] Blood VENOUS BLOOD / Unknown Venipuncture / Unknown 08/04/2019 16:16 EST 08/04/2019 16:17 EST Sharron Jesus DO CHEMISTRY & BLOOD GAS ORDERA BLES Final Result [facility] [address] [place] [address] documented in this encounter Visit Diagnoses Diagnosis Osteopenia with high risk of fracture- Primary documented in this encounter Care Teams Mushroom Press Operator Relationship Specialty Start Date End Date Melba Vieira MD [address] [place] [phone] PCP - General 04/06/14 documented as of this encounter
--- OUTSIDE RECORDS SUMMARY | 2024-08-24 22:19 | XMS_ITS | Encounter Summary ---
Author Organization [facility] Address [address] [place] [address] Care Team Providers Care Med Spa Manager Name Role Phone Melba Vieira MD Primary Care Provider [phone] Encounter Details Date Type Department Care Team (Late st Contact Info) Description 08/07/2021 Lab Requisition [facility] Pathology & Laboratory Medicine - [facility] [address] [place] [address] Melba Vieira MD [address] [place] [phone] Essential (primary) hypertension; Sacroiliitis, not elsewhere classified (HCC-CMS); Hyperlipidemia, unspecified Social History Tobacco Use Types Packs/Day Years [...] Procedure Name Priority Date/Time Associated Diagnosis Comments RHEUMATOID FACTOR Routine 08/07/2021 14: 28 EST Sacroiliitis, not elsewhere classified (HCC-CMS) ([facility]) C REACTIVE PROTEIN Routine 08/07/2021 14 :28 EST Sacroiliitis, not elsewhere classified (HCC-CMS) (HCC) ANTI NUCLEAR AB (AGNES), IFA Routine 08/07/2021 14:28 EST Sacroiliitis, not elsewhere classified (HCC-CMS) (HCC) LIPID PROFILE (INCLUDES CHOLESTEROL, TRIGLYCERIDES, HDL, LDL) Routine 08/07/2021 14:28 EST Hyperlipidemia, unspecified COMPREHENSIVE METABOLIC PANEL (CMP) Routine 08/07/2021 14:28 EST Essential (primary) hypertension documented in this encounter Results * LIPID PROFILE (INCLUDES CHOLESTEROL, TRIGLYCERIDES, HDL, LDL) (08/07/2021 14:28 EST) Cholesterol 150 See Note mg/dL 08/07/2021 20:32 [facility] Comment: Acceptable: ?<200 mg/dL Borderline High: 200-239 mg/dL High: ?> or = 240 mg/dL HDL 93 See Note mg/dL 08/07/2021 20:32 [facility] Comment: Low: ? <40 mg/dL Normal: ??40-60 mg/dL High: ?>60 mg/dL LDL, Calculated 36 See Note mg/dL 08/07/2021 20:32 [facility] Comment: Optimal: ? <100 mg/dL Near Optimal: ?100-129 mg/dL Borderline High: 130-159 mg/dL High: ?160-189 mg/dL Very High: ? > or = 190 mg/dL Triglyceride 104 See Note mg/dL 08/07/2021 20:32 [facility] Comment: Normal: ? <150 mg/dL Borderline High: ??150 - 199 mg/dL High: ? 200 - 499 mg/dL Very High: ?> or = 500 mg/dL Chol/HDL Ratio 1.6 See Note 08/07/2021 20:32 [facility] Comment:No reference range h as been established for CHOL/HDL ratio. Non HDL Cholesterol 57 See Note mg/dL 08/07/2021 20:32 [facility] Comment: Desirable: ?<130 mg/dL Borderline High: ??130-159 mg/dL High: ? 160-189 mg/dL Very High: ?> or = 190 mg/dL Blood VENOUS BLOOD / Unknown 08/07/2021 14:28 EST 08/07/2021 20:02 EST Melba Vieira MD CHEMISTRY & BLOOD GAS ORDERAB LES Final Result Performing Organization Address [facility] Co de Phone Number [facility] [address] [place] [address] * (ABNORMAL) ANTI NUCLEAR AB (AGNES), IFA (08/07/2021 14:28 EST) Pathologist [facility] AGNES Interpretation Positive(A) Negative 08/08/2021 13:44 [facility] AGNES Titer and Pattern 1 1:80 Speckled 08/08/2021 13:44 [facility] Blood VENOUS BLOOD / Unknown 08/07/2021 14:28 EST 08/07/2021 20:02 EST Narrative [facility] - 08/08/2021 13:44 EST Results were obtained with the INOVA NOVA Lite HEp-2 AGNES Kit by indirect immunofluorescence. Melba Vieira MD IMMUNOLOGY AND SEROLOGY ORDER ARSALAN Final Result Performing Organization Address [facility] Co de Phone Number [facility] [address] [place] [address] * RHEUMATOID FACTOR (08/07/2021 14:28 EST) Pathologist [facility] Rheumatoid Factor <8.6 <12.0 IU/mL 08/07/2021 20:32 [facility] Blood VENOUS BLOOD / Unknown 08/07/2021 14:28 EST 08/07/2021 20:02 EST Melba Vieira MD CHEMISTRY & BLOOD GAS ORDERAB LES Final Result Performing Organization Address City/[facility]/ZIP Co de Phone Number [facility] [address] [place] [address] * C REACTIVE PROTEIN (08/07/2021 14:28 EST) C-Reactive Protein <7.0 <10.0 mg/L 08/07/2021 20:32 [facility] Blood VENOUS BLOOD / Unknown 08/07/2021 14:28 EST 08/07/2021 20:02 EST Melba Vieira MD CHEMISTRY & BLOOD GAS ORDERAB LES Final Result Performing Organization Address [facility] de Phone Number [facility] [address] [place] [address] * (ABNORMAL) COMPREHENSIVE METABOLIC PANEL (CMP) (08/07/2021 14:28 EST) Sodium 141 136 - 145 mmol/L 08/07/2021 20:32 [facility] Potassium 3.9 3.5 - 5.0 mmol/L 08/07/2021 20:32 [facility] Chloride 99 96 - 110 mmol/L 08/07/2021 20:32 [facility] CO2 Total 34(H) 22 - 32 mmol/L 08/07/2021 20:32 [facility] Glucose 100 70 - 100 mg/dL 08/07/2021 20:32 [facility] BUN 15 10 - 26 mg/dL 08/07/2021 20:32 [facility] Creatinine 0.67 0.52 - 1.04 mg/dL 08/07/2021 20:32 [facility] eGFR 83 >60 mL/min/1.7 3m2 08/07/2021 20:32 [facility] Total Protein 7.9 6.3 - 8.2 g/dL 08/07/2021 20:32 [facility] Albumin 4.9 3.4 - 4.9 g/dL 08/07/2021 20:32 [facility] Alkaline Phosphatase 50 38 - 126 U/L 08/07/2021 20:32 [facility] AST 32 15 - 46 U/L 08/07/2021 20:32 [facility] ALT 25 <35 U/L 08/07/2021 20:32 [facility] Bilirubin, Total 1.0 <1.4 mg/dL 08/07/19 20:32 [facility] Calcium 10.0 8.5 - 10.5 mg/dL 08/07/2021 20:32 [facility] Albumin/Globulin Ratio 1.6 1.0 - 2.5 08/07/2021 20:32 [facility] Anion Gap 8 8 - 16 08/07/2021 20:32 [facility] Blood VENOUS BLOOD / Unknown 08/07/2021 14:28 EST 08/07/2021 20:02 EST us Melba Vieira MD CHEMISTRY & BLOOD GAS ORDERAB LES Final Result Performing Organization Address City/State/[facility] Co de Phone Number [facility] [address] [place] [address] documented in this encounter Visit Diagnoses Diagnosis Essential (primary) hypertension Unspecified essential hypertension Sacroiliitis, not elsewhere classified (HCC-CMS) Sacroiliitis, not elsewhere classified Hyperlipidemia, unspecified documented in this encounter Care Teams Med Spa Manager Relationship Specialty Start Date End Date Melba Vieira MD [address] [place] [phone] PCP - General 04/06/14 documented as of this encounter
--- OUTSIDE RECORDS SUMMARY | 2024-08-24 22:19 | XMS_ITS | Encounter Summary ---
Author Organization [facility] Address [address] [place] [address] Care Team Providers Care Advertising Campaign Manager Name Role Phone Esha Gomez MD Primary Care Provider Unavailabl e Encounter Details Date Type Department Care Team (Latest Contact Info) Description 01/22/2011 10:13 EDT - 01/22/2011 10:14 EDT Hospital Encounter [address] [address] Esha Gomez MD Discharge Disposition: Home or Self Care Social History Tobacco Use Types Packs/Day Years Used Date Smoking Tobacco: Never Assessed Comments Unknown Sex and Gender Information Value Date Recorded Sex Assigned at Not on file Legal Sex Female 17:51 EST Gender Identity Female 10/31/2021 15:24 EDT Sexual Orientation Not on file documented as of this encounter Discharge Disposition Disposition Code Departure Means Destination Home or Self Care documented in this encounter Plan of Treatment Not on file documented as of this encounter Visit Diagnoses Not on filedocumented in this encounter Care Teams Advertising Campaign Manager Relationship Specialty Start Date End Date Esha Gomez MD PCP - General 06/15/09 04/05/14 documented as of this encounter
--- OUTSIDE RECORDS SUMMARY | 2024-08-24 22:19 | XMS_ITS | Encounter Summary ---
Author Organization [facility] Address [address] [place] [address] Care Team Providers Care Guard Manager Name Role Phone Esha Gomez MD Primary Care Provider Unavailabl e Encounter Details Date Type Department Care Team (Latest Contact Info) Description 01/14/2011 10:40 EDT - 01/14/2011 23:59 EDT Hospital Encounter [facility] [address] [place] [address] Esha Gomez MD Discharge Disposition: Home or [...] Code Departure Means Destination Home or Self Alf documented in this encounter Plan of Treatment Not on file documented as of this encounter Visit Diagnoses Not on filedocumented in this encounter Care Teams Guard Manager Relationship Specialty Start Date End Date Esha Gomez MD PCP - General 06/15/09 04/05/14 documented as of this encounter
--- OUTSIDE RECORDS SUMMARY | 2024-08-24 22:19 | XMS_ITS | Encounter Summary ---
Author Organization [facility] Address [address] [place] [address] Care Team Providers Care Spine Specialist Name Role Phone Melba Vieira MD Primary Care Provider [phone] Encounter Details Date Type Department Care Team (Latest Contact Info) Description 05/01/2015 7:06 EDT - 05/01/2015 23:59 EDT Hospital Encounter [address] [address] Melba Vieira MD [address] [place] [phone] Discharge Disposition: Auto Discharge Social [...] on filedocumented in this encounter Care Teams Spine Specialist Relationship Specialty Start Date End Date Melba Vieira MD [address] [place] [phone] PCP - General 04/06/14 documented as of this encounter
--- OUTSIDE RECORDS SUMMARY | 2024-08-24 22:19 | XMS_ITS | Encounter Summary ---
Author Organization [facility] Address [address] [place] [address] Care Team Providers Care Cash Applications Associate Name Role Phone Esha Gomez MD Primary Care Provider Unavailabl e Encounter Details Date Type Department Care Team (Late st Contact Info) Description 01/26/2013 Results Only Imaging [facility] [phone] Esha Gomez MD Social History Tobacco Use [...] Name Priority Date/Time Associated Diagnosis Comments MA MAMMO SCREENING DIGITAL 03/11/2013 11:57 EDT documented in this encounter Results * MA MAMMO SCREENING DIGITAL (03/11/2013 11:57 EDT) Anatomical Region Laterality Modality Other 03/11/2013 11:5 7 EDT 03/18/2013 14:18 EDT Narrative 03/18/2013 14:18 EDT Comparison has been made to previous images. Bilateral Breast Findings: (Routine digital views with CAD) There are scattered fibroglandular [...] will contact your patient directly. Procedure Note 03/18/2013 Comparison has been made to previous images. Bilateral Breast Findings: (Routine digital views with CAD) There are scattered fibroglandular [...] needed we will contact your patient directly. Esha Gomez MD IMG MAMMOGRAPHY ORDERABLES Final Result documented in this encounter Visit Diagnoses Not on filedocumented in this encounter Care Teams Cash Applications Associate Relationship Specialty Start Date End Date Esha Gomez MD PCP - General 06/15/09 04/05/14 documented as of this encounter
--- OUTSIDE RECORDS SUMMARY | 2024-08-24 22:19 | XMS_ITS | Encounter Summary ---
Author Organization [facility] Address [address] [place] [address] Care Team Providers Care Paper Cutter Name Role Phone Melba Vieira MD Primary Care Provider [phone] Reason for Visit * Reason Onset Date Comments Appointment Related 05/17/2019 CRISELDA de leon/Dr Kristal harvey's replacement Encounter Details Date Type Department Care Team (Late st Contact Info) Description 05/17/[address] [address] Keara Vieira MD [address] [phone] Appointment Related (CRISELDA de leon/Dr Vieira'jodi replacement) Social History Tobacco Use Types Packs/Day Years [...] encounter Miscellaneous Notes * Telephone Encounter - Keyona Naylor - 05/17/2019 1054 EDT Patient calling to schedule CRISELDA de leon/Dr Vieira's replacement Pls call back documented in this encounter Plan of Treatment Not on file documented as of this encounter Visit Diagnoses Not on filedocumented in this encounter Care Teams Paper Cutter Relationship Specialty Start Date End Date Melba Vieira MD [address] [place] [phone] PCP - General 04/06/14 documented as of this encounter
--- OUTSIDE RECORDS SUMMARY | 2024-08-24 22:19 | XMS_ITS | Encounter Summary ---
Author Organization [facility] Address [address] [place] [address] Care Team Providers Care Dice Table Person Name Role Phone Melba Vieira MD Primary Care Provider [phone] Reason for Referral * Radiology Services (Routine/Next Available) - Authorized Specialty Diagnoses / Procedures Referred By Taj partida Referred To Contact Diagnoses Osteopenia with high risk of fracture Procedures XR DEXA BONE DENSITY Sharron Jesus DO Phone: tel: fax: Referral ID Status Reason Start Date Expiration Date V isits Requested Visits Authorized [id number] Authorized 09/11/2021 1 1 Reason for Visit * Reason Comments Osteopenia Encounter Details Date Type Department Care Team (Late st Contact Info) Description 09/11/2021 13:30 EST Office Visit [facility] Endocrinology - [facility] [address] [place] [address] Sharron Jesus DO [address] [facility] [address] [place] [phone] Osteopenia with high risk of fracture [...] Sign Reading Time Taken Comments Blood Pressure 149/66 09/11/2021 1334 EST Pulse 59 09/11/2021 1334 EST Temperature - - Respiratory Rate - - Oxygen Saturation - - Inhaled Oxygen Concentration - - Weight 81.2 kg (179 lb 0.2 oz) 09/11/[address] Height 175.3 cm (5' 9.02) 09/11/2021 1334 EST Body Mass Index 26.42 09/11/2021 1334 EST documented in this encounter Progress Notes * Sharron Jesus, DO - 09/11/2021 1330 EST The patient is seen for follow up [...] her feet and does not fall. She will see a cutter plastics rolls soon for lower back pain that occurs in the mornings. Her dental exams are up to date. She received Reclast for the first time in 09/08 and tolerated it well. Her last DXA was performed in 01/07 and showed lumbar spine T-score was falsely elevated, right femoral neck -1.6 and total hip T- score -1.3. Her FRAX score previously at the hip was high at 3.3% She overall feels well in general. She previously had an EGD performed for difficulty swallowing. She has a hiatal hernia and also required a dilation. Things have been stable from this standpoint. She denies any chest pain, palpitations or trouble breathing. Her bowel movements are normal. The remainder of review of systems is unremarkable. Medications, allergies, family history and social history were reviewed. No osteoporosis in the family. Physical exam: Patient Vitals for the past 24 hrs: BP Pulse Height Weight 09/11/21 1334 (!) 149/66 59 175.3 cm (69.02) 81.2 kg (179 lb 0.2 oz) Gen: well developed, pleasant, gait steady, NAD. HEENT: anicteric sclera, MMM, no abnormal hair or skin changes noted. Neck: supple, no thyromegaly or lymphadenopathy, no JVD. Heart: regular with no murmur. Lungs: clear anteriorly bilaterally, no wheeze. Abdomen: soft, normoactive bowel sounds, non tender, non distended. Extremities: No peripheral edema, pulses intact, chronic tremor of hands. Spine: Non tender, no increased kyphosis. Labs from 08/10: CMP normal. Assessment/Plan: Osteopenia with a high [...] every 18-24 months for osteopenia. She will receive an infusion again soon at [facility] and will be well hydrated that time. She will have an updated DXA exam performed in two years She will call sooner with any change in symptoms or concerns. She will return in two years. Thank you for allowing me to participate in this patient's care. * Martina Hollingsworth MA - 09/11/2021 1330 EST BP is higher when coming to the doctors documented in this encounter Plan of Treatment Scheduled Orders Name Type Priority Associated Diagnoses Orde r Schedule XR DEXA BONE DENSITY Imaging Routine Osteopenia with high risk of fracture Expected: 09/11/2023, Expires: 09/11/2024 documented as of this encounter Visit Diagnoses Diagnosis Osteopenia with high risk of fracture- Primary documented in this encounter Historical Medications * This list may reflect changes made after this encounter. mv-mn/lutein/zeax/ [id number]/hb277 ([facility]UL[facility] ORAL) Take by mouth. bimatoprost (LUMIGAN) 0.01 % ophthalmic drops Place 1 Drop into both eyes at bedtime. added in this encounter Care Teams Dice Table Person Relationship Specialty Start Date End Date Melba Vieira MD [address] [place] [phone] PCP - General 04/06/14 documented as of this encounter
--- OUTSIDE RECORDS SUMMARY | 2024-08-24 22:19 | XMS_ITS | Encounter Summary ---
Author Organization [facility] Address [address] [place] [address] Care Team Providers Care Profile Shaper Operator Name Role Phone Esha Gomez MD Primary Care Provider Melba Rodriges MD Primary Care Provider [phone] Encounter Details Date Type Department Care Team (Late st Contact Info) Description 02/05/2012 Documentation Visit [facility] General Surgery - [address] [address] Cristóbal Cash MD [address] [place] [address] Social History Tobacco Use Types Packs/Day Years Used Date Smoking Tobacco: Never Assessed Comments Unknown Sex and Gender Information Value Date Recorded Sex Assigned at Not on file Legal Sex Female 17:51 EST Gender Identity Female 10/31/2021 15:24 EDT Sexual Orientation Not on file documented as of this encounter Progress Notes * Cristóbal Cash - 02/05/2012 1204 EDT DIVISION OF GENERAL SURGERY February 05, 2012 Esha Gomez MD [address] [address] Dear Esha: On February 05, 2012, Melissa López underwent a full colonoscopy to the cecum in light of her historyof polyps and family history of colorectal cancer in her sister. Everything was completely normal. Assuming her health is good, she will have a repeat colonoscopy in 5 years. Please let me know if you have any questions in this regard. Sincerely, Electronically Signed by Cristóbal Cash MD, FACS 02/05/2012 13:40 Mer Cash MD, [id number] H Hyman, MD, FACS - Cristóbal Cash MD, FACS - [place] Job ID: SM Doc ID: [id number] Ext Doc ID: [id number] cc: Esha Gomez MD documented in this encounter Plan of Treatment Not on file documented as of this encounter Visit Diagnoses Not on filedocumented in this encounter Care Teams Profile Shaper Operator Relationship Specialty Start Date End Date Esha Gomez MD PCP - General 06/15/09 04/05/14 Melba Vieira MD [address] [place] [phone] PCP - General 04/06/14 documented as of this encounter
--- OUTSIDE RECORDS SUMMARY | 2024-08-24 22:19 | XMS_ITS | Encounter Summary ---
Author Organization [facility] Address [address] [place] [address] Care Team Providers Care Scalp Treatment Operator Name Role Phone Melba Vieira MD Primary Care Provider [phone] Reason for Visit * Reason Onset Date Comments Infusion 08/23/2020 Reclast Encounter Details Date Type Department Care Team (Late st Contact Info) Description 08/23/2020 Telephone [facility] Endocrinology - [address] [address] Jessica Winslow RN Infusion (Reclast) Social History Tobacco Use Types Packs/Day Years [...] encounter Miscellaneous Notes * Telephone Encounter - Jessica Winslow RN - 09/14/[address] Jesus 09/11/20. Reclast can be given every 18-24 months for osteopenia. Plan is for DXA this Fall 2020 before ordering next Reclast infusion. * Telephone Encounter - Jessica Winslow RN - 08/23/2020 1207 EST [place] [facility]. Reclast was given there on 09/23/19. Not sure if she needs anotherone this year. Follow up pending with Dr. Jesus. documented in this encounter Plan of Treatment Not on file documented as of this encounter Visit Diagnoses Not on filedocumented in this encounter Historical Medications * This list may reflect changes made after this encounter. zoledronic acid (RECLAST) 5 mg/100 mL piggyback Inject 5 mg into the vein. Infusion given 09/23/19 at [facility] (every 18-24 months for osteopenia) added in this encounter Care Teams Scalp Treatment Operator Relationship Specialty Start Date End Date Melba Vieira MD [address] [place] [phone] PCP - General 04/06/14 documented as of this encounter
--- OUTSIDE RECORDS SUMMARY | 2024-08-24 22:19 | XMS_ITS | Encounter Summary ---
Author Organization [facility] Address [address] [place] [address] Care Team Providers Care Garment Fitter Name Role Phone Melba Vieira MD Primary Care Provider [phone] Encounter Details Date Type Department Care Team (Late st Contact Info) Description 10/17/2016 12:22 EDT - 10/17/2016 23:59 EDT Hospital Encounter [facility] Endoscopy Outpatient [address] [place] [address] Kingston Anders MD [address] [place] [address] [address] [place] [address] Discharge Disposition: Auto Discharge Social History Tobacco [...] Sign Reading Time Taken Comments Blood Pressure 118/57 10/17/2016 1433 EDT Pulse - - Temperature 35.1 ??C (95.2 ??F) 10/17/2016 1 415 EDT Pt warm, comfortable. Respiratory Rate 14 10/17/2016 1433 EDT Oxygen Saturation 98% 10/17/2016 143 3 EDT Inhaled Oxygen Concentration - - Weight 70.3 kg (155 lb) 10/17/2016 1308 EDT Height 175.3 cm (5' 9) 10/17/2016 1308 EDT Body Mass Index 22.89 10/17/2016 1308 EDT documented in this encounter Discharge Diagnoses Diagnosis Z12.11 Encounter for screening for malignant neoplasm of colon-Z12.11[ICD-10-CM] Z86.010 Personal history of colonic polyps-Z86.010[ICD-10-CM] I10 Essential (primary) hypertension-I10[ICD-10-CM] Z79.82 salvage determiner (current) use of aspirin-Z79.82[ICD-10-CM] Z79.899 Other ferry terminal agent (current) drug therapy-Z79.899[ICD-10-CM] documented in this encounter Medications at Time [...] Auto Discharge Home documented in this encounter H&P Notes * Kingston Anders MD - 10/17/2016 1338 EDT Endoscopy Sedation for Procedure History & Physical Date: 10/17/2016 Time: 13:38 Location: [facility] Endo Planned Procedure: Colonoscopy Chief Complaint/Indications for Procedure: screening, hx polyps History Previous Complication with Sedation and/or Anesthesia? [...] injection 100-250 mcg intravenous Once PRN ??? heparin (PF) 100 unit/mL lock flush 500 Units intercatheter PRN ??? lactated ringers (LR) infusion intravenous CONTINUOUS ??? midazolam (PF) (VERSED) 1 mg/mL injection 1-10 mg intravenous Once PRN Past Medical History: Past Medical History: Diagnosis Date ??? Colon polyp ??? Hypertension Social History: History reviewed. No pertinent surgical history. Social History Substance Use Topics ??? Smoking status: Never Smoker ??? Smokeless tobacco: Never Used ??? Alcohol use 1.2 oz/week 2 Glasses of wine per week Comment: occas Family History: Family History Problem Relation Age of Onset ??? Colon Cancer Sister late 40's Review of Systems as pertinent: Physical Exam Vital Signs: Visit Vitals ??? BP 133/65 ??? Temp 36.4 ??C (97.5 ??F) (Tympanic) ??? Resp 16 ??? Ht 175.3 cm (69) ??? Wt 70.3 kg (155 lb) ??? SpO2 100% ??? BMI 22.89 kg/m2 Heart Examination: Cardiac Regularity: Regular Respiratory Examination: [...] Fasting Time: Time of last liquid intake: 1000 Date of Last Liquid Intake: 10/17/16 Time of last solid intake: 1000 Date of last solid intake: 10/16/16 Patient Appropriate Candidate for Planned Sedation?: Yes Kingston Anders MD 10/17/2016 13:38 documented in this encounter Plan of Treatment Not on file documented as of this encounter Procedures Procedure Name Priority Date/Time Associated Diagnosis Comments ENDOSCOPY REPORTS - SCANNED 10/18/2016 0:34 EDT documented in this encounter Results * ENDOSCOPY REPORTS - SCANNED (10/18/2016 0:34 EDT) 10/18/2016 0:34 EDT us Scan 2 Pharmacy Helper PROCEDURE/MINOR SURGICAL OR DERABLES Final Result documented in this encounter Visit Diagnoses Not on filedocumented in this encounter Administered Medications Inactive Administered Medications - up to 3 most recent administrations Medication Order MAR Action Action Date Dose Rate Site fentaNYL citrate (PF) 50 mcg/mL injection 100-250 mcg 100-250 mcg, intravenous, ONCE PRN, 1 dose, Starting on Thu10/17/16 at 1310, Until Thu10/17/16 at 1355, Other, sedation, Routine, Intraprocedure Given 10/17/2016 13:55 EDT 50 mcg lactated ringers (LR) infusion 30 mL/hr, intravenous, CONTINUOUS, Starting on Thu10/17/16 at 1330, Until Thu10/19/16 at 0415, Routine, Preprocedure New Bag 10/17/2016 13:27 EDT 30 mL/hr 30 mL/hr midazolam (PF) (VERSED) 1 mg/mL injection 1-10 mg 1-10 mg, intravenous, ONCE PRN, 1 dose, Starting on Thu10/17/16 at 1310, Until Thu10/17/16 at 1355, Sedation, Routine, Intraprocedure Given 10/17/2016 13:55 EDT 2 mg documented in this encounter Orders Medications Ordered That Terrence ht Not Have Been Administered Count Last Ordered Date First Ordered Date heparin (PF) 100 unit/mL loc k flush 500 Units 1 10/17/2016 Discharge Count Last Ordered Date First Orde red Date DISCHARGE PATIENT 1 10/17/2016 documented in this encounter Care Teams Garment Fitter Relationship Specialty Start Date End Date Melba Vieira MD [address] [place] [phone] PCP - General 04/06/14 documented as of this encounter
--- OUTSIDE RECORDS SUMMARY | 2024-08-24 22:19 | XMS_ITS | Encounter Summary ---
Author Organization [facility] Address [address] [place] [address] Care Team Providers Care Top Lift Compressor Name Role Phone Esha Gomez MD Primary Care Provider Unavailgabriella e Encounter Details Date Type Department Care Team (Late st Contact Info) Description 12/22/2011 Results Only [facility] [phone] Esha Gomez MD Social History Tobacco Use [...] Associated Diagnosis Comments MA MAMMO SCREENING DIGITAL 02/16/2012 13:27 EDT documented in this encounter Results * MA MAMMO SCREENING DIGITAL (02/16/2012 13:27 EDT) Anatomical Region Laterality Modality Other 02/16/2012 13:2 7 EDT 02/16/2012 17:15 EDT Narrative 02/16/2012 17:15 EDT Comparison has been made to previous [...] and agree with the findings. Procedure Note Gomez Torres MD - 02/16/2012 Comparison has been made to previous images. [...] above interpretation and agree with the findings. us Esha Gomez MD IMG MAMMOGRAPHY ORDERABLES Final Result documented in this encounter Visit Diagnoses Not on filedocumented in this encounter Care Teams Top Lift Compressor Relationship Specialty Start Date End Date Esha Gomez MD PCP - General 06/15/09 04/05/14 documented as of this encounter
--- OUTSIDE RECORDS SUMMARY | 2024-08-24 22:19 | XMS_ITS | Encounter Summary ---
Author Organization [facility] Address [address] [place] [address] Care Team Providers Care Independent Living Instructor Name Role Phone Melba Vieira MD Primary Care Provider [phone] Encounter Details Date Type Department Care Team (Latest Contact Info) Description 08/04/2019 15:50 EST Phlebotomy Only [facility] Endocrinology - [address] [address] Phlebotomy, [facility] Endo Osteopenia with high risk of fracture (Primary [...] as of this encounter Progress Notes * Judy Peck MA - 08/04/2019 1550 EST A venous blood collection was preformed today via venipuncture on this patient. I was supervised by Cathryn Littlejohn who was present and immediately available in the office suite. JUDY PECK MA 08/04/2019 16:17 documented in this encounter Plan of Treatment Not on file documented as of this encounter Procedures Procedure Name Priority Date/Time Associated Diagnosis Comments VITAMIN D (25,OH) Routine 08/04/2019 16: 16 EST Osteopenia with high risk of fracture COMPREHENSIVE METABOLIC PANEL (CMP) Routine 08/04/2019 16:16 EST Osteopenia with high risk of fracture documented in this encounter Results * VITAMIN D (25,OH) (08/04/2019 16:16 EST) 25OH Vitamin D Tot 45.2 30.0 - 100.0 ng/mL 08/05/2019 11:26 [facility] Comment: Vitamin D 25,OH Interpretive Ranges: Deficiency: ??<10.0 ng/mL Insufficiency: ??10.0 - 30.0 ng/mL Sufficiency: ??30.0 - 100.0 ng/mL Toxicity: ??>100.0 ng/mL Blood VENOUS BLOOD / Unknown Venipuncture / Unknown 08/04/2019 16:16 EST 08/04/2019 16:17 EST Sharron Jesus DO CHEMISTRY & BLOOD GAS ORDERA BLES Final Result [facility] [address] [place] [address] * (ABNORMAL) COMPREHENSIVE METABOLIC PANEL (CMP) (08/04/2019 16:16 EST) Pathologist [facility] Sodium 139 136 - 145 mEq/L 08/04/2019 19:43 [facility] Potassium 3.9 3.5 - 5.0 mEq/L 08/04/2019 19:43 [facility] Chloride 97 96 - 110 mEq/L 08/04/2019 19:43 [facility] CO2 Total 33(H) 22 - 32 mEq/L 08/04/2019 19:43 [facility] Glucose 110(H) 70 - 100 mg/dL 08/04/2019 19:43 [facility] BUN 17 10 - 26 mg/dL 08/04/2019 19:43 [facility] Creatinine 0.86 0.52 - 1.04 mg/dL 08/04/2019 19:43 [facility] eGFR 64 >60 mL/min/1.7 3m2 08/04/2019 19:43 [facility] Comment:eGFR calculated reji griggs CKD-EPI equation for non- Americans. Multiply eGFR by 1.16 for patients. Total Protein 7.3 6.3 - 8.2 g/dL 08/04/2019 19:43 [facility] Albumin 4.5 3.4 - 4.9 g/dL 08/04/2019 19:43 [facility] Alkaline Phosphatase 54 38 - 126 U/L 08/04/2019 19:43 [facility] AST 30 15 - 46 U/L 08/04/2019 19:43 [facility] ALT 27 <35 U/L 08/04/2019 19:43 [facility] Bilirubin, Total 0.8 <1.4 mg/dL 08/04/19 20 19:43 [facility] Calcium 9.8 8.5 - 10.5 mg/dL 08/04/2019 19:43 [facility] Calculated Calcium 9.4 8.5 - 10.5 mg/dL 08/04/2019 19:43 [facility] Blood VENOUS BLOOD / Unknown Venipuncture / Unknown 08/04/2019 16:16 EST 08/04/2019 16:17 EST us Sharron Jesus DO CHEMISTRY & BLOOD GAS ORDERA BLES Final Result Performing Organization Address [facility]/State/[facility] Co de Phone Number [facility] [address] [place] [address] documented in this encounter Visit Diagnoses Diagnosis Osteopenia with high risk of fracture- Primary documented in this encounter Care Teams Independent Living Instructor Relationship Specialty Start Date End Date Melba Vieira MD [address] [place] [phone] PCP - General 04/06/14 documented as of this encounter
--- OUTSIDE RECORDS SUMMARY | 2024-08-24 22:19 | XMS_ITS | Encounter Summary ---
Author Organization [facility] Address [address] [place] [address] Care Team Providers Care New Media Strategist Name Role Phone Melba Vieira MD Primary Care Provider [phone] Encounter Details Date Type Department Care Team (Late st Contact Info) Description 08/01/2020 Lab Requisition [facility] Pathology & Laboratory Medicine - [facility] [address] [place] [address] Melba Vieira MD [address] [place] [phone] Neoplasm of uncertain behavior of skin Social History Tobacco Use Types Packs/Day Years [...] as of this encounter Visit Diagnoses Diagnosis Neoplasm of uncertain behavior of skin documented in this encounter Care Teams New Media Strategist Relationship Specialty Start Date End Date Melba Vieira MD [address] [place] [phone] PCP - General 04/06/14 documented as of this encounter
--- OUTSIDE RECORDS SUMMARY | 2024-08-24 22:19 | XMS_ITS | Encounter Summary ---
Author Organization [facility] Address [address] [place] [address] Care Team Providers Care Manager Product Management Name Role Phone Melba Vieira MD Primary Care Provider [phone] Encounter Details Date Type Department Care Team (Late st Contact Info) Description 04/28/2016 Results Only [facility] [phone] Melba Vieira MD [address] [place] [phone] Social History Tobacco Use Types Packs/Day [...] Procedure Name Priority Date/Time Associated Diagnosis Comments IBC Routine 04/28/2016 9:08 EDT IRON Routine 04/28/2016 9:08 EDT FERRITIN Routine 04/28/2016 9:08 EDT documented in this encounter Results * (ABNORMAL) FERRITIN (04/28/2016 9:08 EDT) Ferritin 8(L) 10 - 291 ng/ml 04/28/2016 14:51 EDT [facility] BLOOD SPECIMEN / Unknown 04/28/2016 9:08 EDT 04/28/2016 13:44 EDT Melba Vieira MD CHEMISTRY & BLOOD GAS ORDERAB LES Final Result Performing Organization Address City/[facility]/ZIP Co de Phone Number [facility] [address] [place] [address] * IRON (04/28/2016 9:08 EDT) Iron 74 37 - 170 ug/dl 04/28/2016 14:42 EDT [facility] BLOOD SPECIMEN / Unknown 04/28/2016 9:08 EDT 04/28/2016 13:44 EDT Melba Vieira MD CHEMISTRY & BLOOD GAS ORDERAB LES Final Result Performing Organization Address [facility] Co de Phone Number [facility] [address] [place] [address] * IBC (04/28/2016 9:08 EDT) TIBC 437 265 - 497 ug/dl 04/28/2016 14:42 EDT [facility] BLOOD SPECIMEN / Unknown 04/28/2016 9:08 EDT 04/28/2016 13:44 EDT Melba Vieira MD CHEMISTRY & BLOOD GAS ORDERAB LES Final Result Performing Organization Address City/[facility]/ZIP Co de Phone Number [facility] [address] [place] [address] documented in this encounter Visit Diagnoses Not on filedocumented in this encounter Care Teams Manager Product Management Relationship Specialty Start Date End Date Melba Vieira MD [address] [place] [phone] PCP - General 04/06/14 documented as of this encounter
--- OUTSIDE RECORDS SUMMARY | 2024-08-24 22:19 | XMS_ITS | Encounter Summary ---
Author Organization [facility] Address [address] [place] [address] Care Team Providers Care Slide Fastener Chain Assembler Name Role Phone Melba Vieira MD Primary Care Provider [phone] Encounter Details Date Type Department Care Team (Latest Contact Info) Description 04/10/2014 6:34 EDT - 04/10/2014 23:59 EDT Hospital Encounter [address] [address] Melba Vieira MD [address] [place] [phone] Discharge Disposition: Auto Discharge Social History Tobacco Use Types Packs/Day Years Used Date Smoking Tobacco: Never Assessed Comments Unknown Sex and Gender Information Value Date Recorded Sex Assigned at Not on file Legal Sex Female 17:51 EST Gender Identity Female 10/31/2021 15:24 EDT Sexual Orientation Not on file documented as of this encounter Discharge Diagnoses Diagnosis V76.11 SCREENING MAMMOGRAM FOR HIGH-RISK PATIENT, MALIGNANT NEOPLASM OF BREAST[ICD-9-CM] V16.3 FAMILY HX-BREAST MALIG[ICD-9-CM] documented in this encounter Medications at Time [...] MA 2D/3D BILATERAL TAVO ROUTINE SCREENING MAMMO 05/01/2015 13:56 EDT documented in this encounter Results * MA 2D/3D BILATERAL TAVO ROUTINE SCREENING MAMMO (05/01/2015 13:56 EDT) Anatomical Region Laterality Modality Other 05/01/2015 13:5 6 EDT 05/02/2015 12:20 EDT Narrative 05/02/2015 12:20 EDT Comparison has been made to previous [...] and agree with the findings. Procedure Note Jayne Logan MD - 05/02/2015 Comparison has been made to previous images. [...] interpretation and agree with the findings. us Melba Vieira MD IMG MAMMOGRAPHY ORDERABLES Fi nal Result documented in this encounter Visit Diagnoses Not on filedocumented in this encounter Care Teams Slide Fastener Chain Assembler Relationship Specialty Start Date End Date Melba Vieira MD [address] [place] [phone] PCP - General 04/06/14 documented as of this encounter
--- OUTSIDE RECORDS SUMMARY | 2024-08-24 22:19 | XMS_ITS | Encounter Summary ---
Author Organization [facility] Address [address] [place] [address] Care Team Providers Care Scheduler Maintenance Name Role Phone Melba Vieira MD Primary Care Provider [phone] Reason for Visit * Reason Onset Date Comments Medication Management 09/05/2022 Reclast Encounter Details Date Type Department Care Team (Late st Contact Info) Description 09/05/2022 Telephone [facility] Endocrinology - [address] [address] Jessica Winslow RN Medication Management (Reclast) Social History Tobacco Use Types Packs/Day [...] 11/14/2021 10:58 EDT documented in this encounter Miscellaneous Notes * Telephone Encounter - Jessica Winslow RN - 09/05/2022 1029 EST First Reclast infusion at [facility] 09/23/19, 2nd infusion appt was 09/25/21. Plan is for DXA at [facility] in 08/2023 then return for follow-up with Dr. Jesus. Plan for another Reclast infusion to be decided after DXA and follow-up. documented in this encounter Plan of Treatment Not on file documented as of this encounter Visit Diagnoses Not on filedocumented in this encounter Care Teams Scheduler Maintenance Relationship Specialty Start Date End Date Melba Vieira MD [address] [place] [phone] PCP - General 04/06/14 documented as of this encounter
--- OUTSIDE RECORDS SUMMARY | 2024-08-24 22:19 | XMS_ITS | Encounter Summary ---
Author Organization [facility] Address [address] [place] [address] Care Team Providers Care Retina Subspecialist Name Role Phone Fito Gomez MD Primary Care Provider Unavailabl e Encounter Details Date Type Department Care Team (Late st Contact Info) Description 01/22/2011 Results Only [facility] Laboratory Services - [facility] ([facility] [address] [place] [phone] Fito Gomez MD Social History Tobacco Use Types [...] Procedure Name Priority Date/Time Associated Diagnosis Comments PAP TEST- RESULT ONLY Routine 01/22/2011 0:00 EDT documented in this encounter Results * PAP TEST- RESULT ONLY (01/22/2011 0:00 EDT) Pathology Report: CYTOPATHOLOGY REPORT ? Reports generated via electronic interface contain original data; ? however they are lacking the format of the original report. ? Caution should be taken when reading/interpreti ng unformatted reports. ? Name: ? TRAMAINE, NARDA L ? Accession #: ? [id number] ? : ? 1940 (Age: 70) ??F ?Collect Date: ? 01/22/2011 ? Location: ? [facility] ? Receive Date: ? 01/23/2011 ? Provider: ?FITO DILL MD ? Copy to: ? Specimen/Source: ?Pap Test, Cervix/Endocervix, ThinPrep Imaging System ? with manual evaluation ? Last Menstrual Period: ? yrs ? SPECIMEN ADEQUACY ? Satisfactory for Evaluation ? - assessment of transformation zone component not applicable ( e.g. atrophy, ? vaginal sample, hysterectomy) ? - scant squamous epithelial component ? GENERAL CATEGORIZATION ? Negative for Intraepithelial Lesion or Malignancy ? Document reviewed and electronically signed by: ? Sharron Zhang, CT(ASCP) ? Report Date: ??01/30/2011 11:15 ? End of Report ? [facility] 01/22/2011 01/23/2011 us Fito Gomez MD PATHOLOGY ORDERABLES Final Resul t [facility] [address] [place] [address] documented in this encounter Visit Diagnoses Not on filedocumented in this encounter Care Teams Retina Subspecialist Relationship Specialty Start Date End Date Fito Gomez MD PCP - General 06/15/09 04/05/14 documented as of this encounter
--- OUTSIDE RECORDS SUMMARY | 2024-08-24 22:19 | XMS_ITS | Encounter Summary ---
Author Organization [facility] Address [address] [place] [address] Care Team Providers Care Telemarketing Representative Name Role Phone Melba Vieira MD Primary Care Provider [phone] Encounter Details Date Type Department Care Team (Late st Contact Info) Description 07/22/2017 Results Only Imaging [facility] [phone] Melba Vieira MD [address] [place] [address] Social History Tobacco Use Types Packs/Day [...] MA 2D/3D BILATERAL TAVO ROUTINE SCREENING MAMMO 07/22/2017 10:17 EST documented in this encounter Results * MA 2D/3D BILATERAL TAVO ROUTINE SCREENING MAMMO (07/22/2017 10:17 EST) Anatomical Region Laterality Modality Other 07/22/2017 10:1 7 EST 07/23/2017 14:14 EST Narrative 07/23/2017 14:14 EST Comparison has been made to previous images. [...] will contact your patient directly. Procedure Note Elen Tripathi MD - 07/23/2017 Comparison has been made to previous images. [...] contact your patient directly. Melba Vieira MD IMG MAMMOGRAPHY ORDERABLES Fi nal Result documented in this encounter Visit Diagnoses Not on filedocumented in this encounter Care Teams Telemarketing Representative Relationship Specialty Start Date End Date Melba Vieira MD [address] [place] [phone] PCP - General 04/06/14 documented as of this encounter
--- OUTSIDE RECORDS SUMMARY | 2024-08-24 22:19 | XMS_ITS | Encounter Summary ---
Author Organization [facility] Address [address] [place] [address] Care Team Providers Care Director Of Restaurant Name Role Phone Melba Vieira MD Primary Care Provider Reason for Visit * Reason Onset Date Comments Appointment Related 12/05/2021 Encounter Details Date Type Department Care Team (Late st Contact Info) Description 12/05/2021 Telephone [facility] [address] [place] [address] Malgorzata Barrios RN Appointment Related Social History Tobacco Use Types Packs/Day Years [...] encounter Miscellaneous Notes * Telephone Encounter - Anca Maharaj - 12/06/2021 1112 EDT X-ray scheduled for 12/10, appt with Dr. Figueroa rescheduled. * Telephone Encounter - Anca Maharaj - 12/06/2021 0959 EDT SHANDA de leon/[facility] ([phone], option 4) to give us a call back so we can schedule appt. * Telephone Encounter - Anca Maharaj - 12/05/2021 1025 EDT Order re-faxed to [facility], message left haley/[facility] to call patient to schedule appt. * Telephone Encounter - Malgorzata Barrios, JESSE - 12/05/2021 0944 EDT Melissa has a telephone appointment tomorrow at 11:[address] Figueroa to review hip x-rays and then discuss plan. [facility] never called Melissa to schedule hip x-rays so she feels she needs to reschedule appointment until after x-rays. Will you please: Call [facility] to schedule hip x-ray? Melissa can do the x-ray any day except 12/09 and 12/18. After hip x-ray scheduled, please reschedule telephone visit with Dr. Figueroa to review. Thank you. documented in this encounter Plan of Treatment Not on file documented as of this encounter Visit Diagnoses Not on filedocumented in this encounter Care Teams Director Of Restaurant Relationship Specialty Start Date End Date Melba Vieira MD [address] [place] [phone] PCP - General 04/06/14 documented as of this encounter
--- OUTSIDE RECORDS SUMMARY | 2024-08-24 22:19 | XMS_ITS | Encounter Summary ---
Author Organization [facility] Address [address] [place] [address] Care Team Providers Care Supervisor Asbestos Removal Name Role Phone Melba Vieira MD Primary Care Provider [phone] Encounter Details Date Type Department Care Team (Latest Contact Info) Description 05/14/2016 10:53 EDT - 05/14/2016 23:59 EDT Hospital Encounter [address] [address] Melba Vieira MD [address] [place] [phone] Discharge Disposition: Auto Discharge Social [...] on filedocumented in this encounter Care Teams Supervisor Asbestos Removal Relationship Specialty Start Date End Date Melba Vieira MD [address] [place] [phone] PCP - General 04/06/14 documented as of this encounter
--- OUTSIDE RECORDS SUMMARY | 2024-08-24 22:19 | XMS_ITS | Encounter Summary ---
Author Organization [facility] Address [address] [place] [address] Care Team Providers Care Student Development Specialist Name Role Phone Melba Vieira MD Primary Care Provider [phone] Encounter Details Date Type Department Care Team (Late st Contact Info) Description 11/01/2020 Orders Only [facility] Endocrinology - [facility] [address] [place] [address] Sharron Jesus DO [address] [facility] [address] [place] [address] Other osteoporosis without current pathological fracture (Primary Dx) Social History Tobacco Use [...] as of this encounter Visit Diagnoses Diagnosis Other osteoporosis without current pathological fracture- Primary documented in this encounter Care Teams Student Development Specialist Relationship Specialty Start Date End Date Melba Vieira MD [address] [place] [phone] PCP - General 04/06/14 documented as of this encounter
--- OUTSIDE RECORDS SUMMARY | 2024-08-24 22:19 | XMS_ITS | Encounter Summary ---
Author Organization [facility] Address [address] [place] [address] Care Team Providers Care General Passenger Agent Name Role Phone Esha Gomez MD Primary Care Provider Unavailabl e Encounter Details Date Type Department Care Team (Late st Contact Info) Description 11/17/2011 Orders Only [facility] General Surgery - [facility] [address] [place] [address] Cristóbal Cash MD [address] [place] [address] History of colonic polyps (Primary Dx) Social [...] Office, colo 02/05/12 1 Bottle 0 11/17/2011 2 documented in this encounter Plan of Treatment Not on file documented as of this encounter Visit Diagnoses Diagnosis History of colonic polyps- Primary Personal history of colonic polyps documented in this encounter Care Teams General Passenger Agent Relationship Specialty Start Date End Date Esha Gomez MD PCP - General 06/15/09 04/05/14 documented as of this encounter
--- OUTSIDE RECORDS SUMMARY | 2024-08-24 22:19 | XMS_ITS | Encounter Summary ---
Author Organization [facility] Address [address] [place] [address] Care Team Providers Care Patch Setter Name Role Phone Melba Vieira MD Primary Care Provider [phone] Encounter Details Date Type Department Care Team (Late st Contact Info) Description 05/14/2016 Results Only [facility] [phone] Melba Vieira MD [address] [place] [phone] Social History Tobacco Use Types Packs/Day [...] MA 2D/3D BILATERAL TAVO ROUTINE SCREENING MAMMO 05/14/2016 11:12 EDT documented in this encounter Results * MA 2D/3D BILATERAL TAVO ROUTINE SCREENING MAMMO (05/14/2016 11:12 EDT) Anatomical Region Laterality Modality Other 05/14/2016 11:1 2 EDT 05/16/2016 7:54 EDT Narrative 05/16/2016 7:54 EDT Comparison has been made to previous [...] your patient directly. Procedure Note Mateus Zamora MD - 05/16/2016 Comparison has been made to previous images. [...] on filedocumented in this encounter Care Teams Patch Setter Relationship Specialty Start Date End Date Melba Vieira MD [address] [place] [phone] PCP - General 04/06/14 documented as of this encounter
--- OUTSIDE RECORDS SUMMARY | 2024-08-24 22:20 | XMS_ITS | Encounter Summary ---
Author Organization [facility] Address [address] [place] [address] Care Team Providers Care Cyber Security Specialist Name Role Phone Esha Gomez MD Primary Care Provider Unavailabl e Encounter Details Date Type Department Care Team (Latest Contact Info) Description 01/07/2011 9:18 EDT - 01/07/2011 23:59 EDT Hospital Encounter [address] [address] Esha Gomez MD Discharge Disposition: Home or [...] Code Departure Means Destination Home or Self Long Term documented in this encounter Plan of Treatment Not on file documented as of this encounter Visit Diagnoses Not on filedocumented in this encounter Care Teams Cyber Security Specialist Relationship Specialty Start Date End Date Esha Gomez MD PCP - General 06/15/09 04/05/14 documented as of this encounter
--- OUTSIDE RECORDS SUMMARY | 2024-08-24 22:20 | XMS_ITS | Encounter Summary ---
Author Organization [facility] Address [address] [place] [address] Care Team Providers Care Automation Manager Name Role Phone Unavailable Primary Care Provider Unavailabl e Encounter Details Date Type Department Care Team (Latest Contact Info) Description 08/03/2003 11:25 EST - 08/03/2003 11:59 EST Hospital Encounter [facility] [address] [place] [address] An Goodwin MD [facility] [address] [place], [place] [address] Discharge Disposition: Auto Discharge Social History Tobacco Use Types Packs/Day Years Used Date Smoking Tobacco: Never Assessed Comments Unknown Sex and Gender Information Value Date Recorded Sex Assigned at Not on file Legal Sex Female 17:51 EST Gender Identity Female 10/31/2021 15:24 EDT Sexual Orientation Not on file documented as of this encounter Discharge Disposition Disposition Code Departure Means Destination Auto Discharge documented in this encounter Plan of Treatment Not on file documented as of this encounter Procedures Procedure Name Priority Date/Time Associated Diagnosis Comments MA MAMMO SCREENING DIGITAL Routine 08/03/2003 11:45 EST documented in this encounter Results * MA MAMMO SCREENING DIGITAL (08/03/2003 11:45 EST) Anatomical Region Laterality Modality Other 08/03/2003 11:4 5 EST Impressions 03/19/2009 4:20 EDT IMPRESSION: BILATERAL BREASTS - CATEGORY 1 Negative, no evidence of malignancy. Normal interval follow-up is recommended in 12 months. OVERALL ASSESSMENT - NEGATIVE END OF IMPRESSION Narrative 03/19/2009 4:20 EDT ROUTINE ?? SISTER BR CA AGE EARLY 40'S ?? [PCP EDEN EDNG] Comparison is made to films from 06-04-2001 (bilateral) and 07-29-2002 (bilateral). Bilateral Breast Findings (CAD used to interpret routine digital projection): The breasts are heterogeneously dense. This may lower the sensitivity of mammography. No significant masses, calcifications or other abnormalities are seen. Procedure Note Jayne Logan MD - 03/19/2009 ROUTINE SISTER BR CA AGE EARLY 40'S [PCP EDEN DENG] Comparison is made to films from 06-04-2001 (bilateral) and 07-29-2002 (bilateral). Bilateral Breast Findings (CAD used to interpret routine digital projection): The breasts are heterogeneously dense. This may lower the sensitivity of mammography. No significant masses, calcifications or other abnormalities are seen. IMPRESSION IMPRESSION: BILATERAL BREASTS - CATEGORY 1 Negative, no evidence of malignancy. Normal interval follow-up is recommended in 12 months. OVERALL ASSESSMENT - NEGATIVE END OF IMPRESSION An Goodwin MD IMG MAMMOGRAPHY ORDERABLES Janice l Result documented in this encounter Visit Diagnoses Not on filedocumented in this encounter
--- OUTSIDE RECORDS SUMMARY | 2024-08-24 22:20 | XMS_ITS | Encounter Summary ---
Author Organization [facility] Address [address] [place] [address] Care Team Providers Care Correspondence Analyst Name Role Phone Unavailable Primary Care Provider Unavailabl e Encounter Details Date Type Department Care Team (Latest Contact Info) Description 05/10/2001 13:48 EDT Hospital Encounter [facility] [place] [address] [place] [address] Cristóbal Cash MD [address] [place] [address] Discharge Disposition: Auto Discharge Social History Tobacco [...]
--- OUTSIDE RECORDS SUMMARY | 2024-08-24 22:20 | XMS_ITS | Encounter Summary ---
Author Organization [facility] Address [address] [place] [address] Care Team Providers Care Welt Drawer Name Role Phone Unavailable Primary Care Provider Unavailabl e Encounter Details Date Type Department Care Team (Latest Contact Info) Description 09/04/2006 10:27 EST - 09/04/2006 11:59 EST Hospital Encounter [facility] [address] [place] [address] Esha Gomez MD Discharge Disposition: Auto Discharge Social [...] Priority Date/Time Associated Diagnosis Comments MA MAMMO DIAG DIGITAL BILATERAL ADDED VIEWS 09/04/2006 10:53 EST documented in this encounter Results * MA MAMMO DIAG DIGITAL BILATERAL ADDED VIEWS (09/04/2006 10:53 EST) Anatomical Region Laterality Modality Other 09/04/2006 10:5 3 EST Narrative 01/27/2009 3:28 EDT BILATERAL AV AND LEFT U/S Comparison is made to films from 08/07/2006 (bilateral) and films from 08/06/2005 (bilateral) and films from 08/05/2004 and films from 08/03/2003 and films from 06/04/2001. Left Breast Findings: (digital additional): There are scattered fibroglandular densities. A questionable abnormality noted on the prior exam is evaluated with compression magnification views. ??The area in question compresses out, consistent with normal fibroglandular tissue. ??There is no evidence of a persistent mass. ??The previously scheduled ultrasound examination was, therefore, cancelled. Right Breast Findings: (digital additional): There are scattered fibroglandular densities. A questionable abnormality noted on the prior exam is evaluated with compression-magnification views. ??The area in question compresses out, consistent with normal fibroglandular tissue. ??There is no evidence of a persistent mass. IMPRESSION: LEFT BREAST - CATEGORY 1 Negative, no evidence of malignancy. Normal interval follow-up is recommended in 12 months. RIGHT BREAST - CATEGORY 1 Negative, no evidence of malignancy. Normal interval follow-up is recommended in 12 months. Results and recommendations for follow-up were discussed with the patient by the technologist at the time of the exam. OVERALL ASSESSMENT - NEGATIVE END OF IMPRESSION The patient will be notified of her/his breast imaging results via a lay letter from Radiology. ??Radiology will contact the patient directly regarding any findings which require additional imaging (Category 0) at this time. Procedure Note Jayne Logan MD - 01/27/2009 BILATERAL AV AND LEFT U/S Comparison is made to films from 08/07/2006 (bilateral) and films from 08/06/2005 (bilateral) and films from 08/05/2004 and films from 08/03/2003 and films from 06/04/2001. Left Breast Findings: (digital additional): There are scattered fibroglandular densities. A questionable abnormality noted on the prior exam is evaluated with compression magnification views. The area in question compresses out, consistent with normal fibroglandular tissue. There is no evidence of a persistent mass. The previously scheduled ultrasound examination was, therefore, cancelled. Right Breast Findings: (digital additional): There are scattered fibroglandular densities. A questionable abnormality noted on the prior exam is evaluated with compression-magnification views. The area in question compresses out, consistent with normal fibroglandular tissue. There is no evidence of a persistent mass. IMPRESSION: LEFT BREAST - CATEGORY 1 Negative, no evidence of malignancy. Normal interval follow-up is recommended in 12 months. RIGHT BREAST - CATEGORY 1 Negative, no evidence of malignancy. Normal interval follow-up is recommended in 12 months. Results and recommendations for follow-up were discussed with the patient by the technologist at the time of the exam. OVERALL ASSESSMENT - NEGATIVE END OF IMPRESSION The patient will be notified of her/his breast imaging results via a lay letter from Radiology. Radiology will contact the patient directly regarding any findings which require additional imaging (Category 0) at this time. Esha Gomez MD IMG MAMMOGRAPHY ORDERABLES Final Result documented in this encounter Visit Diagnoses Not on filedocumented in this encounter
--- OUTSIDE RECORDS SUMMARY | 2024-08-24 22:20 | XMS_ITS | Encounter Summary ---
Author Organization [facility] Address [address] [place] [address] Care Team Providers Care Turf Manager Name Role Phone Unavailable Primary Care Provider Unavailabl e Encounter Details Date Type Department Care Team (Late st Contact Info) Description 07/04/2002 15:45 EST Hospital Encounter [facility] - Other [address] [place] [address] Elinor Fuller MD [facility] [address] [place], [place] [address] Unknown, Provider, Social History Tobacco Use Types Packs/Day Years [...] Procedure Name Priority Date/Time Associated Diagnosis Comments CYTOPATHOLOGY Routine 07/04/2002 0:00 EST documented in this encounter Results * CYTOPATHOLOGY (07/04/2002 0:00 EST) Pathology Report: CYTOPATHOLOGY REPORT Reports generated via electronic interface contain original data; however they are lacking the format of the original report. Caution should be taken when reading/interpreti ng unformatted reports. Name: ? NARDA REDD ? Accession #: ? [id number] : ? 1940 (Age: 61) ??F ?Collect Date: ? 07/04/2002 Location: ? [facility] ? Receive Date: ? 07/06/2002 Provider: ?ELINOR FULLER MD Copy to: ? Specimen/Source: ?ThinPrep Pap Test, Cervix/Endocervix Last Menstrual Period: ? Menstrual/Pregnanc y Status: ? Menopausal Hormonal/Contracep tive Status: ? Hormone Replacement Therapy Previous Gynecologic Pathology: ? Yes Treatment History: ? Colposcopy ? SPECIMEN ADEQUACY ? Satisfactory for Evaluation - transformation zone component present GENERAL CATEGORIZATION ? Negative for Intraepithelial Lesion or Malignancy ? Document reviewed and electronically signed by: ? TABBY Oconnell(ASCP) ? Report Date: ??07/06/2002 14:03 End of Report [facility] 07/04/2002 07/06/2002 us Elinor Fuller MD PATHOLOGY ORDERABLES Final Resu lt [facility] [address] [place] [address] documented in this encounter Visit Diagnoses Not on filedocumented in this encounter
--- OUTSIDE RECORDS SUMMARY | 2024-08-24 22:20 | XMS_ITS | Encounter Summary ---
Author Organization [facility] Address [address] [place] [address] Care Team Providers Care Belt Brander Name Role Phone Unavailable Primary Care Provider Unavailabl e Encounter Details Date Type Department Care Team (Latest Contact Info) Description 02/21/2000 12:26 EDT Hospital Encounter [facility] [address] [place] [address] Elinor Fuller MD [facility] [address] [place], [place] [address] Discharge Disposition: Auto Discharge Social History Tobacco [...] Name Priority Date/Time Associated Diagnosis Comments MA MAMMOGRAPHIC SCREEN RALF Routine 02/21/2000 12:55 EDT documented in this encounter Results * MA MAMMOGRAPHIC SCREEN RALF (02/21/2000 12:55 EDT) Anatomical Region Laterality Modality Other 02/21/2000 12:5 5 EDT Impressions 05/29/2009 16:33 EST IMPRESSION: BILATERAL BREASTS - Category 1 Negative, no evidence of malignancy. Normal interval follow-up is recommended in 12 months. OVERALL ASSESSMENT - NEGATIVE END OF IMPRESSION The attending radiologist has reviewed this exam and concurs with the above noted findings and recommendations. Narrative 05/29/2009 16:33 EST ROUTINE ??(ELINOR FULLER,REQ) Comparison is made to films from 02-02-1997 (bilateral). Bilateral Breast Findings: The breasts are heterogeneously dense. This may lower the sensitivity of mammography. No masses, significant calcifications or other abnormalities are seen. Procedure Note Michael Torres MD / Jayne Logan MD / Mateus Zamora MD - 05/29/2009 ROUTINE (EDEN MARTINEZ) Comparison is made to films from 02-02-1997 (bilateral). Bilateral Breast Findings: The breasts are heterogeneously dense. This may lower the sensitivity of mammography. No masses, significant calcifications or other abnormalities are seen. IMPRESSION IMPRESSION: BILATERAL BREASTS - Category 1 Negative, no evidence of malignancy. Normal interval follow-up is recommended in 12 months. OVERALL ASSESSMENT - NEGATIVE END OF IMPRESSION The attending radiologist has reviewed this exam and concurs with the above noted findings and recommendations. Elinor Fuller MD IMG MAMMOGRAPHY ORDERABLES Janice lowe Result documented in this encounter Visit Diagnoses Not on filedocumented in this encounter
--- OUTSIDE RECORDS SUMMARY | 2024-08-24 22:20 | XMS_ITS | Encounter Summary ---
Author Organization [facility] Address [address] [place] [address] Care Team Providers Care Log Buncher Name Role Phone Unavailable Primary Care Provider Unavailabl e Encounter Details Date Type Department Care Team (Latest Contact Info) Description 01/28/2007 11:22 EDT - 01/28/2007 11:59 EDT Hospital Encounter [facility] [address] [place] [address] Cristóbal Cash MD [address] [place] [address] Discharge Disposition: Auto Discharge Social [...] Destination Auto Discharge documented in this encounter Progress Notes * Cristóbal Cash - 02/10/2007 0000 EDT DIVISION OF GENERAL SURGERY February 10, 2007 [address] [place] [address] Dear Maricao: I just want to let you know that that tiny ???polyp?? that we removed from the colon was completely benign. It was just some completely innocent lining. As such, I regard your colonoscopy as having been essentially normal. As such, I do not think this is anything of any concern whatsoever. Enjoy the rest of the summer! Sincerely, Signed by Cristóbal Cash MD, FACS 02/13/2007 08:52 Mer Cash MD, [id number] H Hyman, MD, FACS Cristóbal Cash MD, FACS [phone] -Cristóbal Cash MD, FACS -[facility] [place] Job ID: [id number] Doc ID: [id number] cc: Melissa L. Maricao, [facility] [address], [place] [address]* * Cristóbal Cash - 01/28/2007 0000 EDT DIVISION OF GENERAL SURGERY February 02, 2007 [place] [address] DOS: 01/28/07 Dear Esha: On January 28, 2007 Melissa López underwent a full colonoscopy to the cecum in light of her personalhistory of polyps and family history of colon cancer. Specifically, she had a sister who had colorectal cancer in her forties. Other than a diminutive polyp in thesigmoid, which was removed, the procedure was normal. She had quite a bit of retained stool in the right colon, but I think I would have seen anything significant. All things considered, I recommended a repeat colonoscopy in five years assuming her health is good. Please let me know if you have any questions in this regard. Sincerely, Signed by Cristóbal Cash MD, FACS 02/02/2007 14:47 Mer Cash MD, [id number] H Hyman, MD, FACS Cristóbal Cash MD, FACS [phone] -Cristóbal Cash MD, FACS -d Job ID: [id number] Doc ID: [id number] cc: Esha Gomez MD documented in this encounter Plan of Treatment Not on file documented as of this encounter Visit Diagnoses Not on filedocumented in this encounter
--- OUTSIDE RECORDS SUMMARY | 2024-08-24 22:20 | XMS_ITS | Encounter Summary ---
Author Organization [facility] Address [address] [place] [address] Care Team Providers Care Bronzer Name Role Phone Esha Gomez MD Primary Care Provider Unavailabl e Encounter Details Date Type Department Care Team (Late st Contact Info) Description 03/27/2003 Results Only [facility] [place] [facility] [address] [place] [address] Esha Gomez MD Social History Tobacco Use [...] Date/Time Associated Diagnosis Comments RHEUMATOID FACTOR Routine 03/27/2003 12: 24 EDT ANTI NUCLEAR AB (AGNES), IFA Routine 03/27/2003 12:24 EDT documented in this encounter Results * RHEUMATOID FACTOR (03/27/2003 12:24 EDT) Rheumatoid Factor <20 <20 IU/ml [facility] 03/27/2003 12:2 4 EDT 03/27/2003 21:41 EDT us Esha Gomez MD CHEMISTRY & BLOOD GAS ORDERABLES Final Result [facility] [address] [place] [address] * ANTI NUCLEAR ANTIBODY (03/27/2003 12:24 EDT) Anti Nuclear Ab <40 0 - 40 Dils [facility] 03/27/2003 12:2 4 EDT 03/27/2003 21:41 EDT us Esha Gomez MD IMMUNOLOGY AND SEROLOGY ORDERABL ES Final Result Performing Organization Address City/State/[facility] Co de Phone Number [facility] [address] [place] [address] documented in this encounter Visit Diagnoses Not on filedocumented in this encounter Care Teams Bronzer Relationship Specialty Start Date End Date Esha Gomez MD PCP - General 06/15/09 04/05/14 documented as of this encounter
--- OUTSIDE RECORDS SUMMARY | 2024-08-24 22:20 | XMS_ITS | Encounter Summary ---
Author Organization [facility] Address [address] [place] [address] Care Team Providers Care Aerographer Name Role Phone Unavailable Primary Care Provider Unavailabl e Encounter Details Date Type Department Care Team (Late st Contact Info) Description 09/27/2003 11:12 EST Hospital Encounter [facility] - Other [address] [place] [address] Fito Avina MD Social History Tobacco Use Types Packs/Day [...] Priority Date/Time Associated Diagnosis Comments CYTOPATHOLOGY Routine 09/27/2003 0:00 EST documented in this encounter Results * CYTOPATHOLOGY (09/27/2003 0:00 EST) Pathology Report: CYTOPATHOLOGY REPORT Reports generated via electronic interface contain original data; however they are lacking the format of the original report. Caution should be taken when reading/interpreti ng unformatted reports. Name: ? NARDA REDD ? Accession #: ? [id number] : ? 1940 (Age: 63) ??F ?Collect Date: ? 09/27/2003 Location: ? [facility] ? Receive Date: ? 09/29/2003 Provider: ?FITO AVINA MD Copy to: ? Specimen/Source: ?ThinPrep Pap Test, Cervix/Endocervix Last Menstrual Period: ? 10 yrs Previous Gynecologic Pathology: ? Yes: 1996 atypia ? SPECIMEN ADEQUACY ? Satisfactory for Evaluation - transformation zone component present GENERAL CATEGORIZATION ? Negative for Intraepithelial Lesion or Malignancy ? Document reviewed and electronically signed by: ? Jonelle Vera, CT(ASCP)(IAC) ? Report Date: ??10/03/2003 17:51 End of Report [facility] 09/27/2003 09/29/2003 us Fito Avina MD PATHOLOGY ORDERABLES Final Resul t [facility] [address] [place] [address] documented in this encounter Visit Diagnoses Not on filedocumented in this encounter
--- OUTSIDE RECORDS SUMMARY | 2024-08-24 22:20 | XMS_ITS | Encounter Summary ---
Author Organization [facility] Address [address] [place] [address] Care Team Providers Care Refining Supervisor Name Role Phone Unavailable Primary Care Provider Unavailabl e Encounter Details Date Type Department Care Team (Late st Contact Info) Description 04/20/2000 13:03 EDT Hospital Encounter [facility] - Other [address] [place] [address] Elinor Fuller MD [facility] [address] [place], [place] [address] Unknown, Provider, Social History Tobacco Use Types [...] Priority Date/Time Associated Diagnosis Comments CYTOPATHOLOGY Routine 04/20/2000 0:00 EDT documented in this encounter Results * CYTOPATHOLOGY (04/20/2000 0:00 EDT) Pathology Report: CYTOPATHOLOGY REPORT Reports generated via electronic interface contain original data; however they are lacking the format of the original report. Caution should be taken when reading/interpreti ng unformatted reports. Name: ? NARDA REDD ? Accession #: ? [id number] : ? 1940 (Age: 59) ??F ?Collect Date: ? 04/20/2000 Location: ? [facility] ? Receive Date: ? 04/22/2000 Provider: ?ELINOR FULLER MD Copy to: ? Specimen/Source: ?ThinPrep Pap Test, Source Not Provided Last Menstrual Period: ? 1988 Hormonal/Contracep tive Status: ? Premarin and provera Previous Gynecologic Pathology: ? Yes: Atypia 1995 Treatment History: ? Colposcopy ? SPECIMEN ADEQUACY ? Satisfactory for evaluation. GENERAL CATEGORIZATION ? Epithelial Cell Abnormality DESCRIPTIVE DIAGNOSIS ? Atypical squamous cells of undetermined significance (ASCUS), favor reactive process. RECOMMENDATION ? Recommend repeat Pap test in 3-6 months or further follow up, as clinically indicated. ? Document reviewed and electronically signed by: ? CHANTEL PARISH MD ? Report Date: ??04/29/2000 10:05 End of Report [facility] 04/20/2000 04/22/2000 us Elinor Fuller MD PATHOLOGY ORDERABLES Final Resu lt [facility] [address] [place] [address] documented in this encounter Visit Diagnoses Not on filedocumented in this encounter
--- OUTSIDE RECORDS SUMMARY | 2024-08-24 22:20 | XMS_ITS | Encounter Summary ---
Author Organization [facility] Address [address] [place] [address] Care Team Providers Care Keg Washer Name Role Phone Esha Gomez MD Primary Care Provider Melba Rodriges MD Primary Care Provider [phone] Encounter Details Date Type Department Care Team (Late st Contact Info) Description 10/05/2008 Before PRISM Converted Visit (Maple) [facility] - Maple conversion [address] [place] [address] Esha Gomez MD Social History Tobacco Use [...] Associated Diagnosis Comments MA MAMMO SCREENING DIGITAL 10/05/2008 9:55 EDT documented in this encounter Results * MA MAMMO SCREENING DIGITAL (10/05/2008 9:55 EDT) Anatomical Region Laterality Modality Other 10/05/2008 9:55 EDT Narrative 11/14/2008 2:06 EDT Routine Comparison is made to films from 09/28/2007 (bilateral) and films from 08/07/2006 (bilateral) and films from 08/06/2005 (bilateral) and films from 08/05/2004 and films from 08/03/2003. Bilateral Breast Findings: (CAD used to interpret routine digital): There are scattered fibroglandular densities. No significant masses, calcifications or other abnormalities are seen. IMPRESSION: BILATERAL BREASTS - CATEGORY 1, NEGATIVE Negative, no evidence of malignancy. Normal interval follow-up is recommended in 12 months. OVERALL ASSESSMENT - NEGATIVE END OF IMPRESSION The patient will be notified of her/his breast imaging results via a lay letter from Radiology. ??Radiology will contact the patient directly regarding any findings which require additional imaging (Category 0) at this time. Procedure Note Jayne Logan MD - 11/14/2008 Routine Comparison is made to films from 09/28/2007 (bilateral) and films from 08/07/2006 (bilateral) and films from 08/06/2005 (bilateral) and films from 08/05/2004 and films from 08/03/2003. Bilateral Breast Findings: (CAD used to interpret routine digital): There are scattered fibroglandular densities. No significant masses, calcifications or other abnormalities are seen. IMPRESSION: BILATERAL BREASTS - CATEGORY 1, NEGATIVE Negative, no evidence of malignancy. Normal interval [...] on filedocumented in this encounter Care Teams Keg Washer Relationship Specialty Start Date End Date Esha Gomez MD PCP - General 06/15/09 04/05/14 Melba Vieira MD [address] [place] [id number] PCP - General 04/06/14 documented as of this encounter
--- OUTSIDE RECORDS SUMMARY | 2024-08-24 22:20 | XMS_ITS | Encounter Summary ---
Author Organization [facility] Address [address] [place] [address] Care Team Providers Care Vendor Relationship Manager Name Role Phone Unavailable Primary Care Provider Unavailabl e Encounter Details Date Type Department Care Team (Latest Contact Info) Description 05/18/2001 16:51 EST Hospital Encounter [facility] - Other [address] [place] [address] An Goodwin MD [facility] [address] [place] [address] Unknown, Provider, Discharge Disposition: Auto Discharge Social History Tobacco [...]
--- OUTSIDE RECORDS SUMMARY | 2024-08-24 22:20 | XMS_ITS | Encounter Summary ---
Author Organization [facility] Address [address] [place] [address] Care Team Providers Care Paediatric Surgeon Name Role Phone Unavailable Primary Care Provider Unavailabl e Encounter Details Date Type Department Care Team (Latest Contact Info) Description 05/03/2001 14:14 EDT Hospital Encounter [facility] - Other [address] [place] [address] Elinor Fuller MD [facility] [address] [place], [place] [address] Unknown, Provider, Discharge Disposition: Auto Discharge Social [...] Procedure Name Priority Date/Time Associated Diagnosis Comments CHOLESTEROL Routine 05/05/2001 16:10 EDT HPV DETECTION, HIGH RISK TYPES Routine 05/03/2001 13:45 EDT CYTOPATHOLOGY Routine 05/03/2001 0:00 EDT documented in this encounter Results * CHOLESTEROL (05/05/2001 16:10 EDT) Cholesterol 228 mg/dl [facility] Comment: Desirable:<200 Borderline:200-239 High Risk:>[id number] 05/05/2001 16:1 0 EDT 05/05/2001 18:34 EDT us Esha Gomez MD CHEMISTRY & BLOOD GAS ORDERABLES Final Result Performing Organization Address [facility] de Phone Number [facility] [address] [place] [address] * HUMAN PAPILLOMA VIRUS DNA TEST (05/03/2001 13:45 EDT) Specimen Description Cervix, ThinPrep vial [facility] Result Negative for HPV types 6,11,16,18,3 1,33,35,39,4 2,43,44,45,5 1,52,56,58,5 9, and 68. [facility] Report Status Final [id number] [facility] 05/03/2001 13:4 5 EDT 05/18/2001 13:45 EST Elinor Fuller MD MICROBIOLOGY - GENERAL ORDERABL ES Final Result Performing Organization Address [facility] de Phone Number [facility] [address] [place] [address] * CYTOPATHOLOGY (05/03/2001 0:00 EDT) Pathology Report: CYTOPATHOLOGY REPORT Reports generated via electronic interface contain original data; however they are lacking the format of the original report. Caution should be taken when reading/interpreti ng unformatted reports. Name: ? NARDA REDD ? Accession #: ? [id number] : ? 1940 (Age: 60) ??F ?Collect Date: ? 05/03/2001 Location: ? [facility] ? Receive Date: ? 05/05/2001 Provider: ?ELINOR FULLER MD Copy to: ? Specimen/Source: ?ThinPrep Pap Test, Cervix/Endocervix Last Menstrual Period: ? Hormonal/Contracep tive Status: ? Hormone Replacement Therapy Previous Gynecologic Pathology: ? ASC-US ? SPECIMEN ADEQUACY ? Satisfactory for evaluation. GENERAL CATEGORIZATION ? Epithelial Cell Abnormality DESCRIPTIVE DIAGNOSIS ? Atypical squamous cells of undetermined significance (ASCUS), favor reactive process. RECOMMENDATION ? Recommend repeat Pap test in 3-6 months or further follow up, as clinically indicated. ? Document reviewed and electronically signed by: ? JALEEL SUBRAMANIAN MD [facility] ? Report Date: ??05/10/2001 14:49 End of Report [facility] 05/03/2001 05/05/2001 us Elinor Fuller MD PATHOLOGY ORDERABLES Final Resu lt [facility] [address] [place] [address] documented in this encounter Visit Diagnoses Not on filedocumented in this encounter
--- OUTSIDE RECORDS SUMMARY | 2024-08-24 22:20 | XMS_ITS | Encounter Summary ---
Author Organization [facility] Address [address] [place] [address] Care Team Providers Care Qa Developer Name Role Phone Fito Avina MD Primary Care Provider Unavailabl e Encounter Details Date Type Department Care Team (Late st Contact Info) Description 12/23/2006 Results Only [facility] conversion [address] [place] [address] Fito Avina MD Social History Tobacco Use [...] Priority Date/Time Associated Diagnosis Comments CYTOPATHOLOGY Routine 12/23/2006 0:00 EDT documented in this encounter Results * CYTOPATHOLOGY (12/23/2006 0:00 EDT) Pathology Report: CYTOPATHOLOGY REPORT Reports generated via electronic interface contain original data; however they are lacking the format of the original report. Caution should be taken when reading/interpreti ng unformatted reports. Name: ? NARDA REDD ? Accession #: ? [id number] : ? 1940 (Age: 66) ??F ?Collect Date: ? 12/23/2006 Location: ? [facility] ? Receive Date: ? 12/24/2006 Provider: ?FITO AVINA MD Copy to: ? Specimen/Source: ?ThinPrep Pap Test, Cervix/Endocervix, processed on [employer] ThinPrep Imaging System, with manual evaluation Last Menstrual Period: ? 20 years Other: ? HPVA - HPV testing requested if ASC-US on the current ThinPrep Pap test. ? SPECIMEN ADEQUACY ? Satisfactory for Evaluation - assessment of transformation zone component not applicable ( e.g. atrophy, vaginal sample, hysterectomy) GENERAL CATEGORIZATION ? Negative for Intraepithelial Lesion or Malignancy ? Document reviewed and electronically signed by: ? TABBY Cooney(ASCP) ? Report Date: ??12/29/2006 11:11 End of Report [facility] 12/23/2006 12/24/2006 us Fito Avina MD PATHOLOGY ORDERABLES Final Resul t Performing Organization Address City/State/[facility] Co de Phone Number [facility] [address] [place] [address] documented in this encounter Visit Diagnoses Not on filedocumented in this encounter Care Teams Qa Developer Relationship Specialty Start Date End Date Fito Avina MD PCP - General 06/15/09 04/05/14 documented as of this encounter
--- OUTSIDE RECORDS SUMMARY | 2024-08-24 22:20 | XMS_ITS | Encounter Summary ---
Author Organization [facility] Address [address] [place] [address] Care Team Providers Care Range Master Name Role Phone Unavailable Primary Care Provider Unavailabl e Encounter Details Date Type Department Care Team (Latest Contact Info) Description 10/05/2008 9:28 EDT - 10/05/2008 11:59 EDT Hospital Encounter [address] [address] Esha Gomez MD Discharge Disposition: Auto Discharge [...]
--- OUTSIDE RECORDS SUMMARY | 2024-08-24 22:20 | XMS_ITS | Encounter Summary ---
Author Organization [facility] Address [address] [place] [address] Care Team Providers Care Slate Mixer Name Role Phone Fito Avina MD Primary Care Provider Unavailabl e Encounter Details Date Type Department Care Team (Late st Contact Info) Description 01/28/2007 Results Only [facility] General Surgery - [facility] [address] [place] [address] Vincent Cash MD [address] [place] [address] Social History Tobacco Use Types [...] Procedure Name Priority Date/Time Associated Diagnosis Comments SURGICAL PATHOLOGY Routine 01/28/2007 0:00 EDT documented in this encounter Results * SURGICAL PATHOLOGY (01/28/2007 0:00 EDT) Pathology Report: SURGICAL PATHOLOGY REPORT Reports generated via electronic interface contain original data; however they are lacking the format of the original report. Caution should be taken when reading/interpreti ng unformatted reports. Name: ? NARDA REDD ? Accession #: ? [id number] ? : ? 1940 (Age: 66) ??F ? Collect Date: ? 01/28/2007 ? Location: ? [facility] ? Receive Date: ? 01/28/2007 ? Provider: VINCENT CASH MD Copy to: FITO AVINA MD ? Final Pathologic Diagnosis: ? Colon, sigmoid, polyp, biopsy: - No specific pathologic features. ??See comment. Comment: ? Deeper levels have been examined. ??(Dr. Pacheco[facility] Document reviewed and electronically signed by: London Pacheco MD Report ??Date: 02/01/2007 16:26 By the signature above, the attending physician certifies that he/she has personally conducted a gross and/or microscopic examination of the described specimens and rendered or confirmed the above diagnosis. Specimen(s) Received: ? Sigmoid polyp Clinical History: ? Diminutive polyp Gross Description: ? Received in Hollande's fixative labelled [place] and sigmoid polyp is a parks-pink 0.5 x 0.2 x 0.2 cm soft tissue fragment. The specimen is entirely submitted in one cassette. /[facility] End of Report [facility] 01/28/2007 01/28/2007 15: 10 EDT us Vincent Cash MD PATHOLOGY ORDERABLES Final Resul t [facility] [address] [place] [address] documented in this encounter Visit Diagnoses Not on filedocumented in this encounter Care Teams Slate Mixer Relationship Specialty Start Date End Date Fito Avina MD PCP - General 06/15/09 04/05/14 documented as of this encounter
--- OUTSIDE RECORDS SUMMARY | 2024-08-24 22:20 | XMS_ITS | Encounter Summary ---
Author Organization [facility] Address [address] [place] [address] Care Team Providers Care Diving Coach Name Role Phone Unavailable Primary Care Provider Unavailabl e Encounter Details Date Type Department Care Team (Latest Contact Info) Description 06/04/2001 8:55 EST - 06/04/2001 11:59 EST Hospital Encounter [facility] - Maple conversion [address] [place] [address] An Fuller MD [facility] [address] [place], [place] [address] Discharge Disposition: Auto Discharge Social History Tobacco [...] Diagnosis Comments MA MAMMOGRAPHIC SCREEN RALF Routine 06/04/2001 9:25 EST documented in this encounter Results * MA MAMMOGRAPHIC SCREEN RALF (06/04/2001 9:25 EST) Anatomical Region Laterality Modality Other 06/04/2001 9:25 EST Impressions 06/08/2009 1:24 EST IMPRESSION: BILATERAL BREASTS - Category 1 Negative, no evidence of malignancy. Normal interval follow-up is recommended in 12 months. OVERALL ASSESSMENT - NEGATIVE END OF IMPRESSION Narrative 06/08/2009 1:24 EST ROUTINE RALF SCREEN. ??(PCP FITO AVINA, EDEN FULLER) Comparison is made to films from 12-18-1997 (bilateral). Bilateral Breast Findings: The breasts are heterogeneously dense. This may lower the sensitivity of mammography. No masses, significant calcifications or other abnormalities are seen. Procedure Note Keara Jhaveri MD / Jayne Logan MD - 06/08/2009 ROUTINE RALF SCREEN. (PCP EDEN DENG) Comparison is made to films from 12-18-1997 (bilateral). Bilateral Breast Findings: The breasts are heterogeneously dense. This may lower the sensitivity of mammography. No masses, significant calcifications or other abnormalities are seen. IMPRESSION IMPRESSION: BILATERAL BREASTS - Category 1 Negative, no evidence of malignancy. Normal interval follow-up is recommended in 12 months. OVERALL ASSESSMENT - NEGATIVE END OF IMPRESSION An Fuller MD IMG MAMMOGRAPHY ORDERABLES Janice l Result documented in this encounter Visit Diagnoses Not on filedocumented in this encounter
--- OUTSIDE RECORDS SUMMARY | 2024-08-24 22:20 | XMS_ITS | Encounter Summary ---
Author Organization [facility] Address [address] [place] [address] Care Team Providers Care Air And Missile Defense Crewmember Name Role Phone Unavailable Primary Care Provider Unavailabl e Encounter Details Date Type Department Care Team (Latest Contact Info) Description 11/23/2000 11:33 EDT - 11/23/2000 11:59 EDT Hospital Encounter [facility] - Other [address] [place] [address] Elinor Fuller MD [facility] [address] [place], [place] [address] Unknown, ProviderMD Discharge Disposition: Auto Discharge Social History Tobacco [...] Priority Date/Time Associated Diagnosis Comments CYTOPATHOLOGY Routine 11/23/2000 0:00 EDT documented in this encounter Results * CYTOPATHOLOGY (11/23/2000 0:00 EDT) Pathology Report: CYTOPATHOLOGY REPORT Reports generated via electronic interface contain original data; however they are lacking the format of the original report. Caution should be taken when reading/interpreti ng unformatted reports. Name: ? NARDA REDD ? Accession #: ? [id number] : ? 1940 (Age: 60) ??F ?Collect Date: ? 11/23/2000 Location: ? [facility] ? Receive Date: ? 11/25/2000 Provider: ?ELINOR FULLER MD Copy to: ? Specimen/Source: ?ThinPrep Pap Test, Source Not Provided Last Menstrual Period: ? 1989 Hormonal/Contracep tive Status: ? Prempro Previous Gynecologic Pathology: ? ASC-US: Favor reactive ? SPECIMEN ADEQUACY ? Satisfactory for evaluation. GENERAL CATEGORIZATION ? Within Normal Limits ? Document reviewed and electronically signed by: ? Dede Stoddard, ??SCT(ASCP) ? Report Date: ??11/26/2000 07:27 End of Report [facility] 11/23/2000 11/25/2000 us Elinor Fuller MD PATHOLOGY ORDERABLES Final Resu lt [facility] [address] [place] [address] documented in this encounter Visit Diagnoses Not on filedocumented in this encounter
--- OUTSIDE RECORDS SUMMARY | 2024-08-24 22:20 | XMS_ITS | Encounter Summary ---
Author Organization [facility] Address [address] [place] [address] Care Team Providers Care Logging Equipment Operator Name Role Phone Unavailable Primary Care Provider Unavailabl e Encounter Details Date Type Department Care Team (Latest Contact Info) Description 12/23/2006 11:21 EDT - 12/23/2006 11:59 EDT Hospital Encounter [facility] - Other [address] [place] [address] Esha Gomez MD Discharge Disposition: Home or [...]
--- OUTSIDE RECORDS SUMMARY | 2024-08-24 22:20 | XMS_ITS | Encounter Summary ---
Author Organization [facility] Address [address] [place] [address] Care Team Providers Care Adult School Teacher Name Role Phone Esha Gomez MD Primary Care Provider Unavailabl e Encounter Details Date Type Department Care Team (Late st Contact Info) Description 10/23/2010 Results Only Imaging [facility] [phone] Esha Gomez MD Social History Tobacco Use [...] Associated Diagnosis Comments MA MAMMO SCREENING DIGITAL 01/07/2011 9:54 EDT documented in this encounter Results * MA MAMMO SCREENING DIGITAL (01/07/2011 9:54 EDT) Anatomical Region Laterality Modality Other 01/07/2011 9:54 EDT 01/07/2011 16:59 EDT Narrative 01/07/2011 16:59 EDT Comparison is made to images from 10/22/2009 (bilateral) and images from 10/05/2008 (bilateral) and images from 09/28/2007 (bilateral) and images from 08/07/2006 (bilateral) and images from 08/06/2005 (bilateral) and images from 08/05/2004 and images from 08/03/2003. ?? Left Breast Findings: (CAD used to interpret routine digital) There are scattered fibroglandular densities (25% - 50% fibroglandular). An area of asymmetry is present in posteriorly in the central region on the MLO projection only. ?? Right Breast Findings: (CAD used to interpret routine digital) There are scattered fibroglandular densities (25% - 50% fibroglandular). No significant masses, calcifications or other abnormalities are seen. ?? IMPRESSION: LEFT BREAST: Asymmetry in the central region. Additional projections are recommended at this time in the mediolateral oblique and mediolateral projections. ?? RIGHT BREAST: Negative, no evidence of malignancy. Normal interval follow-up is recommended in 12 months. ?? OVERALL ASSESSMENT - CATEGORY 0 - INCOMPLETE: NEED ADDITIONAL IMAGING EVALUATION END OF IMPRESSION The patient will be notified of her/his breast imaging results via a lay letter from Radiology. Radiology will contact the patient directly regarding any findings which require additional imaging (Category 0) at this time. Procedure Note 01/07/2011 Comparison is made to images from 10/22/2009 (bilateral) and images from 10/05/2008 (bilateral) and images from 09/28/2007 (bilateral) and images from 08/07/2006 (bilateral) and images from 08/06/2005 (bilateral) and images from 08/05/2004 and images from 08/03/2003. Left Breast Findings: (CAD used to interpret routine digital) There are scattered fibroglandular densities (25% - 50% fibroglandular). An area of asymmetry is present in posteriorly in the central region on the MLO projection only. Right Breast Findings: (CAD used to interpret routine digital) There are scattered fibroglandular densities (25% - 50% fibroglandular). No significant masses, calcifications or other abnormalities are seen. IMPRESSION: LEFT BREAST: Asymmetry in the central region. Additional projections are recommended at this time in the mediolateral oblique and mediolateral projections. RIGHT BREAST: Negative, no evidence of malignancy. Normal interval follow-up is recommended in 12 months. OVERALL ASSESSMENT - CATEGORY 0 - INCOMPLETE: NEED ADDITIONAL IMAGING EVALUATION END OF IMPRESSION The patient will be notified of her/his breast imaging results via a lay letter from Radiology. Radiology will contact the patient directly regarding any findings which require additional imaging (Category 0) at this time. Esha Gomez MD IMG MAMMOGRAPHY ORDERABLES Final Result documented in this encounter Visit Diagnoses Not on filedocumented in this encounter Care Teams Adult School Teacher Relationship Specialty Start Date End Date Esha Gomez MD PCP - General 06/15/09 04/05/14 documented as of this encounter
--- OUTSIDE RECORDS SUMMARY | 2024-08-24 22:20 | XMS_ITS | Encounter Summary ---
Author Organization [facility] Address [address] [place] [address] Care Team Providers Care Scrub Technician Name Role Phone Unavailable Primary Care Provider Unavailabl e Encounter Details Date Type Department Care Team (Latest Contact Info) Description 09/28/2007 8:42 EDT - 09/28/2007 11:59 EDT Hospital Encounter [address] [address] Fito Gomez MD Discharge Disposition: Auto Discharge Social [...] Name Type Priority Associated Diagnoses Date /Time CYTOPATHOLOGY Pathology Routine 06/08/2009 0:00 EST Scheduled Orders Name Type Priority Associated Diagnoses Orde r Schedule CYTOPATHOLOGY Pathology Routine For medicat ions that can be administered at any time during the hospitalization for visit such as immunizations. for 1 Occurrences starting 06/11/2009 documented as of this encounter Procedures Procedure Name Priority Date/Time Associated Diagnosis Comments CYTOPATHOLOGY Routine 06/08/2009 0:00 EST MA MAMMO SCREENING DIGITAL 09/28/2007 9:04 EDT documented in this encounter Results * CYTOPATHOLOGY (06/08/2009 0:00 EST) Pathology Report: CYTOPATHOLOGY REPORT ? Reports generated via electronic interface contain original data; ? however they are lacking the format of the original report. ? Caution should be taken when reading/interpreti ng unformatted reports. ? Name: ? TRAMAINE, NARDA L ? Accession #: ? [id number] ? : ? 1940 (Age: 68) ??F ?Collect Date: ? 06/08/2009 ? Location: ? [facility] ? Receive Date: ? 06/11/2009 ? Provider: ?FITO DILL MD ? Copy to: ? Specimen/Source: ?Pap Test, Cervix/Endocervix, ThinPrep Imaging System ? with manual evaluation ? Last Menstrual Period: ? Years ? Other: ? HPVA - HPV testing requested [...] ? Jonelle Vera, CT(ASCP)(IAC) ? Report Date: ??06/18/2009 15:39 ? End of Report ? [facility] 06/08/2009 06/11/2009 us Fito Gomez MD PATHOLOGY ORDERABLES Final Resul t Performing Organization Address City/State/[place] Co de Phone Number [facility] [address] [place] [address] * MA MAMMO SCREENING DIGITAL (09/28/2007 9:04 EDT) Anatomical Region Laterality Modality Other 09/28/2007 9:04 EDT Narrative 12/31/2008 10:35 EDT routine Comparison is made to films from 08/07/2006 (bilateral) and films from 08/06/2005 (bilateral) and films from 08/05/2004 and films from 08/03/2003. Bilateral Breast Findings: (CAD used to interpret routine digital): There are scattered fibroglandular densities. No significant masses, calcifications or other abnormalities are seen. IMPRESSION: BILATERAL BREASTS - CATEGORY 1 Negative, no evidence of malignancy. Normal interval follow-up is recommended in 12 months. OVERALL ASSESSMENT - NEGATIVE END OF IMPRESSION The patient will be notified of her/his breast imaging results via a lay letter from Radiology. ??Radiology will contact the patient directly regarding any findings which require additional imaging (Category 0) at this time. Procedure Note Elen Tripathi MD - 12/31/2008 routine Comparison is made to films from 08/07/2006 (bilateral) and films from 08/06/2005 (bilateral) and films from 08/05/2004 and films from 08/03/2003. Bilateral Breast Findings: (CAD used to interpret routine digital): There are scattered fibroglandular densities. No significant masses, calcifications or other abnormalities are seen. IMPRESSION: BILATERAL BREASTS - CATEGORY 1 Negative, no evidence of malignancy. Normal interval follow-up is recommended in 12 months. OVERALL ASSESSMENT - NEGATIVE END OF IMPRESSION The patient will be notified of her/his breast imaging results via a lay letter from Radiology. Radiology will contact the patient directly regarding any findings which require additional imaging (Category 0) at this time. Fito Gomez MD IMG MAMMOGRAPHY ORDERABLES Final Result documented in this encounter Visit Diagnoses Not on filedocumented in this encounter
--- OUTSIDE RECORDS SUMMARY | 2024-08-24 22:20 | XMS_ITS | Encounter Summary ---
Author Organization [facility] Address [address] [place] [address] Care Team Providers Care Treatment Specialist Name Role Phone Esha Gomez MD Primary Care Provider Unavailabl e Encounter Details Date Type Department Care Team (Latest Contact Info) Description 10/22/2009 10:38 EDT - 10/22/2009 23:59 EDT Hospital Encounter [address] [address] Esha Gomez MD Discharge Disposition: Auto Discharge [...] on filedocumented in this encounter Care Teams Treatment Specialist Relationship Specialty Start Date End Date Esha Gomez MD PCP - General 06/15/09 04/05/14 documented as of this encounter
--- OUTSIDE RECORDS SUMMARY | 2024-08-24 22:20 | XMS_ITS | Encounter Summary ---
Author Organization [facility] Address [address] [place] [address] Care Team Providers Care Content Management Specialist Name Role Phone Unavailable Primary Care Provider Unavailabl e Encounter Details Date Type Department Care Team (Latest Contact Info) Description 07/29/2002 13:03 EST Hospital Encounter [facility] [place] [facility] [address] [place] [address] An Goodwin MD [facility] [address], [place] [address] Discharge Disposition: Auto Discharge Social History Tobacco [...] Diagnosis Comments MA MAMMOGRAPHIC SCREEN RALF Routine 07/29/2002 13:52 EST documented in this encounter Results * MA MAMMOGRAPHIC SCREEN RALF (07/29/2002 13:52 EST) Anatomical Region Laterality Modality Other 07/29/2002 13:5 2 EST Impressions 04/16/2009 3:31 EDT IMPRESSION: BILATERAL BREASTS - CATEGORY 1 Negative, no evidence of malignancy. Normal interval follow-up is recommended in 12 months. Because this patient either has a personal history or a family history of pre-menopausal breast cancer in a first degree relative, and, because the patient has dense breasts which can decrease the sensitivity of mammography and increase the risk of breast cancer, bilateral breast ultrasound, in addition to routine screening mammography, should be considered for future evaluation. OVERALL ASSESSMENT - NEGATIVE END OF IMPRESSION Narrative 04/16/2009 3:31 EDT ROUTINE ?? SISTER NOA RUFFIN AGE EARLY 40'S ?? [PCP EDEN DENG] Comparison is made to films from 02-07-1999. Bilateral Breast Findings (routine views projection): The breasts are heterogeneously dense. This may lower the sensitivity of mammography. No significant masses, calcifications or other abnormalities are seen. Procedure Note Anamaria Gamboa MD / Mateus Zamora MD - 04/16/2009 ROUTINE SISTER NOA CA AGE EARLY 40'S [PCP EDEN DENG] Comparison is made to films from 02-07-1999. Bilateral Breast Findings (routine views projection): The breasts are heterogeneously dense. This may lower the sensitivity of mammography. No significant masses, calcifications or other abnormalities are seen. IMPRESSION IMPRESSION: BILATERAL BREASTS - CATEGORY 1 Negative, no evidence of malignancy. Normal interval follow-up is recommended in 12 months. Because this patient either has a personal history or a family history of pre-menopausal breast cancer in a first degree relative, and, because the patient has dense breasts which can decrease the sensitivity of mammography and increase the risk of breast cancer, bilateral breast ultrasound, in addition to routine screening mammography, should be considered for future evaluation. OVERALL ASSESSMENT - NEGATIVE END OF IMPRESSION An Goodwin MD IM MAMMOGRAPHY ORDERABLES Janice lowe Result documented in this encounter Visit Diagnoses Not on filedocumented in this encounter
--- OUTSIDE RECORDS SUMMARY | 2024-08-24 22:20 | XMS_ITS | Encounter Summary ---
Author Organization [facility] Address [address] [place] [address] Care Team Providers Care Emergency Room Registered Nurse Name Role Phone Unavailable Primary Care Provider Unavailabl e Encounter Details Date Type Department Care Team (Latest Contact Info) Description 06/08/2009 13:46 EST - 06/08/2009 13:47 EST Hospital Encounter [facility] - Other [address] [place] [address] Esha Gomez MD Discharge Disposition: Home-Health Care Svc Social History Tobacco Use Types Packs/Day Years Used Date Smoking Tobacco: Never Assessed Comments Unknown Sex and Gender Information Value Date Recorded Sex Assigned at Not on file Legal Sex Female 17:51 EST Gender Identity Female 10/31/2021 15:24 EDT Sexual Orientation Not on file documented as of this encounter Discharge Disposition Disposition Code Departure Means Destination Home-Health Care Svc documented in this encounter Plan of Treatment Not on file documented as of this encounter Visit Diagnoses Not on filedocumented in this encounter
--- OUTSIDE RECORDS SUMMARY | 2024-08-24 22:20 | XMS_ITS | Encounter Summary ---
Author Organization [facility] Address [address] [place] [address] Care Team Providers Care Production Pattern Maker Name Role Phone Unavailable Primary Care Provider Unavailabl e Encounter Details Date Type Department Care Team (Late st Contact Info) Description 03/27/2003 9:55 EDT Hospital Encounter [facility] - Other [address] [place] [address] Esha Gomez MD Social History Tobacco Use [...]
--- OUTSIDE RECORDS SUMMARY | 2024-08-24 22:20 | XMS_ITS | Encounter Summary ---
Author Organization [facility] Address [address] [place] [address] Care Team Providers Care Review Trainer Name Role Phone Unavailable Primary Care Provider Unavailabl e Encounter Details Date Type Department Care Team (Latest Contact Info) Description 05/05/2001 13:06 EDT Hospital Encounter [facility] - Other [address] [place] [address] Esha Gomez MD Unknown, Provider, MD Discharge Disposition: Auto Discharge Social History [...]
--- OUTSIDE RECORDS SUMMARY | 2024-08-24 22:20 | XMS_ITS | Encounter Summary ---
Author Organization [facility] Address [address] [place] [address] Care Team Providers Care Sneller Hand Name Role Phone Fito Avina MD Primary Care Provider Unavailabl e Encounter Details Date Type Department Care Team (Late st Contact Info) Description 05/10/2001 Results Only [facility] - [facility] [address] [place] [address] Vincent Cash MD [address] [place] [address] Social History Tobacco Use Types [...] Date/Time Associated Diagnosis Comments SURGICAL PATHOLOGY Routine 05/10/2001 0:00 EDT documented in this encounter Results * SURGICAL PATHOLOGY (05/10/2001 0:00 EDT) Pathology Report: SURGICAL PATHOLOGY REPORT Reports generated via electronic interface contain original data; however they are lacking the format of the original report. Caution should be taken when reading/interpreti ng unformatted reports. Name: ? NARDA REDD ? Accession #: ? [id number] ? : ? 1940 (Age: 60) ??F ? Collect Date: ? 05/10/2001 ? Location: ? [facility] ? Receive Date: ? 05/10/2001 ? Provider: VINCENT CASH MD Copy to: FITO AVINA MD ? Final Pathologic Diagnosis: ? Colon, descending, biopsy: - Hyperplastic polyp. Document reviewed and electronically signed by: Jewels Duckworth MD Report ??Date: 05/12/2001 18:35 By the signature above, the attending physician certifies that he/she has personally conducted a gross and/or microscopic examination of the described specimens and rendered or confirmed the above diagnosis. Specimen(s) Received: ? Desc colon Clinical History: ? Polyp; diminutive polyp Gross Description: ? Received in Hollande' s fixative labelled Rene and polyp descending colon are two polypoid soft tissue fragments that measure 0.1 x 0.1 x 0.1 cm and 0.3 x 0.3 x 0.2 cm. ??The specimen is submitted entirely in one cassette. (Tess Ramos)/radha End of Report [facility] 05/10/2001 05/10/2001 16: 08 EDT us Vincent Cash MD PATHOLOGY ORDERABLES Final Resul t [facility] [address] [place] [address] documented in this encounter Visit Diagnoses Not on filedocumented in this encounter Care Teams Sneller Hand Relationship Specialty Start Date End Date Fito Avina MD PCP - General 06/15/09 04/05/14 documented as of this encounter
--- OUTSIDE RECORDS SUMMARY | 2024-08-24 22:20 | XMS_ITS | Encounter Summary ---
Author Organization [facility] Address [address] [place] [address] Care Team Providers Care Floor Sander Name Role Phone Unavailable Primary Care Provider Unavailabl e Encounter Details Date Type Department Care Team (Latest Contact Info) Description 09/04/2006 10:27 EST - 09/04/2006 11:59 EST Hospital Encounter [facility] [address] [place] [address] Esha Gomez MD Discharge Disposition: Auto Discharge [...]
--- OUTSIDE RECORDS SUMMARY | 2024-08-24 22:20 | XMS_ITS | Encounter Summary ---
Author Organization [facility] Address [address] [place] [address] Care Team Providers Care Medical Policy Specialist Name Role Phone Esha Gomez MD Primary Care Provider Unavailabl e Encounter Details Date Type Department Care Team (Late st Contact Info) Description 10/22/2009 Results Only [facility] [phone] Esha Gomez MD Social History Tobacco Use [...] Associated Diagnosis Comments MA MAMMO SCREENING DIGITAL 10/22/2009 10:58 EDT documented in this encounter Results * MA MAMMO SCREENING DIGITAL (10/22/2009 10:58 EDT) Anatomical Region Laterality Modality Other 10/22/2009 10:5 8 EDT 10/22/2009 19:02 EDT Narrative 10/22/2009 19:02 EDT Comparison is made to films from 10/05/2008 (bilateral) and films from 09/28/2007 (bilateral) and films from [...] and agree with the findings. Procedure Note Gregorio Yates MD / Gregorio Yates MD / Gregorio Yates MD - 10/22/2009 Comparison is made to films from 10/05/2008 (bilateral) and films from 09/28/2007 (bilateral) and films from [...] filedocumented in this encounter Care Teams Medical Policy Specialist Relationship Specialty Start Date End Date Esha Gomez MD PCP - General 06/15/09 04/05/14 documented as of this encounter
--- OUTSIDE RECORDS SUMMARY | 2024-08-24 22:20 | XMS_ITS | Encounter Summary ---
Author Organization [facility] Address [address] [place] [address] Care Team Providers Care Supervisor Feed Mill Name Role Phone Unavailable Primary Care Provider Unavailabl e Encounter Details Date Type Department Care Team (Latest Contact Info) Description 08/06/2005 13:43 EST Hospital Encounter [facility] [id number] [place] [address] Esha Gomez MD Discharge Disposition: Auto Discharge [...] Associated Diagnosis Comments MA MAMMO SCREENING DIGITAL 08/06/2005 14:09 EST documented in this encounter Results * MA MAMMO SCREENING DIGITAL (08/06/2005 14:09 EST) Anatomical Region Laterality Modality Other 08/06/2005 14:0 9 EST Narrative 02/16/2009 4:16 EDT ROUTINE Comparison is made to films from 08/05/2004 and films from 08/03/2003. Bilateral Breast Findings: (cad used to interpret routine digital): There are scattered fibroglandular densities. ??No significant masses, calcifications or other abnormalities are seen. IMPRESSION: BILATERAL BREAST - CATEGORY 1 Negative, no evidence of malignancy. Normal interval follow-up is recommended in 12 months. OVERALL ASSESSMENT - NEGATIVE END OF IMPRESSION Procedure Note Jayne Logan MD - 02/16/2009 ROUTINE Comparison is made to films from 08/05/2004 and films from 08/03/2003. Bilateral Breast Findings: (cad used to interpret routine digital): There are scattered fibroglandular densities. No significant masses, calcifications or other abnormalities are seen. IMPRESSION: BILATERAL BREAST - CATEGORY 1 Negative, no evidence of malignancy. Normal interval follow-up is recommended in 12 months. OVERALL ASSESSMENT - NEGATIVE END OF IMPRESSION Esha Gomez MD IMG MAMMOGRAPHY ORDERABLES Final Result documented in this encounter Visit Diagnoses Not on filedocumented in this encounter
--- OUTSIDE RECORDS SUMMARY | 2024-08-24 22:20 | XMS_ITS | Encounter Summary ---
Author Organization [facility] Address [address] [place] [address] Care Team Providers Care Police Sergeant Precinct Name Role Phone Unavailable Primary Care Provider Unavailabl e Encounter Details Date Type Department Care Team (Latest Contact Info) Description 08/07/2006 9:52 EST - 08/07/2006 11:59 EST Hospital Encounter [address] [address] Esha Gomez MD Discharge Disposition: Auto Discharge [...] Associated Diagnosis Comments MA MAMMO SCREENING DIGITAL 08/07/2006 10:09 EST documented in this encounter Results * MA MAMMO SCREENING DIGITAL (08/07/2006 10:09 EST) Anatomical Region Laterality Modality Other 08/07/2006 10:0 9 EST Narrative 01/27/2009 5:26 EDT ROUTINE Comparison is made to films from 08/06/2005 (bilateral) and films from 08/05/2004 and films from 08/03/2003. Left Breast Findings: (CAD used to interpret routine digital): The breast is heterogeneously dense. This may lower the sensitivity of mammography. A lobular mass with partially circumscribed, obscured margin is present measuring 7 mm in the lower outer quadrant. This is a new finding. Right Breast Findings: (CAD used to interpret routine digital): The breast is heterogeneously dense. This may lower the sensitivity of mammography. A focal asymmetric density is present measuring 8 mm at 3 o'clock. IMPRESSION: LEFT BREAST - CATEGORY 0 New lobular mass measuring 7 mm in the lower outer quadrant. Ultrasound and spot magnification view(s) are recommended at this time in the 5 degree CC and ML view. RIGHT BREAST - CATEGORY 0 Focal asymmetric density measuring 8 mm at 3 o'clock. Spot magnification view(s) are recommended at this time in the 5 degree CC and ML view. OVERALL ASSESSMENT - INCOMPLETE: NEED ADDITIONAL IMAGING EVALUATION END OF IMPRESSION Procedure Note Anamaria Gamboa MD - 01/27/2009 ROUTINE Comparison is made to films from 08/06/2005 (bilateral) and films from 08/05/2004 and films from 08/03/2003. Left Breast Findings: (CAD used to interpret routine digital): The breast is heterogeneously dense. This may lower the sensitivity of mammography. A lobular mass with partially circumscribed, obscured margin is present measuring 7 mm in the lower outer quadrant. This is a new finding. Right Breast Findings: (CAD used to interpret routine digital): The breast is heterogeneously dense. This may lower the sensitivity of mammography. A focal asymmetric density is present measuring 8 mm at 3 o'clock. IMPRESSION: LEFT BREAST - CATEGORY 0 New lobular mass measuring 7 mm in the lower outer quadrant. Ultrasound and spot magnification view(s) are recommended at this time in the 5 degree CC and ML view. RIGHT BREAST - CATEGORY 0 Focal asymmetric density measuring 8 mm at 3 o'clock. Spot magnification view(s) are recommended at this time in the 5 degree CC and ML view. OVERALL ASSESSMENT - INCOMPLETE: NEED ADDITIONAL IMAGING EVALUATION END OF IMPRESSION Esha Gomez MD IMG MAMMOGRAPHY ORDERABLES Final Result documented in this encounter Visit Diagnoses Not on filedocumented in this encounter
--- OUTSIDE RECORDS SUMMARY | 2024-08-24 22:20 | XMS_ITS | Encounter Summary ---
Author Organization [facility] Address [address] [place] [address] Care Team Providers Care Associate Professor Of Theology Name Role Phone Unavailable Primary Care Provider Unavailabl e Encounter Details Date Type Department Care Team (Latest Contact Info) Description 08/05/2004 9:47 EST - 08/05/2004 11:59 EST Hospital Encounter [address] [address] Fito Avina MD Discharge Disposition: Auto Discharge Social History [...] Diagnosis Comments MA MAMMO SCREENING DIGITAL Routine 08/05/2004 10:00 EST documented in this encounter Results * MA MAMMO SCREENING DIGITAL (08/05/2004 10:00 EST) Anatomical Region Laterality Modality Other 08/05/2004 10:0 0 EST Impressions 03/21/2009 11:24 EDT IMPRESSION: BILATERAL BREASTS - CATEGORY 1 Negative, no evidence of malignancy. Normal interval follow-up is recommended in 12 months. OVERALL ASSESSMENT - NEGATIVE END OF IMPRESSION Narrative 03/21/2009 11:24 EDT ROUTINE ?? FAM HX BR CA SISTER AGE 40'S ?? [PCP FITO AVINA] Comparison is made to films from 08-03-2003, 07-29-2002, and 06-04-2001. Bilateral Breast Findings (CAD used to interpret routine digital projection): There are scattered fibroglandular densities. No significant masses, calcifications or other abnormalities are seen. Procedure Note Jayne Logan MD - 03/21/2009 ROUTINE FAM HX BR CA SISTER AGE 40'S [PCP FITO AVINA] Comparison is made to films from 08-03-2003, 07-29-2002, and 06-04-2001. Bilateral Breast Findings (CAD used to interpret routine digital projection): There are scattered fibroglandular densities. No significant masses, calcifications or other abnormalities are seen. IMPRESSION IMPRESSION: BILATERAL BREASTS - CATEGORY 1 Negative, no evidence of malignancy. Normal interval follow-up is recommended in 12 months. OVERALL ASSESSMENT - NEGATIVE END OF IMPRESSION Ftio Avina MD IMG MAMMOGRAPHY ORDERABLES Final Result documented in this encounter Visit Diagnoses Not on filedocumented in this encounter
[2024-08-24 22:31] LABS: ALT 17 U/L (14-59); AST 22 U/L (15-37); Albumin 3.3 g/dL (3.4-5.0); Alkaline Phosphatase 65 U/L (46-116); Anion Gap 6.8 mmol/L (3-11); BUN 21 mg/dL (7-18); Bilirubin, Total 0.52 mg/dL (0.2-1.0); CO2 30.2 mmol/L (21.0-32.0); CREATININE 1.3 mg/dL (0.55-1.02); Calcium 9.6 mg/dL (8.5-10.1); Chloride 97 mmol/L (98-107); Estimated GFR 40.55 (mL/min/1.73m2); Glucose 131 mg/dL (74-106); Sodium 134 mmol/L (136-145); Total Protein 11.7 g/dL (6.4-8.2)
[2024-08-24 22:46] VITALS: BP 144/63; PULSE 65; RESP 20; TEMP 36.5; O2SAT 100
[2024-08-24 23:32] LABS: Abs Immature Grans 0.05 10^3/uL (0.0-0.06); Absolute Basophil Count 0.01 10^3/uL (0.0-0.2); Absolute Eosinophil Count 0.04 10^3/uL (0.0-0.7); Absolute Monocyte Count 0.34 10^3/uL (0.1-0.8); Absolute Neutrophil Count 1.57 10^3/uL (1.2-6.7); Basophils % 0.3 %; Eosinophils % 1.2 %; Immature Grans % 1.6 %; Lymphocytes % 37.4 %; MCHC 32.3 % (32.0-36.0); MPV 9.5 fL (8.0-11.0); Monocytes % 10.6 %; Neutrophils % 48.9 %; Nucleated RBC 0.6 % (0.0-0.3); Platelet Count 101 10^3/uL (130-400); RBC 1.93 10^6/uL (3.93-5.22); RDW 21.5 % (11.7-14.6); RDW-SD 78.3 fL; WBC 3.21 10^3/uL (4.4-10.8)
[2024-08-24 23:42] LABS: HCT 19.8 % (36.0-46.0); HGB 6.4 g/dL (11.2-15.7); MCH 33.2 pg (27.0-33.0); MCV 103 fL (80-95)
[2024-08-25 00:10] LABS: Anisocytosis 1+; Diff Comment RBC Morph Reviewed; Hypochromasia 2+; Macrocytosis 1+; Polychromasia Present
[2024-08-25 00:12] LABS: Poikilocytes 2+
== END 2024-08-24 22:53 | disposition short-term general hospital (02) ==
PROVIDERS: Emergency Provider Physician Assistant; PCP Family Medicine
DX: C88.00 Waldenstrom macroglobulinemia not having achieved remission (principal); D63.8 Anemia in other chronic diseases classified elsewhere; R42 Dizziness and giddiness
CPT/HCPCS: 36415; 80053; 86850; 86900; 86901; 99285; 85025